=== PATIENT | female | born 1960 | race Caucasian/White ===

== ENCOUNTER 2016-09-29 09:33 | Outpatient (RCR) | payer OTHER, MEDICAID | END 2016-09-30 | LOC: M PT 09:33 | PROVIDERS: ATTEND Family Medicine | DX: Z51.89 Encounter for other specified aftercare (principal) ==

== ENCOUNTER → 2016-10-06 | Outpatient (CLI) | payer OTHER, MEDICAID ==
--- NOTE | 2016-10-07 03:07 | REP ---
Clinical: Psoriasis/stelara drug monitoring . Comparison: 12/08/2014 . Technique: PA and lateral. Findings: The mediastinum and cardiac silhouette are normal. The lung rios are clear and without acute consolidation, effusion, or pneumothorax. The skeletal structures are intact and normal. Impression: 1. No acute cardiopulmonary process. Signed by Jeffrey Burgess MD 10/07/2016 02:58 A
[2016-10-07 11:29] LABS: ALBUMIN 4.2 GM/DL (3.2-5.2); ALBUMIN/GLOBULIN RATIO 1.35 (1.00-1.93); ALKALINE PHOSPHATASE 99 U/L (45-117); ALT/SGPT 29 U/L (12-78); ANION GAP 8 MEQ/L (8-16); AST/SGOT 16 U/L (15-37); BILIRUBIN,DIRECT 0.1 MG/DL (0.0-0.2); BILIRUBIN,TOTAL 0.4 MG/DL (0.2-1.0); BLOOD UREA NITROGEN 11 MG/DL (7-18); CALCIUM LEVEL 9.1 MG/DL (8.5-10.1); CARBON DIOXIDE LEVEL 33 MEQ/L (21-32); CHLORIDE LEVEL 103 MEQ/L (98-107); CREATININE FOR GFR 0.76 MG/DL (0.55-1.02); GLOMERULAR FILTRATION RATE > 60.0 (>51); GLUCOSE, FASTING 131 MG/DL (70-105); PHOSPHORUS LEVEL 3.6 MG/DL (2.5-4.9); POTASSIUM SERUM 3.6 MEQ/L (3.5-5.1); SODIUM LEVEL 144 MEQ/L (136-145); TOTAL PROTEIN 7.3 GM/DL (6.4-8.2)
[2016-10-07 11:34] LABS: BASO % 0.6 % (0.0-1.0); EOS # 0.1 K/mm3 (0.0-0.50); EOS % 2.5 % (0.0-3.0); LARGE UNSTAINED CELL # 0.1 K/mm3 (0.0-0.4); LARGE UNSTAINED CELL % 1.7 % (0.0-4.0); LYMPH # 1.2 K/mm3 (1.5-4.5); LYMPH % 27.3 % (24.0-44.0); MEAN CORPUSCULAR HEMOGLOBIN 28.5 pg (27.0-33.0); MEAN CORPUSCULAR HGB CONC 33.8 g/dl (32.0-36.5); MEAN CORPUSCULAR VOLUME 84.3 fl (80.0-96.0); MONO # 0.3 K/mm3 (0.0-0.8); MONO % 7.2 % (0.0-5.0); NEUTROPHILS # 2.6 K/mm3 (1.8-7.7); NEUTROPHILS % 60.8 % (36.0-66.0); PLATELET COUNT, AUTOMATED 250 k/mm3 (150-450); RED CELL DISTRIBUTION WIDTH 12.5 % (11.5-14.5); WHITE BLOOD COUNT 4.3 K/mm3 (4.0-10.0)
== END ==
LOC: M LRY 16:43
PROVIDERS: ATTEND Nurse Practitioner Family
DX: L40.9 Psoriasis, unspecified (principal)

== ENCOUNTER 2016-10-22 15:03 | Outpatient (RCR) | payer OTHER, MEDICAID | END 2016-10-28 | LOC: M PT 15:03 | PROVIDERS: ATTEND Family Medicine | DX: Z51.89 Encounter for other specified aftercare (principal) ==

== ENCOUNTER 2016-11-25 08:59 | Outpatient (RCR) | payer OTHER, MEDICAID | END 2016-11-28 | LOC: M PT 08:59 | PROVIDERS: ATTEND Orthopaedic Surgery | DX: Z51.89 Encounter for other specified aftercare (principal); M54.2 Cervicalgia; M75.02 Adhesive capsulitis of left shoulder ==

== ENCOUNTER → 2016-12-03 | Outpatient (REF) | payer OTHER, MEDICAID ==
[2016-12-04 11:46] LABS: MEAN CORPUSCULAR HEMOGLOBIN 28.3 pg (27.0-33.0); MEAN CORPUSCULAR HGB CONC 33.5 g/dl (32.0-36.5); MEAN CORPUSCULAR VOLUME 84.5 fl (80.0-96.0); RED CELL DISTRIBUTION WIDTH 12.6 % (11.5-14.5); WHITE BLOOD COUNT 4.6 K/mm3 (4.0-10.0)
[2016-12-04 12:21] LABS: ALBUMIN/GLOBULIN RATIO 1.21 (1.00-1.93); ALKALINE PHOSPHATASE 95 U/L (45-117); ALT/SGPT 23 U/L (12-78); ANION GAP 8 MEQ/L (8-16); AST/SGOT 12 U/L (15-37); BILIRUBIN,TOTAL 0.5 MG/DL (0.2-1.0); BLOOD UREA NITROGEN 19 MG/DL (7-18); CALCIUM LEVEL 9.2 MG/DL (8.5-10.1); CARBON DIOXIDE LEVEL 31 MEQ/L (21-32); CHLORIDE LEVEL 102 MEQ/L (98-107); CREATININE FOR GFR 0.74 MG/DL (0.55-1.02); GLOMERULAR FILTRATION RATE > 60.0 (>51); GLUCOSE, FASTING 129 MG/DL (70-105); POTASSIUM SERUM 4.1 MEQ/L (3.5-5.1); SODIUM LEVEL 141 MEQ/L (136-145); TOTAL PROTEIN 7.3 GM/DL (6.4-8.2)
== END ==
LOC: M SFHCLERA 16:19
PROVIDERS: ATTEND Family Medicine
DX: E13.9 Other specified diabetes mellitus without complications (principal)

== ENCOUNTER → 2017-01-13 | Outpatient (CLI) | payer OTHER, MEDICAID ==
--- NOTE | 2017-01-28 00:40 | ECWPNPC ---
PATIENT NAME: BROOKS GUPTA : 1960 GENDER: FEMALE VISIT DATE: 01/13/2017 DISCHARGE DATE: 01/13/17 1515 VISIT LOCKED DATE TIME: PHYSICIAN: ANA JUNG RESOURCE: ANA JUNG REASON FOR APPOINTMENT 1. NECK AND LEFT SHOULDER HISTORY OF PRESENT ILLNESS NEW PATIENT CONSULT: WHEN DID YOUR PAIN FIRST START? . BRIEFLY DESCRIBE HOW YOUR PAIN STARTED? . HOW DOES YOUR PAIN CHANGE WITH TIME? . DOES YOUR PAIN AWAKEN YOU FROM SLEEP? . HOW MANY HOURS OF SLEEP DO YOU NORMALLY GET? . ANY DIAGNOSTIC TESTING? . FACILITY WHERE TESTS WERE DONE? ____. PAIN TREATMENT TREATMENT YES CANCER HAVE YOU EVER HAD ANY TYPE OF CANCER?NO NO. PAIN SCREENING: PATIENT HAS A COMPLAINT OF ACUTE OR CHRONIC PAIN :YES FALL RISK SCREENING: SCREENING :NO FALLS IN THE PAST YEAR LINDSEY INVENTORY: QUESTIONNAIRE ASSESSEDYES SCORE VALUE CALCULATED YES SCORE: DENIES SUICIDAL OR HOMICIDAL IDEATION TODAY'S VISIT: NOTES: PT REFERRED BY DR CANDIDA HSU AT [facility] FOR NECK, LEFT SHOULDER AND ARM PAIN. INJURY OCCURRED WITH AN INJERY TO LEFT ROTATOR CUFF AND MUSCLE PULL FROM HER DOG. INJURY OCCURED 06/15. WAS IN PT UNTIL RAN OUT OF VISITS AND IS NOT ABLE TO DO ALL EXERCISES AND SHOULDER IS NOW FROZEN. IS HAVING SPASMS IN LEFT ARM, AND IS HAVING CIRCULATION PROBLEMS IN LEFT HAND X [address] HSU DID 2 INJECTIONS TO L SHOULDER IN LAST 2 MONTHS. CAN NOT SLEEP ON LEFT SHOULDER DUE TO PAIN. SLEEP IS DISRUPTED. BOTH ARMS AREWEAK L>R. STATES EMG SHOWED CARPAL TUNNEL. . CURRENT MEDICATIONS TAKING PATADAY 0.2 % SOLUTION 1 DROP INTO AFFECTED EYE OPHTHALMIC ONCE A DAY NEEDED TAKING RESTASIS 0.05 % EMULSION 1 INTO AFFECTED EYE OPHTHALMIC DAILY NEEDED TAKING STELARA 45 MG/0.5ML SOLUTION DIRECTED SUBCUTANEOUS EVERY THREE MONTHS, NOTES: RHEUMATOLOGY TAKING CLONAZEPAM 0.5 MG TABLET 1 TABLET ORALLY DAILY TAKING Table8 KIT GLUCOMETER METER 1 METER DIRECTED TO CHECK BLOOD SUGAR (ICD9 250.00) TAKING MAY USE FETZIMA ER 80 MG CAPSULE 1 CAPSULE ORALLY ONCE DAILY (PSYCH), NOTES: PSYCHIATRY TAKING AMBIEN 10 MG TABLET 1 TABLET AT BEDTIME NEEDED ORALLY ONCE A DAY, NOTES: PSYCHIATRY TAKING EPIPEN 0.3 MG/0.3ML DEVICE INJECT INTRAMUSCULARLY IF HAVING ANAPHYLATIC SYMPTOMS AND GO TO ED. TAKING ONE TOUCH ULTRA TEST STRIPS TEST STRIP STRIPS 1 STRIP TO USE W/ GLUCOMETER TO CHECK SUGAR ONCE DAILY (ICD9 250.00) TAKING PREMARIN 0.625 MG TABLET 1 TAB ORALLY DAILY TAKING VITAMIN D 2000 UNIT TABLET 1 CAPSULE ORALLY ONCE A DAY TAKING SPIRIVA HANDIHALER 18 MCG CAPSULE 1 CAPSULE INHALATION ONCE A DAY TAKING ONE TOUCH DELICA 33 GAUGE LANCETS 1 LANCET SUBCUTANEOUSLY TO CHECK SUGAR ONCE DAILY (ICD9 250.00) TAKING VENTOLIN HFA 108 (90 BASE) MCG/ACT AEROSOL SOLUTION 2 PUFFS INHALATION EVERY 4-6 HOURS PRN WHEEZING/COUGH TAKING ADVAIR DISKUS 250-50 MCG/DOSE MISCELLANEOUS 1 PUFF INHALATION EVERY 12 HRS TAKING LYRICA 100 MG CAPSULE 1 TAB ORALLY THREE DAILY, NOTES: RHEUMATOLOGY TAKING METFORMIN HCL 500 MG TABLET 2 TABLETS IN THE AM ORALLY AND 2 TABS IN THE EVENING WITH MEALS TAKING ATORVASTATIN CALCIUM 80 MG TABLET 1 TABLET ORALLY ONCE A DAY FOR HIGH CHOLESTEROL TAKING METFORMIN HCL 1000 MG TABLET 1 TABLET WITH MEALS ORALLY TWICE A DAY TAKING NAPROXEN 500 MG TABLET 1 TABLET NEEDED ORALLY EVERY 12 HRS TAKING LEVOTHYROXINE SODIUM 88 MCG TABLET 1 TABLET EVERY MORNING ON AN EMPTY STOMACH ORALLY ONCE A DAY FOR LOW THYROID TAKING FLONASE 50 MCG/DOSE INHALER 1 SPRAY IN EACH NOSTRIL NASALLY BID TAKING PANTOPRAZOLE SODIUM 40 MG TABLET DELAYED RELEASE 1 TAB ORALLY DAILY TAKING PROPRANOLOL HCL 120 MG CAPSULE EXTENDED RELEASE 24 HOUR 1 CAPSULE ORALLY ONCE A DAY FOR BLOOD PRESSURE TAKING JANUVIA 100 MG TABLET 1 TABLET ORALLY ONCE A DAY TAKING GABAPENTIN 300 MG CAPSULE 1 CAPSULE ORALLY TWICE A DAY NOT-TAKING GLUCOPHAGE 1000 MG TABLET 1 TABLET WITH MEALS ORALLY TWICE A DAY WITH FOOD NOT-TAKING NAPROXEN 500 MG TABLET 1 TABLET NEEDED ORALLY EVERY 12 HRS NOT-TAKING CYCLOBENZAPRINE HCL 5 MG TABLET 1 TABLET ORALLY QHS NOT-TAKING FARXIGA 5 MG TABLET 1 TABLET ORALLY ONCE A DAY NOT-TAKING VITAMIN D 2000U 2000U TAKE ONE TABLET BY MOUTH EVERY DAY NOT-TAKING NAPROXEN 500 MG TABLET 1 TABLET NEEDED ORALLY EVERY 12 HRS NOT-TAKING CYCLOBENZAPRINE HCL 5 MG TABLET 1 TABLET ORALLY QHS PRN NOT-TAKING CARPAL TUNNEL WRIST STABILIZER BRACE MISCELLANEOUS 1 BRACE ON EACH WRIST TOPICALLY DAILY PRN WRIST PAIN (ICD9 354.0) MEDICATION LIST REVIEWED AND RECONCILED WITH THE PATIENT PAST MEDICAL HISTORY FIBROMYALGIA RHEUMATOID ARTHRITIS ASTHMA DIVERTICULOSIS CARPAL TUNNEL PANIC ATTACKS/ANXIETY/DEPRESSION HYPERTENSION COPD NIDDM PSORIASIS HIGH CHOLESTEROL HYPOTHYROIDISM GERD H/O RAPID, IRREGULAR HEARTBEAT (ANXIETY) BURSITIS LEFT HIP RHEUMATIC FEVER A CHILD TENDONITIS LEFT SHOULDER IBS DIVERTICULOSIS CONCUSSION AGE 6 OR 7 ENDOMETRIOSIS ADD ALLERGIES LATEX (FOR ALLERGY USE ONLY): HIVES: ALLERGY BANANA CONCENTRATE: HIVES: ALLERGY ORANGE CONCENTRATE: HIVES: ALLERGY MOLD: HIVES: ALLERGY DUST: DYSPNEA: ALLERGY BEE POLLEN: ANAPHYLAXIS: ALLERGY SPIDERS: EDEMA, HIVES, ANAPHYLAXIS: ALLERGY FRAGRANCES: SOB, RASH: ALLERGY SURGICAL HISTORY MULTIPLE PATIENT CARE ASSISTANT SURGERIES ([facility], AMBULATORY) HYSTERECTOMY AND BILATERAL SALPINGO-OOPHORECTOMY 2002 COLONOSCOPY 07/14/2012 FAMILY HISTORY FATHER: 34 YRS, [place] MOTHER: ALIVE 82 YRS, HEART DISEASE, [place], HTN, DM, HYPOTHRYOIDISM SIBLINGS: ALIVE, BROTHERS ([place], DM, KIDNEY DISEASE, HEMOPHILIA; COLO-RECTAL CANCER, BI-POLAR); SISTER (EMPHYSEMA) MATERNAL GRAND MOTHER: STOMACH CANCER; HTN; DM PATERNAL UNCLE: STROKE PATERNAL AUNT: STROKE 4 BROTHER(S) , 1 SISTER(S) . 1 SON(S) . SON: HTN; HIRSHPRUNG'S DISEASE. SOCIAL HISTORY GENERAL: TOBACCO USE ARE YOU A:NONSMOKER ALCOHOL SCREENING POINTS0 INTERPRETATIONNEGATIVE RECREATIONAL DRUG USE DRUG USE?NO CAFFEINE CAFFEINE USE?YES HOW OFTEN AND HOW MUCH? 2 LITER DIET PEPSI PER DAY BUDDHISM [id number] BAHAI LEARNING BARRIERS / SPECIAL NEEDS CHANGE FROM LAST VISIT?NO BARRIERS TO LEARNING?YES STATES HAS ADD HEARING IMPAIRED?NO VISION IMPAIRED?YES :CORRECTIVE LENSES COGNITIVELY IMPAIRED?NO READINESS TO LEARN?NO LEARNING PREFERENCES?NO LEARNING CAPABILITIES PRESENT?YES EMOTIONAL BARRIERS?NO SPECIAL DEVICES?NO FINISH ROLLS OPERATOR NEEDED?NO PAIN CLINIC PFS, CLERGY, PUBLIC HEALTH REFERRALS CLERGY REFERRAL NEEDED?NO WAS THE PROVIDER NOTIFIED OF ANY PERTINENT INFO?NO PFS REFERRAL NEEDED?NO PUBLIC HEALTH REFERRAL NEEDED?NO PATIENT: ____. ADVANCED DIRECTIVES HEALTH CARE PROXY?NO WOULD YOU LIKE MORE INFORMATION?YES INFORMATION GIVEN 01/13/17 DO YOU HAVE A DNR?NO WOULD YOU LIKE MORE INFORMATION?NO LIVING WILL?NO WOULD YOU LIKE MORE INFORMATION?NO POWER OF COURT REPORTER?NO WOULD YOU LIKE MORE INFORMATION?NO HOSPITALIZATION/MAJOR DIAGNOSTIC PROCEDURE CHILDBIRTH (HAD BLOOD TRASFUSION) 1982 HYSTERECTOMY AND BILATERAL SALPINGO-OOPHORECTOMY 2002 REVIEW OF SYSTEMS CONSTITUTIONAL: ANY CHANGE IN YOUR MEDICAL CONDITION? NO . CHILLS NO . FEVER NO . INFECTION: DO YOU HAVE NEW INFECTIONS? NO . DO YOU HAVE HISTORY OF MRSA? NO . MUSCULOSKELETAL: ANY NEW PATTERNS OF PAIN OR NUMBNESS? NO . SYTEMIC LUPUS NO . GASTROENTEROLOGY: ANY NEW CHANGE IN BOWEL CONTROL? NO . BARRETTS ESOPHAGUS NO . CIRRHOSIS NO . HEPATITIS NO . LIVER FAILURE NO . ACID REFLUX YES . UNEXPLAINED WEIGHT LOSS NO . GENITOURINARY: ANY NEW CHANGE IN BLADDER CONTROL? NO . IS THERE A CHANCE YOU COULD BE ? NO . HEMATOLOGY/LYMPH: DO YOU TAKE ANY BLOOD THINNERS? (FOR EXAMPLE- COUMADIN, PLAVIX, AGGRENOX, PLATEL, PRADAXA, OR XARELTO) NO . WHEN WAS YOUR LAST DOSE? DATE: TIME: . LOW PLATELET COUNT NO . SICKLE CELL DISEASE NO . VON WILLIEBRANDS NO . FACTOR V LEIDEN NO . THALLASEMIA NO . ANEMIA YES, IN PAST BUT NOT NOW . EASY BRUISING NEW ONSET, STARTED ABOUT 1 MONTH AGO, ARMS AND LEGS, BACK, NOT ON ANTICOAGULANTS, SPONTANEOUS, YES . NEUROLOGY: HAVE YOU FALLEN IN THE PAST 6 MONTHS? YES . ANY NEW EXTREMITY NUMBNESS OR WEAKNESS? NO . HEAD INJURY NO . DEMENTIA NO . CEREBRAL PALSY NO . MULTIPLE SCLEROSIS NO . DIZZINESS INTERMITTENT, LASTING FEW SECONDS, LIGHTHEADED SENSATION, WITH MOVEMENT OF HEAD, WHILE GETTING UP FROM SITTING POSITION, SENSATION OF IMBALANCE . HEADACHE ASSOCIATED WITH NAUSEA, ASSOCIATED WITH PHOTOPHOBIA, BILATERAL, BITEMPORAL , FRONTAL, INTERMITTENT, MILD, OCCIPITAL, TEMPORAL, THROBBING, ADMITS . STROKES NO . VERTIGO YES. A LONG TIME AGO, SENSATION OF IMBALANCE, WHILE GETTING UP FROM A SITTING POSITION . CARDIOLOGY: DO YOU HAVE A PACEMAKER OR DEFIBRILLATOR? NO . ANGINA NO . HEART ATTACK NO . HEART SURGERY NO . CONGESTIVE HEART FAILURE/FLUID OVERLOAD NO . CHEST PAIN NO . HIGH BLOOD PRESSURE ON MEDICATION(S) . IRREGULAR HEART BEAT AT REST, FEELS HEART RACING, OCCASIONALLY, POUNDING IN CHEST, SKIPPED HEART BEAT, WITH EXERTION . RESPIRATORY: HAVE YOU BEEN SICK IN THE PAST WEEK? NO . FEVER NO . FLU LIKE SYMPTOMS? NO . CPAP NO . BYPAP NO . ASTHMA YES . EMPHYSEMA YES . CHRONIC LUNG DISEASES YES . SHORTNESS OF BREATH ON EXERTION YES . DO YOU USE ANY TYPE OF TOBACCO (SMOKE, SMOKELESS, CHEW)? NO . COUGH NO . SNORING NO . INTEGUMENTARY: DO YOU HAVE ANY RASHES OR OPEN SORES? YES, PSORIASIS . ALLERGIC/IMMUNO: ARE YOU ALLERGIC TO SHELLFISH OR IV DYE? NO . ANY NEW ALLERGIES? NO . PSYCHIATRIC: DO YOU HAVE THOUGHTS OF HURTING YOURSELF OR SOMEONE ELSE? NO . ARE YOU ABUSED, NEGLECTED, OR IN AN UNSAFE ENVIRONMENT? NO . ENDOCRINOLOGY: ARE YOU DIABETIC? YES . THYROID DISORDER HYPOTHYROID ON REPLACEMENT . OTHER: DO YOU NEED ANY PRESCRIPTIONS? NO . IF YES, PLEASE LIST: ____ . ANY NEW PROBLEMS WITH YOUR MEDICATIONS? NO . WHEN DID YOU LAST EAT? ____ . WHEN DID YOU LAST DRINK? ____ . WHAT DID YOU LAST DRINK? ____ . NAME OF PERSON DRIVING YOU HOME? ____ . DO YOU HAVE ANY OTHER QUESTIONS OR CONCERNS NO . PSYCHOLOGY: ARE YOU RECEIVING COUNSELING? COMMUNITY CLINIC - TREATED FOR PANIC ATTACK AND ANXIETY AND DEPRESION . REVIEWED BY: PROVIDER: ANA AMAYA . VITAL SIGNS WT 169.6 LBS, HT 66 IN, BMI 27.37 INDEX, BP 120/83 MM HG, HR 91 /MIN, RR 16 /MIN, TEMP 96.0 F, OXYGEN SAT % 100%, NA INITIALS SC 13:26, REVIEWED BY: MARIO. EXAMINATION GENERAL EXAMINATION: PSYCHALERT , ORIENTED X 3 , APPROPRIATE MOOD AND AFFECT . HEENT:NORMOCEPHALIC, NO LYMPHADENOPATHY, NO THYROMEGLY. LUNGS:CLEAR TO AUSCULTATION BILATERALLY, NO WHEEZES, RALES OR RHONCHI. HEART:NORMAL S1S2, NO MURMURS, CLICK OR RUBS, HEART RATE REGULAR. MUSCULOSKELETAL:MUSCLE STRENGTH TESTING 5/5 BILATERAL UPPER EXTREMITES. INCREASED MUSCLE TONE IN UPPER AND LOWER EXTREMITIES. . GOOD SHOULDER SHRUG. POINT TENDERNESS OVER CERVICAL SPINOUS PROCESSES. TRIGGER POINTS AND TIGHT FIBROUS BANDS IDENTIFIED OVER LEFT SCAPULA AND SUPRASPINATUS MUSCLE. NEUROLOGIC EXAM:CN'S II-XII GROSSLY INTACT. DTR'S 2+LUE, 1+ RUE. DECREASED SENSATION DISTALLY AND PROXIMALLY OVER LEFT UPPER EXTREMITY. . DIAGNOSTIC TESTS REVIEWEDMRI CERVICAL SPINE DATED 10/21/16 REVIEWED. MOTION ARTIFACT. NO DEFINITE DISC BULGE OR HERNIATION. ASSESSMENTS OTHER CERVICAL DISC DISPLACEMENT AT C6-C7 LEVEL - M50.223 (PRIMARY) CERVICAL RADICULOPATHY - M54.12 MYALGIA - M79.1 TREATMENT OTHER CERVICAL DISC DISPLACEMENT AT C6-C7 LEVEL CERVICAL EPIDURAL RIGHT NOTES: HOLD DIABETES MEDS AM OF INJECTION. IS ON STELERA FOR RA/PSORIASIS. PER DR MCKEON'S RECOMMENDATIO WILL GET OK FROM PT'S CEMENT MIXER - Kendra AHN/Maykel HERNANDEZ ANIMAL SURGEON-C TO PUT DOSE ON HOLD FOR 2 WEEKS AND THEN RESTART AFTER INJECTION COMPLETED. CERVICAL EPIDURAL INJECTION: YOUR EXPERIENCE MATERIAL WAS PRINTED,CERVICAL EPIDURAL INJECTION MATERIAL WAS PRINTED. PROCEDURE CODES FA211 ESTABILISHED PATIENT [facility] CHARGE DISPOSITION & COMMUNICATION FOLLOW UP AFTER INJECTION (REASON: CHECK AUTH FOR CESB) ELECTRONICALLY SIGNED BY XIANG DUMONT ON 01/27/2017 AT 07:37 PM EDT DISCLAIMER : THIS IS A VISIT SUMMARY EXTRACTED FROM THE [employer] CHART. IT IS NOT A COPY OF THE [employer] PROGRESS NOTE. MIMI
== END ==
LOC: M PAIN 13:20
PROVIDERS: ATTEND Nurse Practitioner Family
DX: G89.29 Other chronic pain (principal); M50.223 Other cervical disc displacement at C6-C7 level; M54.12 Radiculopathy, cervical region; M79.1 Myalgia; E11.9 Type 2 diabetes mellitus without complications; G47.00 Insomnia, unspecified; M06.9 Rheumatoid arthritis, unspecified; J44.9 Chronic obstructive pulmonary disease, unspecified; F41.0 Panic disorder [episodic paroxysmal anxiety]; I10 Essential (primary) hypertension; L40.9 Psoriasis, unspecified; E78.00 Pure hypercholesterolemia, unspecified; E03.9 Hypothyroidism, unspecified; K21.9 Gastro-esophageal reflux disease without esophagitis; F90.9 Attention-deficit hyperactivity disorder, unspecified type; Z91.040 Latex allergy status; Z91.018 Allergy to other foods; J30.89 Other allergic rhinitis; R00.9 Unspecified abnormalities of heart beat; Z91.030 Bee allergy status; Z91.038 Other insect allergy status; Z79.84 Long term (current) use of oral hypoglycemic drugs; Z79.899 Other long term (current) drug therapy

== ENCOUNTER → 2017-03-11 | Outpatient (CLI) | payer OTHER, MEDICAID ==
[~2017-03-11] VITALS: Ht 170.2 cm; Wt 78.5 kg
[~2017-03-11] MED LIST: ADV500INH INH; ALBU17IN INH; ATOR80TA59 PO; CLON0.5T PO; EPIP0.3I2 IJ; ESTR625TA PO; FETZ1CAP2 PO; LEVO88TA3 PO; LIDOCAINE 2% INJ 100 MG/5 ML SDV (FOR ANES.) As Ordered ONE; METF10004 PO; NS 1,000 ML IV ONE; PANT40TA2 PO; PATA0.2S OP; PROP120C PO; PROPOFOL 200 MG/20 ML VIAL As Ordered ONE; REST0.05 OP; SPIR1CAP INH; STEL45IN2 SC; ZOLP5TAB PO; steroid cream TOP
--- NOTE | 2017-03-11 10:40 | ROOR ---
Patient Name: Selena Hills Procedure Date: 03/11/2017 10:20 AM Date of : 1960 Age: 56 [facility] Gender: Female Note Status: Finalized Procedure: Total Colonoscopy to Cecum Indications: Screening in patient at increased risk: Colorectal cancer in brother before age 60, Last colonoscopy: 2011, Incidental - Change in bowel habits Providers: Bigg Richard MD Referring MD: You Mcbride MD Requesting Provider: Medicines: Monitored Anesthesia Care Complications: No immediate complications. Procedure: Pre-Anesthesia Assessment: - The heart rate, respiratory rate, oxygen saturations, blood pressure, adequacy of pulmonary ventilation, and response to care were monitored throughout the procedure. The Colonoscope was introduced through the anus and advanced to the cecum, identified by appendiceal orifice and ileocecal valve. The colonoscopy was performed without difficulty. The patient tolerated the procedure well. The quality of the bowel preparation was good. Findings: The perianal and digital rectal examinations were normal. Non-bleeding internal hemorrhoids were found during retroflexion. The hemorrhoids were small and Grade I (internal hemorrhoids that do not prolapse). Scattered small-mouthed diverticula were found in the recto-sigmoid colon, sigmoid colon and descending colon. The exam was otherwise without abnormality on direct and retroflexion views. Impression: - Non-bleeding internal hemorrhoids. - Diverticulosis in the recto-sigmoid colon, in the sigmoid colon and in the descending colon. - The examination was otherwise normal on direct and retroflexion views. - No specimens collected. - The exam was otherwise normal to the cecum. Recommendation: - Patient has a contact number available for emergencies. The signs and symptoms of potential delayed complications were discussed with the patient. Return to normal activities tomorrow. Written discharge instructions were provided to the patient. - High fiber diet. - Discharge patient to home. - Continue present medications. - Repeat colonoscopy in 5 years for screening purposes. - Return to referring physician. - The findings and recommendations were discussed with the patient's family. Bigg Richard MD Bigg Richard MD 03/11/2017 10:40:08 AM This report has been signed electronically. Number of Addenda: 0 Note Initiated On: 03/11/2017 10:20 AM Estimated Blood Loss: Estimated blood loss: none.
[2017-03-11 11:09] VITALS: BP 110/75
== END | disposition home or self-care (01) ==
LOC: M OPP 09:20
PROVIDERS: ATTEND Internal Medicine Gastroenterology
DX: Z12.11 Encounter for screening for malignant neoplasm of colon (principal); K64.0 First degree hemorrhoids; K57.30 Diverticulosis of large intestine without perforation or abscess without bleeding; Z80.0 Family history of malignant neoplasm of digestive organs; R00.8 Other abnormalities of heart beat; R07.89 Other chest pain; I10 Essential (primary) hypertension; E78.5 Hyperlipidemia, unspecified; R10.9 Unspecified abdominal pain; E11.9 Type 2 diabetes mellitus without complications; E03.9 Hypothyroidism, unspecified; K57.92 Diverticulitis of intestine, part unspecified, without perforation or abscess without bleeding; K44.9 Diaphragmatic hernia without obstruction or gangrene; K58.9 Irritable bowel syndrome, unspecified; R12 Heartburn; K21.9 Gastro-esophageal reflux disease without esophagitis; M19.90 Unspecified osteoarthritis, unspecified site; M54.9 Dorsalgia, unspecified; M79.7 Fibromyalgia; F41.9 Anxiety disorder, unspecified; F32.9 Major depressive disorder, single episode, unspecified; G43.909 Migraine, unspecified, not intractable, without status migrainosus; M32.9 Systemic lupus erythematosus, unspecified; Z78.0 Asymptomatic menopausal state; J45.909 Unspecified asthma, uncomplicated; J44.9 Chronic obstructive pulmonary disease, unspecified; G47.8 Other sleep disorders; M65.812 Other synovitis and tenosynovitis, left shoulder; Z86.79 Personal history of other diseases of the circulatory system; Z88.8 Allergy status to other drugs, medicaments and biological substances; Z88.5 Allergy status to narcotic agent; Z88.2 Allergy status to sulfonamides; Z91.048 Other nonmedicinal substance allergy status; Z91.040 Latex allergy status; Z91.011 Allergy to milk products; Z91.018 Allergy to other foods; Z79.84 Long term (current) use of oral hypoglycemic drugs; Z79.899 Other long term (current) drug therapy

== ENCOUNTER → 2017-06-15 | Outpatient (REF) | payer OTHER, MEDICAID ==
[~2017-06-15] MED LIST changes: -LIDOCAINE 2% INJ 100 MG/5 ML SDV (FOR ANES.) As Ordered ONE; -NS 1,000 ML IV ONE; -PROPOFOL 200 MG/20 ML VIAL As Ordered ONE
[2017-06-15 21:33] LABS: FREE T4 0.96 NG/DL (0.76-1.46)
== END ==
LOC: M SFHCLERA 16:12
PROVIDERS: ATTEND Family Medicine
DX: E11.9 Type 2 diabetes mellitus without complications (principal)

== ENCOUNTER → 2017-08-12 | Outpatient (CLI) | payer OTHER, MEDICAID ==
--- NOTE | 2017-08-12 15:52 | REPMRS ---
Patient History The patient states she had a clinical breast exam in 2016. Family history of colorectal cancer in brother at age 50 or over. Digital Mammo Screening Bilat: August 12, 2017 - Exam #: [id number] Bilateral CC and MLO view(s) were taken. Technologist: Liz James, Technologist Prior study comparison: May 28, 2016, bilateral digital mammo screening bilat performed at [facility]. April 04, 2015, bilateral digital mammo screening bilat performed at [facility]. FINDINGS: The breast tissue is heterogeneously dense. This may lower the sensitivity of mammography. There has been no change in the appearance of the mammogram from the prior studies. There is a moderate amount of residual fibroglandular tissue which is fairly symmetric. There is no interval development of dominant mass, areas of architectural distortion, or clustered microcalcification typical of malignancy. ASSESSMENT: BI-RADS/ACR category 1 mammogram. Negative. Recommendation Routine screening mammogram in 1 year (for women over age 40). This mammogram was interpreted with the aid of an FDA-approved computer-aided dectection system. Electronically Signed By: Zacarias Trujillo MD 08/12/17 [id number]
== END ==
LOC: M RAD 14:59
PROVIDERS: ATTEND Family Medicine
DX: Z12.31 Encounter for screening mammogram for malignant neoplasm of breast (principal)

== ENCOUNTER → 2017-09-03 | Outpatient (REF) | payer OTHER, MEDICAID ==
[2017-09-03 13:49] LABS: ALBUMIN 4.6 GM/DL (3.2-5.2); ALBUMIN/GLOBULIN RATIO 1.31 (1.00-1.93); ALKALINE PHOSPHATASE 110 U/L (45-117); ALT/SGPT 28 U/L (12-78); ANION GAP 8 MEQ/L (8-16); AST/SGOT 18 U/L (7-37); BILIRUBIN,TOTAL 0.6 MG/DL (0.2-1.0); BLOOD UREA NITROGEN 16 MG/DL (7-18); CALCIUM LEVEL 9.3 MG/DL (8.5-10.1); CARBON DIOXIDE LEVEL 29 MEQ/L (21-32); CHLORIDE LEVEL 101 MEQ/L (98-107); CREATININE FOR GFR 0.87 MG/DL (0.55-1.02); FREE T4 1.08 NG/DL (0.76-1.46); GLOMERULAR FILTRATION RATE > 60.0 (>51); GLUCOSE, FASTING 157 MG/DL (70-105); POTASSIUM SERUM 4.4 MEQ/L (3.5-5.1); SODIUM LEVEL 138 MEQ/L (136-145); TOTAL PROTEIN 8.1 GM/DL (6.4-8.2)
[2017-09-03 14:05] LABS: ESTIMATED AVERAGE GLUCOSE 183 MG/DL (60-110)
== END ==
LOC: M SFHCPLAZ 11:14
DX: J45.909 Unspecified asthma, uncomplicated (principal); E03.9 Hypothyroidism, unspecified; E11.9 Type 2 diabetes mellitus without complications

== ENCOUNTER → 2017-09-11 | Outpatient (REF) | payer OTHER, MEDICAID | LOC: M SFHCPLAZ 17:15 | DX: J02.9 Acute pharyngitis, unspecified (principal) ==

== ENCOUNTER → 2017-10-23 | Outpatient (CLI) | payer OTHER, MEDICAID ==
[2017-10-23 11:05] LABS: EOS # 0.1 10^3/uL (0.0-0.50); EOS % 2.8 % (0.0-3.0); HEMATOCRIT 38.7 % (36.0-47.0); HEMOGLOBIN 13.1 g/dl (12.0-16.0); IMMATURE GRANULOCYTE % 0.8 % (0-3.0); LYMPH # 1.3 10^3/uL (1.5-4.5); LYMPH % 32.7 % (24.0-44.0); MEAN CORPUSCULAR HEMOGLOBIN 27.6 pg (27.0-33.0); MEAN CORPUSCULAR HGB CONC 33.9 g/dl (32.0-36.5); MEAN CORPUSCULAR VOLUME 81.5 fl (80.0-96.0); MONO # 0.6 10^3/uL (0.0-0.8); MONO % 16.1 % (0.0-5.0); NEUTROPHILS # 1.9 10^3/uL (1.8-7.7); NEUTROPHILS % 46.6 % (36.0-66.0); PLATELET COUNT, AUTOMATED 318 10^3/uL (150-450); RED BLOOD COUNT 4.75 10^6/uL (4.00-5.40); RED CELL DISTRIBUTION WIDTH 12.9 % (11.5-14.5)
[2017-10-23 11:40] LABS: ALBUMIN/GLOBULIN RATIO 1.11 (1.00-1.93); ALKALINE PHOSPHATASE 115 U/L (45-117); ALT/SGPT 35 U/L (12-78); ANION GAP 7 MEQ/L (8-16); AST/SGOT 18 U/L (7-37); BILIRUBIN,DIRECT 0.1 MG/DL (0.0-0.2); BILIRUBIN,TOTAL 0.5 MG/DL (0.2-1.0); BLOOD UREA NITROGEN 11 MG/DL (7-18); CALCIUM LEVEL 9.2 MG/DL (8.5-10.1); CARBON DIOXIDE LEVEL 30 MEQ/L (21-32); CHLORIDE LEVEL 102 MEQ/L (98-107); GLOMERULAR FILTRATION RATE > 60.0 (>51); GLUCOSE, FASTING 215 MG/DL (70-100); PHOSPHORUS LEVEL 3.2 MG/DL (2.5-4.9); POTASSIUM SERUM 4.4 MEQ/L (3.5-5.1); SODIUM LEVEL 139 MEQ/L (136-145); TOTAL PROTEIN 7.6 GM/DL (6.4-8.2)
[2017-10-25 14:18] LABS: QUANTIFERON GOLD TB Negative (Negative); TB Test (QFT) Antigen 0.09 IU/mL (.); TB Test (QFT) Antigen Minus Ni <0.01 IU/mL (.); TB Test (QFT) Mitogen 6.33 IU/mL (.)
== END ==
LOC: M LAB 10:29
DX: Z51.81 Encounter for therapeutic drug level monitoring (principal); Z79.899 Other long term (current) drug therapy; L40.0 Psoriasis vulgaris
CPT/HCPCS: 71046

== ENCOUNTER → 2017-11-27 | Outpatient (REF) | payer OTHER, MEDICAID ==
[2017-11-27 13:47] LABS: ESTIMATED AVERAGE GLUCOSE 192 MG/DL (60-110); HEMOGLOBIN A1c 8.3 %
[2017-11-27 13:52] LABS: TOTAL 25(OH) VITAMIN D 28.8 NG/ML (30.0-100.0)
[2017-11-27 13:57] LABS: CHOLESTEROL LEVEL 190 MG/DL (<200); HDL CHOLESTEROL 46 MG/DL (>40); LDL CHOLESTEROL 126.6 MG/DL (<100); NON-HDL-C 144 MG/DL; TRIGLYCERIDES LEVEL 87 MG/DL (<150)
[2017-11-27 15:10] LABS: MALB URINE SIEMENS 9.4 MG/L; MAU/CREAT RATIO 8.9 MCG/MG (0.0-30.0)
== END ==
LOC: M SFHCPLAZ 11:47
DX: E55.9 Vitamin D deficiency, unspecified (principal); E11.9 Type 2 diabetes mellitus without complications; E78.5 Hyperlipidemia, unspecified

== ENCOUNTER 2018-03-10 17:12 | Emergency (ER) | payer OTHER, MEDICAID, SELFPAY | END 2018-03-10 19:45 | disposition home or self-care (01) | LOC: M ED 17:12 | DX: M54.9 Dorsalgia, unspecified (principal); W19.XXXA Unspecified fall, initial encounter; Y92.410 Unspecified street and highway as the place of occurrence of the external cause; Y93.9 Activity, unspecified; Y99.9 Unspecified external cause status; I10 Essential (primary) hypertension; M19.90 Unspecified osteoarthritis, unspecified site; K58.9 Irritable bowel syndrome, unspecified; K57.92 Diverticulitis of intestine, part unspecified, without perforation or abscess without bleeding; M79.7 Fibromyalgia; F41.9 Anxiety disorder, unspecified; F32.9 Major depressive disorder, single episode, unspecified; Z79.899 Other long term (current) drug therapy; Z88.6 Allergy status to analgesic agent; Z88.5 Allergy status to narcotic agent; Z88.2 Allergy status to sulfonamides; Z91.89 Other specified personal risk factors, not elsewhere classified; Z91.040 Latex allergy status; Z91.012 Allergy to eggs | CPT/HCPCS: 72040 ==

== ENCOUNTER → 2018-03-23 | Outpatient (CLI) | payer OTHER, MEDICAID ==
[2018-03-23 10:56] LABS: ESTIMATED AVERAGE GLUCOSE 177 MG/DL (60-110); HEMOGLOBIN A1c 7.8 %
[2018-03-23 10:58] LABS: ALBUMIN 3.9 GM/DL (3.2-5.2); ALBUMIN/GLOBULIN RATIO 1.18 (1.00-1.93); ALKALINE PHOSPHATASE 95 U/L (45-117); ALT/SGPT 19 U/L (12-78); ANION GAP 8 MEQ/L (8-16); AST/SGOT 12 U/L (7-37); BILIRUBIN,TOTAL 0.7 MG/DL (0.2-1.0); BLOOD UREA NITROGEN 12 MG/DL (7-18); CARBON DIOXIDE LEVEL 28 MEQ/L (21-32); CHLORIDE LEVEL 104 MEQ/L (98-107); CHOLESTEROL LEVEL 172 MG/DL (<200); CREATININE FOR GFR 0.82 MG/DL (0.55-1.30); GLOMERULAR FILTRATION RATE > 60.0 (>51); GLUCOSE, FASTING 147 MG/DL (70-100); HDL CHOLESTEROL 49 MG/DL (>40); LDL CHOLESTEROL 97.2 MG/DL (<100); NON-HDL-C 123 MG/DL; POTASSIUM SERUM 4.2 MEQ/L (3.5-5.1); SODIUM LEVEL 140 MEQ/L (136-145); TOTAL PROTEIN 7.2 GM/DL (6.4-8.2); TRIGLYCERIDES LEVEL 129 MG/DL (<150)
[2018-03-23 11:05] LABS: TOTAL 25(OH) VITAMIN D 43.7 NG/ML (30.0-100.0)
[2018-03-23 11:08] LABS: CREATININE, URINE 78.7 MG/DL; MALB URINE SIEMENS < 5.0 MG/L; MAU/CREAT RATIO 6.3 MCG/MG (0.0-30.0)
== END ==
LOC: M LAB 10:00
DX: E11.9 Type 2 diabetes mellitus without complications (principal); E78.5 Hyperlipidemia, unspecified
CPT/HCPCS: 80053

== ENCOUNTER → 2018-03-26 | Outpatient (REF) | payer OTHER, MEDICAID ==
[2018-03-26 16:10] LABS: FREE T4 1.24 NG/DL (0.76-1.46)
== END ==
LOC: M SFHCPLAZ 14:03
DX: E03.9 Hypothyroidism, unspecified (principal)

== ENCOUNTER → 2018-05-12 | Outpatient (CLI) | payer OTHER, MEDICAID | LOC: M CARPUL 08:47 | DX: J45.909 Unspecified asthma, uncomplicated (principal) | CPT/HCPCS: 94060 ==

== ENCOUNTER → 2018-06-24 | Outpatient (REF) | payer OTHER, MEDICAID ==
[2018-06-24 18:03] LABS: ESTIMATED AVERAGE GLUCOSE 160 MG/DL (60-110); HEMOGLOBIN A1c 7.2 %
[2018-06-24 18:04] LABS: ANION GAP 8 MEQ/L (8-16); AST/SGOT 14 U/L (7-37); BLOOD UREA NITROGEN 16 MG/DL (7-18); CALCIUM LEVEL 9.2 MG/DL (8.5-10.1); CARBON DIOXIDE LEVEL 28 MEQ/L (21-32); CHLORIDE LEVEL 105 MEQ/L (98-107); CREATININE FOR GFR 0.82 MG/DL (0.55-1.30); GLOMERULAR FILTRATION RATE > 60.0 (>51); GLUCOSE, FASTING 104 MG/DL (70-100); POTASSIUM SERUM 4.2 MEQ/L (3.5-5.1); SODIUM LEVEL 141 MEQ/L (136-145)
[2018-06-24 18:05] LABS: ALBUMIN 3.8 GM/DL (3.2-5.2); ALBUMIN/GLOBULIN RATIO 1.12 (1.00-1.93); ALKALINE PHOSPHATASE 92 U/L (45-117); ALT/SGPT 17 U/L (12-78); BILIRUBIN,TOTAL 0.4 MG/DL (0.2-1.0); FREE T4 0.84 NG/DL (0.76-1.46); TOTAL PROTEIN 7.2 GM/DL (6.4-8.2)
== END ==
LOC: M SFHCPLAZ 14:49
DX: E11.9 Type 2 diabetes mellitus without complications (principal); E03.9 Hypothyroidism, unspecified

== ENCOUNTER 2018-08-11 09:39 | Emergency (ER) | payer MEDICAID, OTHER ==
[2018-08-11 10:46] LABS: BASO # 0.1 10^3/uL (0.0-0.2); EOS # 0.1 10^3/uL (0.0-0.50); EOS % 2.5 % (0.0-3.0); HEMATOCRIT 40.9 % (36.0-47.0); HEMOGLOBIN 13.5 g/dl (12.0-15.5); IMMATURE GRANULOCYTE % 0.2 % (0-3.0); LYMPH # 1.7 10^3/uL (1.5-4.5); LYMPH % 32.9 % (24.0-44.0); MEAN CORPUSCULAR HEMOGLOBIN 27.5 pg (27.0-33.0); MEAN CORPUSCULAR VOLUME 83.3 fl (80.0-96.0); MONO # 0.5 10^3/uL (0.0-0.8); MONO % 8.9 % (0.0-5.0); NEUTROPHILS # 2.8 10^3/uL (1.8-7.7); NEUTROPHILS % 54.5 % (36.0-66.0); PLATELET COUNT, AUTOMATED 309 10^3/uL (150-450); RED BLOOD COUNT 4.91 10^6/uL (4.00-5.40); WHITE BLOOD COUNT 5.2 10^3/uL (4.0-10.0)
[2018-08-11 10:48] LABS: APPEARANCE, URINE MANUAL CLEAR (CLEAR); BILIRUBIN, URINE MANUAL NEGATIVE (NEGATIVE); COLOR, URINE MANUAL YELLOW (YELLOW); GLUCOSE, URINE (UA) MANUAL NEGATIVE (NEGATIVE); KETONE, URINE MANUAL NEGATIVE (NEGATIVE); NITRITE, URINE MANUAL NEGATIVE (NEGATIVE); PROTEIN, URINE MANUAL TRACE mg/dL (NEGATIVE); SPECIFIC GRAVITY,URINE MANUAL 1.025 (1.002-1.035); UROBILINOGEN, URINE MANUAL NORMAL (NORMAL)
[2018-08-11 10:49] LABS: BLOOD URINE MANUAL NEGATIVE (NEGATIVE); LEUKOCYTE ESTERASE, URINE MAN TRACE (NEGATIVE); MICROSCOPIC INDICATED? MAN YES (NO)
[2018-08-11 10:54] LABS: BEDSIDE GLUCOSE 171 MG/DL (70-105)
[2018-08-11 10:54] LABS: BACTERIA, URINE SMALL AMOUNT; HYALINE CAST, URINE NONE SEEN /lpf (0-1); MICROSCOPIC EXAM UNSPUN; MUCUS, URINE SMALL AMOUNT (NEGATIVE); RBC, URINE NONE SEEN /hpf (0-3); SQUAMOUS EPITHELIAL CELL URINE SMALL AMOUNT /hpf (SMALL AMT)
[2018-08-11 11:16] LABS: ALBUMIN 3.7 GM/DL (3.2-5.2); ALBUMIN/GLOBULIN RATIO 1.12 (1.00-1.93); ALKALINE PHOSPHATASE 99 U/L (45-117); ALT/SGPT 22 U/L (12-78); ANION GAP 7 MEQ/L (8-16); AST/SGOT 11 U/L (7-37); BILIRUBIN,DIRECT < 0.1 MG/DL (0.0-0.2); BILIRUBIN,TOTAL 0.5 MG/DL (0.2-1.0); BLOOD UREA NITROGEN 12 MG/DL (7-18); CALCIUM LEVEL 8.6 MG/DL (8.5-10.1); CARBON DIOXIDE LEVEL 27 MEQ/L (21-32); CHLORIDE LEVEL 106 MEQ/L (98-107); CREATININE FOR GFR 0.85 MG/DL (0.55-1.30); GLOMERULAR FILTRATION RATE > 60.0 (>51); GLUCOSE, FASTING 176 MG/DL (70-100); LIPASE 264 U/L (73-393); POTASSIUM SERUM 4.4 MEQ/L (3.5-5.1); SODIUM LEVEL 140 MEQ/L (136-145)
[2018-08-11] MEDS: ONDANSETRON 4 MG ORAL DISINTEGRATING TAB (Q0162 PER 1MG) PO (11:35)
== END 2018-08-11 12:14 | disposition home or self-care (01) ==
LOC: M ED 09:39
DX: R11.0 Nausea (principal); R19.7 Diarrhea, unspecified; I10 Essential (primary) hypertension; E11.9 Type 2 diabetes mellitus without complications; J45.909 Unspecified asthma, uncomplicated; E03.9 Hypothyroidism, unspecified; G43.909 Migraine, unspecified, not intractable, without status migrainosus; F33.9 Major depressive disorder, recurrent, unspecified; F41.9 Anxiety disorder, unspecified; E78.00 Pure hypercholesterolemia, unspecified; Z87.19 Personal history of other diseases of the digestive system; Z79.899 Other long term (current) drug therapy; Z79.890 Hormone replacement therapy; Z79.84 Long term (current) use of oral hypoglycemic drugs; Z88.2 Allergy status to sulfonamides; Z88.5 Allergy status to narcotic agent; Z88.8 Allergy status to other drugs, medicaments and biological substances; Z91.012 Allergy to eggs; Z91.018 Allergy to other foods; Z91.040 Latex allergy status; Z91.048 Other nonmedicinal substance allergy status
CPT/HCPCS: Q0162

== ENCOUNTER 2018-09-21 09:53 | Emergency (ER) | payer MEDICAID ==
[~2018-09-21] VITALS: Ht 170.2 cm; Wt 77.3 kg
[~2018-09-21 09:53] MED LIST changes: -CLON0.5T PO; +CLON0.5T8 PO; +DULO1CAP3; -PANT40TA2 PO; +PANT40TA3 PO; +PREG100CA PO; +ZOFR4TAB14 PO
[2018-09-21 10:57] LABS: BASO % 0.7 % (0.0-1.0); EOS # 0.2 10^3/uL (0.0-0.50); EOS % 3.6 % (0.0-3.0); LYMPH # 1.3 10^3/uL (1.5-4.5); LYMPH % 30.2 % (24.0-44.0); MEAN CORPUSCULAR HEMOGLOBIN 27.5 pg (27.0-33.0); MEAN CORPUSCULAR HGB CONC 33.3 g/dl (32.0-36.5); MEAN CORPUSCULAR VOLUME 82.4 fl (80.0-96.0); MONO # 0.6 10^3/uL (0.0-0.8); MONO % 12.4 % (0.0-5.0); NEUTROPHILS # 2.4 10^3/uL (1.8-7.7); NEUTROPHILS % 52.9 % (36.0-66.0); PLATELET COUNT, AUTOMATED 329 10^3/uL (150-450); WHITE BLOOD COUNT 4.4 10^3/uL (4.0-10.0)
[2018-09-21 11:05] LABS: BLOOD UREA NITROGEN 13 MG/DL (7-18); CALCIUM LEVEL 9.1 MG/DL (8.5-10.1); CARBON DIOXIDE LEVEL 26 MEQ/L (21-32); CHLORIDE LEVEL 103 MEQ/L (98-107); CPK CREATINE PHOSPHOKINASE 79 U/L (26-192); CREATININE FOR GFR 0.96 MG/DL (0.55-1.30); GLOMERULAR FILTRATION RATE > 60.0 (>51); GLUCOSE, FASTING 266 MG/DL (70-100); MB/CK RELATIVE INDEX 1.52 (< OR =4); POTASSIUM SERUM 4.1 MEQ/L (3.5-5.1); SODIUM LEVEL 138 MEQ/L (136-145); TROPONIN I < 0.02 NG/ML (< 0.10)
--- NOTE | 2018-09-21 11:10 | REP ---
Portable chest x-ray: Single view. History: Chest pain. Comparison study: October 23, 2017. Findings: EKG monitoring electrodes overlie the chest. Lungs well inflated and clear. The pleural angles are sharp. Cardiomediastinal silhouette and bony thorax are unremarkable. Pulmonary vasculature is not increased. Impression: No active disease. Electronically Signed by Adrien Cortes MD 09/21/2018 11:02 A
[2018-09-21 12:50] LABS: CK-MB VALUE MASS < 1.0 NG/ML (<3.6); CPK CREATINE PHOSPHOKINASE 96 U/L (26-192); MB/CK RELATIVE INDEX 1.04 (< OR =4); TROPONIN I < 0.02 NG/ML (< 0.10)
[2018-09-21] MEDS ORDERED: TESS100C PO (13:11)
[2018-09-21 13:15] VITALS: BP 105/62
--- NOTE | 2018-09-22 17:31 | ECGEPIP ---
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
--- NOTE | 2018-09-22 17:33 | ECGEPIP ---
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
== END 2018-09-21 13:15 | disposition home or self-care (01) ==
LOC: M ED 09:53
DX: J20.8 Acute bronchitis due to other specified organisms (principal); I10 Essential (primary) hypertension; E11.9 Type 2 diabetes mellitus without complications; J45.909 Unspecified asthma, uncomplicated; J44.9 Chronic obstructive pulmonary disease, unspecified; M06.9 Rheumatoid arthritis, unspecified; M79.7 Fibromyalgia; M19.90 Unspecified osteoarthritis, unspecified site; E07.9 Disorder of thyroid, unspecified; F32.9 Major depressive disorder, single episode, unspecified; Z88.8 Allergy status to other drugs, medicaments and biological substances; Z88.5 Allergy status to narcotic agent; Z91.040 Latex allergy status; Z88.2 Allergy status to sulfonamides; Z91.048 Other nonmedicinal substance allergy status; Z91.012 Allergy to eggs; Z91.018 Allergy to other foods; Z79.899 Other long term (current) drug therapy; Z79.51 Long term (current) use of inhaled steroids; Z79.84 Long term (current) use of oral hypoglycemic drugs; Z79.890 Hormone replacement therapy

== ENCOUNTER → 2018-10-04 | Outpatient (REF) | payer MEDICAID ==
[~2018-10-04] MED LIST changes: +TESS100C PO
[2018-10-04 14:04] LABS: ALBUMIN 4.1 GM/DL (3.2-5.2); ALT/SGPT 18 U/L (12-78); BILIRUBIN,TOTAL 0.5 MG/DL (0.2-1.0); BLOOD UREA NITROGEN 11 MG/DL (7-18); CALCIUM LEVEL 9.2 MG/DL (8.5-10.1); CARBON DIOXIDE LEVEL 29 MEQ/L (21-32); CHLORIDE LEVEL 102 MEQ/L (98-107); CREATININE FOR GFR 0.81 MG/DL (0.55-1.30); GLOMERULAR FILTRATION RATE > 60.0 (>51); GLUCOSE, FASTING 174 MG/DL (70-100); POTASSIUM SERUM 4.6 MEQ/L (3.5-5.1); SODIUM LEVEL 137 MEQ/L (136-145); TOTAL PROTEIN 7.3 GM/DL (6.4-8.2)
[2018-10-04 14:10] LABS: TOTAL 25(OH) VITAMIN D 22.1 NG/ML (30.0-100.0)
[2018-10-04 14:20] LABS: HEMOGLOBIN A1c 8.5 %
== END ==
LOC: M SFHCPLAZ 11:41
PROVIDERS: ATTEND Nurse Practitioner Family
DX: R30.0 Dysuria (principal); E11.9 Type 2 diabetes mellitus without complications; E03.9 Hypothyroidism, unspecified; E55.9 Vitamin D deficiency, unspecified

== ENCOUNTER → 2018-12-09 | Outpatient (REF) | payer MEDICAID | LOC: M SFHCPLAZ 15:47 | PROVIDERS: ATTEND Nurse Practitioner Family | DX: E55.9 Vitamin D deficiency, unspecified (principal); E03.9 Hypothyroidism, unspecified; E11.9 Type 2 diabetes mellitus without complications; I10 Essential (primary) hypertension ==

== ENCOUNTER 2018-12-25 10:55 | Emergency (ER) | payer MEDICAID, SELFPAY ==
[~2018-12-25] VITALS: Ht 170.2 cm; Wt 83.2 kg
[~2018-12-25 10:55] MED LIST changes: -DULO1CAP3; +DULO1CAP3 PO; -EPIP0.3I2 IJ; +EPIP0.3I2 IM; -REST0.05 OP; +REST0.05 OU
[2018-12-25] MEDS ORDERED: NS 1,000 ML IV ONE (11:15)
--- NOTE | 2018-12-25 11:50 | REP ---
Chest one-view HISTORY: Chest pain Comparison: 09/21/2018 The lungs are clear. The heart is normal in size. The pulmonary vasculature is normal in appearance. Impression: No acute disease. Electronically Signed by Mook Caraballo MD 12/25/2018 11:40 A
[2018-12-25 11:53] LABS: BASO % 0.5 % (0.0-1.0); EOS % 0.2 % (0.0-3.0); HEMATOCRIT 40.2 % (36.0-47.0); HEMOGLOBIN 13.8 g/dl (12.0-15.5); LYMPH # 0.6 10^3/uL (1.5-4.5); LYMPH % 11.6 % (24.0-44.0); MEAN CORPUSCULAR HGB CONC 34.3 g/dl (32.0-36.5); MEAN CORPUSCULAR VOLUME 78.7 fl (80.0-96.0); MONO % 17.5 % (0.0-5.0); NEUTROPHILS # 3.8 10^3/uL (1.8-7.7); NEUTROPHILS % 69.7 % (36.0-66.0); PLATELET COUNT, AUTOMATED 236 10^3/uL (150-450); RED BLOOD COUNT 5.11 10^6/uL (4.00-5.40); WHITE BLOOD COUNT 5.5 10^3/uL (4.0-10.0)
[2018-12-25] MEDS ORDERED: ADV250INH INH (11:58)
[2018-12-25] MEDS ORDERED: PREM.6256 PO (11:58)
[2018-12-25] MEDS ORDERED: CLOB0.0548 TOP (11:58)
[2018-12-25] MEDS ORDERED: PROAAER10 INH (11:58)
[2018-12-25] MEDS ORDERED: GLIP5TAB8 PO (11:58)
[2018-12-25] MEDS ORDERED: MONT10TA2 PO (11:58)
[2018-12-25] MEDS ORDERED: SYNT112T2 PO (11:58)
[2018-12-25] MEDS ORDERED: CLON0.5T8 PO (11:58)
[2018-12-25] MEDS ORDERED: ATOR1TAB21 PO (11:58)
[2018-12-25 12:30] LABS: ALBUMIN 3.4 GM/DL (3.2-5.2); ALT/SGPT 17 U/L (12-78); AMYLASE 24 U/L (25-115); BILIRUBIN,DIRECT 0.2 MG/DL (0.0-0.2); BILIRUBIN,TOTAL 0.9 MG/DL (0.2-1.0); BLOOD UREA NITROGEN 13 MG/DL (7-18); CALCIUM LEVEL 8.9 MG/DL (8.5-10.1); CARBON DIOXIDE LEVEL 25 MEQ/L (21-32); CHLORIDE LEVEL 95 MEQ/L (98-107); CK-MB VALUE MASS < 1.0 NG/ML (<3.6); CPK CREATINE PHOSPHOKINASE 46 U/L (26-192); CREATININE FOR GFR 0.94 MG/DL (0.55-1.30); FREE T4 1.72 NG/DL (0.76-1.46); GLOMERULAR FILTRATION RATE > 60.0 (>51); GLUCOSE, FASTING 322 MG/DL (70-100); LIPASE 138 U/L (73-393); MB/CK RELATIVE INDEX 2.17 (< OR =4); POTASSIUM SERUM 3.5 MEQ/L (3.5-5.1); SODIUM LEVEL 131 MEQ/L (136-145); TOTAL PROTEIN 7.8 GM/DL (6.4-8.2); TROPONIN I < 0.02 NG/ML (< 0.10)
[2018-12-25] MEDS ORDERED: NITROFURANTOIN (MACROBID) 100 MG CAP PO ONE (12:45)
[2018-12-25 13:36] VITALS: BP 138/65
[2018-12-25] MEDS ORDERED: NITR-67 PO (13:40)
--- NOTE | 2018-12-25 17:42 | ECGEPIP ---
Stationary ECG Study [facility] - ED Test Date: 2018-12-25 Pat Name: BROOKS GUPTA Department: Room: - Gender: F Core Winder: jenny : 1960 Requested By: Will Howard Order Number: [id number] Reading MD: Will Howard Measurements Intervals [place] Rate: 107 P: -1 AR: 128 QRS: 7 QRSD: 77 T: 1 QT: 332 QTc: 444 Interpretive Statements SINUS TACHYCARDIA MODERATE VOLTAGE CRITERIA FOR LVH, CONSIDER NORMAL VARIANT NONSPECIFIC ST & T-WAVE ABNORMALITY ABNORMAL RHYTHM ECG cw 09/21/[address] t wave changes Electronically Signed On 12-25-2018 17:41:57 EDT by Will Howard
== END 2018-12-25 14:10 | disposition home or self-care (01) ==
LOC: M ED 10:55
DX: N39.0 Urinary tract infection, site not specified (principal); R42 Dizziness and giddiness; E11.9 Type 2 diabetes mellitus without complications; I10 Essential (primary) hypertension; J44.9 Chronic obstructive pulmonary disease, unspecified; E07.9 Disorder of thyroid, unspecified; F33.9 Major depressive disorder, recurrent, unspecified; M19.90 Unspecified osteoarthritis, unspecified site; M79.7 Fibromyalgia; E78.9 Disorder of lipoprotein metabolism, unspecified; Z79.899 Other long term (current) drug therapy; Z79.890 Hormone replacement therapy; Z88.2 Allergy status to sulfonamides; Z88.5 Allergy status to narcotic agent; Z88.8 Allergy status to other drugs, medicaments and biological substances; Z91.012 Allergy to eggs; Z91.018 Allergy to other foods; Z91.040 Latex allergy status; Z91.048 Other nonmedicinal substance allergy status

== ENCOUNTER → 2019-01-19 | Outpatient (REF) | payer MEDICAID ==
[~2019-01-19] MED LIST changes: +ADV250INH INH; +ATOR1TAB21 PO; +CLOB0.0548 TOP; +GLIP5TAB8 PO; +MONT10TA2 PO; +NITR-67 PO; +PREM.6256 PO; +PROAAER10 INH; +SYNT112T2 PO
== END ==
LOC: M SFHCPLAZ 12:09
PROVIDERS: ATTEND Nurse Practitioner Family
DX: Z53.9 Procedure and treatment not carried out, unspecified reason (principal); E11.9 Type 2 diabetes mellitus without complications; E03.9 Hypothyroidism, unspecified; I10 Essential (primary) hypertension; E78.5 Hyperlipidemia, unspecified

== ENCOUNTER → 2019-03-11 | Outpatient (REF) | payer OTHER ==
[~2019-03-11] MED LIST changes: -DULO1CAP3 PO; +DULO1CAP6 PO
[2019-03-14 11:43] LABS: HEPATITIS B SURFACE ANTIBODY NEGATIVE (POSITIVE); HEPATITIS B SURFACE ANTIGEN NEGATIVE (NEGATIVE); HIV 1&2 SCREEN CENTAUR NEGATIVE (NEGATIVE)
[2019-03-16 08:06] LABS: HEPATITIS B CORE ANTIBODY IGG Negative (Negative)
== END ==
LOC: M SFHCPLAZ 11:28
PROVIDERS: ATTEND Dermatology
DX: Z51.81 Encounter for therapeutic drug level monitoring (principal); Z79.899 Other long term (current) drug therapy

== ENCOUNTER 2019-04-02 08:26 | Emergency (ER) | payer OTHER ==
[~2019-04-02] VITALS: Ht 167.6 cm; Wt 83.9 kg
[~2019-04-02 08:26] MED LIST changes: +CLON0.5T2 PO; -CLON0.5T8 PO
[2019-04-02 09:46] LABS: BASO % 0.9 % (0.0-1.0); EOS # 0.1 10^3/uL (0.0-0.50); EOS % 2.6 % (0.0-3.0); HEMATOCRIT 41.7 % (36.0-47.0); HEMOGLOBIN 13.8 g/dl (12.0-15.5); LYMPH # 1.3 10^3/uL (1.5-4.5); LYMPH % 27.7 % (24.0-44.0); MEAN CORPUSCULAR HEMOGLOBIN 26.7 pg (27.0-33.0); MEAN CORPUSCULAR HGB CONC 33.1 g/dl (32.0-36.5); MEAN CORPUSCULAR VOLUME 80.7 fl (80.0-96.0); MONO # 0.5 10^3/uL (0.0-0.8); MONO % 10.2 % (0.0-5.0); NEUTROPHILS # 2.7 10^3/uL (1.8-7.7); NEUTROPHILS % 58.4 % (36.0-66.0); PLATELET COUNT, AUTOMATED 308 10^3/uL (150-450); RED BLOOD COUNT 5.17 10^6/uL (4.00-5.40); WHITE BLOOD COUNT 4.7 10^3/uL (4.0-10.0)
--- NOTE | 2019-04-02 09:52 | REP ---
Clinical: Fever and chest pain . Comparison: 12/25/2018 . Technique: PA and lateral. Findings: The mediastinum and cardiac silhouette are normal. The lung rios are clear and without acute consolidation, effusion, or pneumothorax. The skeletal structures are intact and normal. Impression: 1. No acute cardiopulmonary process. Electronically Signed by Jeffrey Burgess MD 04/02/2019 09:43 A
[2019-04-02 10:10] LABS: BLOOD UREA NITROGEN 9 MG/DL (7-18); CALCIUM LEVEL 9.3 MG/DL (8.5-10.1); CARBON DIOXIDE LEVEL 29 MEQ/L (21-32); CHLORIDE LEVEL 104 MEQ/L (98-107); CREATININE FOR GFR 0.93 MG/DL (0.55-1.30); GLOMERULAR FILTRATION RATE > 60.0 (>51); GLUCOSE, FASTING 234 MG/DL (70-100); SODIUM LEVEL 140 MEQ/L (136-145)
[2019-04-02 10:53] LABS: AMORPHOUS SEDIMENT SMALL (NEGATIVE); APPEARANCE, URINE CLOUDY (CLEAR); BACTERIA, URINE AUTO 1+ (NEGATIVE); BILIRUBIN, URINE AUTO NEGATIVE (NEGATIVE); BLOOD, URINE BLOOD NEGATIVE (NEGATIVE); COLOR, URINE YELLOW (YELLOW); GLUCOSE, URINE (UA) AUTO 1+ mg/dL (NEGATIVE); KETONE, URINE AUTO NEGATIVE (NEGATIVE); LEUKOCYTE ESTERASE, URINE AUTO NEGATIVE (NEGATIVE); MUCUS, URINE SMALL (NEGATIVE); NITRITE, URINE AUTO NEGATIVE (NEGATIVE); PROTEIN, URINE AUTO NEGATIVE (NEGATIVE); RBC, URINE AUTO 5 /HPF (0-3); SPECIFIC GRAVITY URINE AUTO 1.018 (1.002-1.035); SQUAMOUS EPITHELIAL CELL UR AU 9 /HPF (0-6); UROBILINOGEN, URINE AUTO 0.2 mg/dL (0.0-2.0); WBC, URINE AUTO 15 /HPF (0-3)
[2019-04-02] MEDS ORDERED: AUGM500T34 PO (11:33)
[2019-04-02 11:40] VITALS: BP 124/71
[2019-05-19] MEDS ORDERED: TRAZ-257 (10:16)
== END 2019-04-02 11:41 | disposition home or self-care (01) ==
LOC: M ED 08:26
DX: H66.93 Otitis media, unspecified, bilateral (principal); N39.0 Urinary tract infection, site not specified; I10 Essential (primary) hypertension; Z79.51 Long term (current) use of inhaled steroids; Z79.84 Long term (current) use of oral hypoglycemic drugs; Z79.899 Other long term (current) drug therapy; Z88.2 Allergy status to sulfonamides; Z88.8 Allergy status to other drugs, medicaments and biological substances; Z91.012 Allergy to eggs; Z91.040 Latex allergy status; Z91.048 Other nonmedicinal substance allergy status

== ENCOUNTER 2019-04-05 15:23 | Emergency (ER) | payer OTHER ==
[~2019-04-05] VITALS: Ht 167.6 cm; Wt 84.1 kg
[~2019-04-05 15:23] MED LIST changes: +AUGM500T34 PO; -CLON0.5T2 PO; +CLON0.5T8 PO
[2019-04-05 16:51] LABS: HEMATOCRIT 43.8 % (36.0-47.0); HEMOGLOBIN 14.6 g/dl (12.0-15.5); MEAN CORPUSCULAR HEMOGLOBIN 27.9 pg (27.0-33.0); MEAN CORPUSCULAR HGB CONC 33.3 g/dl (32.0-36.5); MEAN CORPUSCULAR VOLUME 83.7 fl (80.0-96.0); PLATELET COUNT, AUTOMATED 320 10^3/uL (150-450); RED BLOOD COUNT 5.23 10^6/uL (4.00-5.40); WHITE BLOOD COUNT 8.8 10^3/uL (4.0-10.0)
[2019-04-05 17:12] LABS: ALBUMIN 4.1 GM/DL (3.2-5.2); BILIRUBIN,DIRECT 0.1 MG/DL (0.0-0.2); BILIRUBIN,TOTAL 0.5 MG/DL (0.2-1.0); CALCIUM LEVEL 9.9 MG/DL (8.5-10.1); CREATININE FOR GFR 1.48 MG/DL (0.55-1.30); GLOMERULAR FILTRATION RATE 38.6 (>51); POTASSIUM SERUM 3.9 MEQ/L (3.5-5.1); TOTAL PROTEIN 7.9 GM/DL (6.4-8.2)
[2019-04-05] MEDS ORDERED: CYMB60CA3 PO (17:41)
[2019-04-05 18:02] VITALS: BP 110/71
== END 2019-04-05 18:04 | disposition home or self-care (01) ==
LOC: M ED 15:23
DX: R10.84 Generalized abdominal pain (principal); R11.2 Nausea with vomiting, unspecified; E11.9 Type 2 diabetes mellitus without complications; I10 Essential (primary) hypertension; J44.9 Chronic obstructive pulmonary disease, unspecified; E03.9 Hypothyroidism, unspecified; K27.9 Peptic ulcer, site unspecified, unspecified as acute or chronic, without hemorrhage or perforation; F41.9 Anxiety disorder, unspecified; E78.5 Hyperlipidemia, unspecified; N80.9 Endometriosis, unspecified; K21.9 Gastro-esophageal reflux disease without esophagitis; Z88.1 Allergy status to other antibiotic agents; Z88.2 Allergy status to sulfonamides; Z88.5 Allergy status to narcotic agent; Z88.8 Allergy status to other drugs, medicaments and biological substances; Z91.012 Allergy to eggs; Z91.018 Allergy to other foods; Z91.040 Latex allergy status; Z91.048 Other nonmedicinal substance allergy status; Z79.899 Other long term (current) drug therapy; Z79.890 Hormone replacement therapy; Z79.84 Long term (current) use of oral hypoglycemic drugs

== ENCOUNTER 2019-05-19 10:07 | Emergency (ER) | payer OTHER ==
[~2019-05-19] VITALS: Ht 170.2 cm; Wt 81.8 kg
[2019-05-19 10:07] VITALS: BP 158/95
[~2019-05-19 10:07] MED LIST changes: +CYMB60CA3 PO
[2019-05-19] MEDS ORDERED: CIMZ200K (10:16)
[2019-05-19] MEDS ORDERED: TRAZ-163 (10:16)
[2019-05-19] MEDS ORDERED: AMOX500C PO (10:42)
[2019-05-19 11:08] LABS: INFLUENZA A AMPLIFICATION NEGATIVE (NEGATIVE); INFLUENZA B AMPLIFICATION NEGATIVE (NEGATIVE)
== END 2019-05-19 10:50 | disposition home or self-care (01) ==
LOC: M ED 10:07
DX: J02.0 Streptococcal pharyngitis (principal); J44.9 Chronic obstructive pulmonary disease, unspecified; E11.9 Type 2 diabetes mellitus without complications; E78.5 Hyperlipidemia, unspecified; E03.9 Hypothyroidism, unspecified; G43.009 Migraine without aura, not intractable, without status migrainosus; K58.9 Irritable bowel syndrome, unspecified; Z90.710 Acquired absence of both cervix and uterus; Z88.2 Allergy status to sulfonamides; Z91.048 Other nonmedicinal substance allergy status; Z88.6 Allergy status to analgesic agent; Z91.012 Allergy to eggs; Z91.040 Latex allergy status; Z91.018 Allergy to other foods; Z79.899 Other long term (current) drug therapy

== ENCOUNTER → 2019-06-27 | Outpatient (REF) | payer OTHER ==
[~2019-06-27] MED LIST changes: +AMOX500C PO; +CIMZ200K; +TRAZ-163
[2019-06-27 20:22] LABS: BASO # 0.1 10^3/uL (0.0-0.2); BASO % 0.9 % (0.0-1.0); EOS # 0.1 10^3/uL (0.0-0.5); EOS % 1.6 % (0.0-3.0); HEMATOCRIT 42.3 % (36.0-47.0); HEMOGLOBIN 13.7 g/dl (12.0-15.5); LYMPH # 1.8 10^3/uL (1.5-5.0); LYMPH % 31.9 % (24.0-44.0); MEAN CORPUSCULAR HEMOGLOBIN 27.5 pg (27.0-33.0); MEAN CORPUSCULAR HGB CONC 32.4 g/dl (32.0-36.5); MEAN CORPUSCULAR VOLUME 84.9 fl (80.0-96.0); MONO # 0.5 10^3/uL (0.0-0.8); MONO % 8.9 % (0.0-5.0); NEUTROPHILS # 3.2 10^3/uL (1.5-8.5); NEUTROPHILS % 56.4 % (36.0-66.0); PLATELET COUNT, AUTOMATED 378 10^3/uL (150-450); RED BLOOD COUNT 4.98 10^6/uL (4.00-5.40); WHITE BLOOD COUNT 5.7 10^3/uL (4.0-10.0)
[2019-06-27 20:37] LABS: ALBUMIN 4.1 GM/DL (3.2-5.2); ALT/SGPT 22 U/L (12-78); BILIRUBIN,TOTAL 0.6 MG/DL (0.2-1.0); BLOOD UREA NITROGEN 10 MG/DL (7-18); CALCIUM LEVEL 9.3 MG/DL (8.5-10.1); CARBON DIOXIDE LEVEL 29 MEQ/L (21-32); CHLORIDE LEVEL 102 MEQ/L (98-107); CHOLESTEROL LEVEL 169 MG/DL (<200); CREATININE FOR GFR 0.85 MG/DL (0.55-1.30); GLOMERULAR FILTRATION RATE > 60.0 (>51); GLUCOSE, FASTING 156 MG/DL (70-100); HDL CHOLESTEROL 48 MG/DL (>40); LDL CHOLESTEROL 94 MG/DL (<100); NON-HDL-C 121 MG/DL; SODIUM LEVEL 138 MEQ/L (136-145); TOTAL PROTEIN 7.8 GM/DL (6.4-8.2); TRIGLYCERIDES LEVEL 135 MG/DL (<150)
[2019-06-27 20:38] LABS: HEMOGLOBIN A1c 9.2 %
[2019-06-27 20:39] LABS: TOTAL 25(OH) VITAMIN D 27.5 NG/ML (30.0-100.0)
[2019-06-27 20:57] LABS: MALB URINE SIEMENS 13.4 MG/L; MAU/CREAT RATIO 13.2 MCG/MG (0.0-30.0)
== END ==
LOC: M LAB REF 18:54
PROVIDERS: ATTEND Family Medicine
DX: Z13.228 Encounter for screening for other metabolic disorders (principal); E11.9 Type 2 diabetes mellitus without complications

== ENCOUNTER 2019-09-09 11:30 | Emergency (ER) | payer OTHER ==
[~2019-09-09] VITALS: Ht 170.2 cm; Wt 78.2 kg
[~2019-09-09 11:30] MED LIST changes: +CLON0.5T2 PO; -CLON0.5T8 PO; -TRAZ-163; +TRAZ-257
[2019-09-09] MEDS ORDERED: TRUL10IN SQ (12:01)
[2019-09-09] MEDS ORDERED: TESS100C PO (12:01)
--- NOTE | 2019-09-09 12:32 | REP ---
Chest x-ray: Two views. History: Chronic cough. Comparison chest x-ray: April 02, 2019. Findings: The lungs are symmetrically aerated and clear. The pleural angles are sharp. Heart size is normal. Pulmonary vasculature is not increased. No bony abnormality is seen. Impression: No active disease. Electronically Signed by Adrien Cortes MD 09/09/2019 12:24 P
[2019-09-09 13:06] VITALS: BP 105/65
== END 2019-09-09 13:07 | disposition home or self-care (01) ==
LOC: M ED 11:30
DX: J42 Unspecified chronic bronchitis (principal); E11.9 Type 2 diabetes mellitus without complications; K58.9 Irritable bowel syndrome, unspecified; Z88.2 Allergy status to sulfonamides; Z91.048 Other nonmedicinal substance allergy status; Z91.012 Allergy to eggs; Z91.018 Allergy to other foods; Z91.040 Latex allergy status; Z88.5 Allergy status to narcotic agent; Z79.51 Long term (current) use of inhaled steroids; Z79.84 Long term (current) use of oral hypoglycemic drugs; Z79.891 Long term (current) use of opiate analgesic; Z79.899 Other long term (current) drug therapy

== ENCOUNTER → 2019-10-06 | Outpatient (REF) | payer OTHER, MEDICAID ==
[~2019-10-06] MED LIST changes: +TRUL10IN SQ
[2019-10-06 20:25] LABS: FREE T4 1.15 NG/DL (0.76-1.46); THYROID STIMULATING HORMONE 2.13 uIU/ML (0.358-3.740)
[2019-10-06 20:29] LABS: HEMOGLOBIN A1c 6.8 %
== END ==
LOC: M LAB REF 19:23
PROVIDERS: ATTEND Physician Assistant
DX: E03.8 Other specified hypothyroidism (principal); E11.9 Type 2 diabetes mellitus without complications

== ENCOUNTER → 2019-12-22 | Outpatient (REF) | payer OTHER, MEDICAID ==
[~2019-12-22] MED LIST changes: -MONT10TA2 PO; +MONT10TA4 PO; +OLOP2.5D3 OP; -PATA0.2S OP
[2019-12-22 16:19] LABS: APPEARANCE, URINE TURBID (CLEAR); BACTERIA, URINE AUTO NEGATIVE (NEGATIVE); BILIRUBIN, URINE AUTO NEGATIVE (NEGATIVE); BLOOD, URINE BLOOD NEGATIVE (NEGATIVE); CALCIUM OXALATE CRYSTALS SMALL; COLOR, URINE AMBER (YELLOW); GLUCOSE, URINE (UA) AUTO NEGATIVE (NEGATIVE); KETONE, URINE AUTO NEGATIVE (NEGATIVE); LEUKOCYTE ESTERASE, URINE AUTO NEGATIVE (NEGATIVE); MUCUS, URINE SMALL (NEGATIVE); NITRITE, URINE AUTO NEGATIVE (NEGATIVE); PROTEIN, URINE AUTO NEGATIVE (NEGATIVE); RBC, URINE AUTO 1 /HPF (0-3); SPECIFIC GRAVITY URINE AUTO 1.023 (1.002-1.035); SQUAMOUS EPITHELIAL CELL UR AU 21 /HPF (0-6); UROBILINOGEN, URINE AUTO 0.2 mg/dL (0.0-2.0); WBC, URINE AUTO 1 /HPF (0-3)
== END ==
LOC: M LAB REF 14:48
PROVIDERS: ATTEND Physician Assistant
DX: R30.0 Dysuria (principal)

== ENCOUNTER → 2020-03-12 | Outpatient (CLI) | payer OTHER ==
[~2020-03-12] MED LIST changes: +PANT40TA29 PO; -PANT40TA3 PO
[2020-03-12 12:57] LABS: BLOOD UREA NITROGEN 10 MG/DL (7-18); CREATININE FOR GFR 0.86 MG/DL (0.55-1.30); GLOMERULAR FILTRATION RATE > 60.0 (>51)
== END ==
LOC: M LAB 11:14
PROVIDERS: ATTEND Physician Assistant
DX: R19.7 Diarrhea, unspecified (principal); R10.32 Left lower quadrant pain

== ENCOUNTER → 2020-04-16 | Outpatient (REF) | payer OTHER, MEDICAID ==
[2020-06-02 23:07] LABS: BASO # 0.1 10^3/uL (0.0-0.2); BASO % 0.9 % (0.0-1.0); EOS # 0.1 10^3/uL (0.0-0.5); EOS % 2.4 % (0.0-3.0); HEMATOCRIT 40.5 % (36.0-47.0); HEMOGLOBIN 13.2 g/dl (12.0-15.5); LYMPH # 1.5 10^3/uL (1.5-5.0); LYMPH % 27.2 % (24.0-44.0); MEAN CORPUSCULAR HEMOGLOBIN 27.3 pg (27.0-33.0); MEAN CORPUSCULAR HGB CONC 32.6 g/dl (32.0-36.5); MEAN CORPUSCULAR VOLUME 83.7 fl (80.0-96.0); MONO # 0.4 10^3/uL (0.0-0.8); NEUTROPHILS # 3.3 10^3/uL (1.5-8.5); NEUTROPHILS % 61.1 % (36.0-66.0); PLATELET COUNT, AUTOMATED 286 10^3/uL (150-450); RED BLOOD COUNT 4.84 10^6/uL (4.00-5.40); WHITE BLOOD COUNT 5.4 10^3/uL (4.0-10.0)
[2020-06-11 12:35] LABS: BLOOD UREA NITROGEN 11 MG/DL (7-18); CARBON DIOXIDE LEVEL 29 MEQ/L (21-32); CHLORIDE LEVEL 108 MEQ/L (98-107); CREATININE FOR GFR 0.84 MG/DL (0.55-1.30); GLOMERULAR FILTRATION RATE > 60.0 (>51); GLUCOSE, FASTING 130 MG/DL (70-100); SODIUM LEVEL 141 MEQ/L (136-145)
[2020-06-11 12:36] LABS: ALBUMIN 3.8 GM/DL (3.2-5.2); ALT/SGPT 20 U/L (12-78); BILIRUBIN,TOTAL 0.4 MG/DL (0.2-1.0); CALCIUM LEVEL 9.1 MG/DL (8.5-10.1); CHOLESTEROL LEVEL 189 MG/DL (<200); CHOLESTEROL RISK RATIO 4.295 (<5); FREE T4 0.87 NG/DL (0.76-1.46); HDL CHOLESTEROL 44 MG/DL (>40); HEMOGLOBIN A1c 7.2 %; LDL CHOLESTEROL 113 MG/DL (<100); NON-HDL-C 145 MG/DL; TOTAL PROTEIN 6.9 GM/DL (6.4-8.2); TRIGLYCERIDES LEVEL 162 MG/DL (<150)
== END ==
LOC: M LAB REF 10:50
PROVIDERS: ATTEND Physician Assistant
DX: J44.9 Chronic obstructive pulmonary disease, unspecified (principal); E11.9 Type 2 diabetes mellitus without complications; E03.8 Other specified hypothyroidism

== ENCOUNTER → 2020-09-26 | Outpatient (REF) | payer OTHER, MEDICAID ==
[~2020-09-26] MED LIST changes: +ARIP1TAB4 PO; +CETI-24 PO; +DICL1GEL3 TOP; +FLON1SPR; +INCR1INH INH; +MONT10TA10 PO; -MONT10TA4 PO; +PREG50CA PO; +PROP40TA62 PO; +TRAZ150T90 PO; +TRUL10IN SC; +VENTAER INH
[2020-09-26 17:13] LABS: HEMOGLOBIN 13.6 g/dl (12.0-15.5); MEAN CORPUSCULAR HEMOGLOBIN 27.5 pg (27.0-33.0); MEAN CORPUSCULAR HGB CONC 32.4 g/dl (32.0-36.5); MEAN CORPUSCULAR VOLUME 84.8 fl (80.0-96.0); PLATELET COUNT, AUTOMATED 305 10^3/uL (150-450); RED BLOOD COUNT 4.95 10^6/uL (4.00-5.40); WHITE BLOOD COUNT 5.5 10^3/uL (4.0-10.0)
[2020-09-26 17:31] LABS: HEMOGLOBIN A1c 6.9 %
[2020-09-26 17:41] LABS: ALT/SGPT 23 U/L (12-78); BILIRUBIN,TOTAL 0.4 MG/DL (0.2-1.0); BLOOD UREA NITROGEN 9 MG/DL (7-18); CALCIUM LEVEL 9.4 MG/DL (8.8-10.2); CARBON DIOXIDE LEVEL 28 MEQ/L (21-32); CHLORIDE LEVEL 106 MEQ/L (98-107); CHOLESTEROL LEVEL 150 MG/DL (<200); CREATININE FOR GFR 0.88 MG/DL (0.55-1.30); GLOMERULAR FILTRATION RATE > 60.0 (>45); GLUCOSE, FASTING 119 MG/DL (70-100); POTASSIUM SERUM 4.1 MEQ/L (3.5-5.1); SODIUM LEVEL 141 MEQ/L (136-145); TRIGLYCERIDES LEVEL 94 MG/DL (<150)
[2020-09-26 17:42] LABS: CHOLESTEROL RISK RATIO 2.941 (<5); HDL CHOLESTEROL 51 MG/DL (>40); LDL CHOLESTEROL 80 MG/DL (<100); NON-HDL-C 99 MG/DL
== END ==
LOC: M LAB REF 16:14
PROVIDERS: ATTEND Physician Assistant
DX: E11.9 Type 2 diabetes mellitus without complications (principal)

== ENCOUNTER → 2020-09-27 | Outpatient (CLI) | payer OTHER, MEDICAID ==
[~2020-09-27] MED LIST changes: -MONT10TA10 PO; +MONT5TAB2 PO
[2020-09-27 15:51] LABS: ALT/SGPT 23 U/L (12-78); BILIRUBIN,TOTAL 0.5 MG/DL (0.2-1.0); BLOOD UREA NITROGEN 7 MG/DL (7-18); CALCIUM LEVEL 9.5 MG/DL (8.8-10.2); CARBON DIOXIDE LEVEL 32 MEQ/L (21-32); CHLORIDE LEVEL 104 MEQ/L (98-107); CREATININE FOR GFR 0.89 MG/DL (0.55-1.30); FERRITIN 30 NG/ML (8-252); GLOMERULAR FILTRATION RATE > 60.0 (>45); GLUCOSE, FASTING 94 MG/DL (70-100); IRON (FE) 66 UG/DL (50-170); PERCENT SATURATION 21.8 % (13.2-45.0); SODIUM LEVEL 140 MEQ/L (136-145); TOTAL IRON BINDING CAPACITY 303 UG/DL (250-450)
== END ==
LOC: M PLALAB 13:13
PROVIDERS: ATTEND Internal Medicine Gastroenterology
DX: E83.119 Hemochromatosis, unspecified (principal)

== ENCOUNTER → 2020-09-30 | Outpatient (CLI) | payer OTHER, MEDICAID | LOC: M LABSMTC 11:01 | PROVIDERS: ATTEND Anesthesiology | DX: Z01.812 Encounter for preprocedural laboratory examination (principal); Z20.822 Contact with and (suspected) exposure to COVID-19 ==

== ENCOUNTER 2020-10-05 07:14 | Day surgery (SDC) | payer MEDICARE, OTHER ==
[~2020-10-05] VITALS: Ht 167.6 cm; Wt 78.8 kg
[~2020-10-05 07:14] MED LIST changes: +LIDOCAINE 2% 100MG/5ML SDV (FOR ANES.) As Ordered ONE; +MONT10TA10 PO; -MONT5TAB2 PO; +NS 1,000 ML IV ONE; +propofoL 500 MG/50 ML VIAL As Ordered ONE
--- OUTSIDE RECORDS SUMMARY | 2020-10-05 07:21 | CCD ---
Author Organization Unknown Address [address] [place] [address] Phone [phone] Care Team Providers Care Statement Clerks Supervisor Name Role Phone ANDREE BUNN 2 [phone] [facility] 2 [phone] GINA SOTELO MD 2 [phone] LAURA LOPEZ 2 [phone] Allergies Code Code System Name Reaction Severity Status Onset 848778 RxNorm Bee Pollen Active 07/15/2018 2670 RxNorm Codeine Active 07/15/2018 5639721 RxNorm Latex Active 07/15/2018 025708 RxNorm Banana Active Talpa Active Notes: MIOLD | ORANGES | DUST | BANANAS | FRAGRANCES | SPIDERS Medications Name Status Start Date Stop Date aripiprazole 2 mg tablet Active Not keke ilable aspirin 81 mg tablet,delayed release Active Not available atorvastatin 10 mg tablet Completed 2019 atorvastatin 20 mg tablet Active Not av ailable benzonatate 100 mg capsule Completed 07/17 cefuroxime axetil 500 mg tablet Completed 07/17/2020 cetirizine 10 mg tablet Take 1 tablet every day by oral route. Active Not available clonazepam 0.5 mg tablet Active Not keke ilable diazepam 5 mg tablet Active Not availab le diclofenac 1 % topical gel Active Not a vailable duloxetine 60 mg capsule,delayed release Active Not available epinephrine 0.3 mg/0.3 mL injection, auto-injector Active Not available fluocinolone 0.01 % topical cream Active Not available fluticasone 232 mcg-salmeterol 14 mcg/actuation breath activated powdr Completed 08/13/2020 fluticasone propionate 50 mcg/actuation nasal spray,suspension A ctive Not available Fluzone Quad (PF) 60 mcg (15 mcg x 4)/0.5 mL IM syring e Completed 07/17/2020 Incruse Ellipta 62.5 mcg/actuation powder for inhalation Active Not available levothyroxine 112 mcg tablet Active Not available metformin 1,000 mg tablet Active Not av ailable montelukast 10 mg tablet Active Not keke ilable nystatin 100,000 unit/gram topical powder Active Not available OneTouch Delica Plus Lancet 30 gauge Active Not available OneTouch Delica Plus Lancet 33 gauge Active Not available OneTouch Ultra2 Meter Active Not availa ble OneTouch Verio test strips Active Not a vailable pantoprazole 40 mg tablet,delayed release Active Not available pregabalin 100 mg capsule Completed 2019 pregabalin 50 mg capsule Active Not keke ilable Prempro 0.625 mg-2.5 mg tablet Active N ot available propranolol ER 120 mg capsule,24 hr,extended release Active Not available sertraline 25 mg tablet Completed 08/13/20 20 sertraline 50 mg tablet Active Not avai lable Sutab 1.479 gram-0.188 gram tablet Active Not available Systane (propylene glycol) 0.4 %-0.3 % eye drops Active Not available tizanidine 4 mg tablet Active Not avail able trazodone 100 mg tablet Completed 07/17/20 20 trazodone 150 mg tablet Active Not avai lable triamcinolone acetonide 0.1 % topical cream Active Not available triamcinolone acetonide 0.1 % topical ointment Completed 10/01/2020 Trulicity 0.75 mg/0.5 mL subcutaneous pen injector Active Not available Ventolin HFA 90 mcg/actuation aerosol inhaler Active Not available Problems Name Status Onset Date Source Complete Edentulism Due to Caries Unknown 07/15/2018 History Hypothyroidism Active 06/27/2019 History Type 2 Diabetes Mellitus without Complication Active History Flexural Psoriasis Active 06/27/2019 History Allergy to Bee Venom Active 09/02/2019 History Mild Persistent Asthma Active 10/31/2019 History Neck Pain Active 10/31/2019 History Pain in Thoracic Spine Active 10/31/2019 History Low Back Pain Active 10/31/2019 History Palpitations Active 10/31/2019 History Chronic Obstructive Lung Disease Active 01/26/2020 History Diarrhea Unknown 02/17/2020 History Left Lower Quadrant Pain Unknown 02/17/2020 History Candidiasis Unknown 02/17/2020 History Screening Mammography Unknown 04/11/2020 History Fibromyalgia Active 08/13/2020 Procedures Date Name Performed by Hysterectomy Information not avai lable 04/20/2020 Mammogram, Screening Information not keke ilable Notes: hysterectomy, laporoscopy Results Lab Results Date Name Specimen Result Interpretation Description Value Range Status Address 08/28/2020 COVID-19 RNA (SARS-CoV-2), QL, pet caregiver-PCR, Respiratory Specimen Nasopharyngeal Sars Cov 2 RNA not detected not detected Fi nal [facility] ([employer] [facility]): [address] 06/11/2020 HbA1C (Hemoglobin a1C), Blood A1C 7.2 06/11/2020 LDL, Serum Ldl 113 Past Encounters 10/01/2020 Diabetes Mellitus; Fibromyalgia; Psoriasis; Wheezing; Hypothyroidism; Vitamin D Deficiency Nicolle Danielle PA-C: [address] [place] [address], Ph. 09/26/2020 Type 2 Diabetes Mellitus without Complication; Allergic Rhinitis Nicolle Danielle PA-C: [address] [place] [address], Ph. 08/28/2020 Exposure to SARS-CoV-2 Giuliano Dalton MD: [address] [place] [address], Ph. 08/13/2020 Allergic Rhinitis; Type 2 Diabetes Mellitus without Complication; Flexural Psoriasis; Fibromyalgia; Left Lower Quadrant Pain Henri Mcdonald, [facility]: [address] [facility] [address], Ph. Social History Tobacco Smoking Status Never Smoker Vaccine List Vaccine Type influenza, injectable, quadrivalent 05/25/2020 Plan of Care Reminders Provider Appointments None recorded. Lab None recorded. Referral None recorded. Procedures None recorded. Surgeries None recorded. Imaging None recorded. Vitals 10/01/2020 10:20AM TELEHEALTH 20 Height 66 in 08/13/2020 02:50PM TELEHEALTH 20 Height 66 in 04/11/2020 Height Weight Blood Pressure 66 in 178 lbs 4 oz 116/76 mm[Hg] 02/17/2020 Height Weight Blood Pressure 66 in 176 lbs 8 oz 115/70 mm[Hg] 12/21/2019 Height Weight Blood Pressure 66 in 174 lbs 6.4 oz 117/72 mm[Hg] 10/31/2019 Height Weight Blood Pressure 66 in 178 lbs 115/78 mm[Hg] 10/06/2019 Height Weight Blood Pressure 66 in 172 lbs 106/74 mm[Hg] 09/02/2019 Height Weight Blood Pressure 66 in 170 lbs 9.6 oz 113/80 mm[Hg] 07/08/2019 Height Weight Blood Pressure 66 in 178 lbs 110/64 mm[Hg] 06/27/2019 Height Weight Blood Pressure 66 in 176 lbs 6.4 oz 95/67 mm[Hg]"
--- OUTSIDE RECORDS SUMMARY | 2020-10-05 07:21 | CCD ---
Author Author Selena Elder Organization Unknown Address [address] [address] Phone Care Team Providers Care Roller Printing Supervisor Name Role Phone Frieda Elder PCP Allergies, Adverse Reactions, Alerts No Data in Section Problem List Concept Problem Description Status Start Date Created Date Resolv ed Date Snomed Code F41.0 Panic Disorder Active 08/15/2015 08/15/2015 F33.1 Major Depressive Disorder, Recurrent episode, Moderate Active 09/24/2020 F41.1 Generalized Anxiety Disorder Active 09/24/2020 Medications Rx Norm Medication Route Route Concept Start Date Stop Date Dosage Stevenson quency Duration Formula Strength Dosage Form Dosage Form Code Dosage Description Medication Id Account Npid Author First Name Author Last Name Taxonomy Code Taxonomy Desc Phone Number [phone] clonazepam by mouth [id number] 03/30/2020 twice a day 0.5 mg t ablet 00084 [id number] [id number] Rupal Colvin [id number] Nurse Practitioner [phone] [id number] trazodone 12/06/2019 10/20/2020 30 150 mg tablet 15829 [id number] Frieda Elder [id number] Nurse Practitioner [phone] [id number] duloxetine by mouth [id number] 08/15/2020 11/19/2020 once a day 30 60 mg capsule,delayed release(DR/EC) 45288 [id number] Mendel Elder [id number] Nurse Practitioner [phone] [id number] sertraline by mouth [id number] 08/21/2020 11/19/2020 once a day 30 50 mg tablet 56776 [id number] Frieda Elder [id number] Nurse Yasmin gonsalves [id number] Social History Social History Element Description Concept Effective Date Smoking Status Unknown if ever smoked [id number] Immunizations No Data in Section Vital Signs No Data in Section Procedures Date Concept Id Description Targeted Site Concept Targeted Site Concept Type 09/24/2020 36842 E/M Level 3 - Established Patient CPT Patient has no history of implantable de vices Encounters Encounter Start Date End Date Encounter Type Description Diagnosis Di agnosis Desc Location Author First Name Author Last Name Npid Taxonomy Cod e Taxonomy Desc Phone Number Location Addr1 Location Addr2 Location [facility] Location Sta te Location Zip [id number] 09/24/2020 09/24/2020 35425 E/M Level 3 - Established Pa tient F41.0 Panic Disorder [Episodic Paroxysmal Anxiety] without Agoraphobia [facility] Frieda [id number] Nurse Practitioner [phone] [address] [phone] Plan of Treatment No Data in Section Lab Results No Data in Section Instructions No Data in Section Insurance Providers Insurance Id Policy Effective Date Policy Thru Date Company N lakia [id number] 2020 MEDICARE [id number] 2019 [employer] [place] th[place]
--- OUTSIDE RECORDS SUMMARY | 2020-10-05 07:21 | CCD | Continuity of Care Document ---
Author Author Selena DWYER PA-C Organization Unknown Address [address] [place] [address] Phone [phone] Care Team Providers Care Store Associate Name Role Phone Peter Deidre PADILLAP AUTM [phone] Henri Mcdonald RPA-C AUTM Problems Active Problems Provider Date Sprain of foot Onset: 06/21/1999 Essential hypertension Onset: 09/24/2016 Pure hypercholesterolemia Onset: 017 Social History Type Date Description Comments Sex Unknown ETOH Use Denies alcohol use Tobacco Use Start: Unknown Denies Smoking Allergies, Adverse Reactions, Alerts Active Allergies Reaction Severity Comments Date Aspirin 09/17/2016 Latex 09/17/2016 Codeine 09/17/2016 Meloxicam 09/17/2016 Bananas 12/18/2016 Oranges 12/18/2016 Mold 12/18/2016 Dust 12/18/2016 Bee Pollen 12/18/2016 Spider Bites 12/18/2016 Tape 04/12/2020 Medications Active Medications SIG Qnty Indications Ordering Provide r Date Valium 5mg Tablets take one half hour prior to mri..may repeat in 30 minutes if no effect..do not drive to or from mri 2tabs M54.2 Fabio Navarrete MD 09/11/2020 Tizanidine HCL 4mg Capsules 1 by mouth three times a day 90caps M54.2 Fabio Navarrete MD 08/09/2020 Melatonin 5mg Capsules 1 tab nightly Unknown Lyrica 25mg Capsules 25 mg twice a day for a week then three times a day Unknown Propranolol HCL ER 120mg Caps ER 24HR Unknown Protonix 20mg Tablets DR 1 by mouth every day Unknown Flonase Allergy Relief 50mcg/Act Suspension 1 puff every day Unknown Atorvastatin Calcium 80mg Tablets 1 by mouth every day Unknown Vitamin D 2000Unit Tablets 1 by mouth every day Unknown Glucophage 1000mg Tablets take one tablet by mouth twice a day (maximum daily dose =2) Unk nown Restasis 0.05% Emulsion drop twice a day in ea eye Unknown Metformin HCL ER (Mod) 500mg Tablets ER 24HR take 4 tablets by mouth daily as directed Unknown Ambien 10mg Tablets by mouth on night of sleep study. may repeat once if needed. Unknown Restasis Multidose 0.05% Emulsion Unknown Pataday 0.2% Solution 1 drop in each eye once daily Unknown Ventolin HFA 108(90Base) mcg/Act A erosol 2 puffs four times a day as needed Unknown Spiriva Handihaler 18mcg Capsules 1 inhalation daily Unknown Fetzima 40mg Caps ER 24HR Unknown Klonopin 0.5mg Tablets 1-3 by mouth every day as needed Unknown Stelara 45mg/0.5ML Soln Prefill Syringe Unknown Epipen 2-Fredy 0.3mg/0 .3ML Solution Auto-Inject as directed for bee sting Unknown Eq Allergy Relief 50mcg/Act Suspension Unknown Synthroid 88mcg Tablets 1 by mouth every day Unknown Prilosec 40mg Capsules DR 1 by mouth twice a day Unknown Premarin 0.625mg Tablets Unknown Advair Diskus 250-50mcg/Dose Aeros ol 2 puffs every day Unknown Immunizations CPT Code Status Date Vaccine Lot # [id number] Given 05/02/2016 Influenza Virus Split 3 Yrs And Above Dosage 32073 Given 07/05/2015 Influenza Virus Split 3 Yrs And Above Dosage 95007 Given 07/20/2014 Influenza Virus Vaccine Intr anasal 10361 Given 07/07/2013 Poliovirus Vaccine Oral Vital Signs Date Vital Result Comment 09/11/2020 11:21am Body Temperature 96.3 F 08/09/2020 9:56am Body Temperature 96.0 F Results Description No Information Available Procedures Date Code Description Status 08/09/2020 28759 X-Ray Shoulder Complete Complete d 07/20/2020 95298 X-Ray Wrist Complete Completed 07/20/202042466 Inject/Drain Joint/Bursa Major C ompleted 05/18/202024354 Inject/Drain Joint/Bursa Major C ompleted 04/20/2020 09516 X-Ray Elbow Ap & Lateral 2 Views Completed 04/20/202058150 Inject Tendon Sheath, Ligament C ompleted 04/12/2020 42779 Nerve Conduction 13+ Studies Com pleted 04/12/2020 02128 Needle Electromyography,Complete Five Or More Muscles Studied Completed Medical Devices Description No Information Available Encounters Type Date Location Provider Dx Diagnosis Office Visit 05/18/2020 8:45a [facility] Lluvia Dwyer PA-C M6 5.812 Other synovitis and tenosynovitis, left shoulder M54.12 Radiculopathy, cervical silvano on Assessments Date Code Description Provider 09/11/2020 M54.2 Cervicalgia Lluvia jordan PA-C 09/11/2020 M25.512 Pain in left shoulder Lluvia Dwyer PA-C 09/11/2020 M25.511 Pain in right shoulder Lluvia Dwyer PA-C 08/09/2020 M54.2 Cervicalgia Lluvia jordan PA-C 08/09/2020 M25.512 Pain in left shoulder Lluvia Dwyer PA-C 08/09/2020 M25.511 Pain in right shoulder Lluvia Dwyer PA-C 07/20/2020 M75.42 Impingement syndrome of left altagracia ulder Lluvia Dwyer PA-C 07/20/2020 M75.22 Bicipital tendinitis, left shoul johan Lluvia Dwyer PA-C 07/20/2020 M25.532 Pain in left wrist Lluvia salomon PA-C 05/18/2020 M65.812 Other synovitis and tenosynoviti s, left shoulder Lluvia Dwyer PA-C 05/18/2020 M54.12 Radiculopathy, cervical region B garrett Dwyer PA-C 04/20/2020 G56.03 Carpal tunnel syndrome, bilatera l upper limbs Kendra Sharon Kate, KIM 04/20/2020 M77.12 Lateral epicondylitis, left elbo w Kendra Kate, KIM 04/20/2020 G56.03 Carpal tunnel syndrome, bilatera l upper limbs Kendra Sharon Kate, KIM 04/12/2020 M47.892 Other spondylosis, cervical silvano on Amarjit Wood MD 04/12/2020 M50.323 Other cervical disc degeneration at C6-C7 level Amarjit Wood MD 04/12/2020 G56.01 Carpal tunnel syndrome, right up per limb Amarjit Wood MD 04/12/2020 M54.12 Radiculopathy, cervical region H adelfo Wood MD 04/12/2020 R20.2 Paresthesia of skin Amarjit brady MD 04/12/2020 E11.9 Type 2 diabetes mellitus without complications Amarjit Wood MD Plan of Treatment Future Appointment(s):* 09/20/2020 8:30 am - Lluvia Dwyer PA-C at [facility] 09/11/2020 - Lluvia Dwyer PA-C* M54.2 Cervicalgia* New Medication:* Valium 5 mg - take one half hour prior to mri..may repeat in 30 minutes if no effect..do not drive to or from mri * New Xrays:* MRI Cervical Spine, Ordered: 09/11/20 * Follow up:* with [facility] for cervical mri results * M25.512 Pain in left shoulder * M25.511 Pain in right shoulder Functional Status Description No Information Available Mental Status Description No Information Available Referrals Refer to Reason for Referral Status Appt Date Lluvia Dwyer PA-C REF NO AUTH REQUIRED FOR REF TO DR BUNN TO TRANS NT Created [address] [facility] [id number] [place] [phone] Benja Boothe MD AUTHORIZATION FOR RE EVAL 97 164. PATIENT GOING TO [facility] AUDIO. PASSED TO CHART.HW Created [address] [facility], [address] [place] [address] [phone] Lluvia Dwyer PA-C REF NO AUTH REQUIRED FOR REF TO DR BUNN TO TRANS NT Created [facility] [facility] [place] [address] [phone] Lluvia Dwyer PA-C REF NO AUTH REQUIRED FRO REF TO [facility] TO TRANS NT Created [address] [place] [address] [phone]
--- OUTSIDE RECORDS SUMMARY | 2020-10-05 07:21 | CCD | Continuity of Care Document ---
Author Author Selena RICHARD M.D. Organization Unknown Address [address] [place] [address] Phone [phone] Care Team Providers Care Summons Server Name Role Phone Henri Mcdonald AUTM [phone] Problems Active Problems Provider Date Radiology result abnormal Bigg Richard M.D. Onset: Screening for malignant neoplasm of colon Bigg thompson M.D. Onset: 02/17/2017 Gastroesophageal reflux disease Bigg Richard M.D. Ons et: 05/25/2012 Screening for malignant neoplasm of colon Bigg thompson M.D. Onset: 05/09/2016 Irritable bowel syndrome Bigg Richard M.D. Onset: Abdominal pain Bigg Richard M.D. Onset: 05/25/20 12 Essential hypertension Bigg Richard M.D. Onset: 05/25 Social History Type Date Description Comments Sex Unknown ETOH Use Never used alcohol Tobacco Use Start: Unknown Patient has never smoked Smoking Status Reviewed: 09/25/20 Patient has never smoked Allergies, Adverse Reactions, Alerts Active Allergies Reaction Severity Comments Date Sulfa Antibiotics 05/17/2012 Codeine 05/17/2012 Latex 05/17/2012 Bandaids 05/03/2015 Medications Active Medications SIG Qnty Indications Ordering Provide r Date Sutab [id number] Tablets as directed 1box Bigg Richard M.D. 09/25/2020 Clonazepam 0.5mg Tablets ever y day Unknown Metformin HCL 1000mg Tablets bid every day Unknown Pataday 0.2% Solution as need ed Unknown Propranolol HCL ER 120mg Caps ER 2 4HR every day Marina NguyenJOSSELYN Levothyroxine Sodium 88mcg Tablets every day Marina NguyenJOSSELYN Pantoprazole Sodium 40mg Tablets D R twice a day Marina NguyenJOSSELYN Epipen 2-Fredy 0.3mg/0.3ML Device Marina NguyenJOSSELYN Ventolin HFA 108(90Base) mcg/ac Ae rosol every 6 hours as needed Marina NguyenSTEFANIE Restasis 0.05% Emulsion Unknown Atorvastatin Calcium 80mg Tablets Jose Guadalupe Camejo MD Premarin 0.625mg Tablets Jose Guadalupe Camejo MD Onetouch Ultra Blue Strips Jose Guadalupe Camejo MD [employer]et[employer] Delica Lancets Extra Fine 33G Misc Jose Guadalupe Camejo MD Immunizations Description No Information Available Vital Signs Date Vital Result Comment 09/25/2020 12:32pm Height 67 inches 5'7" Weight 173.00 lb BP Systolic 133 mmHg BP Diastolic 74 mmHg Heart Rate 87 /min BMI (Body Mass Index) 27.1 kg/m2 Weight 78.473 kg Body Temperature 97.2 F 02/17/2017 1:06pm Height 67 inches 5'7" Weight 171.00 lb BP Systolic 130 mmHg BP Diastolic 90 mmHg Heart Rate 79 /min BMI (Body Mass Index) 26.8 kg/m2 Weight 77.566 kg Results Description No Information Available Procedures Description No Information Available Medical Devices Description No Information Available Encounters Description No Information Available Assessments Date Code Description Provider 09/25/2020 Z80.0 Family history of malignant neop lasm of digestive organs Bigg Richard M.D. 09/25/2020 E83.119 Hemochromatosis, unspecified Ernesto Richard M.D. 09/25/2020 K58.0 Irritable bowel syndrome with di arrhea Bigg Richard M.D. Plan of Treatment Future Appointment(s):* 09/28/2020 6:45 am - [facility] at Main Office * 10/05/2020 12:15 pm - Bigg Richard M.D. at Main Office 09/25/2020 - Bigg Richard M.D.* Z80.0 Family history of malignant neoplasm of digestive organs* Comments:* 60 yo wf who presents for irregular bowel habits, abdominal cramps, bloating, and irregular bowel habits. No rectal bleeding. No weight loss. She has occasional heartburn. Brother had colon cancer- at age 56. Last colonoscopy was in 2017 . She has chronic IBS for years. Experiencing no pain. Colorectal screen due to family history and patient being at least the age fifty or greater. She also c/o epigastric pain. Abdominal ct suggests colonic narrowing.She also says one of her brothers has Hemochromatosis.Plan:1. Colonoscopy + egd.2. Hemochromatosis testing. * E83.119 Hemochromatosis, unspecified* New Labs:* Comprehensive Metabolic Profil, Ordered: 09/25/20 * Total Iron Binding Capacit, Ordered: 09/25/20 * Ferritin, Ordered: 09/25/20 * Hereditary Hemochromatosis, Ordered: 09/25/20 * Comments:* Labs * K58.0 Irritable bowel syndrome with diarrhea* Comments:* As above. Functional Status Description No Information Available Mental Status Description No Information Available Referrals Description No Information Available
--- OUTSIDE RECORDS SUMMARY | 2020-10-05 07:21 | CCD | Continuity of Care Document ---
Author Author Selena DWYER PA-C Organization Unknown Address [address] [place] [address] Phone [phone] Care Team Providers Care Rubber And Plastics Worker Name Role Phone Peter Deidre [place] FIRE TECHNICIAN AUTM [phone] Henri Mcdonald RPA-C AUTM Problems Active Problems [...] not drive to or from mri 2tabs M50.30 Fabio Navarrete MD 09/11/2020 Tizanidine HCL 4mg Capsules 1 by mouth three times a day 90caps M50.30 Fabio Navarrete MD 08/09/2020 Melatonin 5mg Capsules [...] CPT Code Status Date Vaccine Lot # [id number] Given 05/02/2016 Influenza Virus Split 3 Yrs And Above Dosage 57391 Given 07/05/2015 Influenza Virus Split 3 Yrs And Above Dosage 75238 Given 07/20/2014 Influenza Virus Vaccine Intr anasal 79824 Given 07/07/2013 Poliovirus Vaccine Oral Vital Signs Date Vital Result Comment 09/11/2020 11:21am Body Temperature 96.3 F 08/09/2020 9:56am Body Temperature 96.0 F Results Description No Information Available Procedures Date Code Description Status 08/09/2020 63968 X-Ray Shoulder Complete Complete d 07/20/2020 54091 X-Ray Wrist Complete Completed 07/20/202076474 Inject/Drain Joint/Bursa Major C ompleted 05/18/202089491 Inject/Drain Joint/Bursa Major C ompleted 04/20/2020 76786 X-Ray Elbow Ap & Lateral 2 Views Completed 04/20/202005687 Inject Tendon Sheath, Ligament C ompleted 04/12/2020 25602 Nerve Conduction 13+ Studies Com pleted 04/12/2020 80535 Needle Electromyography,Complete Five Or More Muscles Studied Completed Medical Devices Description No Information Available Encounters Type Date Location Provider Dx Diagnosis Office Visit 09/11/2020 11:15a Deltonadonna Dwyer PA-C M5 0.30 Other cervical disc degeneration, unsp cervical region M75.42 Impingement syndrome of left shoulder M75.41 Impingement syndrome of righ t shoulder Office Visit 05/18/2020 8:45a Deltonajory Dwyer PA-C M6 5.812 Other synovitis and tenosynovitis, left shoulder M54.12 Radiculopathy, cervical silvano on Assessments Date Code Description Provider 09/11/2020 M50.30 Other cervical disc degeneration , unspecified cervical region Lluvia Dwyer PA-C 09/11/2020 M75.42 Impingement syndrome of left altagracia danyell Lluvia Dwyer PA-C 09/11/2020 M75.41 Impingement syndrome of right oulder Lluvia Dwyer PA-C 08/09/2020 M54.2 Cervicalgia Lluvia jordan PA-C 08/09/2020 M25.512 Pain in left shoulder Lluvia Dwyer PA-C 08/09/2020 M25.511 Pain in right shoulder Lluvia Dwyer PA-C 07/20/2020 M75.42 Impingement syndrome of left altagracia danyell Lluvia Dwyer PA-C 07/20/2020 M75.22 Bicipital tendinitis, left shoul johan Lluvia Dwyer PA-C 07/20/2020 M25.532 Pain in left wrist Lluvia salomon PA-C 05/18/2020 M65.812 Other synovitis and tenosynoviti s, left shoulder Lluvia Dwyer PA-C 05/18/2020 M54.12 Radiculopathy, cervical region B garrett Dwyer PA-C 04/20/2020 G56.03 Carpal tunnel syndrome, bilatera l upper limbs Kendra Kate, KIM 04/20/2020 M77.12 Lateral epicondylitis, left elbo w Kendra Kate, KIM 04/20/2020 G56.03 Carpal tunnel syndrome, bilatera l upper limbs Kendra Kate, VALERIEC 04/12/2020 M47.892 Other spondylosis, cervical silvano on [...] Wood MD Plan of Treatment Future Appointment(s):* 10/03/2020 2:30 pm - Lluvia Dwyer PA-C at [place] 09/11/2020 - Lluvia Dwyer PA-C* M50.30 Other cervical disc degeneration, unspecified cervical region* New Medication:* Valium 5 mg - take one half hour prior to mri..may repeat in 30 minutes if no effect..do not drive to or from mri * Follow up:* with [facility] for cervical mri results * M75.42 Impingement syndrome of left shoulder * M75.41 Impingement syndrome of right shoulder Functional Status Description No Information Available Mental Status Description No Information Available Referrals Refer to Reason for Referral Status Appt Date Lluvia Dwyer PA-C MRI NO AUTH REQUIRED FOR MRI OF CERVICAL SPINE (30390) TO LUIS Burden AGATA Created [address] [place] [address] [phone] Lluvia Dwyer PA-C MRI NO AUTH REQUIRED FOR MRI OF CERVICAL SPINE (06313) TO LUIS Burden [facility]ATA CASE #: [id number]. Created [address] [place] [address] [phone] Lluvia Dwyer PA-C REF NO AUTH REQUIRED FOR REF TO DR BUNN TO TRANS NT Created [address] [place] [address] [phone] Benja Boothe MD AUTHORIZATION FOR RE EVAL 97 164. PATIENT GOING TO [facility] AUDIO. PASSED TO CHART.HW Created [address] [facility], [address] [place], [place] [address] [phone] Lluvia Dwyer PA-C REF NO AUTH REQUIRED FOR REF TO DR BUNN TO TRANS NT Created [facility] [place] [address] [phone] Lluvia Dwyer PA-C REF NO AUTH REQUIRED FRO REF TO [facility] TO TRANS NT Created [facility] [place] [address] [phone]
--- OUTSIDE RECORDS SUMMARY | 2020-10-05 07:21 | CCD ---
Author Author Selena Elder Organization Unknown Address [address] [address] Phone Care Team Providers Care Rib Bender Name Role Phone Frieda Elder PCP Allergies, Adverse Reactions, Alerts No Data in Section Problem List Concept Problem Description Status Start Date Created Date Resolv ed Date Snomed Code F41.0 Panic Disorder Active 08/15/2015 08/15/2015 F33.1 Major Depressive Disorder, Recurrent episode, Moderate Active 09/25/2020 F41.1 Generalized Anxiety Disorder Active 09/25/2020 Medications Rx Norm Medication Route Route Concept Start Date Stop Date Dosage Stevenson quency Duration Formula Strength Dosage Form Dosage Form Code Dosage Description Medication Id Account Npid Author First Name Author Last Name Taxonomy Code Taxonomy Desc Phone Number [phone] clonazepam by mouth Q51253 03/30/2020 twice a day 0.5 mg t ablet 96631 [phone] Rupal Colvin [id number] Nurse Practitioner [phone] 576016 trazodone 12/06/2019 10/20/2020 30 150 mg tablet 03967 [phone] Frieda Elder [id number] Nurse Practitioner [phone] 634546 duloxetine by mouth [id number] 08/15/2020 11/19/2020 once a day 30 60 mg capsule,delayed release(DR/EC) 48764 093608 [phone] Mendel Elder [id number] Nurse Practitioner [phone] 700876 sertraline by mouth [id number] 08/21/2020 11/19/2020 once a day 30 50 mg tablet 81143 [id number] [phone] Frieda Elder [id number] Nurse Yasmin gonsalves [phone] Social History Social History Element Description Concept Effective Date Smoking Status Unknown if ever smoked [id number] Immunizations No Data in Section Vital Signs Encounter Date Height Ins Weight Lbs Bmi Bp Systolic Bp Diastoli c Oxygen Saturation Respiration Rate Pulse Rate Body Temp Head Circumference Heigh t Lying 09/25/2020 0.00 0.00 0.00 0 0 0.00 0 0 0.00 0.0 0.0 0 Procedures Date Concept Id Description Targeted Site Concept Targeted Site Concept Type 09/25/2020 34274-06 [facility] Telemed E/M Lvl 3--Est pt CPT Patient has no history of implantable de vices Encounters Encounter Start Date End Date Encounter Type Description Diagnosis Di agnosis Desc Location Author First Name Author Last Name Npid Taxonomy Cod e Taxonomy Desc Phone Number Location Addr1 Location Addr2 Location City Location Sta te Location Zip [id number] 09/25/2020 09/25/2020 52014-90 [facility] Telemed E/M Lvl 3--Est p t F41.0 Panic Disorder [Episodic Paroxysmal Anxiety] without Agoraphobia [facility] Frieda [phone] [id number] Nurse Practitioner [phone] [address] [phone] Plan of Treatment No Data in Section Lab Results No Data in Section Instructions No Data in Section Functional Cognitive Status No Data in Section Insurance Providers Insurance Id Policy Effective Date Policy Thru Date Company Ed dorman [id number] 2020 MEDICARE [id number] 2019 [employer] [place] thao
--- OUTSIDE RECORDS SUMMARY | 2020-10-05 07:21 | CCD ---
Author Author ShamaSelenaksmilo Organization Unknown Address [address] [place] [address] Phone Care Team Providers Care Front Office Java Developer Name Role Phone Amadou Sesay PCP Allergies, Adverse Reactions, Alerts No Data in Section Problem List Concept Problem Description Status Start Date Created Date Resolv ed Date Snomed Code F41.0 Panic Disorder Active 08/15/2015 08/15/2015 F33.1 Major Depressive Disorder, Recurrent episode, Moderate Active 09/20/2020 F41.1 Generalized Anxiety Disorder Active 09/20/2020 Medications Rx Norm Medication Route Route Concept Start Date Stop Date Dosage Stevenson quency Duration Formula Strength Dosage Form Dosage Form Code Dosage Description Medication Id Account Npid Author First Name Author Last Name Taxonomy Code Taxonomy Desc Phone Number [phone] clonazepam by mouth I54333 03/30/2020 twice a day 0.5 mg t ablet 78147 [phone] Rupal Colvin [id number] Nurse Practitioner [phone] 208079 trazodone 12/06/2019 10/20/2020 30 150 mg tablet 48811 [id number] [phone] Frieda Elder [id number] Nurse Practitioner [phone] 502505 duloxetine by mouth [id number] 08/15/2020 11/19/2020 once a day 30 60 mg capsule,delayed release(DR/EC) 13837 964813 [phone] Mendel Elder [id number] Nurse Practitioner [phone] 683670 sertraline by mouth [id number] 08/21/2020 11/19/2020 once a day 30 50 mg tablet 33089 207594 [phone] Frieda Elder [id number] Nurse Yasmin gonsalves [phone] Social History Social History Element Description Concept Effective Date Smoking Status Unknown if ever smoked [id number] Immunizations No Data in Section Vital Signs No Data in Section Procedures Date Concept Id Description Targeted Site Concept Targeted Site Concept Type 09/20/2020 06564 Extended Individual Psychotherapy - 45 min CPT Patient has no history of implantable de vices Encounters Encounter Start Date End Date Encounter Type Description Diagnosis Di agnosis Desc Location Author First Name Author Last Name Npid Taxonomy Cod e Taxonomy Desc Phone Number Location Addr1 Location Addr2 Location [facility] Location Sta te Location Zip [id number] 09/20/2020 09/20/2020 52600 Extended Individual Psych otherapy - 45 min F41.0 Panic Disorder [Episodic Paroxysmal Anxiety] without Agoraphobia [facility] [id number] Art Therapist [phone] [address] [phone] Plan of Treatment No Data in Section Lab Results No Data in Section Instructions No Data in Section Insurance Providers Insurance Id Policy Effective Date Policy Thru Date Company N lakia [id number] 2020 MEDICARE [id number] 2019 [employer] [place] thao
--- OUTSIDE RECORDS SUMMARY | 2020-10-05 07:21 | CCD | Continuity of Care Document ---
Author Author Selena RICHARD M.D. Organization Unknown Address [address] [place] [address] Phone [phone] Care Team Providers Care Probate Judge Name Role Phone Henri Mcdonald AUTM [phone] Problems Active Problems Provider Date Radiology result [...] Qnty Indications Ordering Provide r Date Sutab [id number] Tablets as directed 1box Bigg Richard M.D. [...] Date Location Provider Dx Diagnosis Office Visit 09/25/2020 11:45a Main Office Bigg Richard M.D. Z 80.0 Family history of malignant neoplasm of digestive organs E83.119 Hemochromatosis, unspecified K58.0 Irritable bowel syndrome wit h diarrhea Assessments Date Code Description Provider 09/25/2020 Z80.0 Family history of malignant neop lasm of digestive organs Bigg Richard M.D. 09/25/2020 E83.119 Hemochromatosis, unspecified Ernesto Richard M.D. 09/25/2020 K58.0 Irritable bowel syndrome with di arrhea Bigg Richard M.D. Plan of Treatment Future Appointment(s):* 09/28/2020 6:45 am - Rhonda at Main Office * 10/05/2020 12:15 pm [...]
--- OUTSIDE RECORDS SUMMARY | 2020-10-05 07:21 | CCD ---
Author Organization Unknown Address [address] [place] [address] Phone [phone] Care Team Providers Care Waste Baler Name Role Phone [facility] 4 [phone] [facility] [phone] Allergies Code Code System Name Reaction Severity Status Onset 1191 RxNorm Aspirin Abdominal Pain Mild to Moderate Active 223006 RxNorm Banana Hives Mild to Moderate Active Bee Venom Protein (Honey Bee) Anaphylaxis Severe Active 2670 RxNorm Codeine Other Mild to Moderate Active Latex, Natural Rubber Rash Mild Active 28483 RxNorm Meloxicam Nausea Mild to Moderate Active Medications Name Status Start Date Stop Date albuterol sulfate HFA 90 mcg/actuation a erosol inhaler INHALE TWO PUFFS BY MOUTH EVERY 4 TO 6 HOURS Active Not available aripiprazole 2 mg tablet Active Not keke ilable aspirin 81 mg tablet,delayed release TAKE ONE TABLET BY MOUTH EVERY DAY Completed 07/31 atorvastatin 10 mg tablet TAKE ONE TABLET BY MOUTH AT BEDTIME Completed atorvastatin 20 mg tablet TAKE ONE TABLET BY MOUTH EVERY DAY Active Not available benzonatate 100 mg capsule TAKE ONE CAPSULE BY MOUTH THREE TIMES A DAY NEEDED FOR COUGH Active Not available cetirizine 10 mg tablet TAKE ONE TABLET BY MOUTH EVERY DAY Active Not available clonazepam 0.5 mg tablet Active Not keke ilable diazepam 5 mg tablet Active Not availab le diclofenac 1 % topical gel Active Not a vailable duloxetine 60 mg capsule,delayed release Active Not available epinephrine 0.3 mg/0.3 mL injection, aut o-injector DIRECTED Completed 08/14/2020 fluocinolone 0.01 % topical cream APPLY TO AFFECTED AREA S OF EARS EXTERNALLY TWO TIMES A DAY FOR 30 DAYS Active Not available fluticasone 232 mcg-salmeterol 14 mcg/ac tuation breath activated powdr INHALE ONE PUFF BY MOUTH TWICE A DAY Active No t available fluticasone propionate 50 mcg/actuation nasal spray,suspension SPRAY ONE SPRAY IN EACH NOSTRIL EVERY DAY Active Not available Fluzone Quad (PF) 60 mcg (15 m cg x 4)/0.5 mL IM syringe USE DIRECTED Active Not available Incruse Ellipta 62.5 mcg/actuation powder for inhalation Active Not available levothyroxine 112 mcg tablet Active Not available metformin 1,000 mg tablet TAKE ONE TABLET BY MOUTH EVERY 12 HOURS Active Not available montelukast 10 mg tablet Active Not keke ilable nystatin 100,000 unit/gram topical powde r APPLY UNDER BOTH BREASTS TWO TIMES A DAY Active Not available OneTouch Delica Plus Lancet 30 gauge TEST BLOOD SUGARS FOUR TIMES A DAY Completed 07/31 OneTouch Delica Plus Lancet 33 gauge TEST FOUR TIMES A DAY Completed 08/14/2020 OneTouch Ultra2 Meter DIRECTED Completed 08/14/2020 pantoprazole 40 mg tablet,delayed releas e TAKE ONE TABLET BY MOUTH AT BEDTIME Active Not available pregabalin 100 mg capsule TAKE ONE CAPSULE BY MOUTH EVERY DAY MAXIMUM DAILY DOSE 1 Active Not available pregabalin 50 mg capsule Active Not keke ilable Prempro 0.625 mg-2.5 mg tablet TAKE ONE TABLET BY MOUTH EVERY DAY Active Not available propranolol ER 120 mg capsule,24 hr,exte nded release TAKE ONE CAPSULE BY MOUTH EVERY EVENING Active Not available sertraline 25 mg tablet Completed 08/14/20 20 sertraline 50 mg tablet TAKE ONE TABLET BY MOUTH EVERY DAY Completed 07/31 Systane (propylene glycol) 0.4 %-0.3 % e ye drops INSTILL 1 DROP IN EACH EYE EVERY 12 HOURS NEEDED Active Not available tizanidine 4 mg tablet TAKE ONE TABLET BY MOUTH THREE TIMES A DAY Active Not available trazodone 100 mg tablet TAKE ONE TABLET BY MOUTH EVERY EVENING Completed 08/14/2020 trazodone 150 mg tablet TAKE ONE TABLET BY MOUTH AT BEDTIME Active Not available triamcinolone acetonide 0.1 % topical cr eam APPLY A THIN LAYER TO AFFECTED AREA TWO TIMES A DAY FOR PSORIASIS FOR A MAXIMUM OF 14 DAYS Completed 08/14/2020 triamcinolone acetonide 0.1 % topical oi ntment APPLY THIN LAYER TO APPLY TO AFFECTED AREA S ONCE DAILY FOR 14 DAYS Active Not available Trulicity 0.75 mg/0.5 mL subcutaneous pen injector Active Not available Problems None recorded. Procedures Date Name Performed by 08/31/2016 Colonoscopy Information not avai lable 12/16/2001 Hysterectomy/revise Vagina Information n ot available 08/31/2001 Laparoscopy Information not avai lable 01/08/1983 Delivery Information not avai lable 08/14/2020 MRI, Cervical Spine, W/o Contrast [facility] [address] [address] (Work [address]) 09/06/2020 MRI, Cervical Spine, W/o Contrast [facility] [address] [address] (Work Place) Results Lab Results Date Name Specimen Result Interpretation Description Value Range Status Address 09/03/2020 [facility] Pdf Report NOS No observation recorded. [facility]: [address] [facility] 09/03/2020 COVID-19 RNA (SARS-CoV-2), QL, county agent-PCR, Respirat ory Specimen NOS Normal Sars-cov-2 negative negative Final [facility]: [address] [facility], [place] Past Encounters 09/20/2020 Cervical Radiculopathy; Cervical Spondylosis without Myelopathy Ann-Marie Blanc, FISH LIVER SORTER: [address] [address], [place] [address], Ph. 09/06/2020 Cervical Spondylosis without Myelopathy; Cervical Radiculopathy Fransisco Pederson MD: [address] [address], [place] [address], Ph. 09/03/2020 Pre-surgery Testing; Viral Screening Fransisco Pederson MD: [address] [facility], [place] [address], Ph. [phone] 08/14/2020 Cervical Radiculopathy; Cervical Spondylosis without Myelopathy Fransisco Pederson MD: [address] [address], [place] [address], Ph. Social History Tobacco Smoking Status Never Smoker Vaccine List None recorded. Plan of Care Reminders Provider Appointments None recorded. Lab None recorded. Referral None recorded. Procedures None recorded. Surgeries None recorded. Imaging None recorded. Vitals Height Weight BMI Blood Pressure 5 ft 6 in 179.4 lbs 29 kg/m2 128/75 mm[Hg]
--- OUTSIDE RECORDS SUMMARY | 2020-10-05 07:22 | CCD ---
Author Author Selena Sesay [facility] Organization Unknown Address [address] [address] Phone Care Team Providers Care Feed Mixer Helper Name Role Phone Amadou Sesay PCP Allergies, Adverse Reactions, Alerts No Data in Section Problem List Concept Problem Description Status Start Date Created Date Resolv ed Date Snomed Code F41.0 Panic Disorder Active 08/15/2015 08/15/2015 F33.1 Major Depressive Disorder, Recurrent episode, Moderate Active 08/13/2020 F41.1 Generalized Anxiety Disorder Active 08/13/2020 Medications Rx Norm Medication Route Route Concept Start Date Stop Date Dosage Stevenson quency Duration Formula Strength Dosage Form Dosage Form Code Dosage Description Medication Id Account Npid Author First Name Author Last Name Taxonomy Code Taxonomy Desc Phone Number [phone] clonazepam by mouth J36569 03/30/2020 twice a day 0.5 mg t ablet 03803 [id number] [phone] Frieda Elder [id number] Nurse Practitioner [phone] Social History Social History Element Description Concept Effective Date Smoking Status Unknown if ever smoked [id number] Immunizations No Data in Section Vital Signs No Data in Section Procedures Date Concept Id Description Targeted Site Concept Targeted Site Concept Type 08/13/2020 93127-75 [id number]"Psychotherapy CPT Patient has no history of implantable de vices Encounters Encounter Start Date End Date Encounter Type Description Diagnosis Di agnosis Desc Location Author First Name Author Last Name Npid Taxonomy Cod e Taxonomy Desc Phone Number Location Addr1 Location Addr2 Location City Location Sta te Location Zip [id number] 08/13/2020 08/13/2020 [address]-58 [id number]"Psychothera py F41.0 Panic Disorder [Episodic Paroxysmal Anxiety] without Agoraphobia [facility] [id number] Art Therapist [id number] [address] Plan of Treatment No Data in Section Lab Results No Data in Section Instructions No Data in Section Insurance Providers Insurance Id Policy Effective Date Policy Thru Date Company N lakia [id number] 2020 MEDICARE [id number] 2019 [employer] Y[place] thao
--- OUTSIDE RECORDS SUMMARY | 2020-10-05 07:22 | CCD ---
Author Organization Unknown Address [address] [place] [address] Phone [phone] Care Team Providers Care Data Deliverables Manager Name Role Phone Henri Mcdonald Unavailable Unavailable Allergies Code Code System Name Reaction Severity Status Onset 936766 RxNorm Bee Pollen Active 07/15/2018 2670 RxNorm Codeine Active 07/15/2018 3589421 RxNorm Latex Active 07/15/2018 Notes: MIOLD | ORANGES | DUST | BANANAS | FRAGRANCES | SPIDERS Medications Name Status Start Date Stop Date albuterol sulfate HFA 90 mcg/actuation a erosol inhaler Inhale 2 puffs every 4-6 hours by inhalation route. Active Not available aspirin 81 mg tablet,delayed release Active Not available atorvastatin 10 mg tablet Completed 2019 atorvastatin 20 mg tablet TAKE ONE TABLET BY MOUTH EVERY DAY Active Not available benzonatate 100 mg capsule Completed 07/17 cefuroxime axetil 500 mg tablet Completed 07/17/2020 cetirizine 10 mg tablet Active Not avai lable clonazepam 0.5 mg tablet Active Not keke ilable duloxetine 60 mg capsule,delayed release TAKE ONE CAPSULE BY MOUTH EVERY EVENING Active Not available epinephrine 0.3 mg/0.3 mL injection, auto-injector Active Not available fluocinolone 0.01 % topical cream Active Not available fluticasone 232 mcg-salmeterol 14 mcg/actuation breath activated powdr Completed 08/13/2020 fluticasone propionate 50 mcg/actuation nasal spray,suspension [place] 1 spray every day by intranasal route. Active Not available Fluzone Quad (PF) 60 mcg (15 mcg x 4)/0.5 mL IM syring e Completed 07/17/2020 Incruse Ellipta 62.5 mcg/actuation powder for inhalation Active Not available levothyroxine 112 mcg tablet Active Not available metformin 1,000 mg tablet Take 1 tablet twice a day by oral route. Active Not available montelukast 10 mg tablet take 1 tablet po QD Active Not available nystatin 100,000 unit/gram topical powder Active Not available OneTouch Delica Plus Lancet 30 gauge Active Not available OneTouch Delica Plus Lancet 33 gauge Active Not available OneTouch Ultra2 Meter Active Not availa ble OneTouch Verio test strips Active Not a vailable pantoprazole 40 mg tablet,delayed releas e TAKE ONE TABLET BY MOUTH AT BEDTIME Active Not available pregabalin 100 mg capsule Completed 2019 pregabalin 50 mg capsule TAKE ONE CAPSULE BY MOUTH THREE TIMES A DAY MAXIMUM DAILY DOSE 3 CAPSULES Active Not available Prempro 0.625 mg-2.5 mg tablet Active N ot available propranolol ER 120 mg capsule,24 hr,extended release Active Not available sertraline 25 mg tablet Completed 08/13/20 sertraline 50 mg tablet Completed 08/13/20 Systane (propylene glycol) 0.4 %-0.3 % eye drops Active Not available tizanidine 4 mg tablet TAKE ONE TABLET BY MOUTH THREE TIMES A DAY Active Not available trazodone 100 mg tablet Completed 07/17/20 trazodone 150 mg tablet Active Not avai lable triamcinolone acetonide 0.1 % topical cream Active Not available triamcinolone acetonide 0.1 % topical ointment Active Not available Trulicity 0.75 mg/0.5 mL subcutaneous pen injector Active Not available Problems Name Status Onset Date Source Complete Edentulism Due to Caries Active 07/15/2018 History Hypothyroidism Active 06/27/2019 History Type [...] Unknown 02/17/2020 History Left Lower Quadrant Pain Active 02/17/2020 History Candidiasis Unknown 02/17/2020 History Screening Mammography Unknown 04/11/2020 History Fibromyalgia Active 08/13/2020 Procedures Date Name Performed by Hysterectomy Information not avai lable 04/20/2020 Mammogram, Screening Information not keke ilable Notes: hysterectomy, laporoscopy Results Lab Results Date Name Specimen Result Interpretation Description Value Range Status Address 06/11/2020 HbA1C (Hemoglobin a1C), Blood A1C 7.2 06/11/2020 LDL, Serum Ldl 113 Past Encounters 08/13/2020 Allergic Rhinitis; Type 2 Diabetes Mellitus without Complication; Flexural Psoriasis; Fibromyalgia; Left Lower Quadrant Pain Henri Mcdonald, RPA-C: [address] [facility], [facility] [address], [place] [address], Ph. Social History Tobacco Smoking Status Never Smoker Vaccine List Vaccine Type influenza, injectable, quadrivalent 05/25/2020 Plan of Care Reminders Provider Appointments None recorded. Lab None recorded. Referral None recorded. Procedures None recorded. Surgeries None recorded. Imaging None recorded. Vitals 08/13/2020 02:50PM TELEHEALTH 20 Height 66 in [...]
--- OUTSIDE RECORDS SUMMARY | 2020-10-05 07:22 | CCD | Continuity of Care Document ---
Author Selena Royal PA-C Organization Unknown Address [address] [place] [address] Phone [phone] Care Team Providers Care Ad Taker Name Role Phone Peter Deidre [place]o ORTHOPTIST AUTM [phone] Henri Mcdonald RPA-C AUTM [phone] Problems Active Problems Provider Date Sprain of [...] SIG Qnty Indications Ordering Provide r Date Tizanidine HCL 4mg Capsules 1 by mouth [...] CPT Code Status Date Vaccine Lot # [id number] Given 05/02/2016 Influenza Virus Split 3 Yrs And Above Dosage 81443 Given 07/05/2015 Influenza Virus Split 3 Yrs And Above Dosage 57951 Given 07/20/2014 Influenza Virus Vaccine Intr anasal 09021 Given 07/07/2013 Poliovirus Vaccine Oral Vital Signs Date Vital Result Comment 08/09/2020 9:56am Body Temperature 96.0 F 05/06/2019 9:56am Body Temperature 96.9 F Height 67 inches 5'7" Weight 180.00 lb BMI (Body Mass Index) 28.2 kg/m2 Results Description No Information Available Procedures Date Code Description Status 08/09/2020 05883 X-Ray Shoulder Complete Complete d 07/20/2020 48151 X-Ray Wrist Complete Completed 07/20/202000978 Inject/Drain Joint/Bursa Major C ompleted 05/18/202006521 Inject/Drain Joint/Bursa Major C ompleted 04/20/2020 22637 X-Ray Elbow Ap & Lateral 2 Views Completed 04/20/202018597 Inject Tendon Sheath, Ligament C ompleted 04/12/2020 91266 Nerve Conduction 13+ Studies Com pleted 04/12/2020 66513 Needle Electromyography,Complete Five Or More Muscles Studied Completed Medical Devices Description No Information Available Encounters Type Date Location Provider Dx Diagnosis Office Visit 05/18/2020 8:45a [place] Lluvia Dwyer PA-C M6 5.812 Other synovitis and tenosynovitis, left shoulder M54.12 Radiculopathy, cervical silvano on Assessments Date Code Description Provider 08/09/2020 M54.2 Cervicalgia Lluvia jordan PA-C 08/09/2020 [...] tunnel syndrome, bilatera l upper limbs Kendra Kate PA-C 04/20/2020 M77.12 Lateral epicondylitis, left elbo w Kendra Kate PA-C 04/20/2020 G56.03 Carpal tunnel syndrome, bilatera l upper limbs Kendra Kate PA-C 04/12/2020 M47.892 Other spondylosis, cervical silvano on [...] Wood MD Plan of Treatment Future Appointment(s):* 09/11/2020 11:15 am - Lluvia Dwyer PA-C at [place] * 09/20/2020 8:30 am - Lluvia Dwyer PA-C at [place] 08/09/2020 - Lluvia Dwyer PA-C* M54.2 Cervicalgia* New Medication:* Tizanidine HCL 4 mg - 1 by mouth three times a day * Follow up:* 4-6 weeks with BMS for shoulder recheck * M25.512 Pain in left shoulder * M25.511 Pain in right shoulder Functional Status Description No Information Available Mental Status Description No Information Available Referrals Refer to Dr Reason for Referral Status Appt Date Lluvia Dwyer PA-C REF NO AUTH REQUIRED FOR REF TO DR BUNN TO TRANS NT Created [address] [place] [address] [phone] Benja Boothe MD AUTHORIZATION FOR RE EVAL 97 164. PATIENT GOING TO [facility] AUDIO. PASSED TO CHART.HW Created [address] [place] [address], [address] [place] [address] [phone] Lluvia Dwyer PA-C REF NO AUTH REQUIRED FOR REF TO DR BUNN TO TRANS NT Created [address] [place] [address] [phone] Lluvia Dwyer PA-C REF NO AUTH REQUIRED FRO REF TO [facility] PAIN [facility]EMENT TO TRANS NT Created [address] [facility] [address] [place] [address] [phone]
--- OUTSIDE RECORDS SUMMARY | 2020-10-05 07:22 | CCD ---
Author Author Selena Elder Organization Unknown Address [address] [address] Phone Care Team Providers Care Agriculture Mechanic Name Role Phone Frieda Elder PCP Allergies, Adverse Reactions, Alerts No Data in Section Problem List Concept Problem Description Status Start Date Created Date Resolv ed Date Snomed Code F41.0 Panic Disorder Active 08/15/2015 08/15/2015 F33.1 Major Depressive Disorder, Recurrent episode, Moderate Active 09/11/2020 F41.1 Generalized Anxiety Disorder Active 09/11/2020 Medications Rx Norm Medication Route Route Concept Start Date Stop Date Dosage Stevenson quency Duration Formula Strength Dosage Form Dosage Form Code Dosage Description Medication Id Account Npid Author First Name Author Last Name Taxonomy Code Taxonomy Desc Phone Number [id number] clonazepam by mouth [id number] 03/30/2020 twice a day 0.5 mg t ablet 85137 [id number] [phone] Rupal Colvin [id number] Nurse Practitioner [phone] 158594 trazodone 12/06/2019 10/20/2020 30 150 mg tablet 74910 144207 [id number] Frieda Elder [id number] Nurse Practitioner [phone] 990777 duloxetine by mouth [id number] 08/15/2020 11/19/2020 once a day 30 60 mg capsule,delayed release(DR/EC) 87553 [id number] [id number] Mendle Elder [id number] Nurse Practitioner [phone] 457770 sertraline by mouth [id number] 08/21/2020 11/19/2020 once a day 30 50 mg tablet 38778 367120 [id number] Frieda Elder [id number] Nurse Yasmin gonsalves [phone] Social History Social History Element Description Concept Effective Date Smoking Status Unknown if ever smoked [id number] Immunizations No Data in Section Vital Signs Encounter Date Height Ins Weight Lbs Bmi Bp Systolic Bp Diastoli c Oxygen Saturation Respiration Rate Pulse Rate Body Temp Head Circumference Heigh t Lying 09/11/2020 0.00 0.00 0.00 0 0 0.00 0 0 0.00 0.0 0.0 0 Procedures Date Concept Id Description Targeted Site Concept Targeted Site Concept Type 09/11/2020 89255-37 [facility] Telemed E/M Lvl 3--Est pt CPT Patient has no history of implantable de vices Encounters Encounter Start Date End Date Encounter Type Description Diagnosis Di agnosis Desc Location Author First Name Author Last Name Npid Taxonomy Cod e Taxonomy Desc Phone Number Location Addr1 Location Addr2 Location [facility] Location Sta te Location Zip [id number] 09/11/2020 09/11/2020 60083-95 [facility] Telemed E/M Lvl 3--Est p t F41.0 Panic Disorder [Episodic Paroxysmal Anxiety] without Agoraphobia [facility] Frieda [id number] Nurse Practitioner [phone] [address] [phone] Plan of Treatment No Data in Section Lab Results No Data in Section Instructions No Data in Section Functional Cognitive Status No Data in Section Insurance Providers Insurance Id Policy Effective Date Policy Thru Date Company Ed [employer] [id number] 2020 MEDICARE [id number] 2019 [employer] [place] thao
--- OUTSIDE RECORDS SUMMARY | 2020-10-05 07:22 | CCD ---
Author Organization Unknown Address [address] [place] [address] Phone [phone] Care Team Providers Care Software Licensing Analyst Name Role Phone [facility] 4 [phone] [facility] [phone] Allergies Code Code System Name Reaction Severity Status Onset 1191 RxNorm Aspirin Abdominal Pain Mild to Moderate Active 632253 RxNorm Banana Hives Mild to Moderate Active Bee Venom Protein (Honey Bee) Anaphylaxis Severe Active 2670 RxNorm Codeine Other Mild to Moderate Active Latex, Natural Rubber Rash Mild Active 03052 RxNorm Meloxicam Nausea Mild to Moderate Active Medications Name Status Start Date Stop Date albuterol sulfate HFA 90 mcg/actuation a erosol inhaler INHALE TWO PUFFS BY MOUTH EVERY 4 TO 6 HOURS Active Not available aspirin 81 mg tablet,delayed release TAKE ONE [...] Active Not available clonazepam 0.5 mg tablet TAKE ONE TABLET BY MOUTH TWICE A DAY MAXIMUM DAILY DOSE 2 Active Not available diclofenac 1 % topical gel Active Not [...] Active Not available Incruse Ellipta 62.5 mcg/actuation powde r for inhalation INHALE ONE PUFF BY MOUTH EVERY DAY Completed 07/31 levothyroxine 112 mcg tablet Active Not available metformin 1,000 mg tablet TAKE ONE TABLET BY MOUTH EVERY 12 HOURS Active Not available montelukast 10 mg tablet TAKE ONE TABLET BY MOUTH EVERY DAY Completed 07/31 nystatin 100,000 unit/gram topical powde r APPLY [...] Not available Trulicity 0.75 mg/0.5 mL subcutaneous pe n injector INJECT 1 SUBCUTANEOUSLY WEEKLY Active Not avai lable Problems None recorded. Procedures Date Name Performed by 08/31/2016 Colonoscopy Information not avai lable 12/16/2001 Hysterectomy/revise Vagina Information n ot available 08/31/2001 Laparoscopy Information not avai lable 01/08/1983 Delivery Information not avai lable 08/14/2020 MRI, Cervical Spine, W/o Contrast [facility] [address] [place] [address] (Work Place) 09/06/2020 MRI, Cervical Spine, W/o Contrast [facility] [address] [address] (Work Place) Results Lab Results Date Name Specimen Result Interpretation Description Value Range Status Address 09/03/2020 [facility] Pdf Report NOS No observation recorded. [facility]: [address] [facility] [place] 09/03/2020 COVID-19 RNA (SARS-CoV-2), QL, terminal gauger-PCR, Respirat ory Specimen NOS Normal Sars-cov-2 negative negative Final [facility]: [address] [facility] [place] Past Encounters 09/06/2020 Cervical Spondylosis without Myelopathy; Cervical Radiculopathy Fransisco Pederson MD: [address] [address], Ph. 09/03/2020 Pre-surgery Testing; Viral Screening Fransisco Pederson MD: [address] [address], Ph. [phone] 08/14/2020 Cervical Radiculopathy; Cervical Spondylosis without Myelopathy Fransisco Pederson MD: [address] [address], [facility] [place] [address], Ph. Social History Tobacco Smoking Status Never Smoker Vaccine List None recorded. Plan of Care Reminders Provider Appointments None recorded. Lab None recorded. Referral None recorded. Procedures None recorded. Surgeries None recorded. Imaging None recorded. Vitals Height Weight BMI Blood Pressure 5 ft 6 in 179.4 lbs 29 kg/m2 128/75 mm[Hg]
--- OUTSIDE RECORDS SUMMARY | 2020-10-05 07:22 | CCD ---
Author Author ShamaSelenasdmilo Organization Unknown Address [address] [place] [place] [address] Phone Care Team Providers Care Engine Manager Name Role Phone Amadou Sesay PCP Allergies, Adverse Reactions, Alerts No Data in Section Problem List Concept Problem Description Status Start Date Created Date Resolv ed Date Snomed Code F41.0 Panic Disorder Active 08/15/2015 08/15/2015 F33.1 Major Depressive Disorder, Recurrent episode, Moderate Active 09/03/2020 F41.1 Generalized Anxiety Disorder Active 09/03/2020 Medications Rx Norm Medication Route Route Concept Start Date Stop Date Dosage Stevenson quency Duration Formula Strength Dosage Form Dosage Form Code Dosage Description Medication Id Account Npid Author First Name Author Last Name Taxonomy Code Taxonomy Desc Phone Number [phone] clonazepam by mouth B82312 03/30/2020 twice a day 0.5 mg t ablet 18837 [phone] Rupal Colvin [id number] Nurse Practitioner [phone] 274103 trazodone 12/06/2019 10/20/2020 30 150 mg tablet 26361 609136 [id number] Frieda Elder [id number] Nurse Practitioner [phone] 432512 duloxetine by mouth [id number] 08/15/2020 11/19/2020 once a day 30 60 mg capsule,delayed release(DR/EC) 89649 613132 [id number] Mendel Elder [id number] Nurse Practitioner [phone] 559833 sertraline by mouth [id number] 08/21/2020 11/19/2020 once a day 30 50 mg tablet 16072 725708 [id number] Frieda Elder [id number] Nurse Yasmin gonsalves [phone] Social History Social History Element Description Concept Effective Date Smoking Status Unknown if ever smoked [id number] Immunizations No Data in Section Vital Signs No Data in Section Procedures Date Concept Id Description Targeted Site Concept Targeted Site Concept Type 09/03/2020 09141-65 [id number]"Psychotherapy CPT Patient has no history of implantable de vices Encounters Encounter Start Date End Date Encounter Type Description Diagnosis Di agnosis Desc Location Author First Name Author Last Name Npid Taxonomy Cod e Taxonomy Desc Phone Number Location Addr1 Location Addr2 Location [facility] Location Sta te Location Zip [id number] 09/03/2020 09/03/2020 [address]-27 [id number]"Psychothera py F41.0 Panic Disorder [Episodic Paroxysmal Anxiety] without Agoraphobia [facility] [id number] Art Therapist [phone] [address] Plan of Treatment No Data in Section Lab Results No Data in Section Instructions No Data in Section Insurance Providers Insurance Id Policy Effective Date Policy Thru Date Company N lakia [id number] 2020 MEDICARE [id number] 2019 [employer] [place] thao
--- OUTSIDE RECORDS SUMMARY | 2020-10-05 07:22 | CCD ---
Author Organization Unknown Address [address] [place] [address] Phone [phone] Care Team Providers Care Infection Control Preventionist Name Role Phone Henri Mcdonald Unavailable Unavailable Allergies Code Code System Name Reaction Severity Status Onset 230839 RxNorm Bee Pollen Active 07/15/2018 2670 RxNorm Codeine Active 07/15/2018 1997913 RxNorm Latex Active 07/15/2018 Notes: MIOLD | ORANGES | DUST | BANANAS | FRAGRANCES | SPIDERS Medications Name Status Start Date Stop Date aspirin 81 mg tablet,delayed release Active Not [...] MAXIMUM DAILY DOSE 2 Active Not available duloxetine 60 mg capsule,delayed release Active Not [...] 50 mg tablet Active Not avai lable Systane (propylene glycol) 0.4 %-0.3 % eye [...] Status Address 08/28/2020 COVID-19 RNA (SARS-CoV-2), QL, residential case manager-PCR, Respiratory Specimen Nasopharyngeal Sars Cov 2 RNA not detected not detected Fi n[facility] ([facility]): [address] [place] 06/11/2020 HbA1C (Hemoglobin a1C), Blood A1C 7.2 06/11/2020 LDL, Serum Ldl 113 Past Encounters 08/28/2020 Exposure to SARS-CoV-2 Giuliano Dalton MD: [address] [place] [address], Ph. 08/13/2020 Allergic Rhinitis; Type 2 Diabetes Mellitus without Complication; Flexural Psoriasis; Fibromyalgia; Left Lower Quadrant Pain Henri Mcdonald, [facility]: [address] [facility], [place] [address], Ph. Social History Tobacco Smoking Status Never [...]
--- OUTSIDE RECORDS SUMMARY | 2020-10-05 07:22 | CCD ---
Author Organization Unknown Address [address] [place] [address] Phone [phone] Care Team Providers Care Rough Carpenter Name Role Phone [facility] 4 [phone] [facility] [phone] Allergies Code Code System Name Reaction Severity Status Onset 1191 RxNorm Aspirin Abdominal Pain Mild to Moderate Active 036382 RxNorm Banana Hives Mild to Moderate Active Bee Venom Protein (Honey Bee) Anaphylaxis Severe Active 2670 RxNorm Codeine Other Mild to Moderate Active Latex, Natural Rubber Rash Mild Active 33268 RxNorm Meloxicam Nausea Mild to Moderate Active [...] AT BEDTIME Completed atorvastatin 20 mg tablet Active Not av ailable benzonatate 100 mg capsule TAKE ONE CAPSULE [...] DIRECTED Completed 08/14/2020 pantoprazole 40 mg tablet,delayed release Active Not available pregabalin 100 mg capsule TAKE ONE CAPSULE BY MOUTH EVERY DAY MAXIMUM DAILY DOSE 1 Active Not available pregabalin 50 mg capsule TAKE ONE CAPSULE BY MOUTH THREE TIMES A DAY MAXIMUM DAILY DOSE 3 CAPSULES Completed 08/14/2020 Prempro 0.625 mg-2.5 mg tablet TAKE ONE [...] 08/14/2020 MRI, Cervical Spine, W/o Contrast [facility] [address] [phone] (Work Place) Results Lab Results None recorded. Past Encounters 09/03/2020 Pre-surgery Testing; Viral Screening Fransisco Pederson MD: [address], [place] [address], Ph. [phone] 08/14/2020 Cervical Radiculopathy; Cervical Spondylosis without Myelopathy Fransisco Pederson MD: [address], [place] [address], Ph. Social History Tobacco Smoking Status Never Smoker Vaccine List None recorded. Plan of Care Reminders Provider Appointments None recorded. Lab None recorded. Referral None recorded. Procedures None recorded. Surgeries None recorded. Imaging None recorded. Vitals Height Weight BMI Blood Pressure 5 ft 6 in 179.4 lbs 29 kg/m2 128/75 mm[Hg]
--- OUTSIDE RECORDS SUMMARY | 2020-10-05 07:22 | CCD ---
Author Organization Unknown Address [address] [place] [address] Phone [phone] Care Team Providers Care Provider Contracting Consultant Name Role Phone [facility] 4 [phone] [facility] [phone] Allergies Code Code System Name Reaction Severity Status Onset 1191 RxNorm Aspirin Abdominal Pain Mild to Moderate Active 001284 RxNorm Banana Hives Mild to Moderate Active Bee Venom Protein (Honey Bee) Anaphylaxis Severe Active 2670 RxNorm Codeine Other Mild to Moderate Active Latex, Natural Rubber Rash Mild Active 22047 RxNorm Meloxicam Nausea Mild to Moderate Active Medications Name Status Start Date Stop Date albuterol sulfate HFA 90 mcg/actuation aerosol inhaler Active Not available aspirin 81 mg tablet,delayed [...] Not available duloxetine 60 mg capsule,delayed release TAKE ONE [...] available fluticasone propionate 50 mcg/actuation nasal spray,suspension A [...] lable 08/14/2020 MRI, Cervical Spine, W/o Contrast Inform ation not available Results Lab Results None recorded. Past Encounters 08/14/2020 Cervical Radiculopathy; Cervical Spondylosis without Myelopathy Fransisco Pederson MD: [address] [facility] [address], [address], [place] [address], Ph. Social History Tobacco Smoking Status Never Smoker Vaccine List None recorded. Plan of Care Reminders Provider Appointments None recorded. Lab None recorded. Referral None recorded. Procedures None recorded. Surgeries None recorded. Imaging None recorded. Vitals Height Weight BMI Blood Pressure 5 ft 6 in 179.4 lbs 29 kg/m2 128/75 mm[Hg]
--- OUTSIDE RECORDS SUMMARY | 2020-10-05 07:22 | CCD ---
Author Author Selena Elder Organization Unknown Address [address] [place] [place] [address] Phone Care Team Providers Care Tassel Making Machine Operator Name Role Phone Frieda Elder PCP Allergies, Adverse Reactions, Alerts No Data in Section Problem List Concept Problem Description Status Start Date Created Date Resolv ed Date Snomed Code F41.0 Panic Disorder Active 08/15/2015 08/15/2015 F33.1 Major Depressive Disorder, Recurrent episode, Moderate Active 08/22/2020 F41.1 Generalized Anxiety Disorder Active 08/22/2020 Medications Rx Norm Medication Route Route Concept Start Date Stop Date Dosage Stevenson quency Duration Formula Strength Dosage Form Dosage Form Code Dosage Description Medication Id Account Npid Author First Name Author Last Name Taxonomy Code Taxonomy Desc Phone Number [id number] clonazepam by mouth I40848 03/30/2020 twice a day 0.5 mg t ablet 48790 239570 [phone] Rupal Colvin [id number] Nurse Practitioner [phone] 029683 trazodone 12/06/2019 10/20/2020 30 150 mg tablet 55388 580614 [id number] Frieda Elder [id number] Nurse Practitioner [phone] 504246 duloxetine by mouth W48643 08/15/2020 11/19/2020 once a day 30 60 mg capsule,delayed release(DR/EC) 18324 365796 [id number] Mendel Elder [id number] Nurse Practitioner [id number] 538316 sertraline by mouth M15490 08/21/2020 11/19/2020 once a day 30 50 mg tablet 52940 984728 [id number] Frieda Elder [id number] Nurse Yasmin gonsalves [phone] Social History Social History Element Description Concept Effective Date Smoking Status Unknown if ever smoked [id number] Immunizations No Data in Section Vital Signs Encounter Date Height Ins Weight Lbs Bmi Bp Systolic Bp Diastoli c Oxygen Saturation Respiration Rate Pulse Rate Body Temp Head Circumference Heigh t Lying 08/21/2020 0.00 0.00 0.00 0 0 0.00 0 0 0.00 0.0 0.0 0 Procedures Date Concept Id Description Targeted Site Concept Targeted Site Concept Type 08/21/2020 10596-55 MHC Telemed E/M Lvl 3--Est pt CPT Patient has no history of implantable de vices Encounters Encounter Start Date End Date Encounter Type Description Diagnosis Di agnosis Desc Location Author First Name Author Last Name Npid Taxonomy Cod e Taxonomy Desc Phone Number Location Addr1 Location Addr2 Location [facility] Location Sta te Location Zip [id number] 08/21/2020 08/21/2020 [address]841-25 [facility] Telemed E/M Lvl 3--Est p t F41.0 Panic Disorder [Episodic Paroxysmal Anxiety] without Agoraphobia [facility] Frieda [id number] Nurse Practitioner [phone] [address] [phone] Plan of Treatment No Data in Section Lab Results No Data in Section Instructions No Data in Section Functional Cognitive Status No Data in Section Insurance Providers Insurance Id Policy Effective Date Policy Thru Date Company [employer] [id number] 2020 MEDICARE [id number] 2019 [employer] [place] [place] thao
--- OUTSIDE RECORDS SUMMARY | 2020-10-05 07:22 | CCD | Continuity of Care Document ---
Author Selena Royal PA-C Organization Unknown Address [address] [place] [address] Phone [phone] Care Team Providers Care Shell Freezing Machine Operator Name Role Phone Peter Deidre Ov[place]o ASSISTANT PLANT CONTROL OPERATOR AUTM [phone] Henri Mcdonald RPA-C AUTM [phone] Problems Active Problems Provider Date Sprain [...] CPT Code Status Date Vaccine Lot # [id number] Given 05/02/2016 Influenza Virus Split 3 Yrs And Above Dosage 38707 Given 07/05/2015 Influenza Virus Split 3 Yrs And Above Dosage 14856 Given 07/20/2014 Influenza Virus Vaccine Intr anasal 26962 Given 07/07/2013 Poliovirus Vaccine Oral Vital Signs Date Vital Result Comment 08/09/2020 9:56am Body Temperature 96.0 F 05/06/2019 9:56am Body Temperature 96.9 F Height 67 inches 5'7" Weight 180.00 lb BMI (Body Mass Index) 28.2 kg/m2 Results Description No Information Available Procedures Date Code Description Status 08/09/2020 11168 X-Ray Shoulder Complete Complete d 07/20/2020 81618 X-Ray Wrist Complete Completed 07/20/202023196 Inject/Drain Joint/Bursa Major C ompleted 05/18/202039591 Inject/Drain Joint/Bursa Major C ompleted 04/20/2020 10521 X-Ray Elbow Ap & Lateral 2 Views Completed 04/20/202016148 Inject Tendon Sheath, Ligament C ompleted 04/12/2020 69936 Nerve Conduction 13+ Studies Com pleted 04/12/2020 21635 Needle Electromyography,Complete Five Or More Muscles Studied Completed Medical Devices Description No Information Available Encounters Type Date Location Provider Dx Diagnosis Office Visit 05/18/2020 8:45a [place] Lluvia Dwyer PA-C M6 5.812 Other synovitis and tenosynovitis, left shoulder M54.12 Radiculopathy, cervical silvano on Assessments Date Code Description Provider 08/09/2020 M54.2 Cervicalgia Lluvia jordan PA-C 07/20/2020 M75.42 Impingement syndrome of left [...] Wood MD 04/12/2020 R20.2 Paresthesia of skin mAarjit brady MD 04/12/2020 E11.9 Type 2 diabetes mellitus without complications Amarjit Wood MD Plan of Treatment Future Appointment(s):* 08/17/2020 11:00 am - Lluvia Dwyer PA-C at [place] 08/09/2020 - Lluvia Dwyer PA-C* M54.2 Cervicalgia* New Medication:* Tizanidine HCL 4 mg - 1 by mouth three times a day * New Orders:* Referral, Ordered: 08/09/20 * Follow up:* 4-6 weeks with BMS for shoulder recheck Functional Status Description No Information Available Mental Status Description No Information Available Referrals Refer to Reason for Referral Status Appt Date Benja Boothe MD AUTHORIZATION FOR RE EVAL 97 164. PATIENT GOING TO [facility] AUDIO. PASSED TO CHART.HW Created [address] [place] [address], [place] [phone] Lluvia Dwyer PA-C REF NO AUTH REQUIRED FOR REF TO DR BUNN TO TRANS NT Created [address] [place], [place] [phone] [place] [address] [phone] Lluvia Dwyer PA-C REF NO AUTH REQUIRED FRO REF TO [facility] PAIN [facility]NA[facility]EMENT TO TRANS NT Created [address] [place] [address] [phone]
--- OUTSIDE RECORDS SUMMARY | 2020-10-05 07:23 | CCD | Continuity of Care Document ---
Author Selena Royal PA-C Organization Unknown Address [address] [place] [id number] Phone [phone] Care Team Providers Care Yard Spotter Name Role Phone YannickhanDeidre APPLICATION DEFENSE MANAGER AUTM [phone] Henri Mcdonald RPA-C AUTM [phone] Problems Active Problems Provider Date Sprain [...] SIG Qnty Indications Ordering Provide r Date Melatonin 5mg Capsules 1 tab nightly Unknown [...] CPT Code Status Date Vaccine Lot # [id number] Given 05/02/2016 Influenza Virus Split 3 Yrs And Above Dosage 03170 Given 07/05/2015 Influenza Virus Split 3 Yrs And Above Dosage [id number] Given 07/20/2014 Influenza Virus Vaccine Intr anasal 77875 Given 07/07/2013 Poliovirus Vaccine Oral Vital Signs Date Vital Result Comment 05/06/2019 9:56am Body Temperature 96.9 F Height 67 inches 5'7" Weight 180.00 lb BMI (Body Mass Index) 28.2 kg/m2 12/18/2016 9:22am Body Temperature 96.2 F Height 67 inches 5'7" Weight 172.25 lb BMI (Body Mass Index) 27.0 kg/m2 Results Description No Information Available Procedures Date Code Description Status 07/20/2020 56066 X-Ray Wrist Complete Completed 07/20/202050361 Inject/Drain Joint/Bursa Major C ompleted 05/18/202064176 Inject/Drain Joint/Bursa Major C ompleted 04/20/2020 59677 X-Ray Elbow Ap & Lateral 2 Views Completed 04/20/2020 06855 Inject Tendon Sheath, Ligament C ompleted 04/12/2020 13969 Nerve Conduction 13+ Studies Com pleted 04/12/2020 24235 Needle Electromyography,Complete Five Or More Muscles Studied Completed Medical Devices Description No Information Available Encounters Type Date Location Provider Dx Diagnosis Office Visit 05/18/2020 8:45a [place] Lluvia Dwyer PA-C M6 5.812 Other synovitis and tenosynovitis, left shoulder M54.12 Radiculopathy, cervical silvano on Assessments Date Code Description Provider 07/20/2020 M75.42 Impingement syndrome of left altagracia [...] tunnel syndrome, right up per limb Amarjit oWod MD 04/12/2020 M54.12 Radiculopathy, cervical region H adelfo Wood MD 04/12/2020 R20.2 Paresthesia of skin Amarjit brady MD 04/12/2020 E11.9 Type 2 diabetes mellitus without complications Amarjit Wood MD Plan of Treatment Future Appointment(s):* 08/17/2020 11:00 am - Lluvia Dwyer PA-C at [place] * 08/09/2020 9:15 am - Lluvia Dwyer PA-C at [place] 07/20/2020 - Lluvia Dwyer PA-C* M75.42 Impingement syndrome of left shoulder * M75.22 Bicipital tendinitis, left shoulder* Follow up:* 4 weeks with [facility] for left arm recheck * M25.532 Pain in left wrist Functional Status Description No Information Available Mental Status Description No Information Available Referrals Refer to Dr Reason for Referral Status Appt Date Lluvia Dwyer PA-C REF NO AUTH REQUIRED FOR REF TO DR BUNN TO TRANS NT Created [address] [place] [address] [phone] Lluvia Dwyer PA-C REF NO AUTH REQUIRED FRO REF TO [facility] TO TRANS NT Created [address] [place] [address] [phone]
--- OUTSIDE RECORDS SUMMARY | 2020-10-05 07:24 | CCD ---
Author Author [facility] Address Unknown Phone Unavailable Care Team Providers Care Optical Technician Name Role Phone Jemal Richard MD Unavailable Unavailable Jemal Richard MD Unavailable Unavailable Jemal Richard MD Unavailable Unavailable Jemal Richard MD Unavailable Unavailable Jemal Richard MD Unavailable Unavailable Jemal Richard MD Unavailable Unavailable Jemal Richard MD Unavailable Unavailable Jemal Richard MD Unavailable Unavailable Jemal Richard MD Unavailable Unavailable Jemal Richard MD Unavailable Unavailable Jemal Richard MD Unavailable Unavailable Jemal Richard MD Unavailable Unavailable Jemal Richard MD Unavailable Unavailable Jemal Richard MD Unavailable Unavailable Jemal Richard MD Unavailable Unavailable Jemal Richard MD Unavailable Unavailable Jemal Richard MD Unavailable Unavailable Jemal Richard MD Unavailable Unavailable Jose ManuelJemal watson MD Unavailable Unavailable Jose ManuelJemal watson MD Unavailable Unavailable Jose ManuelJemal MD Unavailable Unavailable Jose ManuelJemal watson MD Unavailable Unavailable Jose ManuelJemal watson MD Unavailable Unavailable Jose ManuelJemal watson MD Unavailable Unavailable Jose ManuelJemal MD Unavailable Unavailable Jose ManuelJemal MD Unavailable Unavailable Jose ManuelJemal MD Unavailable Unavailable Jose ManuelJemal MD Unavailable Unavailable Jose ManuelJemal MD Unavailable Unavailable Jose ManuelJemal MD Unavailable Unavailable Jose ManuelJemal MD Unavailable Unavailable Jose ManuelJemal MD Unavailable Unavailable Jose Manuel S Bigg CALLAHAN Unavailable Unavailable Jose ManuelJemal MD Unavailable Unavailable Jose ManuelJemal MD Unavailable Unavailable Jemal Richard MD Unavailable Unavailable Jemal Richard MD Unavailable Unavailable Jemal Richard MD Unavailable Unavailable Jemal Richard MD Unavailable Unavailable Jemal Richard MD Unavailable Unavailable Jemal Richard MD Unavailable Unavailable Jemal Richard MD Unavailable Unavailable Jemal Richard MD Unavailable Unavailable Jemal Richard MD Unavailable Unavailable Jemal Richard MD Unavailable Unavailable Jemal Richard MD Unavailable Unavailable Jemal Richard MD Unavailable Unavailable Jemal Richard MD Unavailable Unavailable Jemal Richard MD Unavailable Unavailable Dulce Maria Dalton MD Unavailable Unavailable Dulce Maria Dalton MD Unavailable Unavailable Dulce Maria Dalton MD Unavailable Unavailable Dulce Maria Dlaton MD Unavailable Unavailable Dulce Maria Dalton MD Unavailable Unavailable Dulce aMria Dalton MD Unavailable Unavailable Dulce Maria Dalton MD Unavailable Unavailable Dulce Maria Dalton MD Unavailable Unavailable Dulce Maria Dalton MD Unavailable Unavailable Dulce Maria Dalton MD Unavailable Unavailable Dulce Maria Dalton MD Unavailable Unavailable Dulce Maria Dalton MD Unavailable Unavailable Dulce Maria Dalton MD Unavailable Unavailable Dulce Maria Dalton MD Unavailable Unavailable Dulce Maria Dalton MD Unavailable Unavailable Dulce Maria Dalton MD Unavailable Unavailable Dulce Maria Dalton MD Unavailable Unavailable Dulce Maria Dalton MD Unavailable Unavailable Dulce Maria Dalton MD Unavailable Unavailable Dulce Maria Dalton MD Unavailable Unavailable Dulce Maria Dalton MD Unavailable Unavailable Dulce Maria Dalton MD Unavailable Unavailable Dulce Maria Dalton MD Unavailable Unavailable Dulce Maria Dalton MD Unavailable Unavailable Dulce Maria Dalton MD Unavailable Unavailable Dulce Maria Dalton MD Unavailable Unavailable Dulce Maria Dalton MD Unavailable Unavailable Dulce Maria Dalton MD Unavailable Unavailable Dulce Maria Dalton MD Unavailable Unavailable Dulce Maria Dalton MD Unavailable Unavailable Dulce Maria Dalton MD Unavailable Unavailable Dulce Maria Dalton MD Unavailable Unavailable Dulce Maria Dalton MD Unavailable Unavailable Dulce Maria Dalton MD Unavailable Unavailable Dulce Maria Dalton MD Unavailable Unavailable Dulce Maria Dalton MD Unavailable Unavailable Dulce Maria Dalton MD Unavailable Unavailable Dulce Maria Dalton MD Unavailable Unavailable Dulce Maria Dalton MD Unavailable Unavailable Dulce Maria Dalton MD Unavailable Unavailable Dulce Maria Dalton MD Unavailable Unavailable Dulce Maria Dalton MD Unavailable Unavailable Dulce Maria Dalton MD Unavailable Unavailable Dulce Maria Dalton MD Unavailable Unavailable Dulce Maria Dalton MD Unavailable Unavailable Dulce Maria Dalton MD Unavailable Unavailable Dulce Maria Dalton MD Unavailable Unavailable Dulce Maria Dalton MD Unavailable Unavailable Dulce Maria Dalton MD Unavailable Unavailable Dulce Maria Dalton MD Unavailable Unavailable Dulce Maria Dalton MD Unavailable Unavailable Dulce Maria Dalton MD Unavailable Unavailable Dulce Maria Dalton MD Unavailable Unavailable Dulce Maria Dalton MD Unavailable Unavailable Dulce Maria Dalton MD Unavailable Unavailable Dulce Maria Dalton MD Unavailable Unavailable Dulce Maria Dalton MD Unavailable Unavailable Dulce Maria Dalton MD Unavailable Unavailable Dulce Maria Dalton MD Unavailable Unavailable Dulce Maria Dalton MD Unavailable Unavailable Dulce Maria Dalton MD Unavailable Unavailable Dulce Maria Dalton MD Unavailable Unavailable Dulce Maria Dalton MD Unavailable Unavailable Dulce Maria Dalton MD Unavailable Unavailable Dulce Maria Dalton MD Unavailable Unavailable Dulce Maria Dalton MD Unavailable Unavailable Dulce Maria Dalton MD Unavailable Unavailable Dulce Maria Dalton MD Unavailable Unavailable Dulce Maria Dalton MD Unavailable Unavailable Dulce Maria Dalton MD Unavailable Unavailable Dulce Maria Dalton MD Unavailable Unavailable Dulce Maria Dalton MD Unavailable Unavailable Dulce Maria Dalton MD Unavailable Unavailable Dulce Maria Dalton MD Unavailable Unavailable Dulce Maria Dalton MD Unavailable Unavailable Dulce Maria Dalton MD Unavailable Unavailable Dulce Maria Dalton MD Unavailable Unavailable Dulce Maria Dalton MD Unavailable Unavailable Dulce Maria Dalton MD Unavailable Unavailable Dulce Maria Dalton MD Unavailable Unavailable Dulce Maria Dalton MD Unavailable Unavailable Dulce Maria Dalton MD Unavailable Unavailable Dulce Maria Dalton MD Unavailable Unavailable Dulce Maria Dalton MD Unavailable Unavailable Dulce Maria Dalton MD Unavailable Unavailable Dulce Maria Dalton MD Unavailable Unavailable Dulce Maria Dalton MD Unavailable Unavailable Dulce Maria Dalton MD Unavailable Unavailable Dulce Maria Dalton MD Unavailable Unavailable Scordo, M Nicolle PA Unavailable Unavailable Scordo, M Nicolle PA Unavailable Unavailable Scordo, M Nicolle PA Unavailable Unavailable Scordo, M Nicolle PA Unavailable Unavailable Scordo, M Nicolle PA Unavailable Unavailable Scordo, M Nicolle PA Unavailable Unavailable Scordo, M Nicolle PA Unavailable Unavailable Scordo, M Nicolle PA Unavailable Unavailable Scordo, M Nicolle PA Unavailable Unavailable Scordo, M Nicolle PA Unavailable Unavailable Scordo, M Nicolle PA Unavailable Unavailable Scordo, M Nicolle PA Unavailable Unavailable Scordo, M Nicolle PA Unavailable Unavailable Scordo, M Nicolle PA Unavailable Unavailable Scordo, M Nicolle PA Unavailable Unavailable Scordo, M Nicolle PA Unavailable Unavailable Scordo, M Nicolle PA Unavailable Unavailable Scordo, M Nicolle PA Unavailable Unavailable Scordo, M Nicolle PA Unavailable Unavailable Scordo, M Nicolle PA Unavailable Unavailable Scordo, M Nicolle PA Unavailable Unavailable Scordo, M Nicolle PA Unavailable Unavailable Scordo, M Nicolle PA Unavailable Unavailable Scordo, M Nicolle PA Unavailable Unavailable Scordo, M Nicolle PA Unavailable Unavailable Scordo, M Nicolle PA Unavailable Unavailable Scordo, M Nicolle PA Unavailable Unavailable Scordo, M Nicolle PA Unavailable Unavailable Scordo, M Nicolle PA Unavailable Unavailable Scordo, M Nicolle PA Unavailable Unavailable Scordo, M Nicolle PA Unavailable Unavailable Scordo, M Nicolle PA Unavailable Unavailable Scordo, M Nicolle PA Unavailable Unavailable Scordo, M Nicolle PA Unavailable Unavailable Scordo, M Nicolle PA Unavailable Unavailable Scordo, M Nicolle PA Unavailable Unavailable Scordo, M Nicolle PA Unavailable Unavailable Scordo, M Nicolle PA Unavailable Unavailable Scordo, M Nicolle PA Unavailable Unavailable Scordo, M Nicolle PA Unavailable Unavailable Scordo, M Nicolle PA Unavailable Unavailable Scordo, M Nicolle PA Unavailable Unavailable [facility] Unavailable Laura Boothe MD Unavailable Unavailable Laura Boothe MD Unavailable Unavailable Laura Boothe MD Unavailable Unavailable Laura Boothe MD Unavailable Unavailable Laura Boothe MD Unavailable Unavailable Laura Boothe MD Unavailable Unavailable Laura Boothe MD Unavailable Unavailable Laura Boothe MD Unavailable Unavailable Laura Boothe MD Unavailable Unavailable Laura Boothe MD Unavailable Unavailable Laura Boothe MD Unavailable Unavailable Laura Boothe MD Unavailable Unavailable Laura Boothe MD Unavailable Unavailable Laura Boothe MD Unavailable Unavailable Laura Boothe MD Unavailable Unavailable Laura Boothe MD Unavailable Unavailable Heitbere, Laura Yousif MD Unavailable Unavailable Heitner, Laura Yousif MD Unavailable Unavailable Heitner, Laura Yousif MD Unavailable Unavailable Heitner, Laura Yousif MD Unavailable Unavailable Heitner, Laura Yousif MD Unavailable Unavailable Heitner, Laura Yousif MD Unavailable Unavailable Heitbere, Laura Yousif MD Unavailable Unavailable Hene, Laura Yousif MD Unavailable Unavailable Heitner, Laura Yousif MD Unavailable Unavailable Dwyer, M Barratt PA Unavailable Unavailable Dwyer, M Barratt PA Unavailable Unavailable Dwyer, M Barratt PA Unavailable Unavailable Dwyer, M Barratt PA Unavailable Unavailable Dwyer, M Barratt PA Unavailable Unavailable Dwyer, M Barratt PA Unavailable Unavailable Dwyer, M Barratt PA Unavailable Unavailable Dwyer, M Barratt PA Unavailable Unavailable Dwyer, M Barratt PA Unavailable Unavailable Dwyer, M Barratt PA Unavailable Unavailable Dwyer, M Barratt PA Unavailable Unavailable Dwyer, M Barratt PA Unavailable Unavailable Dwyer, M Barratt PA Unavailable Unavailable Dwyer, M Barratt PA Unavailable Unavailable Dwyer, M Barratt PA Unavailable Unavailable Dwyer, M Barratt PA Unavailable Unavailable Dwyer, M Barratt PA Unavailable Unavailable Dwyer, M Barratt PA Unavailable Unavailable Dwyer, M Barratt PA Unavailable Unavailable Dwyer, M Barratt PA Unavailable Unavailable Dwyer, M Barratt PA Unavailable Unavailable Dwyer, M Barratt PA Unavailable Unavailable Dwyer, M Barratt PA Unavailable Unavailable Dwyer, M Barratt PA Unavailable Unavailable Dwyer, M Barratt PA Unavailable Unavailable Dwyer, M Barratt PA Unavailable Unavailable Dwyer, M Barratt PA Unavailable Unavailable Fish, Evaristo Mccarthy MD Unavailable Unavailable Fish, Evaristo Mccarthy MD Unavailable Unavailable Fish, Evaristo Mccarthy MD Unavailable Unavailable Fish, Evaristo Mccarthy MD Unavailable Unavailable Fish, Evaristo Mccarthy MD Unavailable Unavailable Fish, Evaristo Mccarthy MD Unavailable Unavailable Fish, Evaristo Mccarthy MD Unavailable Unavailable Fish, Evaristo Mccarthy MD Unavailable Unavailable Fish, Evaristo Mccarthy MD Unavailable Unavailable Fish, Evaristo Mccarthy MD Unavailable Unavailable Fish, Evaristo Mccarthy MD Unavailable Unavailable Fish, Evaristo Mccarthy MD Unavailable Unavailable Fish, Evaristo Mccarthy MD Unavailable Unavailable Fish, Evaristo Mccarthy MD Unavailable Unavailable Fish, Evaristo Mccarthy MD Unavailable Unavailable Landon, Evaristo Mccarthy MD Unavailable Unavailable Fish, Evaristo Mccarthy MD Unavailable Unavailable Fish, Evaristo Mccarthy MD Unavailable Unavailable Fish, Evaristo Mccarthy MD Unavailable Unavailable Fish, Evaristo Mccarthy MD Unavailable Unavailable Fish, Evaristo Mccarthy MD Unavailable Unavailable Fish, B Flora CALLAHAN Unavailable Unavailable Fish, B Flora CALLAHAN Unavailable Unavailable Fish, B Flora CALLAHAN Unavailable Unavailable Fish, B Flora CALLAHAN Unavailable Unavailable Fish, B Flora CALLAHAN Unavailable Unavailable Fish, B Flora CALLAHAN Unavailable Unavailable Fish, B Flora CALLAHAN Unavailable Unavailable Fish, B Flora CALLAHAN Unavailable Unavailable Fish, B Flora CALLAHAN Unavailable Unavailable Fish, B Flora CALLAHAN Unavailable Unavailable Fish, B Flora CALLAHAN Unavailable Unavailable Fish, B Flora CALLAHAN Unavailable Unavailable Fish, B Flora CALLAHAN Unavailable Unavailable Fish, B Flora CALLAHAN Unavailable Unavailable Fish, B Flora CALLAHAN Unavailable Unavailable Fish, B Flora CALLAHAN Unavailable Unavailable Fish, B Flora CALLAHAN Unavailable Unavailable Fish, B Flora CALLAHAN Unavailable Unavailable Fish, B Flora CALLAHAN Unavailable Unavailable Fish, B Flora CALLAHAN Unavailable Unavailable Fish, B Flora CALLAHAN Unavailable Unavailable Fish, B Flora CALLAHAN Unavailable Unavailable Fish, B Flora CALLAHAN Unavailable Unavailable Fish, B Flora CALLAHAN Unavailable Unavailable Fish, B Flora CALLAHAN Unavailable Unavailable Fish, B Flora CALLAHAN Unavailable Unavailable Fish, B Flora CALLAHAN Unavailable Unavailable Fish, B Flora CALLAHAN Unavailable Unavailable Fish, B Flora CALLAHAN Unavailable Unavailable Fish, B Flora CALLAHAN Unavailable Unavailable Fish, B Flora CALLAHAN Unavailable Unavailable Fish, B Flora CALLAHAN Unavailable Unavailable MCDONALD, MADDIE ALDO RPA-C Unavailable Unavailable MCDONALD, MADDIE ALDO RPA-C Unavailable Unavailable MCDONALD, MADDIE ALDO RPA-C Unavailable Unavailable MCDONALD, MADDIE ALDO RPA-C Unavailable Unavailable MCDONALD, MADDIE ALDO RPA-C Unavailable Unavailable MCDONALD, MADDIE ALDO RPA-C Unavailable Unavailable MCDONALD, MADDIE ALDO RPA-C Unavailable Unavailable MCDONALD, MADDIE ALDO RPA-C Unavailable Unavailable MCDONALD, MADDIE ALDO RPA-C Unavailable Unavailable MCDONALD, MADDIE ALDO RPA-C Unavailable Unavailable MCDONALD, MADDIE ALDO RPA-C Unavailable Unavailable MCDONALD, MADDIE ALDO RPA-C Unavailable Unavailable MCDONALD, MADDIE ALDO RPA-C Unavailable Unavailable MCDONALD, MADDIE ALDO RPA-C Unavailable Unavailable MCDONALD, MADDIE ALDO RPA-C Unavailable Unavailable MCDONALD, MADDIE ALDO RPA-C Unavailable Unavailable MCDONALD, MADDIE ALDO RPA-C Unavailable Unavailable MCDONALD, MADDIE ALDO RPA-C Unavailable Unavailable MCDONALD, MADDIE ALDO RPA-C Unavailable Unavailable MCDONALD, MADDIE ALDO RPA-C Unavailable Unavailable MCDONALD, MADDIE ALDO RPA-C Unavailable Unavailable MCDONALD, MADDIE ALDO RPA-C Unavailable Unavailable MCDONALD, MADDIE ALDO RPA-C Unavailable Unavailable MCDONALD, MADDIE ALDO RPA-C Unavailable Unavailable MCDONALD, MADDIE ALDO RPA-C Unavailable Unavailable MCDONALD, MADDIE ALDO RPA-C Unavailable Unavailable MCDONALD, MADDIE ALDO RPA-C Unavailable Unavailable MCDONALD, MADDIE ALDO RPA-C Unavailable Unavailable MCDONALD, MADDIE ALDO RPA-C Unavailable Unavailable MCDONALD, MADDIE ALDO RPA-C Unavailable Unavailable MCDONALD, MADDIE ALDO RPA-C Unavailable Unavailable MCDONALD, MADDIE ALDO RPA-C Unavailable Unavailable MCDONALD, MADDIE ALDO RPA-C Unavailable Unavailable MCDONALD, MADDIE ALDO RPA-C Unavailable Unavailable MCDONALD, MADDIE ALDO RPA-C Unavailable Unavailable MCDONALD, MADDIE ALDO RPA-C Unavailable Unavailable MCDONALD, MADDIE ALDO RPA-C Unavailable Unavailable MCDONALD, MADDIE ALDO RPA-C Unavailable Unavailable MCDONALD, MADDIE ALDO RPA-C Unavailable Unavailable MCDONALD, MADDIE ALDO RPA-C Unavailable Unavailable MCDONALD, MADDIE ALDO RPA-C Unavailable Unavailable MCDONALD, MADDIE ALDO RPA-C Unavailable Unavailable MCDONALD, MADDIE ALDO RPA-C Unavailable Unavailable MCDONALD, MADDIE ALDO RPA-C Unavailable Unavailable MCDONALD, MADDIE ALDO RPA-C Unavailable Unavailable MCDONALD, MADDIE ALDO RPA-C Unavailable Unavailable MCDONALD, MADDIE ALDO RPA-C Unavailable Unavailable MCDONALD, MADDIE ALDO RPA-C Unavailable Unavailable MCDONALD, MADDIE ALDO RPA-C Unavailable Unavailable MCDONALD, MADDIE ALDO RPA-C Unavailable Unavailable MCDONALD, MADDIE ALDO RPA-C Unavailable Unavailable MCDONALD, MADDIE ALDO RPA-C Unavailable Unavailable MCDONALD, MADDIE ALDO RPA-C Unavailable Unavailable MCDONALD, MADDIE ALDO RPA-C Unavailable Unavailable MCDONALD, MADDIE ALDO RPA-C Unavailable Unavailable MCDONALD, MADDIE ALDO RPA-C Unavailable Unavailable MCDONALD, MADDIE ALDO RPA-C Unavailable Unavailable MCDONALD, MADDIE ALDO RPA-C Unavailable Unavailable MCDONALD, MADDIE ALDO RPA-C Unavailable Unavailable MCDONALD, MADDIE ALDO RPA-C Unavailable Unavailable MCDONALD, MADDIE ALDO RPA-C Unavailable Unavailable MCDONALD, MADDIE ALDO RPA-C Unavailable Unavailable MCDONALD, MADDIE ALDO RPA-C Unavailable Unavailable MCDONALD, MADDIE ALDO RPA-C Unavailable Unavailable MCDONALD, MADDIE ALDO RPA-C Unavailable Unavailable MCDONALD, MADDIE ALDO RPA-C Unavailable Unavailable MCDONALD, MADDIE ALDO RPA-C Unavailable Unavailable MCDONALD, MADDIE ALDO RPA-C Unavailable Unavailable MCDONALD, MADDIE ALDO RPA-C Unavailable Unavailable MCDONALD, MADDIE ALDO RPA-C Unavailable Unavailable MCDONALD, MADDIE ALDO RPA-C Unavailable Unavailable MCDONALD, MADDIE ALDO RPA-C Unavailable Unavailable MCDONALD, MADDIE ALDO RPA-C Unavailable Unavailable MCDONALD, MADDIE ALDO RPA-C Unavailable Unavailable MCDONALD, MADDIE ALDO RPA-C Unavailable Unavailable MCDONALD, MADDIE ALDO RPA-C Unavailable Unavailable MCDONALD, MADDIE ALDO RPA-C Unavailable Unavailable MCDONALD, MADDIE ALDO RPA-C Unavailable Unavailable ANTECOL, Sandra SANCHEZ MD Unavailable Unavailable ANTECOL, Sandra SANCHEZ MD Unavailable Unavailable ANTECOL, Sandra SANCHEZ MD Unavailable Unavailable ANTECOL, Sandra SANCHEZ MD Unavailable Unavailable ANTECOL, Sandra SANCHEZ MD Unavailable Unavailable ANTECOL, Sandra SANCHEZ MD Unavailable Unavailable ANTECOL, Sandra SANCHEZ MD Unavailable Unavailable ANTECOL, Sandra SANCHEZ MD Unavailable Unavailable ANTECOL, Sandra SANCHEZ MD Unavailable Unavailable ANTECOL, Sandra SANCHEZ MD Unavailable Unavailable ANTECOL, Sandra SANCHEZ MD Unavailable Unavailable ANTECOL, Sandra SANCHEZ MD Unavailable Unavailable ANTECOL, Sandra SANCHEZ MD Unavailable Unavailable ANTECOL, Sandra SANCHEZ MD Unavailable Unavailable ANTECOL, Sandra SANCHEZ MD Unavailable Unavailable ANTECOL, Sandra SANCHEZ MD Unavailable Unavailable ANTECOL, Sandra SANCHEZ MD Unavailable Unavailable ANTECOL, Sandra SANCHEZ MD Unavailable Unavailable ANTECOL, Sandra SANCHEZ MD Unavailable Unavailable ANTECOL, Sandra SANCHEZ MD Unavailable Unavailable ANTECOL, Sandra SANCHEZ MD Unavailable Unavailable ANTECOL, Sandra SANCHEZ MD Unavailable Unavailable ANTECOL, Sandra SANCHEZ MD Unavailable Unavailable ANTECOL, Sandra SANCHEZ MD Unavailable Unavailable ANTECOL, Sandra SANCHEZ MD Unavailable Unavailable ANTECOL, Sandra SANCHEZ MD Unavailable Unavailable ANTECOL, Sandra SANCHEZ MD Unavailable Unavailable ANTECOL, Sandra SANCHEZ MD Unavailable Unavailable ANTECOL, Sandra SANCHEZ MD Unavailable Unavailable ANTECOL, Sandra SANCHEZ MD Unavailable Unavailable ANTECOL, Sandra SANCHEZ MD Unavailable Unavailable ANTECOL, Sandra SANCHEZ MD Unavailable Unavailable ANTECOL, Sandra SANCHEZ MD Unavailable Unavailable ANTECOL, Sandra SANCHEZ MD Unavailable Unavailable ANTECOL, Sandra SANCHEZ MD Unavailable Unavailable ANTECOL, Sandra SANCHEZ MD Unavailable Unavailable ANTECOL, Sandra SANCHEZ MD Unavailable Unavailable ANTECOL, Sandra SANCHEZ MD Unavailable Unavailable ANTECOL, Sandra SANCHEZ MD Unavailable Unavailable ANTECOL, Sandra SANCHEZ MD Unavailable Unavailable ANTECOL, Sandra SANCHEZ MD Unavailable Unavailable ANTECOL, Sandra SANCHEZ MD Unavailable Unavailable ANTECOL, Sandra SANCHEZ MD Unavailable Unavailable ANTECOL, Sandra SANCHEZ MD Unavailable Unavailable ANTECOL, Sandra SANCHEZ MD Unavailable Unavailable ANTECOL, Sandra SANCHEZ MD Unavailable Unavailable ANTECOL, Sandra SANCHEZ MD Unavailable Unavailable ANTECOL, Sandra SANCHEZ MD Unavailable Unavailable ANTECOL, Sandra SANCHEZ MD Unavailable Unavailable ANTECOL, Sandra SANCHEZ MD Unavailable Unavailable ANTECOL, Sandra SANCHEZ MD Unavailable Unavailable ANTECOL, Sandra SANCHEZ MD Unavailable Unavailable ANTECOL, Sandra SANCHEZ MD Unavailable Unavailable ANTECOL, Sandra SANCHEZ MD Unavailable Unavailable ANTECOL, Sandra SANCHEZ MD Unavailable Unavailable Jumalon, M Ann-Marie BROKE BEATER OPERATOR Unavailable Unavailable Jumalon, M Ann-Marie BROKE BEATER OPERATOR Unavailable Unavailable Jumalon, M Ann-Marie BROKE BEATER OPERATOR Unavailable Unavailable Jumalon, M Ann-Marie BROKE BEATER OPERATOR Unavailable Unavailable Jumalon, M Ann-Marie BROKE BEATER OPERATOR Unavailable Unavailable Jumalon, M Ann-Marie BROKE BEATER OPERATOR Unavailable Unavailable Jumalon, M Ann-Marie BROKE BEATER OPERATOR Unavailable Unavailable Jumalon, M Ann-Marie BROKE BEATER OPERATOR Unavailable Unavailable Jumalon, M Ann-Marie BROKE BEATER OPERATOR Unavailable Unavailable Jumalon, M Ann-Marie BROKE BEATER OPERATOR Unavailable Unavailable Jumalon, M Ann-Marie BROKE BEATER OPERATOR Unavailable Unavailable Jumalon, M Ann-Marie BROKE BEATER OPERATOR Unavailable Unavailable Jumalon, M Ann-Marie BROKE BEATER OPERATOR Unavailable Unavailable Jumalon, M Ann-Marie BROKE BEATER OPERATOR Unavailable Unavailable Jumalon, M Ann-Marie BROKE BEATER OPERATOR Unavailable Unavailable Jumalon, M Ann-Marie BROKE BEATER OPERATOR Unavailable Unavailable Jumalon, M Ann-Marie BROKE BEATER OPERATOR Unavailable Unavailable Jumalon, M Ann-Marie BROKE BEATER OPERATOR Unavailable Unavailable Jumalon, M Ann-Marie BROKE BEATER OPERATOR Unavailable Unavailable Jumalon, M Ann-Marie BROKE BEATER OPERATOR Unavailable Unavailable Jumalon, M Ann-Marie BROKE BEATER OPERATOR Unavailable Unavailable Jumalon, M Ann-Marie BROKE BEATER OPERATOR Unavailable Unavailable Jumalon, M Ann-Marie BROKE BEATER OPERATOR Unavailable Unavailable Jumalon, M Ann-Marie BROKE BEATER OPERATOR Unavailable Unavailable Jumalon, M Ann-Marie BROKE BEATER OPERATOR Unavailable Unavailable Jumalon, M Ann-Marie BROKE BEATER OPERATOR Unavailable Unavailable Jumalon, M Ann-Marie BROKE BEATER OPERATOR Unavailable Unavailable Jumalon, M Ann-Marie BROKE BEATER OPERATOR Unavailable Unavailable JC TEJEDA Unavailable Unavailable JC TEJEDA Unavailable Unavailable RYBINSKI, JC PA Unavailable Unavailable RYBINSKI, JC PA Unavailable Unavailable RYBINSKI, JC PA Unavailable Unavailable RYBINSKI, JC PA Unavailable Unavailable RYBINSKI, JC PA Unavailable Unavailable RYBINSKI, JC PA Unavailable Unavailable RYBINSKI, JC PA Unavailable Unavailable RYBINSKI, JC PA Unavailable Unavailable RYBINSKI, JC PA Unavailable Unavailable RYBINSKI, JC PA Unavailable Unavailable RYBINSKI, JC PA Unavailable Unavailable RYBINSKI, JC PA Unavailable Unavailable RYBINSKI, JC PA Unavailable Unavailable RYBINSKI, JC PA Unavailable Unavailable RYBINSKI, JC PA Unavailable Unavailable RYBINSKI, JC PA Unavailable Unavailable RYBINSKI, JC PA Unavailable Unavailable RYBINSKI, JC PA Unavailable Unavailable RYBINSKI, JC PA Unavailable Unavailable RYBINSKI, JC PA Unavailable Unavailable RYBINSKI, JC PA Unavailable Unavailable RYBINSKI, JC PA Unavailable Unavailable RYBINSKI, JC PA Unavailable Unavailable RYBINSKI, JC PA Unavailable Unavailable RYBINSKI, JC PA Unavailable Unavailable RYBINSKI, JC PA Unavailable Unavailable RYBINSKI, JC PA Unavailable Unavailable RYBINSKI, JC PA Unavailable Unavailable RYBINSKI, JC PA Unavailable Unavailable RYBINSKI, JC PA Unavailable Unavailable RYBINSKI, JC PA Unavailable Unavailable RYBINSKI, JC PA Unavailable Unavailable RYBINSKI, JC PA Unavailable Unavailable RYBINSKI, JC PA Unavailable Unavailable RYBINSKI, JC PA Unavailable Unavailable RYBINSKI, JC PA Unavailable Unavailable RYBINSKI, JC PA Unavailable Unavailable RYBINSKI, JC PA Unavailable Unavailable RYBINSKI, JC PA Unavailable Unavailable RYBINSKI, JC PA Unavailable Unavailable RYBINSKI, JC PA Unavailable Unavailable RYBINSKI, JC PA Unavailable Unavailable RYBINSKI, JC PA Unavailable Unavailable RYBINSKI, JC PA Unavailable Unavailable RYBINSKI, JC PA Unavailable Unavailable RYBINSKI, JC PA Unavailable Unavailable RYBINSKI, JC PA Unavailable Unavailable RYBINSKI, JC PA Unavailable Unavailable RYBINSKI, JC PA Unavailable Unavailable RYBINSKI, JC PA Unavailable Unavailable RYBINSKI, JC PA Unavailable Unavailable RYBINSKI, JC PA Unavailable Unavailable MCDONALD, MADDIE ALDO RPA-C Unavailable Unavailable MCDONALD, MADDIE ALDO RPA-C Unavailable Unavailable MCDONALD, MADDIE ALDO RPA-C Unavailable Unavailable MCDONALD, MADDIE ALDO RPA-C Unavailable Unavailable MCDONALD, MADDIE ALDO RPA-C Unavailable Unavailable MCDONALD, MADDIE ALDO RPA-C Unavailable Unavailable MCDONALD, MADDIE ALDO RPA-C Unavailable Unavailable MCDONALD, MADDIE ALDO RPA-C Unavailable Unavailable MCDONALD, MADDIE ALDO RPA-C Unavailable Unavailable MCDONALD, MADDIE ALDO RPA-C Unavailable Unavailable MCDONALD, MADDIE ALDO RPA-C Unavailable Unavailable MCDONALD, MADDIE ALDO RPA-C Unavailable Unavailable MCDONALD, MADDIE ALDO RPA-C Unavailable Unavailable MCDONALD, MADDIE ALDO RPA-C Unavailable Unavailable MCDONALD, MADDIE ALDO RPA-C Unavailable Unavailable MCDONALD, MADDIE ALDO RPA-C Unavailable Unavailable MCDONALD, MADDIE ALDO RPA-C Unavailable Unavailable MCDONALD, MADDIE ALDO RPA-C Unavailable Unavailable MCDONALD, MADDIE ALDO RPA-C Unavailable Unavailable MCDONALD, MADDIE ALDO RPA-C Unavailable Unavailable MCDONALD, MADDIE ALDO RPA-C Unavailable Unavailable MCDONALD, MADDIE ALDO RPA-C Unavailable Unavailable MCDONALD, MADDIE ALDO RPA-C Unavailable Unavailable MCDONALD, MADDIE ALDO RPA-C Unavailable Unavailable MCDONALD, MADDIE ALDO RPA-C Unavailable Unavailable MCDONALD, MADDIE ALDO RPA-C Unavailable Unavailable MCDONALD, MADDIE ALDO RPA-C Unavailable Unavailable MCDONALD, MADDIE ALDO RPA-C Unavailable Unavailable MCDONALD, MADDIE ALDO RPA-C Unavailable Unavailable MCDONALD, MADDIE ALDO RPA-C Unavailable Unavailable MCDONALD, MADDIE ALDO RPA-C Unavailable Unavailable MCDONALD, MADDIE ALDO RPA-C Unavailable Unavailable MCDONALD, MADDIE ALDO RPA-C Unavailable Unavailable MCDONALD, MADDIE ALDO RPA-C Unavailable Unavailable MCDONALD, MADDIE ALDO RPA-C Unavailable Unavailable MCDONALD, MADDIE ALDO RPA-C Unavailable Unavailable MCDONALD, MADDIE ALDO RPA-C Unavailable Unavailable MCDONALD, MADDIE ALDO RPA-C Unavailable Unavailable MCDONALD, MADDIE ALDO RPA-C Unavailable Unavailable Paulo VELASQUEZ MD Unavailable Unavailable Paulo VELASQUEZ MD Unavailable Unavailable Paulo VELASQUEZ MD Unavailable Unavailable HAZEL, T LAURA MD Unavailable Unavailable Paulo VELASQUEZ MD Unavailable Unavailable Paulo VELASQUEZ MD Unavailable Unavailable Paulo VELASQUEZ MD Unavailable Unavailable Paulo VELASQUEZ MD Unavailable Unavailable Paulo VELASQUEZ MD Unavailable Unavailable Paulo VELASQUEZ MD Unavailable Unavailable Paulo VELASQUEZ MD Unavailable Unavailable Paulo VELASQUEZ MD Unavailable Unavailable Paulo VELASQUEZ MD Unavailable Unavailable Paulo VELASQUEZ MD Unavailable Unavailable Paulo VELASQUEZ MD Unavailable Unavailable Paulo VELASQUEZ MD Unavailable Unavailable Paulo VELASQUEZ MD Unavailable Unavailable Paulo VELASQUEZ MD Unavailable Unavailable Paulo VELASQUEZ MD Unavailable Unavailable Paulo VELASQUEZ MD Unavailable Unavailable Paulo VELASQUEZ MD Unavailable Unavailable Paulo VELASQUEZ MD Unavailable Unavailable Paulo VELASQUEZ MD Unavailable Unavailable Paulo VELASQUEZ MD Unavailable Unavailable Paulo VELASQUEZ MD Unavailable Unavailable Paulo VELASQUEZ MD Unavailable Unavailable Pualo VELASQUEZ MD Unavailable Unavailable Paulo VELASQUEZ MD Unavailable Unavailable Paulo VELASQUEZ MD Unavailable Unavailable Paulo VELASQUEZ MD Unavailable Unavailable Paulo VELASQUEZ MD Unavailable Unavailable Paulo VELASQUEZ MD Unavailable Unavailable Paulo VELASQUEZ MD Unavailable Unavailable Paulo VELASQUEZ MD Unavailable Unavailable Paulo VELASQUEZ MD Unavailable Unavailable Paulo VELASQUEZ MD Unavailable Unavailable Paulo VELASQUEZ MD Unavailable Unavailable Paulo VELASQUEZ MD Unavailable Unavailable Paulo VELASQUEZ MD Unavailable Unavailable Paulo VELASQUEZ MD Unavailable Unavailable Paulo VELASQUEZ MD Unavailable Unavailable Paulo VELASQUEZ MD Unavailable Unavailable Paulo VELASQUEZ MD Unavailable Unavailable Paulo VELASQUEZ MD Unavailable Unavailable Paulo VELASQUEZ MD Unavailable Unavailable Paulo VELASQUEZ MD Unavailable Unavailable Paulo VELASQUEZ MD Unavailable Unavailable Paulo VELASQUEZ MD Unavailable Unavailable Paulo VELASQUEZ MD Unavailable Unavailable Paulo VELASQUEZ MD Unavailable Unavailable Paulo VELASQUEZ MD Unavailable Unavailable Paulo VELASQUEZ MD Unavailable Unavailable Paulo VELASQUEZ MD Unavailable Unavailable Paulo VELASQUEZ MD Unavailable Unavailable Paulo VELASQUEZ MD Unavailable Unavailable Paulo VELASQUEZ MD Unavailable Unavailable Paulo VELASQUEZ MD Unavailable Unavailable Paulo VELASQUEZ MD Unavailable Unavailable Paulo VELASQUEZ MD Unavailable Unavailable Paulo VELASQUEZ MD Unavailable Unavailable Paulo VELASQUEZ MD Unavailable Unavailable Paulo VELASQUEZ MD Unavailable Unavailable Paulo VELASQUEZ MD Unavailable Unavailable Paulo VELASQUEZ MD Unavailable Unavailable Paulo VELASQUEZ MD Unavailable Unavailable Paulo VELASQUEZ MD Unavailable Unavailable Paulo VELASQUEZ MD Unavailable Unavailable Paulo VELASQUEZ MD Unavailable Unavailable Paulo VELASQUEZ MD Unavailable Unavailable Paulo VELASQUEZ MD Unavailable Unavailable Paulo VELASQUEZ MD Unavailable Unavailable Paulo VELASQUEZ MD Unavailable Unavailable Paulo VELASQUEZ MD Unavailable Unavailable Paulo VELASQUEZ MD Unavailable Unavailable Paulo VELASQUEZ MD Unavailable Unavailable Paulo VELASQUEZ MD Unavailable Unavailable Paulo VELASQUEZ MD Unavailable Unavailable Paulo VELASQUEZ MD Unavailable Unavailable Paulo VELASQUEZ MD Unavailable Unavailable Paulo VELASQUEZ MD Unavailable Unavailable Paulo VELASQUEZ MD Unavailable Unavailable Paulo VELASQUEZ MD Unavailable Unavailable Paulo VELASQUEZ MD Unavailable Unavailable MARIE, H RICHAR TICKET TAKER FERRYBOAT Unavailable Unavailable MARIE, H RICHAR TICKET TAKER FERRYBOAT Unavailable Unavailable MARIE, H RICHAR TICKET TAKER FERRYBOAT Unavailable Unavailable MARIE, H RICHAR TICKET TAKER FERRYBOAT Unavailable Unavailable MARIE, H RICHAR TICKET TAKER FERRYBOAT Unavailable Unavailable MARIE, H RICHAR TICKET TAKER FERRYBOAT Unavailable Unavailable MARIE, H RICHAR TICKET TAKER FERRYBOAT Unavailable Unavailable Jemal Pederson MD Unavailable Unavailable Jemal Pederson MD Unavailable Unavailable Jemal Pederson MD Unavailable Unavailable Jemal Pederson MD Unavailable Unavailable Jemal Pederson MD Unavailable Unavailable Jemal Pederson MD Unavailable Unavailable Jemal Pederson MD Unavailable Unavailable Jemal Pederson MD Unavailable Unavailable Jemal Pederson MD Unavailable Unavailable Jemal Pederson MD Unavailable Unavailable Jemal Pederson MD Unavailable Unavailable Jemal Pederson MD Unavailable Unavailable Jemal Pederson MD Unavailable Unavailable Jemal Pederson MD Unavailable Unavailable Jemal Pederson MD Unavailable Unavailable Jemal Pederson MD Unavailable Unavailable Jemal Pederson MD Unavailable Unavailable Jemal Pederson MD Unavailable Unavailable Jemal Pederson MD Unavailable Unavailable Jemal Pederson MD Unavailable Unavailable Bolla, S Fransisco MD Unavailable Unavailable Bolla, S Fransisco MD Unavailable Unavailable Bolla, S Fransisco MD Unavailable Unavailable Bolla, S Fransisco MD Unavailable Unavailable Bolla, S Fransisco MD Unavailable Unavailable Bolla, S Fransisco MD Unavailable Unavailable Bolla, S Fransisco MD Unavailable Unavailable Bolla, S Fransisco MD Unavailable Unavailable Bolla, S Fransisco MD Unavailable Unavailable Bolla, S Fransisco MD Unavailable Unavailable Bolla, S Fransisco MD Unavailable Unavailable Bolla, S Fransisco MD Unavailable Unavailable Bolla, S Fransisco MD Unavailable Unavailable Bolla, S Fransisco MD Unavailable Unavailable Bolla, S Fransisco MD Unavailable Unavailable Bolla, S Fransisco MD Unavailable Unavailable Bolla, S Fransisco MD Unavailable Unavailable Bolla, S Fransisco MD Unavailable Unavailable Bolla, S Fransisco MD Unavailable Unavailable Bolla, S Fransisco MD Unavailable Unavailable Bolla, S Fransisco MD Unavailable Unavailable Bolla, S Fransisco MD Unavailable Unavailable Bolla, S Fransisco MD Unavailable Unavailable Bolla, S Fransisco MD Unavailable Unavailable Bolla, S Fransisco MD Unavailable Unavailable Bolla, S Fransisco MD Unavailable Unavailable Bolla, S Fransisco MD Unavailable Unavailable Bolla, S Fransisco MD Unavailable Unavailable [facility], RFROST MCDONALD MARGO CARLSON Unavailable Unavailable Re-disclosure Warning The records that you are about to access may contain information from federally-assisted alcohol or drug abuse programs. If such information is present, then the following federally mandated warning applies: This information has been disclosed to you from records protected by federal confidentiality rules (42 CFR part 2). The federal rules prohibit you from making any further disclosure of this information unless further disclosure is expressly permitted by the written consent of the person to whom it pertains or as otherwise permitted by 42 CFR part 2. A general authorization for the release of medical or other information is NOT sufficient for this purpose. The Federal rules restrict any use of the information to criminally investigate or prosecute any alcohol or drug abuse patient.The records that you are about to access may contain highly sensitive health information, the redisclosure of which is protected by Article 27-F of the [facility] Public Health law. If you continue you may have access to information: Regarding HIV / AIDS; Provided by facilities licensed or operated by the [facility] Office of Mental Health; or Provided by the [facility] Office for People With Developmental Disabilities. If such information is present, then the following [facility] mandated warning applies: This information has been disclosed to you from confidential records which are protected by state law. State law prohibits you from making any further disclosure of this information without the specific written consent of the person to whom it pertains, or as otherwise permitted by law. Any unauthorized further disclosure in violation of state law may result in a fine or usp sentence or both. A general authorization for the release of medical or other information is NOT sufficient authorization for further disc losure. Family History Family Member Name Family Member Gender Family Member Status Date o f Status Description Data Source(s) Unknown Male Problem (finding) 10/28/2011 12:00:00 AM EST [facility] ([facility]) Encounters Encounter Providers Location Date Indications Data Source(s ) Nicolle Danielle PA-C: [address] [place] [address], Ph. Attender: Nicolle ARAGON [facility] Medical 10/01/2020 12:00:00 AM EST SONIA ([facility]) Nicolle Danielle PA-C: [address] [place] [address], Ph. Attender: Nicolle ARAGON [facility] Medical 09/26/2020 12:00:00 AM EST SONIA ([facility]) Outpatient Attender: Bigg Richard MD Main Office 09/25/2020 10:45:00 AM EST [facility] ([facility]) Outpatient Attender: RICHAR ELDER NP [facility] Juvenal khalil 09/25/2020 09:00:00 AM EST - 09/25/2020 09:00:00 AM EST [facility] ([facility]) Attender: RICHAR ELDER NP 09/25/2020 12:00:00 AM EST [facility] ([facility] Outpatient Attender: RICHAR ELDER NP [facility] Juvenal l 09/24/2020 10:30:00 AM EST - 09/24/2020 10:30:00 AM EST [facility] ([facility]) Attender: RICHAR ELDER NP 09/24/2020 12:00:00 AM EST [facility] ([facility]) Extended Individual Psychotherapy - 45 min Attender: Amadou Sesay [facility] 09/20/2020 04:00:00 AM EST - 09/20/2020 04:00:00 AM EST [facility] ([facility]) Ann-Marie Blanc, TICKET TAKER FERRYBOAT: [address], [place] [address], Ph. Attender: Ann-Marie AMAYA [place] - [facility] 09/20/2020 12:00:00 AM EST ATHE NA ([facility]) Attender: Amadou Sesay 09/20/2020 12:00:00 AM EST [facility] ([facility]) Outpatient Attender: RICHAR ELDER NP [facility] 09/11/2020 12:30:00 PM EST - 09/11/2020 12:30:00 PM EST [facility] ([facility]) Outpatient Attender: Lluvia ARAGON Physical Therapy 10:15:00 AM EST MEDENT ([facility]) Attender: RICHAR ELDER NP 09/11/2020 12:00:00 AM EST [facility] ([facility]) Fransisco Pederson MD: [address], [place] [address], Ph. Attender: Fransisco JOY - [facility] 09/06/2020 12:00:00 AM EST SONIA ([facility]) Fransisco Pederson MD: [address], [place] [address], Ph. Attender: Fransisco JOY - [facility] Office 09/06/2020 12:00:00 AM EST SONIA ([facility]) [id number]"Psychotherapy Attender: Amadou Fontanez 09/03/2020 10:00:00 AM EST - 09/03/2020 10:00:00 AM EST [facility] ([facility]) Fransisco Pederson MD: [address], [place] [address], Ph. [phone] Attender: Fransisco Pederson MD [place] - [facility] 09/03/2020 12:00:00 AM EST SONIA ([facility]) Fransisco Pederson MD: [address], [place] [address], Ph. [phone] Attender: Fransisco Pederson MD [facility] 09/03/2020 12:00:00 AM EST SONIA ([facility]) Fransisco Pederson MD: [address], [address], [place], [place] [address], Ph. [phone] Attender: Fransisco Pederson MD [facility] 09/03/2020 12:00:00 AM EST SONIA ([facility]) Attender: Amadou Sesay 09/03/2020 12:00:00 AM EST [facility] ([facility] Giuliano Dalton MD: [address] [place] [address], Ph. Attender: Giuliano Dalton MD [facility] Medical 08/28/2020 12:00:00 AM EST SONIA ([facility]) Giuliano Dalton MD: [address] [place] [address], Ph. Attender: Giuliano Dalton MD [facility] Medical 08/28/2020 12:00:00 AM EST SONIA ([facility]) Outpatient Attender: RICHAR ELDER NP [facility] Juvenal simran 08/21/2020 02:30:00 AM EST - 08/21/2020 02:30:00 AM EST [facility] ([facility]) Attender: RICHAR ELDER NP 08/21/2020 12:00:00 AM EST [facility] ([facility]) Fransisco Pederson MD: [address], [address] [place], [place] [phone], Ph. Attender: Fransisco Pederson MD [place] - [facility] 08/14/2020 12:00:00 AM EST SONIA ([facility]) Fransisco Pederson MD: [address], [address] [place], [place] [address], Ph. Attender: Fransisco JOY - [facility] 08/14/2020 12:00:00 AM EST SONIA ([facility]) Fransisco Pederson MD: [address], [address] [place], [place] [address], Ph. Attender: Fransisco JOY - [facility] 08/14/2020 12:00:00 AM EST SONIA ([facility]) Fransisco Pederson MD: [address], [address] [place], [place] [address], Ph. Attender: Fransisco Pederson MD [place] - [facility] 08/14/2020 12:00:00 AM EST SONIA ([facility]) [id number]"Psychotherapy Attender: Amadou Sesay [facility] anna Fontanez 08/13/2020 11:00:00 AM EST - 08/13/2020 11:00:00 AM EST [facility] ([facility]) Attender: Amadou Sesay 08/13/2020 12:00:00 AM EST [facility] ([facility]) Aldo Mcdonald RPA-C: [address], [place] [address], Ph. Attender: ALDO ARCOS [facility] Medical 08/13/2020 12:00:00 AM EST SONIA ([facility]) Aldo Mcdonald RPA-C: [address], [address], [place] [address], Ph. Attender: ALDO ARCOS [facility] Medical 08/13/2020 12:00:00 AM EST SONIA ([facility]) Aldo Mcdonald RPA-C: [address], [place] [address], Ph. Attender: ALDO ARCOS [facility] Medical 08/13/2020 12:00:00 AM EST SONIA ([facility]) Extended Individual Psychotherapy - 45 min [facility] 08/01/2020 09:00:00 AM EST - 08/01/2020 09:00:00 AM EST [facility] ([facility]) Attender: Amadou Sesay 08/01/2020 12:00:00 AM EST [facility] ([facility]) Outpatient Attender: RICHAR ELDER NP [facility] Juvenal khalil 07/10/2020 01:30:00 AM EST - 07/10/2020 01:30:00 AM EST [facility] ([facility]) Attender: RICHAR ELDER NP 07/10/2020 12:00:00 AM EST [facility] ([facility] Extended Individual Psychotherapy - 45 min Attender: [facility] 07/09/2020 10:00:00 AM EST - 07/09/2020 10:00:00 AM EST [facility] ([facility]) Attender: Amadou Sesay 07/09/2020 12:00:00 AM EST [facility] ([facility]) Outpatient Attender: ALDO ARCOS [facility] 06/13/2020 09:02:03 AM EDT [facility] Outpatient Attender: CODY CARLSON [facility] 05/31 09:02:03 AM EDT [facility] Outpatient Attender: IRCHAR ELDER NP [facility] Juvenal khalil 06/12/2020 01:30:00 AM EDT - 06/12/2020 01:30:00 AM EDT [facility] ([facility]) Attender: RICHAR ELDER NP 06/12/2020 12:00:00 AM EDT [facility] ([facility] Outpatient Attender: CODY CARLSON [facility] 03/2020 03:51:01 PM EDT [facility] Outpatient Attender: CODY CARLSON [facility] 01/2020 04:51:02 PM EDT [facility] Outpatient Attender: ALDO ARCOS [facility] 06/05/2020 04:51:01 PM EDT [facility] Extended Individual Psychotherapy - 45 min Attender: Christianantolin Shama [facility] 06/05/2020 11:00:00 AM EDT - 06/05/2020 11:00:00 AM EDT [facility] ([facility]) Attender: Amadou Sesay 06/05/2020 12:00:00 AM EDT [facility] ([facility] Outpatient Attender: Lluvia ARAGON Physical Therapy 08:45:00 AM EDT MEDENT ([facility]) Outpatient Attender: RICHAR ELDER NP [facility] Juvenal simran 05/15/2020 01:30:00 AM EDT - 05/15/2020 01:30:00 AM EDT [facility] ([facility]) Attender: RICHAR ELDER NP 05/15/2020 12:00:00 AM EDT [facility] ([facility] Outpatient Attender: CODY CARLSON [facility] 04/01 09:06:04 AM EDT [facility] Attender: JC [facility]AGON [facility] 04/23/2020 09:08:00 AM EDT - 04/23/2020 09:08:00 AM EDT [facility] ( [facility]) Attender: JC ARAGON [facility] 04/16/2020 04:10:00 PM EDT - 04/16/2020 04:10:00 PM EDT [facility] ( [facility]) Outpatient Attender: CODY CARLSON [facility] 03/31 02:59:01 PM EDT [facility] Outpatient Attender: CODY CARLSON [facility] 03/31 11:55:01 AM EDT [facility] Outpatient Attender: ALDO CMDONALD RPA-C [facility] 04/11/2020 04:42:05 PM EDT [facility] Outpatient Attender: CODY CARLSON [facility] 03/01 03:08:02 PM EDT [facility] Outpatient Attender: CODY CARLSON [facility] 02/28 04:23:00 PM EDT [facility] Outpatient Attender: CODY CARLSON [facility] 08/2019 04:01:01 PM EDT [facility] [id number]"Psychotherapy Attender: Amadou Fontanez 02/29/2020 10:15:00 AM EDT - 02/29/2020 10:15:00 AM EDT [facility] ([facility]) Attender: Amadou Sesay 02/29/2020 12:00:00 AM EDT [facility] ([facility]) Outpatient Attender: CODY CARLSON [facility] 01/31 09:16:02 AM EDT [facility] Outpatient Attender: ALDO MCDONALD RPA-C [facility] 02/28/2020 09:16:02 AM EDT [facility] Outpatient Attender: ALDO MCDONALD RPA-C [facility] 02/17/2020 09:50:01 AM EDT [facility] Outpatient Attender: ALDO ARCOS [facility] 02/17/2020 09:34:00 AM EDT [facility] [id number]" Psychotherapy [facility] 02/15/2020 09:45:00 AM EDT - 02/15/2020 09:45:00 AM EDT [facility] ([facility] 02/15/2020 12:00:00 AM EDT [facility] ([facility] Outpatient Attender: RICHAR ELDER NP [facility] simran 02/14/2020 05:30:00 AM EDT - 02/14/2020 05:30:00 AM EDT [facility] ([facility]) Attender: RICHAR ELDER NP 02/14/2020 12:00:00 AM EDT [facility] ([facility] Outpatient Attender: CODY CARLSON [facility] 01/29 05:12:01 PM EDT [facility] TEMPMHCTelemed [id number]" Psychotherapy [facility]: [facility] 01/31/2020 01:15:00 AM EDT - 01/31/2020 01:15:00 AM EDT [facility] ([facility]) [facility] 01/31/2020 12:00:00 AM EDT [facility] ([facility] Outpatient Attender: CODY CARLSON [facility] 12/30 08:17:00 AM EDT [facility] Outpatient Attender: ALDO ARCOS [facility] 01/26/2020 04:44:02 PM EDT [facility] Outpatient Attender: CODY CARLSON [facility] 12/30 09:02:00 AM EDT [facility] 12/30 08:05:01 AM EDT [facility] [id number]"Psychotherapy Attender: [facility] anna Fontanez 01/18/2020 10:30:00 AM EDT - 01/18/2020 10:30:00 AM EDT [facility] ([facility]) Attender: Amadou Sesay 01/18/2020 12:00:00 AM EDT [facility] ([facility] Outpatient Attender: RICHAR ELDER NP [facility] 01/17/2020 08:00:00 AM EDT - 01/17/2020 08:00:00 AM EDT [facility] ([facility]) Attender: RICHAR ELDER NP 01/17/2020 12:00:00 AM EDT [facility] ([facility] [facility]) Attender: JC ARAGON [facility] 01/13/2020 09:28:00 AM EDT - 01/13/2020 09:28:00 AM EDT [facility] ( [facility]) [facility]: [facility] 01/12/2020 03:43:00 PM EDT - 01/12/2020 03:43:00 PM EDT [facility] ( [facility]) Outpatient Attender: CODY CARLSON [facility] 12/29 10:05:00 AM EDT [facility] [id number]"Psychotherapy Attender: Amadou [facility] 01/04/2020 02:00:00 AM EDT - 01/04/2020 02:00:00 AM EDT [facility] ([facility] Attender: Amadou Sesay 01/04/2020 12:00:00 AM EDT [facility] ([facility] Outpatient Attender: LAURA LOPEZ MD Main Office 01/03/2020 01:30:00 PM EDT [facility] ([facility]) Outpatient Attender: CODY CARLSON [facility] 11/30 08:18:01 AM EDT [facility] Outpatient Attender: CODY CARLSON [facility] 11/30 05:37:59 PM EDT [facility] Outpatient Attender: ALDO ARCOS [facility] 12/23/2019 11:40:01 AM EDT [facility] Outpatient Attender: CODY KIRILL VILLA [facility] 11/30 11:40:00 AM EDT [facility] Outpatient Attender: CODY MCDONALD MARGO VILLA [facility] 11/30 07:39:01 AM EDT [facility] Outpatient Attender: ALDO ARCOS [facility] 12/23/2019 07:39:00 AM EDT [facility] Outpatient Attender: CODY MCDONALD MARGO VILLA [facility] 11/30 11:26:00 AM EDT [facility] Outpatient Attender: ALDO ARCOS 12/21/2019 05:10:[address] [facility]2019 03:39:02 PM EDT [facility] Outpatient Attender: ALDO ARCOS 12/19/2019 09:01:06 PM EDT [facility] Outpatient Attender: ALDO ARCOS 12/19/2019 01:53:[address] [facility] Outpatient Attender: LAURA VELASQUEZ MD 12/19/2019 08:57:00 A M EDT [facility] Outpatient Attender: LAURA VELASQUEZ MD 12/15/2019 09:01:05 P M EDT [facility] Outpatient Attender: LAURA VELASQUEZ MD 12/15/2019 08:34:02 A M EDT [facility] Outpatient Attender: LAURA VELASQUEZ MD 12/15/2019 08:32:00 A M EDT [facility] Outpatient Attender: LAURA VELASQUEZ MD 12/15/2019 08:27:[address] [facility] Outpatient Attender: LAURA VELASQUEZ MD 12/12/2019 01:54:[address] [facility] Outpatient Attender: LAURA VELASQUEZ MD 12/12/2019 08:25:00 A M EDT [facility] Outpatient Attender: RICHAR ELDER NP [place] [facility] simran 11/22/2019 04:00:00 AM EDT - 11/22/2019 04:00:00 AM EDT [facility] ([facility]) Attender: RICHAR ELDER NP 11/22/2019 12:00:00 AM EDT [facility] ([facility]) Outpatient Attender: LAURA GEE 11/16/2019 09:33:00 A M EDT [facility] Outpatient Attender: LAURA VELASQUEZ MD 11/07/2019 03:50:04 P M EDT [facility] Outpatient Referrer: ALDO PEÑAC 11/04/2019 08:15:00 AM EST [facility] Outpatient Referrer: ALDO PEÑAC 11/04/2019 08:09:00 AM EST [facility] Outpatient Referrer: ALDO PEÑAC 11/04/2019 08:08:00 AM EST [facility] Attender: Amadou Sesay 11/04/2019 12:00:00 AM EST [facility] ([facility]) Brief Individual Psychotherapy - 30 min Attender: [facility] 11/03/2019 04:00:00 AM EST - 11/03/2019 04:00:00 AM EST [facility] ([facility]) Outpatient Attender: LAURA VELASQUEZ MD 11/01/2019 09:01:08 P [facility] Outpatient Attender: LAURA VELASQUEZ MD 11/01/2019 11:43:01 A [facility] Outpatient Attender: LAURA VELASQUEZ MD 11/01/2019 11:00:02 A [facility] Outpatient Attender: LAURA VELASQUEZ MD 10/31/2019 09:01:08 P [facility] Outpatient Attender: LAURA VELASQUEZ MD 10/31/2019 02:43:02 P [facility] Outpatient Attender: LAURA VELASQUEZ MD 10/31/2019 02:38:04 P [facility] Outpatient Attender: LAURA GEE 10/31/2019 02:32:01 P [facility] Outpatient Attender: LAURA VELASQUEZ MD 10/31/2019 01:49:01 P [facility] Outpatient Attender: LAURA VELASQUEZ MD 10/31/2019 01:48:01 P [facility] Extended Individual Psychotherapy - 45 min Attender: Christianinmilo Sesay [facility] Inter[facility] 10/27/2019 03:45:00 AM EST - 10/27/2019 03:45:00 AM EST [facility] ([facility]) Attender: Christianinmilo Shama 10/27/2019 12:00:00 AM EST [facility] ([facility] Attender: JC ARAGON [facility] 10/21/2019 10:43:00 AM EST - 10/21/2019 10:43:00 AM EST [facility] ( [facility]) Outpatient Attender: LAURA VELASQUEZ MD 10/21/2019 10:09:00 A [facility] Outpatient Attender: LAURA VELASQUEZ MD 10/20/2019 10:53:00 A [facility] Extended Individual Psychotherapy - 45 min [facility] 10/19/2019 09:45:00 AM EST - 10/19/2019 09:45:00 AM EST [facility] ([facility] Attender: Christianinmilo Shama 10/19/2019 12:00:00 AM EST [facility] Outpatient Attender: LAURA VELASQUEZ MD 10/18/2019 12:37:01 P [facility] Outpatient Attender: LAURA VELASQUEZ MD 10/11/2019 08:23:03 A [facility] Outpatient Attender: LAURA VELASQEUZ MD 10/11/2019 08:23:01 A [facility] Outpatient Attender: RICHAR ELDER NP [facility] simran 10/10/2019 08:30:00 AM EST - 10/10/2019 08:30:00 AM EST [facility] ([facility]) Attender: RICHAR ELDER NP 10/10/2019 12:00:00 AM EST [facility] ([facility] Outpatient Attender: LAURA GEE 10/06/2019 04:21:01 P [facility] Outpatient Attender: LAURA VELASQUEZ MD 10/06/2019 02:01:00 P [facility] Outpatient Attender: LAURA VELASQUEZ MD 10/06/2019 01:58:00 P [facility] Outpatient Attender: Benja Boothe MD Physical Therapy 12/2019 10:30:00 AM EST [facility] ([facility]) Outpatient Attender: LAURA VELASQUEZ MD 09/30/2019 02:55:00 P [facility] Outpatient Attender: LAURA VELASQUEZ MD 09/29/2019 02:18:01 P [facility] OutpatientOFFICE/OUTPATIENT VISIT, EST Attender: JC ARAGON [facility] 09/28/2019 01:40:00 PM [facility] - 09/28/2019 01:40:00 PM ES T FibromyalgiaPsoriasis [facility] ([facility]) Fibromyalgia Psoriasis Outpatient Referrer: Flora Navarrete MD 09/25/2019 07:51:00 PM [facility] Radiology Imaging Outpatient Attender: LAURA VELASQUEZ MD 09/23/2019 09:29:18 A [facility] Outpatient Attender: LAURA VELASQUEZ MD 09/20/2019 01:40:02 P [facility] Outpatient Attender: RICHAR ELDER NP [facility] 09/20/2019 10:30:00 AM [facility] - 09/20/2019 10:30:00 AM EST [facility] ([facility]) Attender: RICHAR ELDER NP 09/20/2019 12:00:00 AM EST [facility] ([facility] Outpatient Attender: LAURA VELASQUEZ MD 09/05/2019 08:27:00 A [facility] Outpatient Attender: LAURA VELASQUEZ MD 09/02/2019 10:02:00 A [facility] Outpatient Attender: LAURA VELASQUEZ MD 09/02/2019 10:01:00 A [facility] Outpatient Attender: LAURA VELASQUEZ MD 09/02/2019 10:00:02 A [facility] Outpatient Attender: LAURA VELASQUEZ MD 09/02/2019 09:50:02 A [facility] Outpatient Attender: LAURA VELASQUEZ MD 09/02/2019 09:50:02 A [facility] Outpatient Attender: LAURA VELASQUEZ MD FP 09/02/2019 09:05:01 A [facility] Outpatient Attender: RICHAR ELDER NP [facility] 09/01/2019 11:00:00 AM EST - 09/01/2019 11:00:00 AM EST [facility] ([facility]) Attender: RICHAR ELDER NP 09/01/2019 12:00:00 AM EST [facility] ([facility]) Outpatient Attender: LAURA VELASQUEZ MD 08/08/2019 09:16:02 A [facility] Functional Status Immunizations Vaccine Date Status Description Data Source(s) New in 2012. IIV4 05/25/2020 12:00:00 AM EDT completed 05/25/20 [facility]) New in 2012. IIV4 05/25/2020 12:00:00 AM EDT completed 05/25/20 [facility]) New in 2012. IIV4 05/25/2020 12:00:00 AM EDT completed 05/25/20 [facility]) Medications Medication Brand Name Start Date Product Form Dose Route Admi nistrative Instructions Pharmacy Instructions Status Indications Reaction Description Data Source(s) Sutab Sutab 09/25/2020 12:00:00 AM EST active [facility] ([facility]) Diazepam 5 MG Oral Tablet [Valium] Valium 09/11/2020 12:00:00 AM EST active [facility] ([facility] 150 mg 09/10/2020 12:00:00 AM EST tablet 30 TAKE ONE TABLET BY MOUTH AT BEDTIME TAKE ONE TABLET BY MOUTH AT BEDTIME SOLD: 09/10/2020 [facility] 60 mg 08/30/2020 12:00:00 AM EST capsule,delayed release (DR/EC) 90 TAKE ONE CAPSULE BY MOUTH EVERY EVENING TAKE ONE CAPSULE BY MOUTH EVERY EVENING SOLD: 09/10/2020 [facility] 60 mg 08/25/2020 12:00:00 AM EST capsule,delayed release (DR/EC) 90 TAKE ONE CAPSULE BY MOUTH EVERY EVENING TAKE ONE CAPSULE BY MOUTH EVERY EVENING SOLD: 08/26/2020 [facility] Sertraline 50 MG Oral Tablet sertraline 08/21/2020 12:00:00 AM EST 50 mg by mouth completed [id number] sertraline by mouth [id number] 201911/19/2020 once a day 30 50 mg tablet [id number] Richar Elder [id number] Nurse Practitioner [facility] ([facility]) 60 mg 08/18/2020 12:00:00 AM EST capsule,delayed release (DR/EC) 8 TAKE ONE CAPSULE BY MOUTH EVERY MORNING TAKE ONE CAPSULE BY MOUTH EVERY MORNING SOLD: 08/19/2020 [facility] duloxetine 60 MG Delayed Release Oral Capsule duloxetine 08/15/2020 12:00:00 AM EST 60 mg by mouth completed [id number] duloxetine by mout h [id number] 08/15/2020 11/19/2020 once a day 30 60 mg capsule,delayed release(DR/EC) [id number] Richar Elder [id number] Nurse Practitioner [facility] ([facility]) 90 mcg/actuation 08/14/2020 12:00:00 AM EST HFA aerosol inha ler 8 INHALE TWO PUFFS BY MOUTH EVERY 4 TO 6 HOURS INHALE TWO PUFFS BY MOUTH EVERY 4 TO 6 HOURS SOLD: 09/10/2020 [facility] 50 mcg/actuation 08/14/2020 12:00:00 AM EST spray,suspension 16 SPRAY ONE SPRAY IN EACH NOSTRIL EVERY DAY SPRAY ONE SPRAY IN EACH NOSTRIL EVERY DAY SOLD: 08/14/2020 [facility] 50 mcg/actuation 08/14/2020 12:00:00 AM EST spray,suspension 16 SPRAY ONE SPRAY IN EACH NOSTRIL EVERY DAY SPRAY ONE SPRAY IN EACH NOSTRIL EVERY DAY SOLD: 09/10/2020 [facility] 90 mcg/actuation 08/14/2020 12:00:00 AM EST HFA aerosol inha ler 8 INHALE TWO PUFFS BY MOUTH EVERY 4 TO 6 HOURS INHALE TWO PUFFS BY MOUTH EVERY 4 TO 6 HOURS SOLD: 08/14/2020 [facility] 150 mg 08/11/2020 12:00:00 AM EST tablet 30 TAKE ONE TABLET BY MOUTH AT BEDTIME TAKE ONE TABLET BY MOUTH AT BEDTIME SOLD: 08/12/2020 [facility] 0.5 mg 08/11/2020 12:00:00 AM EST tablet 60 TAKE ONE TABLET BY MOUTH TWICE A DAY * MAXIMUM DAILY DOSE = 2 TAKE ONE TABLET BY MOUTH TWICE A DAY * M LEEANN DAILY DOSE = 2 SOLD: 08/12/2020 [facility] tizanidine 4 MG Oral Tablet TIZANIDINE HCL 08/09/2020 12:00:00 AM EST tablet 90 TAKE ONE TABLET BY MOUTH THREE TIMES A DAY TAKE ONE TA BLET BY MOUTH THREE TIMES A DAY SOLD: 09/10/2020 [facility] tizanidine 4 MG Oral Capsule Tizanidine HCL 08/09/2020 12:00:00 AM EST ORAL active [facility] ([facility] ) tizanidine 4 MG Oral Tablet TIZANIDINE HCL 08/09/2020 12:00:00 AM EST tablet 90 TAKE ONE TABLET BY MOUTH THREE TIMES A DAY TAKE ONE TA BLET BY MOUTH THREE TIMES A DAY SOLD: 08/09/2020 [facility] 50 mg 07/18/2020 12:00:00 AM EST capsule 90 TAKE ONE CAPSULE BY MOUTH THREE TIMES A DAY MAXIMUM DAILY DOSE = 3 CAPSULES TAKE ONE CAPSULE BY MOUTH THREE TIMES A DAY MAXIMUM DAILY DOSE = 3 CAPSULES SOLD: 07/18/2020 [facility] 0.5 mg 07/11/2020 12:00:00 AM EST tablet 60 TAKE ONE TABLET BY MOUTH TWICE A DAY MAXIMUM DAILY DOSE = 2 TABLETS TAKE ONE TABLET BY MOUTH TWICE A DAY MAX IMUM DAILY DOSE = 2 TABLETS SOLD: 07/11/2020 [facility] pantoprazole 40 MG Delayed Release Oral Tablet PANTOPRAZOLE SODIUM 07/06/2020 12:00:00 AM EST tablet,delayed release (DR/EC) 30 T HOLLY ONE TABLET BY MOUTH AT BEDTIME TAKE ONE TABLET BY MOUTH AT BEDTIME SOLD: 08/01/2020 [facility] atorvastatin 20 MG Oral Tablet ATORVASTATIN CALCIUM 07/06/2020 1 2:00:00 AM EST tablet 30 TAKE ONE TABLET BY MOUTH EVERY D AY TAKE ONE TABLET BY MOUTH EVERY DAY SOLD: 07/06/2020 [facility] atorvastatin 20 MG Oral Tablet ATORVASTATIN CALCIUM 07/06/2020 1 2:00:00 AM EST tablet 30 TAKE ONE TABLET BY MOUTH EVERY D AY TAKE ONE TABLET BY MOUTH EVERY DAY SOLD: 09/10/2020 [facility] atorvastatin 20 MG Oral Tablet ATORVASTATIN CALCIUM 07/06/2020 1 2:00:00 AM EST tablet 30 TAKE ONE TABLET BY MOUTH EVERY D AY TAKE ONE TABLET BY MOUTH EVERY DAY SOLD: 08/01/2020 [facility] pantoprazole 40 MG Delayed Release Oral Tablet PANTOPRAZOLE SODIUM 07/06/2020 12:00:00 AM EST tablet,delayed release (DR/EC) 30 T HOLLY ONE TABLET BY MOUTH AT BEDTIME TAKE ONE TABLET BY MOUTH AT BEDTIME SOLD: 07/06/2020 [facility] pantoprazole 40 MG Delayed Release Oral Tablet PANTOPRAZOLE SODIUM 07/06/2020 12:00:00 AM EST tablet,delayed release (DR/EC) 30 T HOLLY ONE TABLET BY MOUTH AT BEDTIME TAKE ONE TABLET BY MOUTH AT BEDTIME SOLD: 09/10/2020 [facility] montelukast 10 MG Oral Tablet MONTELUKAST SODIUM 07/05/2020 12:0 0:00 AM EST tablet 30 TAKE ONE TABLET BY MOUTH EVERY D AY TAKE ONE TABLET BY MOUTH EVERY DAY SOLD: 09/20/2020 [facility] 150 mg 06/13/2020 12:00:00 AM EDT tablet 30 TAKE ONE TABLET BY MOUTH AT BEDTIME TAKE ONE TABLET BY MOUTH AT BEDTIME SOLD: 06/13/2020 [facility] 120 mg 06/12/2020 12:00:00 AM EDT capsule,extended releas e 24 hr 30 TAKE ONE CAPSULE BY MOUTH EVERY EVENING TAKE ONE CAPSULE BY MOUTH EVERY EVENING SOLD: 06/12/2020 [facility] Metformin hydrochloride 1000 MG Oral Tablet 1,000 mg METFORM IN HCL 06/12/2020 12:00:00 AM EDT tablet 60 TAKE ONE TABLET BY MOUTH EVERY 12 HOURS TAKE ONE TABLET BY MOUTH EVERY 12 HOURS SOLD: 06/12/2020 [facility] 50 mg 06/08/2020 12:00:00 AM EDT capsule 90 TAKE ONE CAPSULE BY MOUTH EVERY MORNING AND 2 AT BEDTIME MAXIMUM DAILY DOSE = 3 CAPSULE TAKE ONE CAPSULE BY MOUTH EVERY MORNING AND 2 AT BEDTIME MAXIMUM DAILY DOSE = 3 CAPSULE SOLD: 06/08/2020 [facility] 0.5 mg 06/07/2020 12:00:00 AM EDT tablet 60 TAKE ONE TABLET BY MOUTH TWICE A DAY MAXIMUM DAILY DOSE = 2 TAKE ONE TABLET BY MOUTH TWICE A DAY MAX IMUM DAILY DOSE = 2 SOLD: 06/08/2020 [facility] 60 mg 06/01/2020 12:00:00 AM EDT capsule,delayed release (DR/EC) 30 TAKE ONE CAPSULE BY MOUTH EVERY MORNING TAKE ONE CAPSULE BY MOUTH EVERY MORNING SOLD: 06/01/2020 [facility] 60 mg 06/01/2020 12:00:00 AM EDT capsule,delayed release (DR/EC) 30 TAKE ONE CAPSULE BY MOUTH EVERY MORNING TAKE ONE CAPSULE BY MOUTH EVERY MORNING SOLD: 06/28/2020 [facility] 150 mg 05/16/2020 12:00:00 AM EDT tablet 30 TAKE ONE TABLET BY MOUTH AT BEDTIME TAKE ONE TABLET BY MOUTH AT BEDTIME SOLD: 07/11/2020 [facility] 25 mg 05/16/2020 12:00:00 AM EDT tablet 7 TAKE ONE TABLET BY MOUTH EVERY DAY TAKE ONE TABLET BY MOUTH EVERY DAY SOLD: 05/16/2020 [facility] 150 mg 05/16/2020 12:00:00 AM EDT tablet 30 TAKE ONE TABLET BY MOUTH AT BEDTIME TAKE ONE TABLET BY MOUTH AT BEDTIME SOLD: 05/16/2020 [facility] Sertraline 25 MG Oral Tablet sertraline 05/15/2020 12:00:00 AM EDT 25 mg by mouth completed [id number] sertraline by mouth [id number] 201906/12/2020 once a day 25 mg tablet [id number] Richar Elder [id number] Nurse Practitioner [facility] ([facility]) 50 mg 05/04/2020 12:00:00 AM EDT tablet 30 TAKE ONE TABLET BY MOUTH EVERY DAY TAKE ONE TABLET BY MOUTH EVERY DAY SOLD: 05/04/2020 [facility] 0.5 mg 05/04/2020 12:00:00 AM EDT tablet 60 TAKE ONE TABLET BY MOUTH TWICE A DAY MAXIMUM DAILY DOSE = 2 TAKE ONE TABLET BY MOUTH TWICE A DAY MAX IMUM DAILY DOSE = 2 SOLD: 05/04/2020 [facility] Sertraline 50 MG Oral Tablet sertraline 05/03/2020 12:00:00 AM EDT 50 mg by mouth completed [id number] sertraline by mouth [id number] 201905/15/2020 once a day 50 mg tablet 32706 [id number] Richar Elder [id number] Nurse Practitioner [facility] ([facility] 50 mg 04/24/2020 12:00:00 AM EDT capsule 90 TAKE 1 CAPSULE BY MOUTH EVERY MORNING AND 2 AT BEDTIME MAXIMUM DAILY DOSE = 3 CAPSULE TAKE 1 CAPSULE BY MOUTH EVERY MORNING AND 2 AT BEDTIME MAXIMUM DAILY DOSE = 3 CAPSULE SOLD: 04/24/2020 [facility] pregabalin 50 MG Oral Capsule [Lyrica] Lyrica 50 mg ca psule Lyrica 50 mg capsule 04/23/2020 12:00:00 AM EDT active pregabalin 50 MG Oral Capsule [Lyrica] [facility] ([facility]) OK to fill now. MDD = 1. pregabalin 50 MG Oral Capsule [Lyrica] Lyrica 50 mg ca psule Lyrica 50 mg capsule 04/23/2020 12:00:00 AM EDT completed pregabalin 50 MG Oral Capsule [Lyrica] [facility] ([facility]) OK to fill now. MDD = 1. 150 mg 04/07/2020 12:00:00 AM EDT tablet 30 TAKE ONE TABLET BY MOUTH AT BEDTIME TAKE ONE TABLET BY MOUTH AT BEDTIME SOLD: 04/08/2020 [facility] 60 mg 04/06/2020 12:00:00 AM EDT capsule,delayed release (DR/EC) 30 TAKE ONE CAPSULE BY MOUTH EVERY MORNING TAKE ONE CAPSULE BY MOUTH EVERY MORNING SOLD: 04/06/2020 [facility] 60 mg 04/06/2020 12:00:00 AM EDT capsule,delayed release (DR/EC) 30 TAKE ONE CAPSULE BY MOUTH EVERY MORNING TAKE ONE CAPSULE BY MOUTH EVERY MORNING SOLD: 05/07/2020 [facility] Clonazepam 0.5 MG Oral Tablet clonazepam 03/30/2020 12:00:00 AM EDT 0.5 mg by mouth completed [id number] clonazepam by mouth [id number] 2019 twice a day 0.5 mg tablet 47615 [id number] Rupal Colvin [id number] Nurse Practitioner [facility] ([facility]) 0.5 mg 03/30/2020 12:00:00 AM EDT tablet 60 TAKE ONE TABLET BY MOUTH TWICE A DAY MAXIMUM DAILY DOSE = 2 TABLETS TAKE ONE TABLET BY MOUTH TWICE A DAY MAX IMUM DAILY DOSE = 2 TABLETS SOLD: 03/30/2020 [facility] 50 mg 03/20/2020 12:00:00 AM EDT tablet 30 TAKE ONE TABLET BY MOUTH EVERY DAY TAKE ONE TABLET BY MOUTH EVERY DAY SOLD: 03/23/2020 [facility] 30 gauge 02/29/2020 12:00:00 AM EDT misc 200 TEST BLOOD SUGARS FOUR TIMES A DAY TEST BLOOD SUGARS FOUR TIMES A DAY SOLD: 02/29/2020 [facility] 0.75 mg/0.5 mL 02/18/2020 12:00:00 AM EDT pen injector 2 INJECT 1 SUBCUTANEOUSLY WEEKLY INJECT 1 SUBCUTANEOUSLY WEEKLY SOLD: 02/19/2020 [facility] 0.75 mg/0.5 mL 02/18/2020 12:00:00 AM EDT pen injector 2 INJECT 1 SUBCUTANEOUSLY WEEKLY INJECT 1 SUBCUTANEOUSLY WEEKLY SOLD: 06/07/2020 [facility] 0.75 mg/0.5 mL 02/18/2020 12:00:00 AM EDT pen injector 2 INJECT 1 SUBCUTANEOUSLY WEEKLY INJECT 1 SUBCUTANEOUSLY WEEKLY SOLD: 03/15/2020 [facility] 0.1 % 02/17/2020 12:00:00 AM EDT cream 15 APPLY A THIN LAYER TO AFFECTED AREA TWO TIMES A DAY FOR PSORIASIS FOR A MAXIMUM OF 14 DAYS APPLY A THIN LAYER TO AFFECTED AREA TWO TIMES A DAY FOR PSORIASIS FOR A MAXIMUM OF 14 DAYS SOLD: 02/29/2020 [facility] 0.1 % 02/17/2020 12:00:00 AM EDT cream 15 APPLY A THIN LAYER TO AFFECTED AREA TWO TIMES A DAY FOR PSORIASIS FOR A MAXIMUM OF 14 DAYS APPLY A THIN LAYER TO AFFECTED AREA TWO TIMES A DAY FOR PSORIASIS FOR A MAXIMUM OF 14 DAYS SOLD: 03/12/2020 [facility] 0.1 % 02/17/2020 12:00:00 AM EDT cream 15 APPLY A THIN LAYER TO AFFECTED AREA TWO TIMES A DAY FOR PSORIASIS FOR A MAXIMUM OF 14 DAYS APPLY A THIN LAYER TO AFFECTED AREA TWO TIMES A DAY FOR PSORIASIS FOR A MAXIMUM OF 14 DAYS SOLD: 02/17/2020 [facility] Nystatin 100 UNT/MG Topical Powder 100,000 unit/gram NYSTATI N 02/17/2020 12:00:00 AM EDT powder 15 APPLY UNDER BOTH BREASTS TWO TIMES A DAY APPLY UNDER BOTH BREASTS TWO TIMES A DAY SOLD: 03/15/2020 [facility] Nystatin 100 UNT/MG Topical Powder 100,000 unit/gram NYSTATI N 02/17/2020 12:00:00 AM EDT powder 15 APPLY UNDER BOTH BREASTS TWO TIMES A DAY APPLY UNDER BOTH BREASTS TWO TIMES A DAY SOLD: 02/17/2020 [facility] 60 mg 02/15/2020 12:00:00 AM EDT capsule,delayed release (DR/EC) 30 TAKE ONE CAPSULE BY MOUTH EVERY MORNING TAKE ONE CAPSULE BY MOUTH EVERY MORNING SOLD: 03/12/2020 [facility] 0.5 mg 02/15/2020 12:00:00 AM EDT tablet 60 TAKE ONE TABLET BY MOUTH TWICE A DAY MAXIMUM DAILY DOSE = 2 TAKE ONE TABLET BY MOUTH TWICE A DAY MAX IMUM DAILY DOSE = 2 SOLD: 02/15/2020 [facility] 150 mg 02/15/2020 12:00:00 AM EDT tablet 30 TAKE ONE TABLET BY MOUTH AT BEDTIME TAKE ONE TABLET BY MOUTH AT BEDTIME SOLD: 02/15/2020 [facility] 60 mg 02/15/2020 12:00:00 AM EDT capsule,delayed release (DR/EC) 30 TAKE ONE CAPSULE BY MOUTH EVERY MORNING TAKE ONE CAPSULE BY MOUTH EVERY MORNING SOLD: 02/15/2020 [facility] 150 mg 02/15/2020 12:00:00 AM EDT tablet 30 TAKE ONE TABLET BY MOUTH AT BEDTIME TAKE ONE TABLET BY MOUTH AT BEDTIME SOLD: 03/14/2020 [facility] 50 mcg/actuation 02/08/2020 12:00:00 AM EDT spray,suspension 16 SPRAY ONE TO TWO SPRAYS IN EACH NOSTRIL TWICE A DAY NEEDED FOR CONGESTION SPRAY ONE TO TWO SPRAYS IN EACH NOSTRIL TWICE A DAY NEEDED FOR CONGESTION SOLD: 03/09/2020 [facility] 50 mcg/actuation 02/08/2020 12:00:00 AM EDT spray,suspension 16 SPRAY ONE TO TWO SPRAYS IN EACH NOSTRIL TWICE A DAY NEEDED FOR CONGESTION SPRAY ONE TO TWO SPRAYS IN EACH NOSTRIL TWICE A DAY NEEDED FOR CONGESTION SOLD: 02/09/2020 [facility] 1,000 mg 01/26/2020 12:00:00 AM EDT tablet 60 TAKE ONE TABLET BY MOUTH EVERY 12 HOURS MORNING AND AT BEDTIME TAKE ONE TABLET BY MOUTH EVERY 12 HOURS MORNING AND AT BEDTIME SOLD: 01/26/2020 [facility] 112 mcg 01/26/2020 12:00:00 AM EDT tablet 30 TAKE ONE TABLET BY MOUTH EVERY MORNING TAKE ONE TABLET BY MOUTH EVERY MORNING SOLD: 02/22/2020 [facility] Metformin hydrochloride 1000 MG Oral Tablet 1,000 mg METFORM IN HCL 01/26/2020 12:00:00 AM EDT tablet 60 TAKE ONE TABLET BY MOUTH EVERY 12 HOURS MORNING AND AT BEDTIME TAKE ONE TABLET BY MOUTH EVERY 12 HOURS MORNING AND AT BEDTIME SOLD: 05/03/2020 [facility] 1,000 mg 01/26/2020 12:00:00 AM EDT tablet 60 TAKE ONE TABLET BY MOUTH EVERY 12 HOURS MORNING AND AT BEDTIME TAKE ONE TABLET BY MOUTH EVERY 12 HOURS MORNING AND AT BEDTIME SOLD: 02/22/2020 [facility] 112 mcg 01/26/2020 12:00:00 AM EDT tablet 30 TAKE ONE TABLET BY MOUTH EVERY MORNING TAKE ONE TABLET BY MOUTH EVERY MORNING SOLD: 01/26/2020 [facility] montelukast 10 MG Oral Tablet MONTELUKAST SODIUM 01/19/2020 12:0 0:00 AM EDT tablet 30 TAKE ONE TABLET BY MOUTH AT BEDT NINA TAKE ONE TABLET BY MOUTH AT BEDTIME SOLD: 05/07/2020 [facility] montelukast 10 MG Oral Tablet MONTELUKAST SODIUM 01/19/2020 12:0 0:00 AM EDT tablet 30 TAKE ONE TABLET BY MOUTH AT BEDT NINA TAKE ONE TABLET BY MOUTH AT BEDTIME SOLD: 02/15/2020 [facility] montelukast 10 MG Oral Tablet MONTELUKAST SODIUM 01/19/2020 12:0 0:00 AM EDT tablet 30 TAKE ONE TABLET BY MOUTH AT BEDT NINA TAKE ONE TABLET BY MOUTH AT BEDTIME SOLD: 01/19/2020 [facility] montelukast 10 MG Oral Tablet MONTELUKAST SODIUM 01/19/2020 12:0 0:00 AM EDT tablet 30 TAKE ONE TABLET BY MOUTH AT BEDT NINA TAKE ONE TABLET BY MOUTH AT BEDTIME SOLD: 04/06/2020 [facility] montelukast 10 MG Oral Tablet MONTELUKAST SODIUM 01/19/2020 12:0 0:00 AM EDT tablet 30 TAKE ONE TABLET BY MOUTH AT BEDT NINA TAKE ONE TABLET BY MOUTH AT BEDTIME SOLD: 03/12/2020 [facility] [facility] montelukast 10 MG Oral Tablet MONTELUKAST SODIUM 01/19/2020 12:0 0:00 AM EDT tablet 30 TAKE ONE TABLET BY MOUTH AT BEDT NINA TAKE ONE TABLET BY MOUTH AT BEDTIME SOLD: 06/03/2020 [facility] Clonazepam 0.5 MG Oral Tablet clonazepam 01/17/2020 12:00:00 AM EDT 0.5 mg completed [id number] clonazepam 01/17/2020 03/15/2020 twice a day 30 0.5 mg tablet [id number] Richar Elder [id number] Nurse Practitioner [facility] ([facility]) 150 mg 01/17/2020 12:00:00 AM EDT tablet 30 TAKE ONE TABLET BY MOUTH AT BEDTIME TAKE ONE TABLET BY MOUTH AT BEDTIME SOLD: 02/13/2020 [facility] 25 mg 01/17/2020 12:00:00 AM EDT tablet 30 TAKE ONE TABLET BY MOUTH EVERY MORNING TAKE ONE TABLET BY MOUTH EVERY MORNING SOLD: 02/13/2020 [facility] 0.5 mg 01/17/2020 12:00:00 AM EDT tablet 60 TAKE ONE TABLET BY MOUTH TWICE A DAY MAXIMUM DAILY DOSE = 2 TABLETS TAKE ONE TABLET BY MOUTH TWICE A DAY MAX IMUM DAILY DOSE = 2 TABLETS SOLD: 01/18/2020 [facility] Clonazepam 0.5 MG Oral Tablet clonazepam 01/17/2020 12:00:00 AM EDT 0.5 mg completed [id number] clonazepam 01/17/2020 03/15/2020 twice a day 30 0.5 mg tablet [id number] Richar Elder [id number] Nurse Practitioner [facility] ([facility]) 60 mg 01/17/2020 12:00:00 AM EDT capsule,delayed release (DR/EC) 30 TAKE ONE CAPSULE BY MOUTH EVERY MORNING TAKE ONE CAPSULE BY MOUTH EVERY MORNING SOLD: 02/13/2020 [facility] 150 mg 01/17/2020 12:00:00 AM EDT tablet 30 TAKE ONE TABLET BY MOUTH AT BEDTIME TAKE ONE TABLET BY MOUTH AT BEDTIME SOLD: 01/18/2020 [facility] 25 mg 01/17/2020 12:00:00 AM EDT tablet 30 TAKE ONE TABLET BY MOUTH EVERY MORNING TAKE ONE TABLET BY MOUTH EVERY MORNING SOLD: 01/18/2020 [facility] 60 mg 01/17/2020 12:00:00 AM EDT capsule,delayed release (DR/EC) 30 TAKE ONE CAPSULE BY MOUTH EVERY MORNING TAKE ONE CAPSULE BY MOUTH EVERY MORNING SOLD: 01/18/2020 [facility] 50 mg 01/13/2020 12:00:00 AM EDT capsule 90 TAKE ONE CAPSULE BY MOUTH EVERY MORNING AND 2 AT BEDTIME MAXIMUM DAILY DOSE = 3 CAPSULES TAKE ONE CAPSULE BY MOUTH EVERY MORNING AND 2 AT BEDTIME MAXIMUM DAILY DOSE = 3 CAPSULES SOLD: 03/05/2020 [facility] pregabalin 50 MG Oral Capsule [Lyrica] Lyrica 50 mg ca psule Lyrica 50 mg capsule 01/13/2020 12:00:00 AM EDT completed pregabalin 50 MG Oral Capsule [Lyrica] [facility] ([facility]) OK to fill now. MDD = 1. [facility] ref#[id number] 50 mg 01/13/2020 12:00:00 AM EDT capsule 90 TAKE ONE CAPSULE BY MOUTH EVERY MORNING AND 2 AT BEDTIME MAXIMUM DAILY DOSE = 3 CAPSULES TAKE ONE CAPSULE BY MOUTH EVERY MORNING AND 2 AT BEDTIME MAXIMUM DAILY DOSE = 3 CAPSULES SOLD: 01/16/2020 [facility] 90 mcg/actuation 01/11/2020 12:00:00 AM EDT HFA aerosol inha ler 18 INHALE ONE TO TWO PUFFS BY MOUTH EVERY 4 TO 6 HOURS NEEDED FOR WHEEZING INHALE ONE TO TWO PUFFS BY MOUTH EVERY 4 TO 6 HOURS NEEDED FOR WHEEZING SOLD: 02/01/2020 [facility] 90 mcg/actuation 01/11/2020 12:00:00 AM EDT HFA aerosol inha ler 18 INHALE ONE TO TWO PUFFS BY MOUTH EVERY 4 TO 6 HOURS NEEDED FOR WHEEZING INHALE ONE TO TWO PUFFS BY MOUTH EVERY 4 TO 6 HOURS NEEDED FOR WHEEZING SOLD: 02/22/2020 [facility] 90 mcg/actuation 01/11/2020 12:00:00 AM EDT HFA aerosol inha ler 18 INHALE ONE TO TWO PUFFS BY MOUTH EVERY 4 TO 6 HOURS NEEDED FOR WHEEZING INHALE ONE TO TWO PUFFS BY MOUTH EVERY 4 TO 6 HOURS NEEDED FOR WHEEZING SOLD: 03/15/2020 [facility] 90 mcg/actuation 01/11/2020 12:00:00 AM EDT HFA aerosol inha ler 18 INHALE ONE TO TWO PUFFS BY MOUTH EVERY 4 TO 6 HOURS NEEDED FOR WHEEZING INHALE ONE TO TWO PUFFS BY MOUTH EVERY 4 TO 6 HOURS NEEDED FOR WHEEZING SOLD: 01/11/2020 [facility] 0.625-2.5 mg 01/10/2020 12:00:00 AM EDT tablet 28 TAKE ONE TABLET BY MOUTH EVERY DAY TAKE ONE TABLET BY MOUTH EVERY DAY SOLD: 01/10/2020 [facility] 0.625-2.5 mg 01/10/2020 12:00:00 AM EDT tablet 28 TAKE ONE TABLET BY MOUTH EVERY DAY TAKE ONE TABLET BY MOUTH EVERY DAY SOLD: 02/29/2020 [facility] 0.625-2.5 mg 01/10/2020 12:00:00 AM EDT tablet 28 TAKE ONE TABLET BY MOUTH EVERY DAY TAKE ONE TABLET BY MOUTH EVERY DAY SOLD: 02/03/2020 [facility] duloxetine 60 MG Delayed Release Oral Capsule Duloxetine HCL 01/02/2020 12:00:00 AM EDT ORAL active [facility] ([facility] 7 ACTUAT umeclidinium 0.0625 MG/ACTUAT Dry Powder Inha ler [Incruse] Incruse Ellipta 01/02/2020 12:00:00 AM EDT RESPIRATORY active [facility] ([facility]) Polyethylene Glycol 400 4 MG/ML / Propyl sakina glycol 3 MG/ML Ophthalmic Solution [Systane] Systane 01/02/2020 12:00:00 AM EDT activ e [facility] ([facility]) Levothyroxine Sodium 0.112 MG Oral Tablet Levothyroxine Sodi um 01/02/2020 12:00:00 AM EDT ORAL active M [facility] ([facility]) Airduo Respiclick 232/14 Airduo Respiclick 232/14 01/02/2020 12:00: 00 AM EDT RESPIRATORY active [facility] ([facility]) 0.3 ML Epinephrine 1 MG/ML Auto-Injector [Epipen] Epipen 2-P ak 01/02/2020 12:00:00 AM EDT active [facility] ([facility]) Sertraline 25 MG Oral Tablet Sertraline HCL 01/02/2020 12:00:00 AM EDT ORAL active [facility] ([facility]) pantoprazole 40 MG Delayed Release Oral Tablet [Protonix] Pr otonix 01/02/2020 12:00:00 AM EDT ORAL active [facility] ([facility]) 0.5 ML dulaglutide 3 MG/ML Auto-Injector [Trulicity] Trulici ty 01/02/2020 12:00:00 AM EDT active [facility] ([facility]) Metformin hydrochloride 1000 MG Oral Tablet Metformin HCL 01/02/2020 12:00:00 AM EDT ORAL active [facility] ([facility]) Levothyroxine Sodium 0.088 MG Oral Tablet Levothyroxine Sodi um 01/02/2020 12:00:00 AM EDT ORAL completed [facility] ([facility]) atorvastatin 10 MG Oral Tablet Atorvastatin Calcium 01/02/2020 1 2:00:00 AM EDT ORAL completed [facility] ([facility]) Hydrocortisone 10 MG/ML Topical Cream Hydrocortisone 01/02/2020 12:00:00 AM EDT active [facility] ( [facility]) pregabalin 100 MG Oral Capsule [Lyrica] Lyrica 01/02/2020 12:00:0 0 AM EDT ORAL active [facility] ([facility]) Estrogens, Conjugated ([facility]) 0.45 MG Oral Tablet [Premarin] P remarin 01/02/2020 12:00:00 AM EDT ORAL active [facility] ([facility]) 60 ACTUAT Fluticasone propionate 0.25 MG /ACTUAT / salmeterol 0.05 MG/ACTUAT Dry Powder Inhaler [Advair] Advair Diskus 01/02/2020 12:00:00 AM EDT RESPIRATORY completed [facility] ([facility]) 200 ACTUAT Albuterol 0.09 MG/ACTUAT Metered Dose Inhal er [Ventolin] Ventolin HFA 01/02/2020 12:00:00 AM EDT RESPIRATORY active [facility] ([facility]) atorvastatin 20 MG Oral Tablet Atorvastatin Calcium 01/02/2020 1 2:00:00 AM EDT ORAL active [facility] ( [facility]) Flonase Allergy Relief Flonase Allergy Relief 01/02/2020 12:00:00 AM E DT active [facility] ([facility]) Clonazepam 0.5 MG Oral Tablet Clonazepam 01/02/2020 12:00:00 AM EDT ORAL active [facility] ([facility]) pregabalin 50 MG Oral Capsule [Lyrica] Lyrica 01/02/2020 12:00:00 AM EDT ORAL active [facility] ([facility]) Propranolol Hydrochloride 60 MG Oral Tablet Propranolol HCL 01/02/2020 12:00:00 AM EDT ORAL active [facility] ([facility]) Trazodone Hydrochloride 150 MG Oral Tablet Trazodone HCL 01/02/2020 12:00:00 AM EDT ORAL active [facility] ([facility]) 120 mg 12/28/2019 12:00:00 AM EDT capsule,extended releas e 24 hr 30 TAKE ONE CAPSULE BY MOUTH AT NIGHT TAKE ONE CAPSULE BY MOUTH AT NIGHT SOLD: 12/29/2019 [facility] 120 mg 12/28/2019 12:00:00 AM EDT capsule,extended releas e 24 hr 20 TAKE ONE CAPSULE BY MOUTH AT NIGHT TAKE ONE CAPSULE BY MOUTH AT NIGHT SOLD: 04/23/2020 [facility] 120 mg 12/28/2019 12:00:00 AM EDT capsule,extended releas e 24 hr 20 TAKE ONE CAPSULE BY MOUTH AT NIGHT TAKE ONE CAPSULE BY MOUTH AT NIGHT SOLD: 03/23/2020 [facility] 120 mg 12/28/2019 12:00:00 AM EDT capsule,extended releas e 24 hr 22 TAKE ONE CAPSULE BY MOUTH AT NIGHT TAKE ONE CAPSULE BY MOUTH AT NIGHT SOLD: 05/16/2020 [facility] 120 mg 12/28/2019 12:00:00 AM EDT capsule,extended releas e 24 hr 30 TAKE ONE CAPSULE BY MOUTH AT NIGHT TAKE ONE CAPSULE BY MOUTH AT NIGHT SOLD: 02/21/2020 [facility] 120 mg 12/28/2019 12:00:00 AM EDT capsule,extended releas e 24 hr 30 TAKE ONE CAPSULE BY MOUTH AT NIGHT TAKE ONE CAPSULE BY MOUTH AT NIGHT SOLD: 01/25/2020 [facility] 10 mg 12/22/2019 12:00:00 AM EDT tablet 30 TAKE ONE TABLET BY MOUTH EVERY DAY TAKE ONE TABLET BY MOUTH EVERY DAY SOLD: 12/23/2019 [facility] 10 mg 12/22/2019 12:00:00 AM EDT tablet 30 TAKE ONE TABLET BY MOUTH EVERY DAY TAKE ONE TABLET BY MOUTH EVERY DAY SOLD: 03/14/2020 [facility] 10 mg 12/22/2019 12:00:00 AM EDT tablet 30 TAKE ONE TABLET BY MOUTH EVERY DAY TAKE ONE TABLET BY MOUTH EVERY DAY SOLD: 01/19/2020 [facility] 10 mg 12/22/2019 12:00:00 AM EDT tablet 30 TAKE ONE TABLET BY MOUTH EVERY DAY TAKE ONE TABLET BY MOUTH EVERY DAY SOLD: 02/15/2020 [facility] atorvastatin 20 MG Oral Tablet ATORVASTATIN CALCIUM 12/20/2019 1 2:00:00 AM EDT tablet 15 TAKE ONE TABLET BY MOUTH EVERY D AY TAKE ONE TABLET BY MOUTH EVERY DAY SOLD: 04/06/2020 [facility] atorvastatin 20 MG Oral Tablet ATORVASTATIN CALCIUM 12/20/2019 1 2:00:00 AM EDT tablet 30 TAKE ONE TABLET BY MOUTH EVERY D AY TAKE ONE TABLET BY MOUTH EVERY DAY SOLD: 12/23/2019 [facility] 0.75 mg/0.5 mL 12/20/2019 12:00:00 AM EDT pen injector 2 INJECT 1 SUBCUTANEOUSLY WEEKLY INJECT 1 SUBCUTANEOUSLY WEEKLY SOLD: 12/23/2019 [facility] atorvastatin 20 MG Oral Tablet ATORVASTATIN CALCIUM 12/20/2019 1 2:00:00 AM EDT tablet 30 TAKE ONE TABLET BY MOUTH EVERY D AY TAKE ONE TABLET BY MOUTH EVERY DAY SOLD: 02/26/2020 [facility] atorvastatin 20 MG Oral Tablet ATORVASTATIN CALCIUM 12/20/2019 1 2:00:00 AM EDT tablet 30 TAKE ONE TABLET BY MOUTH EVERY D AY TAKE ONE TABLET BY MOUTH EVERY DAY SOLD: 01/19/2020 [facility] atorvastatin 20 MG Oral Tablet ATORVASTATIN CALCIUM 12/20/2019 1 2:00:00 AM EDT tablet 30 TAKE ONE TABLET BY MOUTH EVERY D AY TAKE ONE TABLET BY MOUTH EVERY DAY SOLD: 06/03/2020 [facility] atorvastatin 20 MG Oral Tablet ATORVASTATIN CALCIUM 12/20/2019 1 2:00:00 AM EDT tablet 30 TAKE ONE TABLET BY MOUTH EVERY D AY TAKE ONE TABLET BY MOUTH EVERY DAY SOLD: 05/07/2020 [facility] atorvastatin 20 MG Oral Tablet ATORVASTATIN CALCIUM 12/20/2019 1 2:00:00 AM EDT tablet 15 TAKE ONE TABLET BY MOUTH EVERY D AY TAKE ONE TABLET BY MOUTH EVERY DAY SOLD: 03/23/2020 [facility] 25 mg 12/19/2019 12:00:00 AM EDT tablet 30 TAKE ONE TABLET BY MOUTH EVERY MORNING TAKE ONE TABLET BY MOUTH EVERY MORNING SOLD: 01/16/2020 [facility] 25 mg 12/19/2019 12:00:00 AM EDT tablet 30 TAKE ONE TABLET BY MOUTH EVERY MORNING TAKE ONE TABLET BY MOUTH EVERY MORNING SOLD: 12/20/2019 [facility] 150 mg 12/07/2019 12:00:00 AM EDT tablet 30 TAKE ONE TABLET BY MOUTH AT BEDTIME TAKE ONE TABLET BY MOUTH AT BEDTIME SOLD: 12/08/2019 [facility] 150 mg 12/07/2019 12:00:00 AM EDT tablet 30 TAKE ONE TABLET BY MOUTH AT BEDTIME TAKE ONE TABLET BY MOUTH AT BEDTIME SOLD: 01/05/2020 [facility] Trazodone Hydrochloride 150 MG Oral Tablet trazodone 12/05 12:00:00 AM EDT 150 mg completed [id number] trazodone 12/06/2019 30 150 mg tablet 40793 [id number] Richar Elder [id number] Nurse Practitioner [facility] ([facility]) Trazodone Hydrochloride 150 MG Oral Tablet trazodone 12/05 12:00:00 AM EDT 150 mg completed [id number] trazodone 12/06/2019 30 150 mg tablet 98173 [id number] Richar Elder [id number] Nurse Practitioner [facility] ([facility]) Sertraline 25 MG Oral Tablet sertraline 12/06/2019 12:00:00 AM EDT 25 mg completed [id number] sertraline 12/06/2019 04/14/2020 30 25 mg tablet 18891 [id number] Richar Elder [id number] Nurse Practitione r [facility] ([facility]) Trazodone Hydrochloride 150 MG Oral Tablet trazodone 12/05 12:00:00 AM EDT 150 mg completed [id number] trazodone 12/06/2019 30 150 mg tablet 21888 [id number] Richar Elder [id number] Nurse Practitioner [facility] ([facility]) Sertraline 25 MG Oral Tablet sertraline 12/06/2019 12:00:00 AM EDT 25 mg completed [id number] sertraline 12/06/2019 30 25 mg tab let 08734 [id number] Richar Elder [id number] Nurse Practitioner [facility] ([facility]) Trazodone Hydrochloride 150 MG Oral Tablet trazodone 12/05 12:00:00 AM EDT 150 mg completed [id number] trazodone 12/06/201907/2020 30 150 mg tablet 69514 [id number] Richar Elder [id number] Nurse Practitioner [facility] ([facility]) Sertraline 25 MG Oral Tablet sertraline 12/06/2019 12:00:00 AM EDT 25 mg completed [id number] sertraline 12/06/2019 04/14/2020 30 25 mg tablet 38250 [id number] Richar Elder [id number] Nurse Lenin ruano [facility] ([facility]) 0.5 mg 11/23/2019 12:00:00 AM EDT tablet 60 TAKE ONE TABLET BY MOUTH TWICE A DAY MAXIMUM DAILY DOSE = TWO TABLETS TAKE ONE TABLET BY MOUTH TWICE A DAY MAXIMUM DAILY DOSE = TWO TABLETS SOLD: 11/24/2019 [facility] 25 mg 11/23/2019 12:00:00 AM EDT tablet 30 TAKE ONE TABLET BY MOUTH EVERY MORNING TAKE ONE TABLET BY MOUTH EVERY MORNING SOLD: 01/16/2020 [facility] 25 mg 11/23/2019 12:00:00 AM EDT tablet 30 TAKE ONE TABLET BY MOUTH EVERY MORNING TAKE ONE TABLET BY MOUTH EVERY MORNING SOLD: 11/24/2019 [facility] 60 mg 11/23/2019 12:00:00 AM EDT capsule,delayed release (DR/EC) 30 TAKE ONE CAPSULE BY MOUTH EVERY MORNING TAKE ONE CAPSULE BY MOUTH EVERY MORNING SOLD: 12/23/2019 [facility] 60 mg 11/23/2019 12:00:00 AM EDT capsule,delayed release (DR/EC) 30 TAKE ONE CAPSULE BY MOUTH EVERY MORNING TAKE ONE CAPSULE BY MOUTH EVERY MORNING SOLD: 11/24/2019 [facility] 150 mg 11/23/2019 12:00:00 AM EDT tablet 30 TAKE ONE TABLET BY MOUTH AT BEDTIME TAKE ONE TABLET BY MOUTH AT BEDTIME SOLD: 11/24/2019 [facility] 150 mg 11/23/2019 12:00:00 AM EDT tablet 30 TAKE ONE TABLET BY MOUTH AT BEDTIME TAKE ONE TABLET BY MOUTH AT BEDTIME SOLD: 12/23/2019 [facility] 40 mg 11/16/2019 12:00:00 AM EDT tablet,delayed release (DR/EC) 29 ONE TABLET BY MOUTH AT NIGHT ONE TABLET BY MOUTH AT NIGHT SOLD: 04/08/2020 [facility] 40 mg 11/16/2019 12:00:00 AM EDT tablet,delayed release (DR/EC) 2 ONE TABLET BY MOUTH AT NIGHT ONE TABLET BY MOUTH AT NIGHT SOLD: 03/09/2020 [facility] 40 mg 11/16/2019 12:00:00 AM EDT tablet,delayed release (DR/EC) 30 ONE TABLET BY MOUTH AT NIGHT ONE TABLET BY MOUTH AT NIGHT SOLD: 12/23/2019 [facility] 40 mg 11/16/2019 12:00:00 AM EDT tablet,delayed release (DR/EC) 30 ONE TABLET BY MOUTH AT NIGHT ONE TABLET BY MOUTH AT NIGHT SOLD: 02/13/2020 [facility] 40 mg 11/16/2019 12:00:00 AM EDT tablet,delayed release (DR/EC) 30 ONE TABLET BY MOUTH AT NIGHT ONE TABLET BY MOUTH AT NIGHT SOLD: 11/17/2019 [facility] pantoprazole 40 MG Delayed Release Oral Tablet PANTOPRAZOLE SODIUM 11/16/2019 12:00:00 AM EDT tablet,delayed release (DR/EC) 29 O NE TABLET BY MOUTH AT NIGHT ONE TABLET BY MOUTH AT NIGHT SOLD: 03/14/2020 [facility] 40 mg 11/16/2019 12:00:00 AM EDT tablet,delayed release (DR/EC) 30 ONE TABLET BY MOUTH AT NIGHT ONE TABLET BY MOUTH AT NIGHT SOLD: 01/18/2020 [facility] 50 mcg/actuation 10/20/2019 12:00:00 AM EST spray,suspension 16 USE 1-2 SPRAYS IN EACH NOSTRIL TWO TIMES A DAY NEEDED FOR CONGESTION USE 1-2 SPRAYS IN EACH NOSTRIL TWO TIMES A DAY NEEDED FOR CONGESTION SOLD: 10/21/2019 [facility] 50 mcg/actuation 10/20/2019 12:00:00 AM EST spray,suspension 16 USE 1-2 SPRAYS IN EACH NOSTRIL TWO TIMES A DAY NEEDED FOR CONGESTION USE 1-2 SPRAYS IN EACH NOSTRIL TWO TIMES A DAY NEEDED FOR CONGESTION SOLD: 11/18/2019 [facility] 50 mcg/actuation 10/20/2019 12:00:00 AM EST spray,suspension 16 USE 1-2 SPRAYS IN EACH NOSTRIL TWO TIMES A DAY NEEDED FOR CONGESTION USE 1-2 SPRAYS IN EACH NOSTRIL TWO TIMES A DAY NEEDED FOR CONGESTION SOLD: 01/11/2020 [facility] 50 mcg/actuation 10/20/2019 12:00:00 AM EST spray,suspension 16 USE 1-2 SPRAYS IN EACH NOSTRIL TWO TIMES A DAY NEEDED FOR CONGESTION USE 1-2 SPRAYS IN EACH NOSTRIL TWO TIMES A DAY NEEDED FOR CONGESTION SOLD: 12/16/2019 [facility] 150 mg 10/10/2019 12:00:00 AM EST tablet 30 TAKE ONE TABLET BY MOUTH AT BEDTIME TAKE ONE TABLET BY MOUTH AT BEDTIME SOLD: 11/08/2019 [facility] Trazodone Hydrochloride 150 MG Oral Tablet trazodone 10/10 12:00:00 AM EST 150 mg by mouth completed [id number] trazodone by mout h [id number] 10/10/2019 at bedtime 150 mg tablet [id number] Mendel Elder [id number] Nurse Practitioner [facility] ([facility]) 25 mg 10/10/2019 12:00:00 AM EST tablet 30 TAKE ONE TABLET BY MOUTH EVERY MORNING TAKE ONE TABLET BY MOUTH EVERY MORNING SOLD: 10/11/2019 [facility] duloxetine 60 MG Delayed Release Oral Capsule [Cymbalta] Cym nichelle 10/10/2019 12:00:00 AM EST 60 mg by mouth completed [id number] Cy mbalta by mouth [id number] 10/10/2019 08/11/2020 every morning 30 60 mg capsule,del ayed release(DR/EC) 28687 [id number] Richar Elder [id number] Nurse Practitioner [facility] ([facility]) 0.5 mg 10/10/2019 12:00:00 AM EST tablet 60 TAKE ONE TABLET BY MOUTH TWICE A DAY MAXIMUM DAILY DOSE = 2 TABLETS TAKE ONE TABLET BY MOUTH TWICE A DAY MAX IMUM DAILY DOSE = 2 TABLETS SOLD: 10/11/2019 [facility] 25 mg 10/10/2019 12:00:00 AM EST tablet 30 TAKE ONE TABLET BY MOUTH EVERY MORNING TAKE ONE TABLET BY MOUTH EVERY MORNING SOLD: 11/10/2019 [facility] duloxetine 60 MG Delayed Release Oral Capsule [Cymbalta] Cym nichelle 10/10/2019 12:00:00 AM EST 60 mg by mouth completed [id number] Cy mbalta by mouth [id number] 10/10/2019 08/11/2020 every morning 30 60 mg capsule,del ayed release(DR/EC) 52804 [id number] Richar Elder [id number] Nurse Practitioner [facility] ([facility]) Trazodone Hydrochloride 150 MG Oral Tablet trazodone 10/10 12:00:00 AM EST 150 mg by mouth completed [id number] trazodone by mout h [id number] 10/10/2019 at bedtime 150 mg tablet 11972 [id number] Mendel Elder [id number] Nurse Practitioner [facility] ([facility]) 150 mg 10/10/2019 12:00:00 AM EST tablet 30 TAKE ONE TABLET BY MOUTH AT BEDTIME TAKE ONE TABLET BY MOUTH AT BEDTIME SOLD: 10/11/2019 [facility] Sertraline 25 MG Oral Tablet sertraline 10/10/2019 12:00:00 AM EST 25 mg by mouth completed [id number] sertraline by mouth [id number] 201901/21/2020 every morning 30 25 mg tablet 83996 [id number] Yasmany Elder [id number] Nurse Practitioner [facility] ([facility]) duloxetine 60 MG Delayed Release Oral Capsule [Cymbalta] Cym nichelle 10/10/2019 12:00:00 AM EST 60 mg by mouth completed [id number] Cy mbalta by mouth [id number] 10/10/2019 07/14/2020 every morning 30 60 mg capsule,del ayed release(DR/EC) 08494 [id number] Richar Elder [id number] Nurse Practitioner [facility] ([facility]) duloxetine 60 MG Delayed Release Oral Capsule [Cymbalta] Cym nichelle 10/10/2019 12:00:00 AM EST 60 mg by mouth completed [id number] Cy mbalta by mouth [id number] 10/10/2019 04/14/2020 every morning 30 60 mg capsule,del ayed release(DR/EC) 69028 [id number] Richar Elder [id number] Nurse Practitioner [facility] ([facility]) 0.1 % 10/07/2019 12:00:00 AM EST ointment 15 APPLY THIN LAYER TO APPLY TO AFFECTED AREA(S) ONCE DAILY FOR 14 DAYS APPLY THIN LAYER TO APPLY TO AFFECTED AREA(S) ONCE DAILY FOR 14 DAYS SOLD: 10/08/2019 [facility] 232-14 mcg/actuation 10/04/2019 12:00:00 AM EST aerosol powdr breath activated 1 INHALE ONE PUFF BY MOUTH TWICE A DAY INHA LE ONE PUFF BY MOUTH TWICE A DAY SOLD: 11/01/2019 [facility] 232-14 mcg/actuation 10/04/2019 12:00:00 AM EST aerosol powdr breath activated 1 INHALE ONE PUFF BY MOUTH TWICE A DAY INHA LE ONE PUFF BY MOUTH TWICE A DAY SOLD: 10/05/2019 [facility] 232-14 mcg/actuation 10/04/2019 12:00:00 AM EST aerosol powdr breath activated 1 INHALE ONE PUFF BY MOUTH TWICE A DAY INHA LE ONE PUFF BY MOUTH TWICE A DAY SOLD: 11/29/2019 [facility] 62.5 mcg/actuation 10/03/2019 12:00:00 AM EST blister with d evice 30 INHALE ONE PUFF BY MOUTH EVERY DAY INHALE ONE PUFF BY MOUTH EVERY DAY SOLD: 10/11/2019 [facility] 0.4-0.3 % 10/03/2019 12:00:00 AM EST drops 15 INSTILL 1 DROP IN EACH EYE EVERY 12 HOURS NEEDED INSTILL 1 DROP IN EACH EYE EVERY 12 HOURS NEEDED SOLD: 11/08/2019 [facility] 0.4-0.3 % 10/03/2019 12:00:00 AM EST drops 15 INSTILL 1 DROP IN EACH EYE EVERY 12 HOURS NEEDED INSTILL 1 DROP IN EACH EYE EVERY 12 HOURS NEEDED SOLD: 10/11/2019 [facility] 62.5 mcg/actuation 10/03/2019 12:00:00 AM EST blister with d evice 30 INHALE ONE PUFF BY MOUTH EVERY DAY INHALE ONE PUFF BY MOUTH EVERY DAY SOLD: 11/08/2019 [facility] 50 mg 09/29/2019 12:00:00 AM EST capsule 42 TAKE ONE CAPSULE BY MOUTH EVERY MORNING AND TAKE TWO CAPSULES BY MOUTH AT BEDTIME TAKE ONE CAPSULE BY MOUTH EVERY MORNING AND TAKE TWO CAPSULES BY MOUTH AT BEDTIME SOLD: 11/22/2019 [facility] 50 mg 09/29/2019 12:00:00 AM EST capsule 90 TAKE ONE CAPSULE BY MOUTH EVERY MORNING AND TAKE TWO CAPSULES BY MOUTH AT BEDTIME TAKE ONE CAPSULE BY MOUTH EVERY MORNING AND TAKE TWO CAPSULES BY MOUTH AT BEDTIME SOLD: 09/30/2019 [facility] pregabalin 50 MG Oral Capsule [Lyrica] Lyrica 50 mg ca psule Lyrica 50 mg capsule 09/28/2019 12:00:00 AM EST completed pregabalin 50 MG Oral Capsule [Lyrica] [facility] ([facility]) OK to fill now. MDD = 1. [employer] ref#[id number] 0.5 mg 09/13/2019 12:00:00 AM EST tablet 60 TAKE ONE TABLET BY MOUTH TWICE A DAY MAXIMUM DAILY DOSE = 2 TABLETS TAKE ONE TABLET BY MOUTH TWICE A DAY MAX IMUM DAILY DOSE = 2 TABLETS SOLD: 09/16/2019 [facility] 0.3 mg/0.3 mL 09/05/2019 12:00:00 AM EST auto-injector 2 DIRECTED DIRECTED SOLD: 09/06/2019 [facility] benzonatate 100 MG Oral Capsule BENZONATATE 09/02/2019 12:00:00 AM EST capsule 30 TAKE ONE CAPSULE BY MOUTH THREE TIMES A DAY NEEDED FOR COUGH TAKE ONE CAPSULE BY MOUTH THREE TIMES A DAY NEEDED FOR COUGH SOLD: 09/06/2019 [facility] BLOOD-GLUCOSE METER 08/12/2019 12:00:00 AM EST misc 1 DIRECTED DIRECTED SOLD: 09/06/2019 [facility] 120 mg 08/09/2019 12:00:00 AM EST capsule,extended releas e 24 hr 30 TAKE ONE CAPSULE BY MOUTH EVERY EVENING TAKE ONE CAPSULE BY MOUTH EVERY EVENING SOLD: 10/30/2019 [facility] 120 mg 08/09/2019 12:00:00 AM EST capsule,extended releas e 24 hr 30 TAKE ONE CAPSULE BY MOUTH EVERY EVENING TAKE ONE CAPSULE BY MOUTH EVERY EVENING SOLD: 09/05/2019 [facility] 120 mg 08/09/2019 12:00:00 AM EST capsule,extended releas e 24 hr 30 TAKE ONE CAPSULE BY MOUTH EVERY EVENING TAKE ONE CAPSULE BY MOUTH EVERY EVENING SOLD: 11/25/2019 [facility] 120 mg 08/09/2019 12:00:00 AM EST capsule,extended releas e 24 hr 30 TAKE ONE CAPSULE BY MOUTH EVERY EVENING TAKE ONE CAPSULE BY MOUTH EVERY EVENING SOLD: 10/03/2019 [facility] 120 mg 08/09/2019 12:00:00 AM EST capsule,extended releas e 24 hr 30 TAKE ONE CAPSULE BY MOUTH EVERY EVENING TAKE ONE CAPSULE BY MOUTH EVERY EVENING SOLD: 08/09/2019 [facility] 120 mg 08/09/2019 12:00:00 AM EST capsule,extended releas e 24 hr 30 TAKE ONE CAPSULE BY MOUTH EVERY EVENING TAKE ONE CAPSULE BY MOUTH EVERY EVENING SOLD: 12/23/2019 [facility] 90 mcg/actuation 08/08/2019 12:00:00 AM EST HFA aerosol inha ler 18 INHALE ONE TO TWO PUFFS BY MOUTH EVERY 4 TO 6 HOURS NEEDED FOR WHEEZING INHALE ONE TO TWO PUFFS BY MOUTH EVERY 4 TO 6 HOURS NEEDED FOR WHEEZING SOLD: 11/15/2019 [facility] 40 mg 08/08/2019 12:00:00 AM EST tablet,delayed release (DR/EC) 30 TAKE ONE TABLET BY MOUTH EVERY EVENING TAKE ONE TABLET BY MOUTH EVERY EVENING SOLD: 12/23/2019 [facility] montelukast 10 MG Oral Tablet MONTELUKAST SODIUM 08/08/2019 12:0 0:00 AM EST tablet 30 TAKE ONE TABLET BY MOUTH AT BEDT NINA TAKE ONE TABLET BY MOUTH AT BEDTIME SOLD: 10/03/2019 [facility] 112 mcg 08/08/2019 12:00:00 AM EST tablet 30 TAKE ONE TABLET BY MOUTH EVERY MORNING TAKE ONE TABLET BY MOUTH EVERY MORNING SOLD: 10/04/2019 [facility] 90 mcg/actuation 08/08/2019 12:00:00 AM EST HFA aerosol inha ler 18 INHALE ONE TO TWO PUFFS BY MOUTH EVERY 4 TO 6 HOURS NEEDED FOR WHEEZING INHALE ONE TO TWO PUFFS BY MOUTH EVERY 4 TO 6 HOURS NEEDED FOR WHEEZING SOLD: 09/02/2019 [facility] 90 mcg/actuation 08/08/2019 12:00:00 AM EST HFA aerosol inha ler 18 INHALE ONE TO TWO PUFFS BY MOUTH EVERY 4 TO 6 HOURS NEEDED FOR WHEEZING INHALE ONE TO TWO PUFFS BY MOUTH EVERY 4 TO 6 HOURS NEEDED FOR WHEEZING SOLD: 10/24/2019 [facility] 0.625-2.5 mg 08/08/2019 12:00:00 AM EST tablet 28 TAKE ONE TABLET BY MOUTH EVERY DAY TAKE ONE TABLET BY MOUTH EVERY DAY SOLD: 10/01/2019 [facility] 40 mg 08/08/2019 12:00:00 AM EST tablet,delayed release (DR/EC) 30 TAKE ONE TABLET BY MOUTH EVERY EVENING TAKE ONE TABLET BY MOUTH EVERY EVENING SOLD: 09/05/2019 [facility] 100 mg 08/08/2019 12:00:00 AM EST tablet 30 TAKE ONE TABLET BY MOUTH EVERY EVENING TAKE ONE TABLET BY MOUTH EVERY EVENING SOLD: 08/09/2019 [facility] 60 mg 08/08/2019 12:00:00 AM EST capsule,delayed release (DR/EC) 30 TAKE ONE CAPSULE BY MOUTH EVERY EVENING TAKE ONE CAPSULE BY MOUTH EVERY EVENING SOLD: 10/30/2019 [facility] 1,000 mg 08/08/2019 12:00:00 AM EST tablet 60 TAKE ONE TABLET BY MOUTH EVERY MORNING AND 1 EVERY EVENING TAKE ONE TABLET BY MOUTH EVERY MORNING A ND 1 EVERY EVENING SOLD: 11/29/2019 [facility] atorvastatin 20 MG Oral Tablet ATORVASTATIN CALCIUM 08/08/2019 1 2:00:00 AM EST tablet 30 TAKE ONE TABLET BY MOUTH EVERY D AY TAKE ONE TABLET BY MOUTH EVERY DAY SOLD: 08/09/2019 [facility] 100 mg 08/08/2019 12:00:00 AM EST capsule 30 TAKE ONE CAPSULE BY MOUTH EVERY EVENING MAXIMUM DAILY DOSE = 1 CAPSULE TAKE ONE CAPSULE BY MOUTH EVERY EVENING MAXIMUM DAILY DOSE = 1 CAPSULE SOLD: 08/09/2019 [facility] 90 mcg/actuation 08/08/2019 12:00:00 AM EST HFA aerosol inha ler 18 INHALE ONE TO TWO PUFFS BY MOUTH EVERY 4 TO 6 HOURS NEEDED FOR WHEEZING INHALE ONE TO TWO PUFFS BY MOUTH EVERY 4 TO 6 HOURS NEEDED FOR WHEEZING SOLD: 08/09/2019 [facility] montelukast 10 MG Oral Tablet MONTELUKAST SODIUM 08/08/2019 12:0 0:00 AM EST tablet 30 TAKE ONE TABLET BY MOUTH AT BEDT NINA TAKE ONE TABLET BY MOUTH AT BEDTIME SOLD: 09/05/2019 [facility] 90 mcg/actuation 08/08/2019 12:00:00 AM EST HFA aerosol inha ler 18 INHALE ONE TO TWO PUFFS BY MOUTH EVERY 4 TO 6 HOURS NEEDED FOR WHEEZING INHALE ONE TO TWO PUFFS BY MOUTH EVERY 4 TO 6 HOURS NEEDED FOR WHEEZING SOLD: 12/16/2019 [facility] 60 mg 08/08/2019 12:00:00 AM EST capsule,delayed release (DR/EC) 30 TAKE ONE CAPSULE BY MOUTH EVERY EVENING TAKE ONE CAPSULE BY MOUTH EVERY EVENING SOLD: 07/23/2020 [facility] 40 mg 08/08/2019 12:00:00 AM EST tablet,delayed release (DR/EC) 30 TAKE ONE TABLET BY MOUTH EVERY EVENING TAKE ONE TABLET BY MOUTH EVERY EVENING SOLD: 11/26/2019 [facility] 40 mg 08/08/2019 12:00:00 AM EST tablet,delayed release (DR/EC) 30 TAKE ONE TABLET BY MOUTH EVERY EVENING TAKE ONE TABLET BY MOUTH EVERY EVENING SOLD: 10/30/2019 [facility] 40 mg 08/08/2019 12:00:00 AM EST tablet,delayed release (DR/EC) 30 TAKE ONE TABLET BY MOUTH EVERY EVENING TAKE ONE TABLET BY MOUTH EVERY EVENING SOLD: 10/03/2019 [facility] 1,000 mg 08/08/2019 12:00:00 AM EST tablet 60 TAKE ONE TABLET BY MOUTH EVERY MORNING AND 1 EVERY EVENING TAKE ONE TABLET BY MOUTH EVERY MORNING A ND 1 EVERY EVENING SOLD: 09/06/2019 [facility] Trazodone Hydrochloride 100 MG Oral Tablet TRAZODONE HCL 08/08/2019 12:00:00 AM EST tablet 30 TAKE ONE TABLET BY MOUTH CUAUHTEMOC RY EVENING TAKE ONE TABLET BY MOUTH EVERY EVENING SOLD: 10/04/2019 [facility] 1,000 mg 08/08/2019 12:00:00 AM EST tablet 60 TAKE ONE TABLET BY MOUTH EVERY MORNING AND 1 EVERY EVENING TAKE ONE TABLET BY MOUTH EVERY MORNING A ND 1 EVERY EVENING SOLD: 10/04/2019 [facility] 1,000 mg 08/08/2019 12:00:00 AM EST tablet 60 TAKE ONE TABLET BY MOUTH EVERY MORNING AND 1 EVERY EVENING TAKE ONE TABLET BY MOUTH EVERY MORNING A ND 1 EVERY EVENING SOLD: 11/01/2019 [facility] 60 mg 08/08/2019 12:00:00 AM EST capsule,delayed release (DR/EC) 30 TAKE ONE CAPSULE BY MOUTH EVERY EVENING TAKE ONE CAPSULE BY MOUTH EVERY EVENING SOLD: 08/09/2019 [facility] Trazodone Hydrochloride 100 MG Oral Tablet TRAZODONE HCL 08/08/2019 12:00:00 AM EST tablet 30 TAKE ONE TABLET BY MOUTH CUAUHTEMOC RY EVENING TAKE ONE TABLET BY MOUTH EVERY EVENING SOLD: 09/06/2019 [facility] 40 mg 08/08/2019 12:00:00 AM EST tablet,delayed release (DR/EC) 30 TAKE ONE TABLET BY MOUTH EVERY EVENING TAKE ONE TABLET BY MOUTH EVERY EVENING SOLD: 08/09/2019 [facility] montelukast 10 MG Oral Tablet MONTELUKAST SODIUM 08/08/2019 12:0 0:00 AM EST tablet 30 TAKE ONE TABLET BY MOUTH AT BEDT NINA TAKE ONE TABLET BY MOUTH AT BEDTIME SOLD: 11/24/2019 [facility] atorvastatin 20 MG Oral Tablet ATORVASTATIN CALCIUM 08/08/2019 1 2:00:00 AM EST tablet 30 TAKE ONE TABLET BY MOUTH EVERY D AY TAKE ONE TABLET BY MOUTH EVERY DAY SOLD: 02/01/2020 [facility] 0.625-2.5 mg 08/08/2019 12:00:00 AM EST tablet 28 TAKE ONE TABLET BY MOUTH EVERY DAY TAKE ONE TABLET BY MOUTH EVERY DAY SOLD: 08/09/2019 [facility] Trazodone Hydrochloride 100 MG Oral Tablet TRAZODONE HCL 08/08/2019 12:00:00 AM EST tablet 30 TAKE ONE TABLET BY MOUTH CUAUHTEMOC RY EVENING TAKE ONE TABLET BY MOUTH EVERY EVENING SOLD: 11/29/2019 [facility] 112 mcg 08/08/2019 12:00:00 AM EST tablet 30 TAKE ONE TABLET BY MOUTH EVERY MORNING TAKE ONE TABLET BY MOUTH EVERY MORNING SOLD: 08/09/2019 [facility] montelukast 10 MG Oral Tablet MONTELUKAST SODIUM 08/08/2019 12:0 0:00 AM EST tablet 30 TAKE ONE TABLET BY MOUTH AT BEDT NINA TAKE ONE TABLET BY MOUTH AT BEDTIME SOLD: 08/09/2019 [facility] atorvastatin 20 MG Oral Tablet ATORVASTATIN CALCIUM 08/08/2019 1 2:00:00 AM EST tablet 30 TAKE ONE TABLET BY MOUTH EVERY D AY TAKE ONE TABLET BY MOUTH EVERY DAY SOLD: 09/12/2019 [facility] 1,000 mg 08/08/2019 12:00:00 AM EST tablet 60 TAKE ONE TABLET BY MOUTH EVERY MORNING AND 1 EVERY EVENING TAKE ONE TABLET BY MOUTH EVERY MORNING A ND 1 EVERY EVENING SOLD: 12/27/2019 [facility] 60 mg 08/08/2019 12:00:00 AM EST capsule,delayed release (DR/EC) 30 TAKE ONE CAPSULE BY MOUTH EVERY EVENING TAKE ONE CAPSULE BY MOUTH EVERY EVENING SOLD: 10/03/2019 [facility] atorvastatin 20 MG Oral Tablet ATORVASTATIN CALCIUM 08/08/2019 1 2:00:00 AM EST tablet 30 TAKE ONE TABLET BY MOUTH EVERY D AY TAKE ONE TABLET BY MOUTH EVERY DAY SOLD: 01/05/2020 [facility] 0.625-2.5 mg 08/08/2019 12:00:00 AM EST tablet 28 TAKE ONE TABLET BY MOUTH EVERY DAY TAKE ONE TABLET BY MOUTH EVERY DAY SOLD: 12/16/2019 [facility] montelukast 10 MG Oral Tablet MONTELUKAST SODIUM 08/08/2019 12:0 0:00 AM EST tablet 30 TAKE ONE TABLET BY MOUTH AT BEDT NINA TAKE ONE TABLET BY MOUTH AT BEDTIME SOLD: 10/30/2019 [facility] montelukast 10 MG Oral Tablet MONTELUKAST SODIUM 08/08/2019 12:0 0:00 AM EST tablet 30 TAKE ONE TABLET BY MOUTH AT BEDT NINA TAKE ONE TABLET BY MOUTH AT BEDTIME SOLD: 01/10/2020 [facility] 112 mcg 08/08/2019 12:00:00 AM EST tablet 30 TAKE ONE TABLET BY MOUTH EVERY MORNING TAKE ONE TABLET BY MOUTH EVERY MORNING SOLD: 11/01/2019 [facility] atorvastatin 20 MG Oral Tablet ATORVASTATIN CALCIUM 08/08/2019 1 2:00:00 AM EST tablet 30 TAKE ONE TABLET BY MOUTH EVERY D AY TAKE ONE TABLET BY MOUTH EVERY DAY SOLD: 12/01/2019 [facility] 0.625-2.5 mg 08/08/2019 12:00:00 AM EST tablet 28 TAKE ONE TABLET BY MOUTH EVERY DAY TAKE ONE TABLET BY MOUTH EVERY DAY SOLD: 11/21/2019 [facility] Trazodone Hydrochloride 100 MG Oral Tablet TRAZODONE HCL 08/08/2019 12:00:00 AM EST tablet 30 TAKE ONE TABLET BY MOUTH CUAUHTEMOC RY EVENING TAKE ONE TABLET BY MOUTH EVERY EVENING SOLD: 12/27/2019 [facility] 112 mcg 08/08/2019 12:00:00 AM EST tablet 30 TAKE ONE TABLET BY MOUTH EVERY MORNING TAKE ONE TABLET BY MOUTH EVERY MORNING SOLD: 09/06/2019 [facility] 1,000 mg 08/08/2019 12:00:00 AM EST tablet 60 TAKE ONE TABLET BY MOUTH EVERY MORNING AND 1 EVERY EVENING TAKE ONE TABLET BY MOUTH EVERY MORNING A ND 1 EVERY EVENING SOLD: 08/09/2019 [facility] 0.625-2.5 mg 08/08/2019 12:00:00 AM EST tablet 28 TAKE ONE TABLET BY MOUTH EVERY DAY TAKE ONE TABLET BY MOUTH EVERY DAY SOLD: 10/26/2019 [facility] 90 mcg/actuation 08/08/2019 12:00:00 AM EST HFA aerosol inha ler 18 INHALE ONE TO TWO PUFFS BY MOUTH EVERY 4 TO 6 HOURS NEEDED FOR WHEEZING INHALE ONE TO TWO PUFFS BY MOUTH EVERY 4 TO 6 HOURS NEEDED FOR WHEEZING SOLD: 10/01/2019 [facility] 112 mcg 08/08/2019 12:00:00 AM EST tablet 30 TAKE ONE TABLET BY MOUTH EVERY MORNING TAKE ONE TABLET BY MOUTH EVERY MORNING SOLD: 11/29/2019 [facility] 112 mcg 08/08/2019 12:00:00 AM EST tablet 30 TAKE ONE TABLET BY MOUTH EVERY MORNING TAKE ONE TABLET BY MOUTH EVERY MORNING SOLD: 12/27/2019 [facility] 60 mg 08/08/2019 12:00:00 AM EST capsule,delayed release (DR/EC) 30 TAKE ONE CAPSULE BY MOUTH EVERY EVENING TAKE ONE CAPSULE BY MOUTH EVERY EVENING SOLD: 09/05/2019 [facility] Trazodone Hydrochloride 100 MG Oral Tablet TRAZODONE HCL 08/08/2019 12:00:00 AM EST tablet 30 TAKE ONE TABLET BY MOUTH CUAUHTEMOC RY EVENING TAKE ONE TABLET BY MOUTH EVERY EVENING SOLD: 11/01/2019 [facility] 0.625-2.5 mg 08/08/2019 12:00:00 AM EST tablet 28 TAKE ONE TABLET BY MOUTH EVERY DAY TAKE ONE TABLET BY MOUTH EVERY DAY SOLD: 09/05/2019 [facility] atorvastatin 20 MG Oral Tablet ATORVASTATIN CALCIUM 08/08/2019 1 2:00:00 AM EST tablet 30 TAKE ONE TABLET BY MOUTH EVERY D AY TAKE ONE TABLET BY MOUTH EVERY DAY SOLD: 11/05/2019 [facility] 33 gauge 07/30/2019 12:00:00 AM EST misc 100 TEST FOUR TIMES A DAY TEST FOUR TIMES A DAY SOLD: 02/06/2020 [facility] 33 gauge 07/30/2019 12:00:00 AM EST misc 100 TEST FOUR TIMES A DAY TEST FOUR TIMES A DAY SOLD: 11/22/2019 [facility] 33 gauge 07/30/2019 12:00:00 AM EST misc 100 TEST FOUR TIMES A DAY TEST FOUR TIMES A DAY SOLD: 08/23/2019 [facility] 33 gauge 07/30/2019 12:00:00 AM EST misc 100 TEST FOUR TIMES A DAY TEST FOUR TIMES A DAY SOLD: 10/08/2019 [facility] 33 gauge 07/30/2019 12:00:00 AM EST misc 100 TEST FOUR TIMES A DAY TEST FOUR TIMES A DAY SOLD: 12/23/2019 [facility] 33 gauge 07/30/2019 12:00:00 AM EST misc 100 TEST FOUR TIMES A DAY TEST FOUR TIMES A DAY SOLD: 09/16/2019 [facility] 33 gauge 07/30/2019 12:00:00 AM EST misc 100 TEST FOUR TIMES A DAY TEST FOUR TIMES A DAY SOLD: 01/16/2020 [facility] 33 gauge 07/30/2019 12:00:00 AM EST misc 100 TEST FOUR TIMES A DAY TEST FOUR TIMES A DAY SOLD: 10/31/2019 [facility] 0.75 mg/0.5 mL 07/09/2019 12:00:00 AM EST pen injector 2 INJECT 1 SUBCUTANEOUSLY WEEKLY DIRECTED IF TOLERATED CALL MD FOR INCREASE TO 1.5MG INJECT 1 SUBCUTANEOUSLY WEEKLY DIRECTED IF TOLERATED CALL MD FOR INCREASE TO 1.5MG SOLD: 09/02/2019 [facility] 0.75 mg/0.5 mL 07/09/2019 12:00:00 AM EST pen injector 2 INJECT 1 SUBCUTANEOUSLY WEEKLY DIRECTED IF TOLERATED CALL MD FOR INCREASE TO 1.5MG INJECT 1 SUBCUTANEOUSLY WEEKLY DIRECTED IF TOLERATED CALL MD FOR INCREASE TO 1.5MG SOLD: 09/27/2019 [facility] 0.75 mg/0.5 mL 07/09/2019 12:00:00 AM EST pen injector 2 INJECT 1 SUBCUTANEOUSLY WEEKLY DIRECTED IF TOLERATED CALL MD FOR INCREASE TO 1.5MG INJECT 1 SUBCUTANEOUSLY WEEKLY DIRECTED IF TOLERATED CALL MD FOR INCREASE TO 1.5MG SOLD: 10/22/2019 [facility] 0.75 mg/0.5 mL 07/09/2019 12:00:00 AM EST pen injector 2 INJECT 1 SUBCUTANEOUSLY WEEKLY DIRECTED IF TOLERATED CALL MD FOR INCREASE TO 1.5MG INJECT 1 SUBCUTANEOUSLY WEEKLY DIRECTED IF TOLERATED CALL MD FOR INCREASE TO 1.5MG SOLD: 11/17/2019 [facility] 0.75 mg/0.5 mL 07/09/2019 12:00:00 AM EST pen injector 2 INJECT 1 SUBCUTANEOUSLY WEEKLY DIRECTED IF TOLERATED CALL MD FOR INCREASE TO 1.5MG INJECT 1 SUBCUTANEOUSLY WEEKLY DIRECTED IF TOLERATED CALL MD FOR INCREASE TO 1.5MG SOLD: 08/09/2019 [facility] 10 mg 06/28/2019 12:00:00 AM EDT tablet 30 TAKE ONE TABLET BY MOUTH AT BEDTIME TAKE ONE TABLET BY MOUTH AT BEDTIME SOLD: 08/23/2019 [facility] 81 mg 06/28/2019 12:00:00 AM EDT tablet,delayed release (DR/EC) 30 TAKE ONE TABLET BY MOUTH EVERY DAY TAKE ONE TABLET BY MOUTH EVERY DAY SOLD: 08/23/2019 [facility] 81 mg 06/28/2019 12:00:00 AM EDT tablet,delayed release (DR/EC) 30 TAKE ONE TABLET BY MOUTH EVERY DAY TAKE ONE TABLET BY MOUTH EVERY DAY SOLD: 10/18/2019 [facility] 50 mcg/actuation 06/28/2019 12:00:00 AM EDT spray,suspension 16 TAKE 1-2 SPRAYS IN EACH NOSTRIL TWO TIMES A DAY NEEDED FOR CONGESTION TAKE 1-2 SPRAYS IN EACH NOSTRIL TWO TIMES A DAY NEEDED FOR CONGESTION SOLD: 08/23/2019 [facility] 10 mg 06/28/2019 12:00:00 AM EDT tablet 30 TAKE ONE TABLET BY MOUTH AT BEDTIME TAKE ONE TABLET BY MOUTH AT BEDTIME SOLD: 09/20/2019 [facility] 10 mg 06/28/2019 12:00:00 AM EDT tablet 30 TAKE ONE TABLET BY MOUTH AT BEDTIME TAKE ONE TABLET BY MOUTH AT BEDTIME SOLD: 10/18/2019 [facility] 10 mg 06/28/2019 12:00:00 AM EDT tablet 30 TAKE ONE TABLET BY MOUTH AT BEDTIME TAKE ONE TABLET BY MOUTH AT BEDTIME SOLD: 11/15/2019 [facility] 50 mcg/actuation 06/28/2019 12:00:00 AM EDT spray,suspension 16 TAKE 1-2 SPRAYS IN EACH NOSTRIL TWO TIMES A DAY NEEDED FOR CONGESTION TAKE 1-2 SPRAYS IN EACH NOSTRIL TWO TIMES A DAY NEEDED FOR CONGESTION SOLD: 09/20/2019 [facility] 81 mg 06/28/2019 12:00:00 AM EDT tablet,delayed release (DR/EC) 30 TAKE ONE TABLET BY MOUTH EVERY DAY TAKE ONE TABLET BY MOUTH EVERY DAY SOLD: 09/20/2019 [facility] 100 mg 06/03/2019 12:00:00 AM EDT capsule 30 TAKE ONE CAPSULE BY MOUTH EVERY DAY MAXIMUM DAILY DOSE = 1 TAKE ONE CAPSULE BY MOUTH EVERY DAY MAXI MUM DAILY DOSE = 1 SOLD: 11/22/2019 [facility] 100 mg 06/03/2019 12:00:00 AM EDT capsule 30 TAKE ONE CAPSULE BY MOUTH EVERY DAY MAXIMUM DAILY DOSE = 1 TAKE ONE CAPSULE BY MOUTH EVERY DAY MAXI MUM DAILY DOSE = 1 SOLD: 09/07/2019 [facility] pregabalin 100 MG Oral Capsule [Lyrica] Lyrica 100 mg capsule Lyrica 100 mg capsule 06/01/2019 12:00:00 AM EDT 1 {capsule} ORAL compl eted pregabalin 100 MG Oral Capsule [Lyrica] [facility] ([facility]) OK to fill now MDD = 1. [facility] ref#[id number] Trazodone Hydrochloride 100 MG Oral Tablet trazodone 05/05 12:00:00 AM EDT 100 mg by mouth completed [id number] trazodone by mout sandra [id number] 05/05/2019 11/22/2019 every night 100 mg tablet [id number] Flora Jackman [id number] Psychiatry [facility]) 0.01 % 03/21/2019 12:00:00 AM EDT cream 15 APPLY TO AFFECTED AREA(S) OF EARS EXTERNALLY TWO TIMES A DAY FOR 30 DAYS APPLY TO AFFECTED AREA(S) OF EARS EXTERNALLY TWO TIMES A DAY FOR 30 DAYS SOLD: 10/26/2019 [facility] 0.01 % 03/21/2019 12:00:00 AM EDT cream 15 APPLY TO AFFECTED AREA(S) OF EARS EXTERNALLY TWO TIMES A DAY FOR 30 DAYS APPLY TO AFFECTED AREA(S) OF EARS EXTERNALLY TWO TIMES A DAY FOR 30 DAYS SOLD: 10/13/2019 [facility] 0.01 % 03/21/2019 12:00:00 AM EDT cream 15 APPLY TO AFFECTED AREA(S) OF EARS EXTERNALLY TWO TIMES A DAY FOR 30 DAYS APPLY TO AFFECTED AREA(S) OF EARS EXTERNALLY TWO TIMES A DAY FOR 30 DAYS SOLD: 08/09/2019 [facility] 0.01 % 03/21/2019 12:00:00 AM EDT cream 15 APPLY TO AFFECTED AREA(S) OF EARS EXTERNALLY TWO TIMES A DAY FOR 30 DAYS APPLY TO AFFECTED AREA(S) OF EARS EXTERNALLY TWO TIMES A DAY FOR 30 DAYS SOLD: 09/17/2019 [facility] 0.01 % 03/21/2019 12:00:00 AM EDT cream 15 APPLY TO AFFECTED AREA(S) OF EARS EXTERNALLY TWO TIMES A DAY FOR 30 DAYS APPLY TO AFFECTED AREA(S) OF EARS EXTERNALLY TWO TIMES A DAY FOR 30 DAYS SOLD: 09/05/2019 [facility] 0.01 % 03/21/2019 12:00:00 AM EDT cream 15 APPLY TO AFFECTED AREA(S) OF EARS EXTERNALLY TWO TIMES A DAY FOR 30 DAYS APPLY TO AFFECTED AREA(S) OF EARS EXTERNALLY TWO TIMES A DAY FOR 30 DAYS SOLD: 11/08/2019 [facility] 0.01 % 03/21/2019 12:00:00 AM EDT cream 15 APPLY TO AFFECTED AREA(S) OF EARS EXTERNALLY TWO TIMES A DAY FOR 30 DAYS APPLY TO AFFECTED AREA(S) OF EARS EXTERNALLY TWO TIMES A DAY FOR 30 DAYS SOLD: 09/30/2019 [facility] 0.01 % 03/21/2019 12:00:00 AM EDT cream 15 APPLY TO AFFECTED AREA(S) OF EARS EXTERNALLY TWO TIMES A DAY FOR 30 DAYS APPLY TO AFFECTED AREA(S) OF EARS EXTERNALLY TWO TIMES A DAY FOR 30 DAYS SOLD: 08/23/2019 [facility] Clonazepam 0.5 MG Oral Tablet clonazepam 03/20/2017 12:00:00 AM EDT 0.5 mg completed [id number] clonazepam 03/20/2017 12/22/2019 twice a day 30 0.5 mg tablet [id number] Richar Elder [id number] Nurse Practitioner [facility] ([facility]) Fluzone Quad (PF) 60 mcg (15 mcg x 4)/0.5 mL IM syringe [id number] completed 0.5 ML influen za A virus A/[facility]/[id number] (H1N1) antigen 0.03 MG/ML / influenza A virus A/[facility] (H3N2) antigen 0.03 MG/ML / influenza B virus B/[facility] antigen 0.03 MG/ML / influenza B virus B/ antigen 0.03 MG/ML Prefilled Syringe [Fluzone Quadrivalent ] [facility] ([facility]) Sertraline 50 MG Oral Tablet sertraline 50 mg tablet TAKE ONE TABLET BY MOUTH EVERY DAY sertraline 50 mg tablet TAKE ONE TABLET BY MOUTH EVERY DAY completed sertraline 50 MG Oral Tablet [facility] ([facility]) Aspirin 81 MG Delayed Release Oral Table t aspirin 81 mg tablet,delayed release TAKE ONE TABLET BY MOUTH EVERY DAY aspirin 81 mg tablet,delayed release ILYA E ONE TABLET BY MOUTH EVERY DAY completed aspirin 81 MG Delayed Release Oral Tablet [facility] ([facility]) pregabalin 100 MG Oral Capsule pregabalin 100 mg capsu le pregabalin 100 mg capsule completed pregabalin 100 MG Oral Capsule [facility]) benzonatate 100 MG Oral Capsule benzonatate 100 mg cap annabel benzonatate 100 mg capsule completed benzonatate 10 0 MG Oral Capsule [place] ([facility]) Triamcinolone Acetonide 1 MG/ML Topical Cream triamcinolone acetonide 0.1 % topical cream APPLY A THIN LAYER TO AFFECTED AREA TWO TIMES A DAY FOR PSORIASIS FOR A MAXIMUM OF 14 DAYS triamcinolone acetonide 0.1 % topical cr eam APPLY A THIN LAYER TO AFFECTED AREA TWO TIMES A DAY FOR PSORIASIS FOR A MAXIMUM OF 14 DAYS completed triamcinolone ac etonide 1 MG/ML Topical Cream [facility] ([facility]) Triamcinolone Acetonide 0.001 MG/MG Topi juanita Ointment triamcinolone acetonide 0.1 % topical ointment triamcinolone acetonide 0.1 % topical ointment completed triamcinolone acetonide 0.001 MG /MG Topical Ointment [facility] ([facility]) montelukast 10 MG Oral Tablet montelukas t 10 mg tablet TAKE ONE TABLET BY MOUTH EVERY DAY montelukast 10 mg tablet TAKE ONE TABLET BY MOUTH EVERY DAY completed montelukast 10 MG Oral Table t [facility] ([facility]) fluticasone 232 mcg-salmeterol 14 mcg/actuation breath activated powdr [id number] completed 60 ACTUAT flut icasone propionate 0.232 MG/ACTUAT / salmeterol 0.014 MG/ACTUAT Dry Powder Inhaler [facility] ([facility]) Pataday 0.2 % eye drops olopatadine HCl 1.00 drop OPHTHALMI C completed instill 1 drop by ophthalmic route ever y day into affected eye(s) [facility] atorvastatin 10 MG Oral Tablet atorvasta tin 10 mg tablet TAKE ONE TABLET BY MOUTH AT BEDTIME atorvastatin 10 mg tablet TAKE ONE TABLET BY MOUTH AT BEDTIME completed atorvastatin 1 0 MG Oral Tablet [facility] ([facility]) Estrogens, Conjugated ([facility]) 0.625 MG Ora l Tablet [Premarin] Premarin 0.625 mg Tab Premarin 0.625 mg Tab 1.00 {tbl} ORAL completed Estrogens, Conjugated ([facility]) 0.625 MG Oral Tablet [Premarin] [facility] OneTouch Delica Plus Lancet 33 gauge TEST FOUR TIMES A DAY [id number] completed OneTouch Delica Plus Lancet 33 g auge [facility] ([facility]) epinephrine 0.3 mg/0.3 mL injection, auto-injector DIRECTED [id number] completed [id number] 0.3 ML epinephrine 1 MG/ML Auto-Injector [facility] ([facility]) OneTouch Ultra2 Meter DIRECTED [id number] completed OneTouch Ultra2 Meter [place] ([facility]) pregabalin 100 MG Oral Capsule pregabalin 100 mg capsu le pregabalin 100 mg capsule completed pregabalin 100 MG Oral Capsule [place] ([facility]) Sertraline 50 MG Oral Tablet sertraline 50 mg tablet TAKE ONE TABLET BY MOUTH EVERY DAY sertraline 50 mg tablet TAKE ONE TABLET BY MOUTH EVERY DAY completed sertraline 50 MG Oral Tablet [place] ([facility]) Aspirin 81 MG Delayed Release Oral Table t aspirin 81 mg tablet,delayed release TAKE ONE TABLET BY MOUTH EVERY DAY aspirin 81 mg tablet,delayed release ILYA E ONE TABLET BY MOUTH EVERY DAY completed aspirin 81 MG Delayed Release Oral Tablet [facility] ([facility]) OneTouch Delica Plus Lancet 30 gauge TEST BLOOD SUGARS FOUR TIMES A DAY [id number] completed OneTouch Delic a Plus Lancet 30 gauge [facility] ([facility]) atorvastatin 10 MG Oral Tablet atorvastatin 10 mg tabl et atorvastatin 10 mg tablet completed atorvastatin 10 MG Oral Tablet [facility] ([facility]) fluticasone 232 mcg-salmeterol 14 mcg/actuation breath activated powdr [id number] completed 60 ACTUAT flut icasone propionate 0.232 MG/ACTUAT / salmeterol 0.014 MG/ACTUAT Dry Powder Inhaler [facility] ([facility]) OneTouch Ultra2 Meter DIRECTED [id number] completed OneTouch Ultra2 Meter [facility] ([facility]) Sertraline 25 MG Oral Tablet sertraline 25 mg tablet sertraline 25 mg tablet completed sertraline 25 MG Oral Tablet [facility] ([facility]) OneTouch Delica Plus Lancet 30 gauge TEST BLOOD SUGARS FOUR TIMES A DAY [id number] completed OneTouch Delic a Plus Lancet 30 gauge [facility] ([facility]) benzonatate 100 MG Oral Capsule benzonatate 100 mg cap annabel benzonatate 100 mg capsule completed benzonatate 10 0 MG Oral Capsule [facility] ([facility]) Cefuroxime 500 MG Oral Tablet cefuroxime axetil 500 mg tablet cefuroxime axetil 500 mg tablet completed cefuroxi me 500 MG Oral Tablet [facility] ([facility]) Trazodone Hydrochloride 100 MG Oral Tabl et trazodone 100 mg tablet TAKE ONE TABLET BY MOUTH EVERY EVENING trazodone 100 mg tablet TAKE ONE TABLET BY MOUTH EVERY EVENING completed trazodone hydrochloride 100 MG Oral Tablet [facility] ([facility]) Triamcinolone Acetonide 1 MG/ML Topical Cream triamcinolone acetonide 0.1 % topical cream APPLY A THIN LAYER TO AFFECTED AREA TWO TIMES A DAY FOR PSORIASIS FOR A MAXIMUM OF 14 DAYS triamcinolone acetonide 0.1 % topical cr eam APPLY A THIN LAYER TO AFFECTED AREA TWO TIMES A DAY FOR PSORIASIS FOR A MAXIMUM OF 14 DAYS completed triamcinolone ac etonide 1 MG/ML Topical Cream [facility] ([facility]) umeclidinium 0.0625 MG/ACTUAT Dry Powder Inhaler [employer] Ellipta 62.5 mcg/actuation powder for inhalation INHALE ONE PUFF BY MOUTH EVERY DAY [employer]ruse Ellipta 62.5 mcg/actuation powder for inhalation INHALE ONE PUFF BY MOUTH EVERY DAY completed umeclidinium 0.0 625 MG/ACTUAT Dry Powder Inhaler [facility] ([facility]) Trazodone Hydrochloride 100 MG Oral Tablet trazodone 1 00 mg tablet trazodone 100 mg tablet completed trazodone h ydrochloride 100 MG Oral Tablet [facility] ([facility]) atorvastatin 10 MG Oral Tablet atorvasta tin 10 mg tablet TAKE ONE TABLET BY MOUTH AT BEDTIME atorvastatin 10 mg tablet TAKE ONE TABLET BY MOUTH AT BEDTIME completed atorvastatin 1 0 MG Oral Tablet [facility] ([facility]) Aspirin 81 MG Delayed Release Oral Table t aspirin 81 mg tablet,delayed release TAKE ONE TABLET BY MOUTH EVERY DAY aspirin 81 mg tablet,delayed release ILYA E ONE TABLET BY MOUTH EVERY DAY completed aspirin 81 MG Delayed Release Oral Tablet [facility] ([facility]) Triamcinolone Acetonide 1 MG/ML Topical Cream triamcinolone acetonide 0.1 % topical cream APPLY A THIN LAYER TO AFFECTED AREA TWO TIMES A DAY FOR PSORIASIS FOR A MAXIMUM OF 14 DAYS triamcinolone acetonide 0.1 % topical cr eam APPLY A THIN LAYER TO AFFECTED AREA TWO TIMES A DAY FOR PSORIASIS FOR A MAXIMUM OF 14 DAYS completed triamcinolone ac etonide 1 MG/ML Topical Cream SONIA ([facility]) Trazodone Hydrochloride 100 MG Oral Tabl et trazodone 100 mg tablet TAKE ONE TABLET BY MOUTH EVERY EVENING trazodone 100 mg tablet TAKE ONE TABLET BY MOUTH EVERY EVENING completed trazodone hydrochloride 100 MG Oral Tablet SONIA ([facility]) fluticasone 232 mcg-salmeterol 14 mcg/actuation breath activated [facility] [id number] completed 60 ACTUAT flut icasone propionate 0.232 MG/ACTUAT / salmeterol 0.014 MG/ACTUAT Dry Powder Inhaler SONIA ([facility]) Trazodone Hydrochloride 100 MG Oral Tabl et trazodone 100 mg tablet TAKE ONE TABLET BY MOUTH EVERY EVENING trazodone 100 mg tablet TAKE ONE TABLET BY MOUTH EVERY EVENING completed trazodone hydrochloride 100 MG Oral Tablet SONIA ([facility]) pregabalin 50 MG Oral Capsule pregabalin 50 mg capsule TAKE ONE CAPSULE BY MOUTH THREE TIMES A DAY MAXIMUM DAILY DOSE 3 CAPSULES pregabalin 50 mg capsule TAKE ONE CAPSULE BY MOUTH THREE TIMES A DAY MAXIMUM DAILY DOSE 3 CAPSULES completed pregabalin 50 MG Oral Cap annabel SONIA ([facility]) Cefuroxime 500 MG Oral Tablet cefuroxime axetil 500 mg tablet cefuroxime axetil 500 mg tablet completed cefuroxi me 500 MG Oral Tablet SONIA ([facility]) atorvastatin 10 MG Oral Tablet atorvastatin 10 mg tabl et atorvastatin 10 mg tablet completed atorvastatin 10 MG Oral Tablet SONIA ([facility]) OneTouch Delica Plus Lancet 30 gauge TEST BLOOD SUGARS FOUR TIMES A DAY 117796 completed OneTouch Delic a Plus Lancet 30 gauge SONIA ([facility]) Sertraline 25 MG Oral Tablet sertraline 25 mg tablet sertraline 25 mg tablet completed sertraline 25 MG Oral Tablet SONIA ([facility]) atorvastatin 10 MG Oral Tablet atorvasta tin 10 mg tablet TAKE ONE TABLET BY MOUTH AT BEDTIME atorvastatin 10 mg tablet TAKE ONE TABLET BY MOUTH AT BEDTIME completed atorvastatin 1 0 MG Oral Tablet SONIA ([facility]) Triamcinolone Acetonide 1 MG/ML Topical Cream triamcinolone acetonide 0.1 % topical cream APPLY A THIN LAYER TO AFFECTED AREA TWO TIMES A DAY FOR PSORIASIS FOR A MAXIMUM OF 14 DAYS triamcinolone acetonide 0.1 % topical cr eam APPLY A THIN LAYER TO AFFECTED AREA TWO TIMES A DAY FOR PSORIASIS FOR A MAXIMUM OF 14 DAYS completed triamcinolone ac etonide 1 MG/ML Topical Cream SONIA ([facility]) benzonatate 100 MG Oral Capsule benzonatate 100 mg cap annabel benzonatate 100 mg capsule completed benzonatate 10 0 MG Oral Capsule SONIA ([facility]) epinephrine 0.3 mg/0.3 mL injection, auto-injector DIRECTED [id number] completed [id number] 0.3 ML epinephrine 1 MG/ML Auto-Injector SONIA ([facility]) OneTouch Delica Plus Lancet 33 gauge TEST FOUR TIMES A DAY 321182 completed OneTouch Delica Plus Lancet 33 g auge SONIA ([facility]) Sertraline 50 MG Oral Tablet sertraline 50 mg tablet TAKE ONE TABLET BY MOUTH EVERY DAY sertraline 50 mg tablet TAKE ONE TABLET BY MOUTH EVERY DAY completed sertraline 50 MG Oral Tablet SONIA ([facility]) OneTouch Ultra2 Meter DIRECTED 554931 completed OneTouch Ultra2 Meter SONIA ([facility]) Trazodone Hydrochloride 100 MG Oral Tablet trazodone 1 00 mg tablet trazodone 100 mg tablet completed trazodone h ydrochloride 100 MG Oral Tablet [place] ([facility]) Cefuroxime 500 MG Oral Tablet cefuroxime axetil 500 mg tablet cefuroxime axetil 500 mg tablet completed cefuroxi me 500 MG Oral Tablet [place] ([facility]) Fluzone Quad (PF) 60 mcg (15 mcg x 4)/0.5 mL IM syringe 603 862 completed 0.5 ML influen za A virus A/[facility]/[id number] (H1N1) antigen 0.03 MG/ML / influenza A virus A/[facility] (H3N2) antigen 0.03 MG/ML / influenza B virus B/[facility]30710/2012 antigen 0.03 MG/ML / influenza B virus B/ antigen 0.03 MG/ML Prefilled Syringe [Fluzone Quadrivalent ] [facility] ([facility]) Sertraline 50 MG Oral Tablet sertraline 50 mg tablet TAKE ONE TABLET BY MOUTH EVERY DAY sertraline 50 mg tablet TAKE ONE TABLET BY MOUTH EVERY DAY completed sertraline 50 MG Oral Tablet SONIA ([facility]) pregabalin 50 MG Oral Capsule pregabalin 50 mg capsule TAKE ONE CAPSULE BY MOUTH THREE TIMES A DAY MAXIMUM DAILY DOSE 3 CAPSULES pregabalin 50 mg capsule TAKE ONE CAPSULE BY MOUTH THREE TIMES A DAY MAXIMUM DAILY DOSE 3 CAPSULES completed pregabalin 50 MG Oral Cap annabel SONIA ([facility]) OneTouch Delica Plus Lancet 33 gauge TEST FOUR TIMES A DAY 335269 completed OneTouch Delica Plus Lancet 33 g auge SONIA ([facility]) Sertraline 50 MG Oral Tablet sertraline 50 mg tablet sertraline 50 mg tablet completed sertraline 50 MG Oral Tablet [place] ([facility]) OneTouch Delica Plus Lancet 33 gauge TEST FOUR TIMES A DAY 060291 completed OneTouch Delica Plus Lancet 33 g auge SONIA ([facility]) OneTouch Ultra2 Meter DIRECTED 829369 completed OneTouch Ultra2 Meter SONIA ([facility]) Sertraline 25 MG Oral Tablet sertraline 25 mg tablet sertraline 25 mg tablet completed sertraline 25 MG Oral Tablet SONIA ([facility]) epinephrine 0.3 mg/0.3 mL injection, auto-injector DIRECTED 660575 completed [id number] 0.3 ML epinephrine 1 MG/ML Auto-Injector SONIA ([facility]) umeclidinium 0.0625 MG/ACTUAT Dry Powder Inhaler Incruse Ellipta 62.5 mcg/actuation powder for inhalation INHALE ONE PUFF BY MOUTH EVERY DAY Incruse Ellipta 62.5 mcg/actuation powder for inhalation INHALE ONE PUFF BY MOUTH EVERY DAY completed umeclidinium 0.0 625 MG/ACTUAT Dry Powder Inhaler SONIA ([facility]) Aspirin 81 MG Delayed Release Oral Table t aspirin 81 mg tablet,delayed release TAKE ONE TABLET BY MOUTH EVERY DAY aspirin 81 mg tablet,delayed release ILYA E ONE TABLET BY MOUTH EVERY DAY completed aspirin 81 MG Delayed Release Oral Tablet SONIA ([facility]) epinephrine 0.3 mg/0.3 mL injection, auto-injector DIRECTED 665628 completed [id number] 0.3 ML epinephrine 1 MG/ML Auto-Injector SONIA ([facility]) Trazodone Hydrochloride 100 MG Oral Tablet trazodone 1 00 mg tablet trazodone 100 mg tablet completed trazodone hy drochloride 100 MG Oral Tablet [facility]ONIA ([facility]) Sertraline 25 MG Oral Tablet sertraline 25 mg tablet sertraline 25 mg tablet completed sertraline 25 MG Oral Tablet SONIA ([facility]) montelukast 10 MG Oral Tablet montelukas t 10 mg tablet TAKE ONE TABLET BY MOUTH EVERY DAY montelukast 10 mg tablet TAKE ONE TABLET BY MOUTH EVERY DAY completed montelukast 10 MG Oral Table t SONIA ([facility]) atorvastatin 10 MG Oral Tablet atorvasta tin 10 mg tablet TAKE ONE TABLET BY MOUTH AT BEDTIME atorvastatin 10 mg tablet TAKE ONE TABLET BY MOUTH AT BEDTIME completed atorvastatin 1 0 MG Oral Tablet SONIA ([facility]) OneTouch Delica Plus Lancet 30 gauge TEST BLOOD SUGARS FOUR TIMES A DAY 504200 completed OneTouch Delic a Plus Lancet 30 gauge SONIA ([facility]) Sertraline 25 MG Oral Tablet sertraline 25 mg tablet sertraline 25 mg tablet completed sertraline 25 MG Oral Tablet [place] ([facility]) pregabalin 100 MG Oral Capsule pregabalin 100 mg capsu le pregabalin 100 mg capsule completed pregabalin 100 MG Oral Capsule [place] ([facility]) atorvastatin 10 MG Oral Tablet atorvastatin 10 mg tabl et atorvastatin 10 mg tablet completed atorvastatin 10 MG Oral Tablet [facility]) Sertraline 25 MG Oral Tablet sertraline 25 mg tablet sertraline 25 mg tablet completed sertraline 25 MG Oral Tablet [place] ([facility]) Sertraline 25 MG Oral Tablet sertraline 25 mg tablet sertraline 25 mg tablet completed sertraline 25 MG Oral Tablet [place] ([facility]) umeclidinium 0.0625 MG/ACTUAT Dry Powder Inhaler Incruse Ellipta 62.5 mcg/actuation powder for inhalation INHALE ONE PUFF BY MOUTH EVERY DAY Incruse Ellipta 62.5 mcg/actuation powder for inhalation INHALE ONE PUFF BY MOUTH EVERY DAY completed umeclidinium 0.0 625 MG/ACTUAT Dry Powder Inhaler [place] ([facility]) Fluzone Quad (PF) 60 mcg (15 mcg x 4)/0.5 mL IM syringe 604 242 completed 0.5 ML influen za A virus A/[facility]/CBO7093 (H1N1) antigen 0.03 MG/ML / influenza A virus A/[facility] (H3N2) antigen 0.03 MG/ML / influenza B virus B/[facility] antigen 0.03 MG/ML / influenza B virus B/ antigen 0.03 MG/ML Prefilled Syringe [Fluzone Quadrivalent ] [facility]) montelukast 10 MG Oral Tablet montelukas t 10 mg tablet TAKE ONE TABLET BY MOUTH EVERY DAY montelukast 10 mg tablet TAKE ONE TABLET BY MOUTH EVERY DAY completed montelukast 10 MG Oral Table t SONIA ([facility]) Trazodone Hydrochloride 100 MG Oral Tabl et trazodone 100 mg tablet TAKE ONE TABLET BY MOUTH EVERY EVENING trazodone 100 mg tablet TAKE ONE TABLET BY MOUTH EVERY EVENING completed trazodone hydrochloride 100 MG Oral Tablet SONIA ([facility]) Insurance Providers Payer name Policy type / Coverage type Policy ID Covered democrat ID Covered democrat's relationship to stoddard Policy Stoddard Plan Information [facility] COMMUNITY PLAN [facility] [id number] SP [id number] [facility]) O [id number] S [id number] MEDICAID M [id number] S [id number] [place] [id number] SP [id number] MEDICAID [id number] SP [id number] Managed Care [facility] Community Plan P [id number] S [id number] Medicaid S [id number] S [id number] Managed Care [facility] Community Plan P [id number] S [id number] Medicaid P [id number] S [id number] ANSI-Medicaid [id number] ANSI-Commercial [id number] ANSI-Medicaid [id number] ANSI-Commercial [id number] ANSI-Medicaid [id number] ANSI-Commercial [id number] [facility] [id number] ANSIRSens [id number] ANSIRSens [id number] ANSIRSens [id number] [facility] [employer]-Medicaid [id number] [employer]-Medicaid [id number] ANSIRSens [id number] ANSI-Medicaid [id number] ANSI-Medicaid [id number] ANSIRSens [id number] ANSI-Commercial [id number] ANSI-Medicaid [id number] ANSI-Medicaid [id number] ANSI-Commercial [id number] ANSI-Medicaid [id number] ANSI-Commercial [id number] ANSI-Medicaid [id number] ANSI-Commercial [id number]-[id number] [id number] ANSI-Commercial [id number]-[id number] ANSI-Commercial [id number]-[id number] ANSI-Medicaid [id number] ANSI-Medicaid [id number] [facility] [id number] ANSI-Medicaid [id number] [facility] [id number] ANSI-Medicaid [id number] [facility]-Commercial [id number]-[id number]-[id number] ANS-Commercial [id number]-5f7r-3051-y1aq-[id number] [id number]-7b9a-1911-e1si-[id number] [facility]-Medicaid [id number] [facility]icaid [id number] ANSI-Medicaid [id number] ANSI-Commercial [id number]-[id number]-[id number]-[id number] ANSI-Medicaid [id number] ANSI-Commercial [id number] [facility] [id number] SP [id number] ANSI-Medicaid [id number] ANSI-Commercial [id number]-[id number]-7k4n-[id number] ANSI-Commercial [id number]-[id number] ANSI-Commercial 5moh3e2q-3537-6bcy-3293-gy5qg17wxn1f 1juq5f7b-9104-4goh-1473-yq2rz65htr9j ANSI-Medicaid [id number] ANSI-Commercial [id number] [facility] [id number] SP [id number] ANSI-Commercial [id number]-5aec-[id number]-647j-6rvl-[id number] ANSI-Commercial [id number]-[id number]-[id number] ANSI-Medicaid [id number] ANSI-Commercial [id number]-58x6-udpi-[id number]-44b7-icmw-[id number] ANSI-Medicaid [id number] ANSI-Commercial [id number]-y812-[id number] [id number]-z50q-33tk-w776-[id number] ANSI-Medicaid [id number] ANSI-Commercial [id number]-52h0-0d80-1443-[id number]-15z2-8j06-4726-[id number] ANSI-Commercial [id number]-8917-695m-3037-8f3g6a0n1lc7 [id number]-0388-170b-7179-2v7r7i2b6mg2 ANSI-Medicaid [id number] ANSI-Commercial [id number]-9ttz-13qz-[id number] 551c4g6q-1ajj-69py-[id number] ANSI-Commercial [id number]-bx67-39yv-5s4z-[id number] e08p56vy-gx99-71du-1z6x-[id number] ANSI-Medicaid [id number] ANSI-Commercial [id number]-3p37-[id number] ke923g80-8ks8-1z4r-4d57-[id number] ANSI-Commercial [id number]-1302-533d-[id number] [id number]-2157-926q-z8fz4z2l8378 ANSI-Medicaid [id number] ANSI-Commercial [id number]-g7i8-5k99hw8gw836 2xp49p63-8j01-8148-o4k5-1d82ly5rj429 ANSI-Commercial [id number]-kb11-0521-8dio-f016nrv9f4a9 qhf4100f-xh01-6949-6ncw-m254eez8k2e3 ANSI-Commercial [id number]-[id number]-[id number] 183b148c-n086-7qk3-022a-[id number] ANSI-Medicaid [id number] ANSI-Commercial [id number]-3325-6072-[id number]-[id number]-4089-7627-gdi1-t1a2jho8261j [facility] [id number] [facility] [id number] ANSI-Medicaid [id number] ANSI-Commercial [id number]-56w4-jm6f-[id number]-13o6-ep4d-[id number] ANSI-Commercial [id number]-867l-29qg-[id number]-834p-79zf-[id number] Medicaid Dental S [id number] S [id number] Medicaid Dental S [id number] S [id number] Medicaid P UNAVAILABLE S UNAVAILA BLE ANSI-Commercial [id number] ANSI-Medicaid [id number] ANSI-Commercial [id number]-[id number]-7654-[id number]-m385-14ik-2967-[id number] ANSI-Commercial [id number]-9069-0a1t-35p1-850x51ldqbol [id number]-7316-0z5i-[id number] ANSI-Commercial [id number]-t31h-[id number] [id number]-q26t-[id number] ANSI-Medicaid [id number] ANSI-Commercial [id number]-55x2-7gp1-4rzm-[id number] [id number]-17d0-9ps8-3tbe-[id number] ANSI-Commercial [id number]-pq55-5u82-0jts-0mh703hygl49 [id number]-ve12-0u16-5qrv-[id number] ANSI-Medicaid [id number] ANSI-Medicaid [id number] ANSI-Commercial [id number]-[id number]-q489-[id number] [id number]-459a-2655-[id number] ANSI-Commercial [id number] UMR O [id number] P [id number] [employer] [id number] HU2 [id number] SELF PAY ONLY [id number] HU2 [id number] [employer] PPO O [id number] S [id number] [place] [id number] HU2 [id number] [place] [id number] Self AQ2 [id number] [place] Commercial [id number] Family Dependent [id number] [place] [id number] Self AQ2 [id number] [place] (pr) Commercial [id number] Family Dependent [id number] MEDICAID [id number] SP [id number] [place] [id number] Self AQ2 [id number] [place] [id number] Self AQ2 [id number] [place] [id number] Self AQ2 [id number] [place] [id number] Self AQ2 [id number] [place] Self BS Gareth Hmo Blue Option Medigap Part B Self [place] Self [place] (pr) Commercial Family Dependent POMCO [id number] [place] Self [place] Commercial Family Dependent BLUE CROSS RIVERO PLAN [id number] SP [id number] HMO BLUE [id number] SP [id number] Problems, Conditions, and Diagnoses Code Display Name Description Problem Type Effective Dates Data Source(s) [id number] Radiology result abnormal Radiology result abnormal Pr oblem 09/25/2020 12:00:00 AM EST [facility] ([facility]) F41.1 Generalized anxiety disorder Generalized Anxiety Disor johan Condition 09/25/2020 12:00:00 AM EST [facility] ([facility]) F33.1 Major depressive disorder, recurrent, mo derate Major Depressive Disorder, Recurrent episode, Moderate Condition 09/25/2020 12:00:00 AM EST [facility] ([facility]) F41.0 Panic disorder [episodic paroxysmal anxiety] Panic Dis order Condition 09/25/2020 12:00:00 AM EST [facility] ([facility]) [id number] Fibromyalgia Fibromyalgia Problem 08/13/2020 12:00:00 A M EST [facility] ([facility]) [id number] Fibromyalgia Fibromyalgia Problem 08/13/2020 12:00:00 A M EST [facility] ([facility]) 156549188 Fibromyalgia Fibromyalgia Problem 08/13/2020 12:00:00 A M EST [facility] ([facility]) V76.12 Encounter for screening mammogram for ma lignant neoplasm of breast Encounter for screening mammogram for malignant neoplasm of breast 04/11/2020 04:41:02 PM EDT [facility] [id number] Screening mammography Screening Mammography Problem 04/11/2020 12:00:00 AM EDT - 08/13/2020 12:00:00 AM EST [facility] ([facility]) 04396902 Screening mammography Screening Mammography Problem 04/11/2020 12:00:00 AM EDT - 08/13/2020 12:00:00 AM EST [facility] ([facility]) 04870967 Screening mammography Screening Mammography Problem 04/11/2020 12:00:00 AM EDT - 08/13/2020 12:00:00 AM [facility] [place] ([facility]) 112.3 Candidiasis of skin Candidiasis of skin 09:48:43 AM EDT [facility] [id number] Continuous abdominal pain of left lower quadrant Continuous abdominal pain of left lower quadrant 02/17/2020 09:48:43 AM EDT [facility] 787.91 Acute diarrhea Acute diarrhea 02/17/2020 09:32: 34 AM EDT [facility] 67227998 Candidiasis Candidiasis Problem 02/17/2020 12:0 0:00 AM EDT - 08/13/2020 12:00:00 AM EST [facility] ([facility]) 594823427 Left lower quadrant pain Left Lower Quadrant Pain Prob [place] 02/17/2020 12:00:00 AM EDT - 10/01/2020 12:00:00 AM [facility] [place]OTT ([facility]) 96399560 Diarrhea Diarrhea Problem 02/17/2020 12:0 0:00 AM EDT - 08/13/2020 12:00:00 AM EST [facility] ([facility]) 10476298 Candidiasis Candidiasis Problem 02/17/2020 12:0 0:00 AM EDT - 08/13/2020 12:00:00 AM EST [facility] ([facility]) 175942130 Left lower quadrant pain Left Lower Quadrant Pain Prob [place] 02/17/2020 12:00:00 AM EDT [facility] ([facility]) 90574778 Diarrhea Diarrhea Problem 02/17/2020 12:0 0:00 AM EDT - 08/13/2020 12:00:00 AM EST [facility] ([facility]) 26121685 Candidiasis Candidiasis Problem 02/17/2020 12:0 0:00 AM EDT - 08/13/2020 12:00:00 AM EST [facility] ([facility]) 800771197 Left lower quadrant pain Left Lower Quadrant Pain Prob [place] 02/17/2020 12:00:00 AM EDT [facility] ([facility]) 91772901 Diarrhea Diarrhea Problem 02/17/2020 12:0 0:00 AM EDT - 08/13/2020 12:00:00 AM EST [facility] ([facility]) 36781498 Chronic obstructive pulmonary disease, u nspecified Chronic obstructive pulmonary disease, unspecified 01/26/2020 04:43:02 PM EDT No [facility] 44771148 Chronic obstructive lung disease Chronic Obstruc tive Lung Disease Problem 01/26/2020 12:00:00 AM EDT [place] ([facility]) 87946143 Chronic obstructive lung disease Chronic Obstruc tive Lung Disease Problem 01/26/2020 12:00:00 AM EDT [facility] ([facility]) 66411309 Chronic obstructive lung disease Chronic Obstruc tive Lung Disease Problem 01/26/2020 12:00:00 AM EDT [place] ([facility]) F32.9 Major depressive disorder, single episod e, unspecified Unspecified depressive Disorder Condition 01/04/2020 12:00:00 AM EDT [facility] ([facility]) [id number] Dyspnea Dyspnea Problem 01/03/2020 12:00:00 AM ED T [facility] ([facility]) 18401848 Precordial pain Precordial pain Problem 01/03/2020 12:0 0:00 AM EDT [facility] ([facility]) 199691059 Dietary management surveillance Dietary manageme nt surveillance Problem 01/03/2020 12:00:00 AM EDT [facility] ([facility] 88028737 Hyperlipidemia Hyperlipidemia Problem 01/03/2020 12:00: 00 AM EDT [facility] ([facility]) 74797228 Palpitations Palpitations Problem 01/03/2020 12:00:00 A M EDT [facility] ([facility]) 788.1 Dysuria Dysuria 12/21/2019 05:08:45 PM ED T [facility] 724.6 Sacral back pain Sacral back pain 10/31/2019 02 :36:53 PM [facility] 724.1 Pain in thoracic spine Pain in thoracic spine 10/31/2019 02:36:53 PM [facility] 723.1 Neck pain Neck pain 10/31/2019 02:36:53 PM ES [facility] 785.1 Intermittent palpitations Intermittent palpitations 10/31/2019 02:30:50 PM [facility] [id number] Mild persistent asthma, uncomplicated Mi ld persistent asthma, uncomplicated 10/31/2019 02:30:50 PM EST [facility] [id number] Palpitations Palpitations Problem 10/31/2019 12:00:00 A M EST [facility] ([facility]) [id number] Low back pain Low Back Pain Problem 10/31/2019 12:00:00 AM EST [facility] ([facility]) 387357492 Pain in thoracic spine Pain in Thoracic Spine Problem 10/31/2019 12:00:00 AM EST [facility] ([facility]) 61124210 Neck pain Neck Pain Problem 10/31/2019 12:00:00 AM ES T [facility] ([facility]) 074380846 Mild persistent asthma Mild Persistent Asthma Problem 10/31/2019 12:00:00 AM EST [facility] ([facility]) 78052637 Palpitations Palpitations Problem 10/31/2019 12:00:00 A M EST [facility] ([facility]) [id number] Low back pain Low Back Pain Problem 10/31/2019 12:00:00 AM EST [facility] ([facility]) 162128200 Pain in thoracic spine Pain in Thoracic Spine Problem 10/31/2019 12:00:00 AM EST [facility] ([facility]) 91294407 Neck pain Neck Pain Problem 10/31/2019 12:00:00 AM ES T [facility] ([facility]) [id number] Mild persistent asthma Mild Persistent Asthma Problem 10/31/2019 12:00:00 AM EST [facility] ([facility]) 82273197 Palpitations Palpitations Problem 10/31/2019 12:00:00 A M EST [facility] ([facility]) 422399635 Low back pain Low Back Pain Problem 10/31/2019 12:00:00 AM EST [facility] ([facility]) 602940457 Pain in thoracic spine Pain in Thoracic Spine Problem 10/31/2019 12:00:00 AM EST [facility] ([facility]) 55206183 Neck pain Neck Pain Problem 10/31/2019 12:00:00 AM ES T [facility] ([facility]) 814987743 Mild persistent asthma Mild Persistent Asthma Problem 10/31/2019 12:00:00 AM EST [facility] ([facility]) Z91.030 Bee allergy status Allergy to bee venom 020 09:49:09 AM [facility] 71352529 Acute upper respiratory infection, unspe cified Acute upper respiratory infection, unspecified 09/02/2019 09:49:09 AM EST [facility] 822142998 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 Bee Venom Problem 09/02/2019 12:00:00 AM EST [facility] ([facility]) 292305946 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 Bee Venom Problem 09/02/2019 12:00:00 AM EST [facility] ([facility]) 315483035 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 Bee Venom Problem 09/02/2019 12:00:00 AM EST [facility] ([facility]) [id number] 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 Comple te Edentulism Due to Caries Problem 07/15/2018 12:00:00 AM EST - 10/01/2020 12:00:00 AM EST [facility] ([facility]) Surgeries/Procedures Procedure Description Date Indications Data Source(s) [facility] [place] Lvl [place]--Est pt 09/25/2020 12:00:00 AM EST - 09/25/2020 12:00:00 AM EST [facility] ([facility]) [facility] [place] E/M Lvl 3--Est pt 09/25/2020 12:00:[address] [facility] ([facility]) OFFICE OUTPATIENT VISIT 15 MINUTES 09/24 12:00:00 AM EST - 09/24/2020 12:00:00 AM EST [facility] ([facility]) OFFICE OUTPATIENT VISIT 15 MINUTES 09/24/2020 12:00:00 AM EST [facility] ([facility]) Extended Individual Psychotherapy - 45 min 09/20/2020 12:00:00 AM EST - 09/20/2020 12:00:00 AM EST [facility] ([facility]) Extended Individual Psychotherapy - 45 min 12:00:00 AM EST [facility] ([facility]) [facility] [place] E/M Lvl 3--Est pt 09/11/2020 12:00:00 AM EST - 09/11/2020 12:00:00 AM EST [facility] ([facility]) MHC Telemed E/M Lvl 3--Est pt 09/11/2020 12:00:[address] [facility] ([facility]) [id number]"Psychotherapy 12:00:00 AM EST - 09/03/2020 12:00:00 AM EST [facility] ([facility]) [id number]"Psychotherapy 09/03/2020 12:00:00 AM EST [facility] ([facility]) MHC Telemed E/M Lvl 3--Est pt 08/21/2020 12:00:00 AM EST - 08/21/2020 12:00:00 AM EST [facility] ([facility]) MHC Telemed E/M Lvl 3--Est pt 08/21/2020 12:00:[address] [facility] ([facility]) MRI, cervical spine, w/o contrast 08/14/2020 12:00:00 AM EST [facility] ([facility]) [id number]"Psychotherapy 0 12:00:00 AM EST - 08/13/2020 12:00:00 AM EST [facility] ([facility]) [id number]"Psychotherapy 08/13/2020 12:00:00 AM EST [facility] ([facility]) RADEX SHOULDER COMPLETE MINIMUM 2 VIEWS 08/09/2020 12: 00:00 AM EST [facility] ([facility]) Extended Individual Psychotherapy - 45 min 08/01/2020 12:00:00 AM EST - 08/01/2020 12:00:00 AM EST [facility] ([facility]) Extended Individual Psychotherapy - 45 min 0 12:00:00 AM EST [facility] ([facility]) ARTHROCENTESIS ASPIR&/INJECTION MAJOR JT/BURSA 020 12:00:00 AM EST [facility] ([facility]) RADEX WRIST COMPLETE MINIMUM 3 VIEWS 07/20/2020 12:00: 00 AM EST [facility] ([facility]) OFFICE OUTPATIENT VISIT 15 MINUTES 07/10 12:00:00 AM EST - 07/10/2020 12:00:00 AM EST [facility] ([facility]) OFFICE OUTPATIENT VISIT 15 MINUTES 07/10/2020 12:00:00 AM EST [facility] ([facility]) Extended Individual Psychotherapy - 45 min 07/09/2020 12:00:00 AM EST - 07/09/2020 12:00:00 AM EST [facility] ([facility]) Extended Individual Psychotherapy - 45 min 0 12:00:00 AM EST [facility] ([facility]) MHC Telemed E/M Lvl 3--Est pt 06/12/2020 12:00:00 AM EDT - 06/12/2020 12:00:00 AM EDT [facility] ([facility]) Psychotherapy ADD ON - 30 Minutes 06/12/2020 12:00:00 AM EDT [facility] ([facility]) MHC Telemed E/M Lvl 3--Est pt 06/12/2020 12:00:00 AM E DT [facility] ([facility]) Extended Individual Psychotherapy - 45 min 06/05/2020 12:00:00 AM EDT - 06/05/2020 12:00:00 AM EDT [facility] ([facility]) Extended Individual Psychotherapy - 45 min 0 12:00:00 AM EDT [facility] ([facility]) ARTHROCENTESIS ASPIR&/INJECTION MAJOR JT/BURSA 020 12:00:00 AM EDT [facility] ([facility]) OFFICE OUTPATIENT VISIT 15 MINUTES 05/15 12:00:00 AM EDT - 05/15/2020 12:00:00 AM EDT [facility] ([facility]) Psychotherapy ADD ON - 30 Minutes 05/15/2020 12:00:00 AM EDT [facility] ([facility]) OFFICE OUTPATIENT VISIT 15 MINUTES 05/15/2020 12:00:00 AM EDT [facility] ([facility]) mammogram, screening 04/20/2020 12:00:00 AM EDT [facility] ([facility]) INJECTION 1 TENDON SHEATH/LIGAMENT APONEUROSIS 020 12:00:00 AM EDT [facility] ([facility] ) X-Ray Elbow Ap & Lateral 2 Views 04/20/2020 12:00:00 A M EDT [facility] ([facility] ) mammogram, screening 04/20/2020 12:00:00 AM EDT [facility] ([facility]) mammogram, screening 04/20/2020 12:00:00 AM EDT [facility] ([facility]) Needle electromyography, each extremity, with related paraspinal areas, when performed, done with nerve conduction, amplitude and latency/velocity study; complete, five or more muscles studied, innervated by three or more nerves or four or more spinal levels (list separately in addition to the code for primary procedure). 04/12/2020 12:00:00 AM EDT [facility] T ([facility] ) 65031 Nerve conduction studies 13 or more studies NEW 201204/12/2020 12:00:00 AM EDT [facility] ([facility] ) [id number]"Psychotherapy 0 12:00:00 AM EDT - 02/29/2020 12:00:00 AM EDT [facility] ([facility]) [id number]"Psychotherapy 02/29/2020 12:00:00 AM EDT [facility] ([facility]) TEMPMHCTelemed 30" Psychotherapy 020 12:00:00 AM EDT - 02/15/2020 12:00:00 AM EDT [facility] ([facility]) TEMPMHCTelemed 30" Psychotherapy 02/15/2020 12:00:00 A M EDT [facility] ([facility]) [facility] [place] E/M Lvl 3--Est pt 02/14/2020 12:00:00 AM EDT - 02/14/2020 12:00:00 AM EDT [facility] ([facility]) Psychotherapy ADD ON - 30 Minutes 02/14/2020 12:00:00 AM EDT [facility] ([facility]) MHC Telemed E/M Lvl 3--Est pt 02/14/2020 12:00:00 AM E DT [facility] ([facility]) TEMPMHCTelemed 30" Psychotherapy 020 12:00:00 AM EDT - 01/31/2020 12:00:00 AM EDT [facility] ([facility]) TEMPMHCTelemed 30" Psychotherapy 01/31/2020 12:00:00 A M EDT [facility] ([facility]) ECHO TTHRC R-T 2D W/WOM-MODE COMPL SPEC&COLR DOP 01/29 12:00:00 AM EDT [facility] ([facility]) CV STRS TST XERS&/OR RX CONT ECG PHYS SI&R 01/25/2020 12:00:00 AM EDT [facility] ([facility]) XTRNL ECG < 48 HR RECORDING 01/19/2020 12:00:00 AM EDT [facility] ([facility]) XTRNL ECG CONTINUOUS RHYTHM PHYS REVIEW&INTERPJ 2019 12:00:00 AM EDT [facility] ([facility]) [id number]"Psychotherapy 0 12:00:00 AM EDT - 01/18/2020 12:00:00 AM EDT [facility] ([facility]) [id number]"Psychotherapy 01/18/2020 12:00:00 AM EDT [facility] ([facility]) MHC Telemed E/M Lvl 3--Est pt 01/17/2020 12:00:00 AM EDT - 01/17/2020 12:00:00 AM EDT [facility] ([facility]) MHC Telemed E/M Lvl 3--Est pt 01/17/2020 12:00:00 AM E DT [facility] ([facility]) [id number]"Psychotherapy 0 12:00:00 AM EDT - 01/04/2020 12:00:00 AM EDT [facility] ([facility]) [id number]"Psychotherapy 01/04/2020 12:00:00 AM EDT [facility] ([facility]) ECG ROUTINE ECG W/LEAST 12 LDS W/I&R 01/03/2020 12:00: 00 AM EDT [facility] ([facility]) MHC Telemed E/M Lvl 3--Est pt 11/22/2019 12:00:00 AM EDT - 11/22/2019 12:00:00 AM EDT [facility] ([facility]) MHC Telemed E/M Lvl 3--Est pt 11/22/2019 12:00:00 AM E DT [facility] ([facility]) Brief Individual Psychotherapy - 30 min 11/04/2019 12:00:00 AM EST - 11/04/2019 12:00:00 AM EST [facility] ([facility]) Brief Individual Psychotherapy - 30 min 11/03/2019 12: 00:00 AM EST [facility] ([facility]) Extended Individual Psychotherapy - 45 min 10/27/2019 12:00:00 AM EST - 10/27/2019 12:00:00 AM EST [facility] ([facility]) Extended Individual Psychotherapy - 45 min 0 12:00:00 AM EST [facility] ([facility]) Extended Individual Psychotherapy - 45 min 10/19/2019 12:00:00 AM EST - 10/19/2019 12:00:00 AM EST [facility] ([facility]) Extended Individual Psychotherapy - 45 min 0 12:00:00 AM EST [facility] ([facility]) OFFICE OUTPATIENT VISIT 15 MINUTES 10/10 12:00:00 AM EST - 10/10/2019 12:00:00 AM EST [facility] ([facility]) Psychotherapy ADD ON - 30 Minutes 10/10/2019 12:00:00 AM EST [facility] ([facility]) OFFICE OUTPATIENT VISIT 15 MINUTES 10/10/2019 12:00:00 AM EST [facility] ([facility]) ARTHROCENTESIS ASPIR&/INJECTION MAJOR JT/BURSA 020 12:00:00 AM EST [facility] ([facility]) MRI Upper Extremity Any Joint 09/30/2019 12:00:[address] [facility] ([facility]) MRI Upper Extremity Any Joint 09/30/2019 12:00:[address] [facility] ([facility]) OFFICE/OUTPATIENT VISIT, EST 09/28/2019 12:00:00 AM EST - 09/28/2019 12:00:00 AM EST [facility] ([facility]) OFFICE OUTPATIENT VISIT 15 MINUTES 09/20 12:00:00 AM EST - 09/20/2019 12:00:00 AM EST [facility] ([facility]) OFFICE OUTPATIENT VISIT 15 MINUTES 09/20/2019 12:00:00 AM EST [facility] ([facility]) OFFICE OUTPATIENT VISIT 15 MINUTES 09/01 12:00:00 AM EST - 09/01/2019 12:00:00 AM EST [facility] ([facility]) OFFICE OUTPATIENT VISIT 15 MINUTES 09/01/2019 12:00:00 AM EST [facility] ([facility]) ARTHROCENTESIS ASPIR&/INJECTION MAJOR JT/BURSA 019 12:00:00 AM EST [facility] ([facility]) Results ID Date Data Source [id number] 09/30/2020 10:45:00 AM EST [facility] Name Value Range Interpretation Code Description Data Nadia rce(s) Supporting Document(s) SARS coronavirus 2 [facility] was ordered by [facility] and reported by [facility]. ID Date Data Source [id number] 09/03/2020 12:00:00 AM EST [facility] ([facility]) Name Value Range Interpretation Code Description Data Nadia rce(s) Supporting Document(s) ID Date Data Source [id number] 09/03/2020 12:00:00 AM EST [facility] Name Value Range Interpretation Code Description Data Nadia rce(s) Supporting Document(s) [facility] by [facility] and reported by [facility]. ID Date Data Source [id number] 09/03/2020 12:00:00 AM EST [facility]ON[facility] ([facility]) Name Value Range Interpretation Code Description Data Nadia rce(s) Supporting Document(s) SARS-CoV-2 (COVID-19) RNA [Presence] in Respiratory specimen by OSBALDO with probe detection negative negative normal Sars-cov-2 [facility] ([facility]) ID Date Data Source [id number] 09/03/2020 12:00:00 AM EST [facility] ([facility]) Name Value Range Interpretation Code Description Data Nadia rce(s) Supporting Document(s) ID Date Data Source [id number] 09/03/2020 12:00:00 AM EST [facility] ([facility]) Name Value Range Interpretation Code Description Data Nadia rce(s) Supporting Document(s) SARS-CoV-2 (COVID-19) RNA [Presence] in Respiratory specimen by OSBALDO with probe detection negative negative normal Sars-cov-2 [facility] ([facility]) ID Date Data Source [id number] 08/28/2020 02:00:00 PM EST [facility] ([facility]) Name Value Range Interpretation Code Description Data Nadia rce(s) Supporting Document(s) SARS-CoV-2 (COVID-19) RNA [Presence] in Respiratory specimen by OSBALDO with probe detection not detected not detected Sars Cov 2 RNA [place] ([facility]) ID Date Data Source [id number] 08/28/2020 02:00:00 PM EST [facility] ([facility]) Name Value Range Interpretation Code Description Data Nadia rce(s) Supporting Document(s) SARS-CoV-2 (COVID-19) RNA [Presence] in Respiratory specimen by OSBALDO with probe detection not detected not detected Sars Cov 2 RNA [facility] ([facility]) ID Date Data Source [id number] 06/27/2020 12:00:00 AM EDT [facility] MARGO Carver Patient Name: GALLITO GUPTA [facility] Date of : 1960[place], [place] - Date of Exam: 06/27/2020#: Fax: [phone] EXAM: CT ABDOMEN & PELVIS WITH CONTRASTCLINICAL INFORMATION: Lower pelvic pain and diarrhea.The latest prior for comparison is 09/15/2011 which was within normallimits.Low dose [address] scanning of the abdomen and pelvis wasobtained after the administration of intravenous contrast using 3 mmincrements and reconstructed in both sagittal and coronal scan planes.Immediate and delayed post contrast enhanced imaging was obtained throughthe abdomen. 75 cc of Optiray 350 was administered intravenously.The lung bases are clear.The liver, gallbladder, spleen, pancreas, adrenal glands, and kidneys arewithin normal limits and essentially unchanged. The abdominal aorta andparaaortic regions are within normal limits. The bowel loops and theirmesenteries are within normal limits. There is no mass or adenopathy. Thereis no free fluid or free air.CT PELVIS:Seen in the sigmoid colon there is a possible short segment of narrowingwhich measures approximately 2.4 cm, however the sigmoid colon isnondistended and noncontrast opacified. There is no evidence of pelvicadenopathy. There is no free fluid or free air.Bone window technique throughout the exam shows the osseous structures melvin stable and intact.IMPRESSION:Possible area of narrowing in the sigmoid colon as described above.Consider further evaluation with colonoscopy if clinically relevant.Accredited by the [employer] in [place].RACHID Abdi/Abelino saab for referring BROOKS GUPTA to our office. Electronically Signed - REYNALDO HEALY DO 06/28/20 13:57 Name Value Range Interpretation Code Description Data Nadia rce(s) Supporting Document(s) ID Date Data Source [id number] 06/11/2020 12:00:00 AM EDT [place] ([facility]) Name Value Range Interpretation Code Description Data Nadia rce(s) Supporting Document(s) Cholesterol in LDL [Mass/volume] in Serum or Plasma Ldl [facility]) ID Date Data Source [id number] 06/11/2020 12:00:00 AM EDT [facility]) Name Value Range Interpretation Code Description Data Nadia rce(s) Supporting Document(s) Hemoglobin A1c/Hemoglobin.total in Blood A1C [facility]) ID Date Data Source [id number] 06/11/2020 12:00:00 AM EDT [facility]) Name Value Range Interpretation Code Description Data Nadia rce(s) Supporting Document(s) Cholesterol in LDL [Mass/volume] in Serum or Plasma Ldl [facility]) ID Date Data Source [id number] 06/11/2020 12:00:00 AM EDT [facility]) Name Value Range Interpretation Code Description Data Nadia rce(s) Supporting Document(s) Hemoglobin A1c/Hemoglobin.total in Blood A1C [facility]) ID Date Data Source [id number] 06/11/2020 12:00:00 AM EDT [facility]) Name Value Range Interpretation Code Description Data Nadia rce(s) Supporting Document(s) Cholesterol in LDL [Mass/volume] in Serum or Plasma Ldl [place] ([facility]) ID Date Data Source [id number] 06/11/2020 12:00:00 AM EDT [facility] ([facility]) Name Value Range Interpretation Code Description Data Nadia rce(s) Supporting Document(s) Hemoglobin A1c/Hemoglobin.total in Blood A1C [facility]) ID Date Data Source [id number] 04/20/2020 12:00:00 AM EDT [facility] MARGO Carver Patient Name: GALLITO GUPTA [facility] Date of : 1960[place], [place] - Date of Exam: 04/20/2020PH#: Fax: [phone] EXAM: MAMMO SCREENING WITH CADCLINICAL INFORMATION: Screening.Based on the personal and family history information your patient suppliedat the time of imaging, her lifetime risk of breast cancer estimated by theTyrer-Cuzick model is 6.3%. Given that this patient has less than 20% TCrisk score, no further medical management is currently recommended at thistime.Digital screening (2D) mammography was performed bilaterally in the CC andMLO projections. Add itionally, breast tomosynthesis (3D mammography) wasperformed bilaterally in the CC and MLO projections. Today's exam wascompared to the prior exam(s).By history, the patient has no complaints of a palpable breast abnormalityor other significant breast complaints.The patient states that a clinical breast exam was not performed.The breasts are unchanged in size and shape. Once again, denseheterogeneous fibroglandular elements are seen bilaterally in a stableappearing pattern but to such a degree that the sensitivity of themammogram in detecting cancer is decreased. There are no tj-soft tissuedens ities or spiculated masses. There is no internal architecturaldistortion. There are no suspicious tj-calcific clusters. Skinthickening or nipple retraction is not present.The Volpara volumetric breast density category is C, the breasts areheterogeneously dense which may obscure small masses.IMPRESSION:BI-RADS Category 2 - Benign Finding(s). Stable mammogram. There is noevidence of malignant alteration of the breasts. Followup examinationrecommended in one year.This mammogram was read with the assistance of Phylicia [employer], an FDAapproved computer aided detection system for mammography.Negative x-ray reports should not delay surgical consultation if a dominantor clinically suspicious mass is present.Not all breast cancers can be identified by mammography. Therefore, werecommend that you continue to perform regular breast self-examination andphysical examination and then promptly contact your physician of anyconcerns or changes.Adenosis and dense breasts may obscure an underlying neoplasm.RACHID Abdi/Mario you for referring BROOKS GUPTA to our office. Electronically Signed - REYNALDO HEALY DO 04/20/20 16:51 Name Value Range Interpretation Code Description Data Nadia rce(s) Supporting Document(s) ID Date Data Source [id number] 04/16/2020 11:17:53 AM EDT [facility] In-House Blood TestsDate/Time Colle cted: April 16, 2020 9:55 AMTest Result Reference Range Normal ValueComments: taken from right ac, tolerated well.Gloria Aguilar, April 16, 2020 11:18 AMAssessment & Plan Orders:[id number] Vst-Est Level I [CPT-01345] 23411 - Venipuncture [CPT- 37427] Name Value Range Interpretation Code Description Data Nadia rce(s) Supporting Document(s) ID Date Data Source [id number] 04/16/2020 09:55:00 AM EDT [facility] Name Value Range Interpretation Code Description Data Nadia rce(s) Supporting Document(s) BG FASTING 130 mg/dL 70-100 H [facility] T4, FREE 0.87 ng/dL 0.76-1.46 N [facility] TSH 6.270 microintl units/mL 0.358-3.740 H [facility] ID Date Data Source [id number] 04/16/2020 09:55:00 AM EDT [facility] Name Value Range Interpretation Code Description Data Nadia rce(s) Supporting Document(s) HGBA1C 7.2 % N [facility] ID Date Data Source [id number] 04/16/2020 09:55:00 AM EDT [facility] Name Value Range Interpretation Code Description Data Nadia rce(s) Supporting Document(s) HCT 40.5 % 36.0-47.0 N [facility] HGB 13.2 g/dL 12.0-15.5 N [facility] MCH 32.6 G/DL pg 32.0-36.5 N [facility] MCHC 27.3 PG % 27.0-33.0 [facility] PLATELETS 286 10 10*3/mm3 150-450 [facility] RBC 4.84 10 10*6/mm3 4.00-5.40 [facility] RDW 13.1 % 11.5-14.5 N [facility] WBC TOTAL 5.4 4.0-10.0 N [facility] ID Date Data Source [id number] 04/11/2020 03:57:07 PM EDT [facility] Measurements & CalculationsHeight: 66 inches (5 ft. 6 in.) 167.64 cm Weight: 178 pounds 4 oz. 81.02 kg Body Mass Index (BMI): 28.87BMI Interpretation: OverweightBody Surface Area (BSA): 1.91Weight Management Education Done (Nutrition/Physical Activity)Vital SignsTemperature: 97.0F 36.11C tympanic Pulse Rate: 74 beats/minuteRespiratory Rate: 18 respirations/minuteBlood Pressure: 116/76 right arm sitting automaticO2 Saturation: 96% Vital Signs performed by: Brenda Bazan LPN, April 11, 2020 3:57 PMInitial Intake Information From: patientRoom #: 2Infectious Disease / Travel ScreeningRecent travel for you or any close contacts? NoHave you had any close contact with anyone diagnosed with or under investigation for COVID-19 (coronavirus)? NoFever? NoRespiratory symptoms: cough, cold, congestion, shortness of breath, difficulty breathing? NoLoss of smell? NoLoss of taste? NoS moking, Tobacco, Vaping or Smoke Exposure StatusSmoke Status: never smokerTobacco Use: NoDo you vape? NoPassive Smoke Exposure: NoMenstrual HistoryComments: hysterectomyHealthcare HistorySince your last office visit...Have you been admitted to the hospital? NoHave you been to an emergency room (ER) or urgent care clinic? NoHave you seen another healthcare provider? Yes - arthritis, orthoHave you seen a dentist? NoRate Your HealthIn general, would you say your health is? FairPain AssessmentAre you currently having any pain which... You would like your provider to address? No Affects your activity level? NoDepression Screening - PHQ-2Over the last two weeks, have you... Had little interest or pleasure in doing things? Not at all Been feeling down, depressed, or hopeless? Not at all PHQ-2 Score: 0Anxiety Screening - MEG-2Over the last two weeks, have you been... Feeling nervous, anxious, or on edge? Not at all Unable to stop or control worrying? Not at all MEG-2 Score: 0Food InsecurityWithin the past year...Did you worry whether your food would run out before you got money to buy more? NoWas there a time when the food you bought didn't last and you didn't have money to get more? NoScreening, Brief Intervention, & Referral to Treatment (SBIRT)Pre-Screening Questions How many times have you have 4 or more drinks in a day? 0How many times have you used an illegal drug or used a prescription medication for a non-medical reason? 0Performed by: Brenda Bazan LPN, April 11, 2020 3:59 PMPatient History Medical History:Essential hypertensionHypothyroidismGERDFibromyalgiaAsthmaType II DiabetesHyperlipidemiaVitamin D deficiencyPsoriasis/Psoriatic arthritisRapid heart beatAngina- 1990Surgical History:hysterectomylaporoscopyFamily History:Mom-cancer bone, kidney, stomachCancer - Colorectal (Brother)Diabetes (Mother, Brother, Sister)Heart disease (Mother, Brother, Paternal Grandmother)Hypertension (Mother, Father)Hypertension (Brother)Social/Personal History: Chief Complaintfollow-up visitHistory of Present Illness (HPI)59 yo pt presents for follow up. Pt states she has still been nauseaus and diarrhea. No other complaints. It appears she missed her CT appointment a few times now. Transitions of Care InboundProblem ReviewProblem List was reviewed and/or updated during this visit.Medication Reconciliation & ReviewMedication List was reviewed and/or updated during this visit, including review of any yxdx-hhk-sjrdggf medications, herbal therapies, and/or supplements.Allergy ReviewAllergy List was reviewed and/or updated during this visit.Adult Preventive CareLabs/Meds/Other Counseling-Nutrition and Physical Activity:BMI Interpretation: Overweight (04/11/2020) Counseling: Done (04/11/2020) Physical Activity: Done (04/11/2020)Review of Systems General: Denies loss of appetite, chills, dizziness, fatigue, fever, headache. Cardiovascular: Denies chest pain, palpitations, feeling faint. Respiratory: Denies cough, difficulty breathing, shortness of breath. Gastrointestinal: Complains of see HPI, nausea, diarrhea, pain or discomfort. Denies blood in stool, black or tarry stools. Genitourinary: Denies pain with urination, burning with urination, urinary frequency, urinary hesitancy, incomplete emptying, blood in urine. Neurologic: Denies weakness, feeling faint. Physical ExamGeneral Appearance: well nourished, well hydrated, no acute distressEyes, External: conjunctivae and lids normal, EOMIRespiratory, Auscultation: clear to auscultation bilaterally; no rales, rhonchi, or wheezesCardiovascular, Auscultation: S1, S2 audible; no murmur, rub, or gallop; RRRPeripheral Circulation: no clubbing, cyanosis, edema, or varicositiesAbdomen: soft, non-tender, no masses, bowel sounds normalGait & Station: normalOrientation: oriented to time, place, and personMood & Affect: no depression, anxiety, or agitationJudgment & Insight: intactCare Management Plan Transitions of CareInboundRate Your HealthIn general, would you say your health is? FairAssessment & Plan Problems:Added: Encounter for screening mammogram for malignant neoplasm of breast (ICD-V76.12) (FHA01-O61.31) Assessment: Instructions: Mammogram ordered.Assessed:Acute diarrhea (ICD-787.91) (ICD10- R19.7) Assessment: Instructions: Scheduled for CT scan on Thursday04/13/2020. Follow-up on 04/25/2020.Continuous abdominal pain of left lower quadrant (ICD10- R10.32) Assessment: Instructions: As above.Patient Instructions/Care Plan: Acute diarrhea: Scheduled for CT scan on Thursday04/13/2020. Follow-up on 04/25/2020.Continuous abdominal pain of left lower quadrant: As above.Encounter for screening mammogram for malignant neoplasm of breast: Mammogram ordered. Plan developed in collaboration with patient and/or familyMedications:NYSTATIN [id number] UNIT/GM EXTERNAL POWDERLYRICA 50 MG ORAL CAPSULECETIRIZINE HCL 10 MG ORAL TABLETAIRDUO RESPICLICK 232/14 232-14 MCG/ACT INH AEPBEPIPEN 2-LOLA 0.3 MG/0.3ML INJECTION SOLUTION AUTO-INJECTORVENTOLIN HFA 108 (90 BASE) MCG/ACT INHALATION AEROSOL SOLUTIONACCU-CHEK MARILEE IN VITRO SOLUTIONONETOUCH DELICA LANCETS 30GACCU-CHEK MARILEE PLUS IN VITRO STRIPACCU-CHEK MARILEE PLUS W/DEVICE KITTRULICITY 0.75 MG/0.5ML SUBCUTANEOUS SOLUTION PEN-INJECT OROCEAN NASAL SPRAY 0.65 % NASAL SOLUTIONFLONASE ALLERGY RELIEF 50 MCG/ACT NASAL SUSPENSIONATORVASTATIN CALCIUM 20 MG ORAL TABLETGLUCOPHAGE 1000 MG ORAL TABLETKLONOPIN 0.5 MG ORAL TABLETTRAZODONE HCL 100 MG ORAL TABLETMONTELUKAST SODIUM 10 MG ORAL TABLETPREMPRO 0.625-2.5 MG ORAL TABLETEUTHYROX 112 MCG ORAL TABLETDULOXETINE HCL 60 MG ORAL CAPSULE DELAYED RELEASE PARTICLESLYRICA 100 MG ORAL CAPSULEINCRUSE ELLIPTA 62.5 MCG/INH INHALATION AEROSOL POWDER BREATH ACTIVATEDSYSTANE 0.4-0.3 % OPHTHALMIC SOLUTIONINDERAL LA 120 MG ORAL CAPSULE EXTENDED RELEASE 24 HOURPANTOPRAZOLE SODIUM 40 MG ORAL TABLET DELAYED RELEASEAllergies:* FRAGRANCES (Critical)* DUST (Critical)* ORANGES (Critical)* BANANAS (Critical)* SPIDERS (Critical)* BEE POLLEN (Critical)* MIOLD (Critical)* LATEX (Critical)* CODEINE (Critical)Orders:Mammography - Screening -bilateral (2-view study of each breast), including computer-aided detection (CAD) when performed [CPT-24398] Adult - Ofc Vst, EST, Level III [CPT-43463] Follow-Up Return to clinic: as needed, as scheduled Clinical Visit Summary Completed Name Value Range Interpretation Code Description Data Nadia rce(s) Supporting Document(s) ID Date Data Source [id number] 03/22/2020 05:50:00 PM EDT [facility] Name Value Range Interpretation Code Description Data Nadia rce(s) Supporting Document(s) SARS coronavirus 2 RNA [facility] This lab was ordered by [facility] and reported by [facility]. ID Date Data Source [id number] 02/17/2020 09:13:50 AM EDT [facility] Measurements & CalculationsHeight: 66 inches (5 ft. 6 in.) 167.64 cm Weight: 176 pounds 8 oz. 80.23 kg Body Mass Index (BMI): 28.59BMI Interpretation: OverweightBody Surface Area (BSA): 1.90Weight Management Education Done (Nutrition/Physical Activity)Vital SignsTemperature: 96.1F 35.61C tympanic Pulse Rate: 67 beats/minuteRespiratory Rate: 18 respirations/minuteBlood Pressure: 115/70 right arm sitting automaticO2 Saturation: 97% Vital Signs performed by: Brenda Bazan LPN, February 17, 2020 9:14 AMLabs In-House Urine TestsDate/Time Collected: February 17, 2020 9:52 AMDate/Time Received: February 17, 2020 9:52 AMTest Result Reference Range Normal ValueRoutine Urinalysis Color: yellow Yellow Appearance: clear Clear Leukocytes: 2+ Negative Nitrite: negative Negative Urobilinogen: 3.5 Negative Protein: negative Negative pH: 5.0 5.0-6.5 Blood: negative Negative Specific [place]: 1.025 1.020>=1.030 Ketone: negative Negative Bilirubin: negative Negative Glucose: negative NegativeCoraheel Bazan LPN, February 17, 2020 9:52 AMInitial Intake Information From: patientRoom #: 1Infectious Disease / Travel ScreeningRecent travel for you or any close contacts? NoHave you had any close contact with anyone diagnosed with or under investigation for COVID-19 (coronavirus)? NoFever? NoRespiratory symptoms: cough, cold, congestion, shortness of breath, difficulty breathing? NoLoss of smell? NoLoss of taste? NoSmoking, Tobacco, Vaping or Smoke Exposure StatusSmoke Status: never smokerTobacco Use: NoDo you vape? NoPassive Smoke Exposure: NoMenstrual HistoryAny possibility of ? NoComments: hysterectomyHealthcare HistorySince your last office visit...Have you been admitted to the hospital? No Have you been to an emergency room (ER) or urgent care clinic? NoHave you seen another healthcare provider? Yes - arthritis, orthoHave you seen a dentist? NoIntake performed by: Brenda Bazan LPN, February 17, 2020 9:17 AMRate Your HealthIn general, would you say your health is? GoodPain AssessmentAre you currently having any pain which... You would like your provider to address? Yes Affects your activity level? YesDepression Screening - PHQ-2Over the last two weeks, have you... Had little interest or pleasure in doing things? Not at all Been feeling down, depressed, or hopeless? Not at all PHQ-2 Score: 0Anxiety Screening - MEG-2Over the last two weeks, have you been... Feeling nervous, anxious, or on edge? Not at all Unable to stop or control worrying? Not at all MEG-2 Score: 0Food InsecurityWithin the past year...Did you worry whether your food would run out before you got money to buy more? NoWas there a time when the food you bought didn't last and you didn't have money to get more? NoPain AssessmentLocation: lower backDuration: 1 monthFrequency: DailyCharacter/Quality: aching and pressureIs the pain radiating? YesTo what body part(s) is the pain radiating? up backScreening, Brief Intervention, & Referral to Treatment (SBIRT)Pre-Screening Questions How many times have you have 4 or more drinks in a day? 0How many times have you used an illegal drug or used a prescription medication for a non-medical reason? 0Performed by: Brenda Bazan LPN, February 17, 2020 9:19 AMPatient History Medical History:Essential hypertensionHypothyroidismGERDFibromyalgiaAsthmaType II DiabetesHyperlipidemiaVitamin D deficiencyPsoriasis/Psoriatic arthritisRapid heart beatAngina- 1990Surgical History:hysterectomylaporoscopyFamily History:Mom-cancer bone, kidney, stomachCancer - Colorectal (Brother)Diabetes (Mother, Brother, Sister)Heart disease (Mother, Brother, Paternal Grandmother)Hypertension (Mother, Father)Hypertension (Brother)Social/Personal History: Chief Complaintfollow-up visit: stomach issues x1week, also has rashh?History of Present Illness (HPI)59 yo female pt presents for stomach issues. Pt states she needs refill of trulicity, has been out for 4 weeks. States she asked the pharmacy to fill but we never received the request.Pt reports intermittent diarrhea x a month, then will feel suprapubic pain and it will settle into the left side, but states no diarrhea in the last 2 days. Intermittent dysuria, but feels that is irritation from toilet paper. Has had colonoscopy with Dr. Richard. Pt also states she has some spots on her legs and stomach that she believes are psoriasis. And she notes a rash under her breast. [facility] in [place] and feels her arthritis/fibromyalgia is flaring up. She also follows with Dr. Boothe in [facility] for left rotator cuff and carpal tunnel. She hasn't been receiving follow-up or PT due to coronavirus pandemic. HPI performed by: Aldo ARAGON, February 17, 2020 9:43 AMTransitions of Care InboundProblem ReviewProblem List was reviewed and/or updated during this visit.Medication Reconciliation & ReviewMedication List was reviewed and/or updated during this visit, including review of any zpal-nlr-xdhcmwv medications, herbal therapies, and/or supplements.Allergy ReviewAllergy List was reviewed and/or updated during this visit.Adult Preventive CareLabs/Meds/Other Counseling-Nutrition and Physical Activity:BMI Interpretation: Overweight (02/17/2020) Counseling: Done (02/17/2020) Physical Activity: Done (02/17/2020)Review of Systems General: Denies chills, dizziness, fatigue, fever, headache. Cardiovascular: Denies chest pain, palpitations, feeling faint. Respiratory: Denies cough, difficulty breathing, shortness of breath. Gastrointestinal: Complains of nausea, diarrhea, pain or discomfort. Denies vomiting, blood in stool, black or tarry stools. Genitourinary: Denies pain with urination, burning with urination, incomplete emptying, blood in urine. Skin: Complains of see HPI, rash. Neurologic: Denies weakness, feeling faint. Physical ExamGeneral Appearance: well nourished, well hydrated, no acute distressEyes, External: conjunctivae and lids normal, EOMIBreasts, Inspection: erythematous confluent mild-moderate rash under both breasts with slight macerationRespiratory, Auscultation: clear to auscultation bilaterally; no rales, rhonchi, or wheezesCardiovascular, Auscultation: S1, S2 audible; no murmur, rub, or gallop; RRRPeripheral Circulation: no clubbing, cyanosis, edema, or varicositiesAbdomen: soft, mild LLQ and suprapubic pain to palpaiton, no rebound or guarding, no rigidity, no masses, bowel sounds normalGait & Station: normalSkin, Inspection: small mild patches of psoriasisOrientation: oriented to time, place, and personJudgment & Insight: intactCare Management Plan Transitions of CareInboundRate Your HealthIn general, would you say your health is? GoodAssessment & Plan Problems:Added: Generalized abdominal pain (ICD- 789.07) (XXP30-Y09.84)Candidiasis of skin (ICD-112.3) (ZNL05-Z86.2) Assessment: Instructions: Keep skin dry as much as possible. Nystatin powder twice daily until rash is gone, then as needed.Acute diarrhea (ICD-787.91) (CRQ23-S62.7) Assessment: Instructions: [place] diet. Plenty of fluid hydration. Will monitor.Changed:From: Dx of Generalized abdominal pain (ICD- 789.07) (OMP50-H94.84) To: Continuous abdominal pain of left lower quadrant (VHX63-Q17.32)Assessed:Type 2 diabetes mellitus without complications (ICD10- E11.9) Assessment: Instructions: Refilled Trulicity. Due for routine labs at this time.Fasting labs have been ordered for you today. When labs are drawn, please ensure that you have had nothing to eat or drink for 8-10 hours prior to the blood drawn. 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 Also daily thick moisturizer and avoid scratching/picking.Continuous abdominal pain of left lower quadrant (HFN74-U72.32) Assessment: Instructions: CT ordered to evaluate this chronic abdominal pain that is also accompanied by intermittent diarrhea.Neck pain (ICD-723.1) (AKY51-S27.2) Assessment: Instructions: Continue per [facility] and [facility].Sacral back pain (ICD-724.6) (ICD10- M54.5) Assessment: Instructions: As above.Removed:Dysuria (ICD-788.1) (SUM74-P96.0)Assessment not Saved Continuous abdominal pain of left lower quadrant (HGC80-L94.32): Patient Instructions/Care Plan: Type 2 diabetes mellitus without complications: Refilled Trulicity. Due for routine labs at this time.Fasting labs have been ordered for you today. When labs are drawn, french mobley ensure that you have had nothing to eat or drink for 8-10 hours prior to the blood drawn. Water or black coffee is OK to have before the blood draw.Other specified hypothyroidism: Update labs prior to next appt.Erythrodermic psoriasis: Triamcinolone cream to spots of psoriasis. Also daily thick moisturizer and avoid scratching/picking.Candidiasis of skin: Keep skin dry as much as possible. Nystatin powder twice daily until rash is gone, then as needed.Acute diarrhea: [place] diet. Plenty of fluid hydration. Will monitor.Continuous abdominal pain of left lower quadrant: CT ordered to evaluate this chronic abdominal pain that is also accompanied by intermittent diarrhea.Neck pain: Continue per [facility] and [facility].Sacral back pain: As above. Plan developed in collaboration with patient and/or familyMedications:NYSTATIN [id number] UNIT/GM EXTERNAL POWDERTRIAMCINOLONE ACETONIDE 0.1 % EXTERNAL CREAMLYRICA 50 MG ORAL CAPSULECETIRIZINE HCL 10 MG ORAL TABLETAIRDUO RESPICLICK 232/14 232-14 MCG/ACT INH AEPBEPIPEN 2-LOLA 0.3 MG/0.3ML INJECTION SOLUTION AUTO-INJECTORVENTOLIN HFA 108 (90 BASE) MCG/ACT INHALATION AEROSOL SOLUTIONACCU-CHEK MARILEE IN VITRO SOLUTIONACCU-CHEK SOFT TOUCH PO TSACCU-CHEK MARILEE PLUS IN VITRO STRIPACCU-CHEK MARILEE PLUS W/DEVICE KITTRULICITY 0.75 MG/0.5ML SUBCUTANEOUS SOLUTION PEN-INJECTOROCEAN NASAL SPRAY 0.65 % NASAL SOLUTIONFLONASE ALLERGY RELIEF 50 MCG/ACT NASAL SUSPENSIONATORVASTATIN CALCIUM 20 MG ORAL TABLETGLUCOPHAGE 1000 MG ORAL TABLETKLONOPIN 0.5 MG ORAL TABLETTRAZODONE HCL 100 MG ORAL TABLETMONTELUKAST SODIUM 10 MG ORAL TABLETPREMPRO 0.625-2.5 MG ORAL TABLETEUTHYROX 112 MCG ORAL TABLETDULOXETINE HCL 60 MG ORAL CAPSULE DELAYED RELEASE PARTICLESLYRICA 100 MG ORAL CAPSULEINCRUSE ELLIPTA 62.5 MCG/INH INHALATION AEROSOL POWDER BREATH ACTIVATEDSYSTANE 0.4-0.3 % OPHTHALMIC SOLUTIONINDERAL LA 120 MG ORAL CAPSULE EXTENDED RELEASE 24 HOURPANTOPRAZOLE SODIUM 40 MG ORAL TABLET DELAYED RELEASEMedication Changes:Refilled:TRULICITY 0.75 MG/0.5ML SUBCUTANEOUS SOLUTION [id number]-NXLAJYNT-9.75 mg SQ weekly Qty: 4[Prefilled Pen Syrnge] Refills: 5 Method: ElectronicNew Prescription:TRIAMCINOLONE ACETONIDE 0.1 % EXTERNAL CREAM-Apply thin layer to affected area twice daily for maximum of 14 days for psoriasis Qty: 60[Gram] Refills: 5 Method: ElectronicNYSTATIN [id number] UNIT/GM EXTERNAL POWDER-Apply under both breasts twice daily Qty: 1[Container] Refills: 5 Method: ElectronicChanged: To: TRULICITY 0.75 MG/0.5ML SUBCUTANEOUS SOLUTION QKT-JIVNZYMM-5.75 mg SQ weekly Qty: 4[Prefilled Pen Syrnge] Refills: 5Allergies:* FRAGRANCES (Critical)* DUST (Critical)* ORANGES (Critical)* BANANAS (Critical)* SPIDERS (Critical)* BEE POLLEN (Critical)* MIOLD (Critical)* LATEX (Critical)* CODEINE (Critical)Orders:COMP METABOLIC PANEL [CPT-78254] CBC W/DIFF [CPT-42190] HgBA1c [CPT-91467] LIPID PANEL [CPT-36862] Urinalysis-automated [CPT-09640] TSH [CPT-58200] T-4 free [CPT-35680] Adult - Ofc Vst, EST, Level III [CPT-65911] CT ABDOEN & PELVIS W/CONTRAST MATERIAL [CPT-82854] Follow-Up Return to clinic: as scheduled 02/2020 for follow upAdditional Follow-Up: diabetesClinical Visit Summary CompletedMedications:TRULICITY 0.75 MG/0.5ML SUBCUTANEOUS SOLUTION PEN-INJECTOR (DULAGLUTIDE) 0.75 mg SQ weekly #4[Prefilled Pen Syrnge] x 5 Entered and Authorized by: Aldo ARAGON Method used: Electronically to [facility] (retail) [address] [place] [address] Fax: Indications: TYPE 2 DIABETES MELLITUS WITHOUT COMPLICATIONS RxID: [id number] UNIT/GM EXTERNAL POWDER (NYSTATIN) Apply under both breasts twice daily #1[Container] x 5 Route:EXTERNAL Entered and Authorized by: Aldo ARAGON Method used: Electronically to [facility] (retail) [address] [place] [address] Note to Pharmacy: Route: EXTERNAL; Indications: CANDIDIASIS OF SKIN RxID: [id number] ACETONIDE 0.1 % EXTERNAL CREAM (TRIAMCINOLONE ACETONIDE) Apply thin layer to affected area twice daily for maximum of 14 days for psoriasis #60[Gram] x 5 Route:EXTERNAL Entered and Authorized by: Aldo ARAGON Method used: Electronically to [facility] (retail) [address] [place] [address] Note to Pharmacy: Route: EXTERNAL; Indications: ERYTHRODERMIC PSORIASIS RxID: [id number] ally signed by Aldo ARAGON on 02/28/2020 at 9:15 AM Name Value Range Interpretation Code Description Data Nadia rce(s) Supporting Document(s) ID Date Data Source [id number] 02/17/2020 09:13:50 AM EDT [facility] Name Value Range Interpretation Code Description Data Nadia rce(s) Supporting Document(s) APPEARANCE U clear [facility] BILIRUBIN UR negative [facility] BLOOD UR DIP negative [facility] GLUCOSE, URN negative [facility] KETONES URN negative [facility] Health NITRITE URN negative [facility] PH URINE 5.0 [facility] PROTEIN, URN negative [facility] [employer] SPEC GR URIN 1.025 [facility] UA COLOR yellow [facility] UROBILINOGEN 3.5 [facility] WBC DIPSTK U 2+ [facility] Health ID Date Data Source [id number] 12/22/2019 10:57:24 AM EDT [facility] Labs In-House Urine TestsDate/Time Colle cted: December 22, 2019 10:57 AMTest Result Reference Range Normal ValueKatteresaeen Lauren, December 22, 2019 10:57 AMAssessment & Plan Orders:[id number] Vst-Est Level I [CPT-36317] Name Value Range Interpretation Code Description Data Nadia rce(s) Supporting Document(s) ID Date Data Source [id number] 12/22/2019 10:55:00 AM EDT [facility] Name Value Range Interpretation Code Description Data Nadia rce(s) Supporting Document(s) URINECULTRTN NO GROWTH N [facility] ID Date Data Source [id number] 12/22/2019 10:55:00 AM EDT [facility] Name Value Range Interpretation Code Description Data Nadia rce(s) Supporting Document(s) APPEARANCE U TURBID CLEAR H [facility] SPEC GR URIN 1.023 1.002-1.035 N [facility] F [facility] UA COLOR HÉCTOR YELLOW N [facility] ID Date Data Source [id number] 12/21/2019 04:31:15 PM EDT [facility] Measurements & CalculationsHeight: 66 inches (5 ft. 6 in.) 167.64 cm Weight: 174.4 pounds 79.27 kg Body Mass Index (BMI): 28.25BMI Interpretation: OverweightBody Surface Area (BSA): 1.89Weight Management Education Done (Nutrition/Physical Activity)Vital SignsTemperature: 96.7F oral Pulse Rate: 62 beats/minuteRespiratory Rate: 20 respirations/minuteBlood Pressure: 117/72 right arm sitting automaticO2 Saturation: 100% room airVital Signs performed by: Gurpreet Beckford MA, December 21, 2019 4:36 PMInitial Intake Information from: ptSmoking, Tobacco, Vaping or Smoke Exposure StatusSmoke Status: never smokerDo you vape? NoPassive Smoke Exposure: NoMenstrual HistoryComments: hysterectomyHealthcare HistorySince your last office visit...Have you been admitted to the hospital? NoHave you been to an emergency room (ER) or urgent care clinic? NoHave you seen another healthcare provider? NoHave you seen a dentist? NoIntake performed by: Gurpreet Beckford MA, December 21, 2019 4:32 PMRate Your HealthIn general, would you say your health is? FairPain AssessmentAre you currently having any pain which... You would like your provider to address? Yes Affects your activity level? YesDepression Screening - PHQ-2Over the last two weeks, have you... Had little interest or pleasure in doing things? Not at all Been feeling down, depressed, or hopeless? Not at all PHQ-2 Score: 0Anxiety Screening - MEG-2Over the last two weeks, have you been... Feeling nervous, anxious, or on edge? Not at all Unable to stop or control worrying? Not at all MEG-2 Score: 0Infectious Disease / Travel ScreeningRecent travel for you or any close contacts? NoHave you had any close contact with anyone diagnosed with or under investigation for COVID-19 (coronavirus)? NoHave you had any of the following symptoms recently? Fever? NoRespiratory symptoms: cough, cold, congestion, shortness of breath, difficulty breathing? NoPain AssessmentLocation: chronic painScreening, Brief Intervention, & Referral to Treatment (SBIRT)Pre-Screening Questions How many times have you have 4 or more drinks in a day? 0How many times have you used an illegal drug or used a prescription medication for a non-medical reason? 0Performed by: Gurpreet Beckford MA, December 21, 2019 4:33 PMPatient History Medical History:Essential hypertensionHypothyroidismGERDFibromyalgiaAsthmaType II DiabetesHyperlipidemiaVitamin D deficiencyPsoriasis/Psoriatic arthritisRapid heart beatAngina- 1990Surgical History:hysterectomylaporoscopyFamily History:Mom-cancer bone, kidney, stomachCancer - Colorectal (Brother)Diabetes (Mother, Brother, Sister)Heart disease (Mother, Brother, Paternal Grandmother)Hypertension (Mother, Father)Hypertension (Brother)Social/Personal History: Chief Complaintfollow up back painHistory of Present Illness (HPI)Pt is here today for a follow up on her back pain from a fall in October 2019. Pt states the pain has been really bad at time and it is hard for her to sleep. Pt would also like to talk about a possible UTI. Pt states it is burning and stinging when she uses the bathroom. Pt does feel as if she has to go but then has only a small volume and she states she is going more frequently. Denies fever, abdominal pain. Pt also thinks she may have a URI because her ears are bothering her. Pt is worried about her asthma acting up. Pt had a dry cough a couple days ago. Pt states she gets an iiritation in her chest when she takes a deep breath.HPI performed by: Aldo ARAGON, December 21, 2019 5:03 PMProblem ReviewProblem List was reviewed and/or updated during this visit.Medication Reconciliation & ReviewMedication List was reviewed and/or updated during this visit, including review of any gogf-etj-krhriqs medications, herbal therapies, and/or supplements.Allergy ReviewAllergy List was reviewed and/or updated during this visit.Adult Preventive CareLabs/Meds/Other Counseling-Nutrition and Physica l Activity:BMI Interpretation: Overweight (12/21/2019) Counseling: Done (12/21/2019) Physical Activity: Done (12/21/2019)Review of Systems General: Denies loss of appetite, chills, dizziness, fatigue, fever, headache. Ears/Nose/Throat: Complains of earache, nasal congestion. Denies sore throat, swollen glands. Cardiovascular: Denies chest pain, palpitations, feeling faint, SOB upon lying down, peripheral edema. Respiratory: Complains of see HPI, cough, shortness of breath. Denies excessive sputum, coughing up blood, chest pain. Gastrointestinal: Denies nausea, vomiting, diarrhea, constipation, pain or discomfort. Genitourinary: Complains of burning with urination, urinary frequency, urinary urgency. Denies urinary incontinence, blood in urine, pelvic pain. Musculoskeletal: Complains of see HPI, back pain, muscle aches, stiffness. Denies recent injury. Skin: Denies rash, redness, itching. Neurologic: Denies weakness, numbness/tingling, feeling faint. Physical ExamGeneral Appearance: well nourished, well hydrated, no acute distressEyes, External: conjunctivae and lids normal, EOMIExternal Ears: normal, no lesions or deformitiesHearing: grossly intactOtoscopy: canals clear, tympanic membranes intact, no fluid, light reflex intact bilaterallyExternal Nose: normal, no lesions or deformitiesNasal: mucosa, septum, and turbinates normal, nares patent; Clear nasal drainage.Lips/Teeth/Gums: no gingival inflammation, no labial lesionsPharynx: tongue normal, posterior pharynx without erythema or exudate, no thrush/aphthous ulcerNeck: supple, no masses, trachea midline, full range of motion of neck, no adenopathyThyroid: no nodules, masses, tenderness, or enlargementRespiratory, Auscultation: clear to auscultation bilaterally; no rales, rhonchi, or wheezesRespiratory, Effort: no intercostal retractions or use of accessory musclesCardiovascular, Auscultation: S1, S2 audible; no murmur, rub, or gallop; RRRPeripheral Circulation: no clubbing, cyanosis, edema, or varicositiesAbdomen: soft, non-tender, no masses, bowel sounds normalGait & Station: normalHead & Neck: normal alignment and mobilityBack: diffusely tender along spine, no crepitus or bony abnormality appreciated, negative straight leg raise b/lFoot Inspection, Right: Normal examFoot Inspection, Left: Normal examOrientation: oriented to time, place, and personJudgment & Insight: intactRate Your HealthIn general, would you say your health is? FairAssessment & Plan Problems:Added: Dysuria (ICD-788.1) (RCQ33-F79.0) Assessment: Instructions: Please return to [facility] tomorrow for clean catch urine sample, will send for culture and call you if antibiotics are necessary. Stay well hydrated, urinate often. ER for severe symptoms.Assessed:Sacral back pain (ICD-724.6) (JWA23-W64.5) Assessment: Instructions: Minimal arthritis. Recommend supportive measures: heat/ice, gentle stretching, safe body mechanics. Consider physical therapy and/or orthopedics for further evaluation in the future.Take Lyrica as prescribed by your outside provider.Pain in thoracic spine (ICD-724.1) (LBG18-Y67.6) Assessment: Instructions: As above.Mild persistent asthma, uncomplicated (XAA88-P88.30) Assessment: Instructions: Start cetirizine daily.Patient Instructions/Care Plan: Dysuria: Please return to [facility] tomorrow for clean catch urine sample, will send for culture and call you if antibiotics are necessary. Stay well hydrated, urinate often. ER for severe symptoms.Sacral back pain: Minimal arthritis. Recommend supportive measures: heat/ice, gentle stretching, safe body mechanics. Consider physical therapy and/or orthopedics for further evaluation in the future.Take Lyrica as prescribed by your outside provider.Pain in thoracic spine: As above.Mild persistent asthma- uncomplicated: Start cetirizine daily. Plan developed in collaboration with patient and/or familyMedications:LYRICA 50 MG ORAL CAPSULECETIRIZINE HCL 10 MG ORAL TABLETAIRDUO RESPICLICK 232/14 232-14 MCG/ACT INH AEPBEPIPEN 2-LOLA 0.3 MG/0.3ML INJECTION SOLUTION AUTO- INJECTORVENTOLIN HFA 108 (90 BASE) MCG/ACT INHALATION AEROSOL SOLUTIONACCU-CHEK MARILEE IN VITRO SOLUTIONACCU-CHEK SOFT TOUCH LANCETSACCU-CHEK MARILEE PLUS IN VITRO STRIPACCU-CHEK MARILEE PLUS W/DEVICE KITTRULICITY 0.75 MG/0.5ML SUBCUTANEOUS SOLUTION PEN-INJECTOROCEAN NASAL SPRAY 0.65 % NASAL SOLUTIONFLONASE ALLERGY RELIEF 50 MCG/ACT NASAL SUSPENSIONATORVASTATIN CALCIUM 20 MG ORAL TABLETGLUCOPHAGE 1000 MG ORAL TABLETKLONOPIN 0.5 MG ORAL TABLETTRAZODONE HCL 100 MG ORAL TABLETMONTELUKAST SODIUM 10 MG ORAL TABLETPREMPRO 0.625-2.5 MG ORAL TABLETEUTHYROX 112 MCG ORAL TABLETDULOXETINE HCL 60 MG ORAL CAPSULE DELAYED RELEASE PARTICLESLYRICA 100 MG ORAL CAPSULEINCRUSE ELLIPTA 62.5 MCG/INH INHALATION AEROSOL POWDER BREATH ACTIVATEDSYSTANE 0.4-0.3 % OPHTHALMIC SOLUTIONINDERAL LA 120 MG ORAL CAPSULE EXTENDED RELEASE 24 HOURPANTOPRAZOLE SODIUM 40 MG ORAL TABLET DELAYED RELEASEMedication Changes:Added: LYRICA 50 MG ORAL CAPSULE-Take 1 capsule daily in the AMNew Prescription:CETIRIZINE HCL 10 MG ORAL TABLET-Take 1 tablet po daily Qty: 30[Tablet] Refills: 3 Method: ElectronicAllergies:* FRAGRANCES (Critical)* DUST (Critical)* ORANGES (Critical)* BANANAS (Critical)* SPIDERS (Critical)* BEE POLLEN (Critical)* MIOLD (Critical)* LATEX (Critical)* CODEINE (Critical)Orders:URINALYSIS [CPT-39711] Urine Culture & Sensitivity [CPT-80591] Adult - Ofc Vst, EST, Level III [CPT- 96577] Follow-Up Return to clinic: in 90 days for follow upClinical Visit Summary DeclinedMedications:CETIRIZINE HCL 10 MG ORAL TABLET (CETIRIZINE HCL) Take 1 tablet po daily #30[Tablet] x 3 Route:ORAL Entered and Authorized by: Aldo ARAGON Method used: Electronically to [facility] ([facility]) [address] [place] [address] Note to Pharmacy: Route: ORAL; Indications: MILD PERSISTENT ASTHMA, UNCOMPLICATED;ALLERGY TO BEE VENOM RxID: [id number] signed by Aldo ARAGON on 12/28/2019 at 8:17 AM Name Value Range Interpretation Code Description Data Nadia rce(s) Supporting Document(s) ID Date Data Source [id number] 11/04/2019 12:00:00 AM EST [facility] Aldo ARAGON Patient Name: JOSH GUPTA Date of : 1960[place] [address] Date of Exam: 11/04/2019PH#: Fax: [phone] EXAM: LUMBOSACRAL SPINE COMPLETE WITH BENDING XRAYCLINICAL INFORMATION: Pain.Seven views views with flexion and extension.There is no compression fracture or malalignment. There is normal lumbarlordosis. There is slight disc space narrowing at L2-3. There is somesclerosis at the facets of L4-5 and L5-S1. Posterior elements are intact.There is mild sclerosis at the sacroiliac joints.IMPRESSION:Minor degenerative changes. No fracture or dislocation.JENN Lim/Mario you for referring BROOKS GUPTA to our office. Electronically Signed - KRISTAL ALCARAZ MD 11/04/19 16:40 Name Value Range Interpretation Code Description Data Nadia rce(s) Supporting Document(s) ID Date Data Source [id number] 11/04/2019 12:00:00 AM EST [facility] Aldo ARAGON Patient Name: JOSH GUPTA [facility] Date of : 1960[place] [address] Date of Exam: 11/04/2019PH#: Fax: [phone] EXAM: CERVICAL SPINE COMPLETE XRAYCLINICAL INFORMATION: Pain.Seven views.There is no fracture or dislocation. Vertebral bodies are normal in heightand are well aligned with normal cervical lordosis. There is noprevertebral soft tissue swelling. Disc spaces are well preserved. I seeno radiographic evidence of significant neural foraminal narrowing.IMPRESSION:Negative cervical spine series.JENN Lim/Mario you for referring BROOKS GUPTA to our office. Electronically Signed - KRISTAL ALCARAZ MD 11/04/19 16:40 Name Value Range Interpretation Code Description Data Nadia rce(s) Supporting Document(s) ID Date Data Source [id number] 11/04/2019 12:00:00 AM EST [facility] Aldo ARAGON Patient Name: JOSH GUPTA Date of : 1960[place] [address] Date of Exam: 11/04/2019PH#: Fax: [phone] EXAM: THORACIC SPINE (3 VIEW) XRAYCLINICAL INFORMATION: Pain.Three AP and lateral views of the thoracic spine are performed.There is no compression fracture or malalignment. There is normal thoracickyphosis. I do not see significant disc space narrowing at any level. Theposterior elements are intact.IMPRESSION:Negative thoracic spine series.JENN Lim/Mario you for referring BROOKS GUPTA to our office. Electronically Signed - KRISTAL ALCARAZ MD 11/04/19 16:40 Name Value Range Interpretation Code Description Data Nadia rce(s) Supporting Document(s) ID Date Data Source [id number] 10/31/2019 01:48:53 PM [facility] Measurements & CalculationsHeight: 66 inches 167.64 cm Weight: 178 pounds 80.91 kg Body Mass Index (BMI): 28.83BMI Interpretation: OverweightBody Surface Area (BSA): 1.91Weight Management Education Done (Nutrition/Physical Activity)Vital Signs tympanic Pulse Rate: 75 beats/minuteRespiratory Rate: 20 respirations/minuteBlood Pressure: 115/78 left arm sitting automaticO2 Saturation: 95% room airVital Signs performed by: Gurpreet Beckford MA, October 31, 2019 1:57 PMVital Signs performed by: Aldo ARAGON, October 31, 2019 2:06 PMInitial Intake Information from: [facility] #: 9Smoking, Tobacco, Vaping or Smoke Exposure StatusSmoke Status: never smokerTobacco Use: NoDo you vape? NoPassive Smoke Exposure: NoMenstrual HistoryComments: hysterectomgHealthcare HistorySince your last office visit...Have you been admitted to the hospital? NoHave you been to an emergency room (ER) or urgent care clinic? YesHave you seen another healthcare provider? NoHave you seen a dentist? NoIntake performed by: Gurpreet Beckford MA, October 31, 2019 1:54 PMRate Your HealthIn general, would you say your health is? FairPain AssessmentAre you currently having any pain which... You would like your provider to address? Yes Affects your activity level? YesDepression Screening - PHQ-2Over the last two weeks, have you... Had little interest or pleasure in doing things? Not at all Been feeling down, depressed, or hopeless? Not at all PHQ-2 Score: 0Anxiety Screening - MEG-2Over the last two weeks, have you been... Feeling nervous, anxious, or on edge? Not at all Unable to stop or control worrying? Not at all MEG-2 Score: 0Infectious Disease / Travel ScreeningRecent travel for you, your family, and/or any sexual partners? NoPain AssessmentLocation: neck and backDuration: chronicFrequency: DailyScreening, Brief Intervention, & Referral to Treatment (SBIRT)Pre-Screening Questions How many times have you have 4 or more drinks in a day? 0How many times have you used an illegal drug or used a prescription medication for a non- medical reason? 0Performed by: Gurpreet Beckford MA, October 31, 2019 1:57 PMPatient History Medical History:Essential hypertensionHypothyroidismGERDFibromyalgiaAsthmaType II DiabetesHyperlipidemiaVitamin D deficiencyPsoriasisRapid heart beatAngina- 1990Surgical History:hysterectomylaporoscopyFamily History:Mom-cancer bone, kidney, stomachCancer - Colorectal (Brother)Diabetes (Mother, Brother, Sister)Heart disease (Mother, Brother, Paternal Grandmother)Hypertension (Mother, Father)Hypertension (Brother)Social/Personal History: Chief Complaintf/u glucose readingHistory of Present Illness (HPI)59 y/o female here today to go over glucose readings. Unfortunately she forgot to bring her meter today and does not know how to use the meter, so has not been able to check her sugars at home.Pt also states that she fell on ice on Thursday10/23/2019. Hit the nape of her neck, back, left shoulder, b/l wrists/hands; no LOC. Reports continued neck, thoracic, and tailbone pain. She states she went to [facility] urgent care and they told pt it was to early to tell if she was hurt, record release signed today. Pt reports no xrays were taken. Pt stated she thought she got a concussion. Pt reports she had tunnel vision x 2 days, with headaches. Pt states she gets dizzy when she moves her neck up and down and has headaches on and off. Feels improvement but still some pain.Pt also reports nasal congestion and mild cough since yesterday. Denies fever. Pt would like to talk about referral regarding allergies. HPI performed by: Aldo ARAGON, October 31, 2019 2:07 PMTransitions of Care InboundProblem ReviewProblem List was reviewed and/or updated during this visit.Medication Reconciliation & ReviewMedication List was reviewed and/or updated during this visit, including review of any jkni-hbh-zfnqcws medications, herbal therapies, and/or supplements.Allergy ReviewAllergy List was reviewed and/or updated during this visit.Adult Preventive CareLabs/Meds/Other Counseling-Nutrition and Physical Activity:BMI Interpretation: Overweight (10/31/2019) Counseling: Done (10/31/2019) Physical Activity: Done (10/31/2019)Review of Systems General: Denies loss of appetite, chills, dizziness, fatigue, fever, headache, feeling ill. Ears/Nose/Throat: Complains of see HPI, nasal congestion. Denies earache, sore throat, difficulty swallowing, swollen glands. Cardiovascular: Complains of palpitations. Denies chest pain, feeling faint, trouble breathing w/exertion, peripheral edema, elevated blood pressure. Respiratory: Complains of cough. Denies difficulty breathing, shortness of breath, excessive sputum, wheezing. Gastrointestinal: Denies nausea, vomiting, diarrhea, constipation, pain or discomfort. Musculoskeletal: Complains of see HPI, back pain, joint pain, muscle aches, stiffness, recent injury. Neurologic: Denies numbness/tingling, seizures, slurred speech, feeling faint, paralysis on one side, paralysis on both sides. denies loss of consciousness, loss of bowel/bladder controlPhysical ExamGeneral Appearance: well nourished, well hydrated, no acute distressEyes, External: conjunctivae and lids normal, EOMIRespiratory, Auscultation: clear to auscultation bilaterally; no rales, rhonchi, or wheezesCardiovascular, Auscultation: S1, S2 audible; no murmur, rub, or gallop; RRRPeripheral Circulation: no clubbing, cyanosis, edema, or varicositiesAbdomen: soft, non- tender, no masses, bowel sounds normalGait & Station: normalHead & Neck: normal alignment and mobilityBack: diffusely tender along spine, no crepitus or bony abnormality appreciatedOrientation: oriented to time, place, and personMood & Affect: no depression, anxiety, or agitationJudgment & Insight: intactCare Management Plan Transitions of CareInboundRate Your HealthIn general, would you say your health is? FairAssessment & Plan Problems:Added: Mild persistent asthma, uncomplicated (HXB51-R81.30) Assessment: Instructions: As above.Intermittent palpitations (ICD-785.1) (PMJ52-G30.2) Assessment: Instructions: Referral generate for cardiac eval per your request.Neck pain (ICD-723.1) (DIX71-M90.2) Assessment: Instructions: Xrays as ordered.Pain in thoracic spine (ICD-724.1) (IPE29-I89.6) Assessment: Instructions: Xrays as ordered.Sacral back pain (ICD-724.6) (KGU14-R08.5) Assessment: Instructions: Xrays as ordered.Assessed:Type 2 diabetes mellitus without complications (RAX59-N38.9) Assessment: Instructions: Labs drawn today. Will notify you of results and adjust treatment as indicated based on labs. Recommend low carbohydrate diet: reduce pasta, bread, potatoes, rice. If you do eat carbohydrates, better choices are whole wheat and brown rice products. Recommend portion control and avoidance of soda and sugary foods. Increase physical activity and monitor weight. Recommend annual evaluation of eye and foot health, either here or with a specialist office. Monitor blood sugars at home and call with any concerns.Other specified hypothyroidism (HEA12-L72.8) Assessment: Instructions: Labs stable on current dose of thyroid medication .Allergy to bee venom (ICD-995.3) (UKP64-E06.030) Assessment: Instructions: Referred to asthma/correctional maintenance technician.Assessment not Saved Other specified hypothyroidism (DSD99-J66.8): Patient Instructions/Care Plan: Type 2 diabetes mellitus without complications: Labs drawn today. Will notify you of results and adjust treatment as indicated based on labs. Recommend low carbohydrate diet: reduce pasta, bread, potatoes, rice. If you do eat carbohydrates, better choices are whole wheat and brown rice products. Recommend portion control and avoidance of soda and sugary foods. Increase physical activity and monitor weight. Recommend annual evaluation of eye and foot health, either here or with a specialist office. Monitor blood sugars at home and call with any concerns.Other specified hypothyroidism: Labs stable on current dose of thyroid medication.Allergy to bee venom: Referred to asthma/correctional maintenance technician.Mild persistent asthma- uncomplicated: As above.Intermittent palpitations: Referral generate for cardiac eval per your request.Neck pain: Xrays as ordered.Pain in thoracic spine: Xrays as ordered.Sacral back pain: Xrays as ordered. Plan developed in collaboration with patient and/or familyMedications:AIRDUO RESPICLICK 232/14 232-14 MCG/ACT INH AEPBEPIPEN 2-LOLA 0.3 MG/0.3ML INJECTION SOLUTION AUTO-INJECTORVENTOLIN HFA 108 (90 BASE) MCG/ACT INHALATION AEROSOL SOLUTIONACCU-CHEK MARILEE IN VITRO SOLUTIONACCU-CHEK SOFT TOUCH LANCETSACCU-CHEK MARILEE PLUS IN VITRO STRIPACCU-CHEK MARILEE PLUS W/DEVICE KITTRULICITY 0.75 MG/0.5ML SUBCUTANEOUS SOLUTION PEN-INJECTOROCEAN NASAL SPRAY 0.65 % NASAL SOLUTI ONFLONASE ALLERGY RELIEF 50 MCG/ACT NASAL SUSPENSIONATORVASTATIN CALCIUM 20 MG ORAL TABLETGLUCOPHAGE 1000 MG ORAL TABLETKLONOPIN 0.5 MG ORAL TABLETTRAZODONE HCL 100 MG ORAL TABLETMONTELUKAST SODIUM 10 MG ORAL TABLETPREMPRO 0.625-2.5 MG ORAL TABLETEUTHYROX 112 MCG ORAL TABLETDULOXETINE HCL 60 MG ORAL CAPSULE DELAYED RELEASE PARTICLESLYRICA 100 MG ORAL CAPSULEINCRUSE ELLIPTA 62.5 MCG/INH INHALATION AEROSOL POWDER BREATH ACTIVATEDSYSTANE 0.4-0.3 % OPHTHALMIC SOLUTIONINDERAL LA 120 MG ORAL CAPSULE EXTENDED RELEASE 24 HOURPANTOPRAZOLE SODIUM 40 MG ORAL TABLET DELAYED RELEASEMedication Changes:Removed:TESSALON PERLES 100 MG ORAL CAPSULE-Take one tab po TID as needed for cough Qty: 30[Capsule] Refills: 0, ASPIRIN 81 81 MG ORAL TABLET DELAYED RELEASE-1 po daily Qty: 90[Tablet] Refills: 3, CEFUROXIME AXETIL 500 MG ORAL TABLET-1 tab q12 h, ADVAIR DISKUS 250-50 MCG/DOSE INHALATION AEROSOL POWDER BREATH ACTIVATED-1 puff inhaled twice daily Qty: 1[Inhaler] Refills: 5, ONETOUCH ULTRA 2 W/DEVICE KIT- uad Qty: 1[Kit] Refills: 1, ONETOUCH ULTRASOFT LANCETS-test qid Qty: 120[Unspecified] Refills: 5, ONETOUCH ULTRA BLUE IN VITRO STRIP-test qid Qty: 120[Strip] Refills: 5, ONETOUCH ULTRA 2 W/DEVICE KIT-uad Qty: 1[Kit] Refills: 1, PROAIR HFA AEROSOL SOLUTION-2 puff inhaled q6h PRNAllergies:* FRAGRANCES (Critical)* DUST (Critical)* ORANGES (Critical)* BANANAS (Critical)* SPIDERS (Critical)* BEE POLLEN (Critical)* MIOLD (Critical)* LATEX (Critical)* CODEINE (Critical)Orders:X-Ray - Spine, cervical, minimum of 4 views (C5) [CPT-01744] X- Ray - Spine, thoracic, 3 views [CPT-97259] X-Ray - Spine, lumbosacral, complete, including bending views [CPT-57266] Allergy Consult [CPT-02212] Cardiology Consult [CPT-39770] Adult - Ofc Vst, EST, Level III [CPT-50739] Follow-Up Return to clinic: in 6 weeks for follow upAdditional Follow-Up: referral follow- upClinical Visit Summary Completed] Name Value Range Interpretation Code Description Data Nadia rce(s) Supporting Document(s) ID Date Data Source [id number] 10/06/2019 03:00:00 PM [facility] Name Value Range Interpretation Code Description Data Nadia rce(s) Supporting Document(s) T4, FREE 1.15 ng/dL 0.76-1.46 N [facility] TSH 2.130 microintl units/mL 0.358-3.740 N [facility] ID Date Data Source [id number] 10/06/2019 03:00:00 PM [facility] Name Value Range Interpretation Code Description Data Nadia rce(s) Supporting Document(s) HGBA1C 6.8 % N [facility] ID Date Data Source [id number] 10/06/2019 02:10:37 PM [facility] Measurements & CalculationsHeight: 66 inches (5 ft. 6 in.) 167.64 cm Weight: 172 pounds 78.18 kg Body Mass Index (BMI): 27.86BMI Interpretation: OverweightBody Surface Area (BSA): 1.88Weight Management Education Done (Nutrition/Physical Activity)Vital SignsTemperature: 97.5FPulse Rate: 78 beats/minuteRespiratory Rate: 17 respirations/minuteBlood Pressure: 106/74 O2 Saturation: 97% Vital Signs performed by: Yoselyn Edwards MA, October 06, 2019 2:20 PMVital Signs performed by: Aldo ARAGON, October 06, 2019 2:30 PMInitial Intake Information from: patientRoom #: 12Infectious Disease- Travel Have you or your sexual partner travelled outside of the country recently? NoSmoking, Tobacco or Smoke Exposure StatusSmoke Status: never smokerTobacco Use: NoPassive Smoke Exposure: NoMenstrual HistoryComments: hysterectomy Healthcare HistorySince your last office visit...Have you been admitted to the hospital? NoHave you been to an emergency room (ER) or urgent care clinic? NoHave you seen another healthcare provider? YesHave you seen a dentist? NoIntake performed by: Yoselyn Edwards MA, October 06, 2019 2:12 PMRate Your HealthIn general, would you say your health is? GoodPain AssessmentAre you currently having any pain which... You would like your provider to address? No Affects your activity level? NoDepression Screening - PHQ-2Over the last two weeks, have you... Had little interest or pleasure in doing things? Not at all Been feeling down, depressed, or hopeless? Not at all PHQ-2 Score: 0Anxiety Screening - MEG-2Over the last two weeks, have you been... Feeling nervous, anxious, or on edge? Not at all Unable to stop or control worrying? Not at all MEG-2 Score: 0Screening, Brief Intervention, & Referral to Treatment (SBIRT)Pre- Screening Questions How many times have you have 4 or more drinks in a day? 0How many times have you used an illegal drug or used a prescription medication for a non-medical reason? 0Performed by: Yoselyn Edwards MA, October 06, 2019 2:12 PMPatient History Medical History:Essential hypertensionHypothyroidismGERDFibromyalgiaAsthmaType II DiabetesHyper lipidemiaVitamin D deficiencyPsoriasisRapid heart beatAngina- 1990Surgical History:hysterectomylaporoscopyFamily History:Mom-cancer bone, kidney, stomachCancer - Colorectal (Brother)Diabetes (Mother, Brother, Sister)Heart disease (Mother, Brother, Paternal Grandmother)Hypertension (Mother, Father)Hypertension (Brother)Social/Personal History: Smoking Status: never smokerChief ComplaintDMHistory of Present Illness (HPI)Pt is a 59 y/o female, presents today for diabetic follow-up. Pt is due for labs today. Last labs were 05/2019 at which time A1c was 9.2. Pt currently is taking Metformin and Trulicity. HPI performed by: Aldo ARAGON, October 06, 2019 2:30 PMTransitions of Care InboundProblem ReviewProblem List was reviewed and/or updated during this visit.Medication Reconciliation & ReviewMedication List was reviewed and/or updated during this visit, including review of any [id number] medications, herbal therapies, and/or supplements.Allergy ReviewAllergy List was reviewed and/or updated during this visit.Adult Preventive CareProvider Calculated and Reviewed all Clinical Protocols for patient today. Labs/Meds/Other Counseling-Nutrition and Physical Activity:BMI Interpretation: Overweight (10/06/2019) Counseling: Done (10/06/2019) Physical Activity: Done (10/06/2019)Cancer Screening Pap Smear/HPV TestingReviewed: Previous Comments: needs referral (07/08/2019)Review of Systems General: Denies chills, dizziness, fatigue. Cardiovascular: Denies chest pain, feeling faint. Respiratory: Denies cough, shortness of breath, wheezing. Gastrointestinal: Denies nausea, vomiting, diarrhea, pain or discomfort. Neurologic: Denies weakness, feeling faint. Psychiatric: Denies depression, anxiety. Physical ExamGeneral Appearance: well nourished, well hydrated, no acute distressEyes, External: conjunctivae and lids normal, EOMIRespiratory, Auscultation: clear to auscultation bilaterally; no rales, rhonchi, or wheezesCardiovascular, Auscultation: S1, S2 audible; no murmur, rub, or gallop; RRRPeripheral Circulation: no clubbing, cyanosis, edema, or varicositiesAbdomen: soft, non- tender, no masses, bowel sounds normalGait & Station: normalSkin, Inspection: small mild patches of psoriasisOrientation: oriented to time, place, and personMood & Affect: no depression, anxiety, or agitationJudgment & Insight: intactCare Management Plan Transitions of CareInboundRate Your HealthIn general, would you say your health is? GoodAssessment & Plan Problems:Assessed:Type 2 diabetes mellitus without complications (TQH99-E57.9) Assessment: Instructions: Labs drawn today. Will notify you of results and adjust treatment as indicated based on labs. Recommend low carbohydrate diet: reduce pasta, bread, potatoes, rice. If you do eat carbohydrates, better choices are whole wheat and brown rice products. Recommend portion control and avoidance of soda and sugary foods. Increase physical activity and monitor weight. Recommend annual evaluation of eye and foot health, either here or with a specialist office. Monitor blood sugars at home and call with any concerns.Other specified hypothyroidism (EDL76-L63.8) Assessment: Instructions: Labs drawn today, will adjust treatment as indicated based on labs.Erythrodermic psoriasis (ICD- 696.1) (LXX76-X17.8) Assessment: Instructions: Triamcinolone as needed for flares.Removed:Acute maxillary sinusitis, unspecified (EJQ86-J76.00), Acute upper respiratory infection, unspecified (KBL60-V87.9), Encounter for screening for other metabolic disorders (EEC41-L92.228)Patient Instructions/Care Plan: Type 2 diabetes mellitus without complications: Labs drawn today. Will notify you of results and adjust treatment as indicated based on labs. Recommend low carbohydrate diet: reduce pasta, bread, potatoes, rice. If you do eat carbohydrates, better choices are whole wheat and brown rice products. Recommend portion control and avoidance of soda and sugary foods. Increase physical activity and monitor weight. Recommend annual evaluation of eye and foot health, either here or with a specialist office. Monitor blood sugars at home and call with any concerns.Other specified hypothyroidism: Labs drawn today, will adjust treatment as indicated based on labs.Erythrodermic psoriasis: Triamcinolone as needed for flares. Plan developed in collaboration with patient and/or familyMedications:TRIAMCINOLONE ACETONIDE 0.1 % EXTERNAL OINTMENTAIRDUO RESPICLICK 232/14 232-14 MCG/ACT INH AEPBEPIPEN 2-LOLA 0.3 MG/0.3ML INJECTION SOLUTION AUTO-INJECTORTESSALON PERLES 100 MG ORAL CAPSULEONETOUCH ULTRA 2 W/DEVICE KITONETOUCH ULTRASOFT LANCETSONETOUCH ULTRA BLUE IN VITRO STRIPONETOUCH ULTRA 2 W/DEVICE KITVENTOLIN HFA 108 (90 BASE) MCG/ACT INHALATION AEROSOL SOLUTIONACCU-CHEK MARILEE IN VITRO SOLUTIONACCU-CHEK SOFT TOUCH LANCETSACCU-CHEK MARILEE PLUS IN VITRO STRIPACCU-CHEK MARILEE PLUS W/DEVICE KITTRULICITY 0.75 MG/0.5ML SUBCUTANEOUS SOLUTION PEN-INJECTORASPIRIN 81 81 MG ORAL TABLET DELAYED RELEASEOCEAN NASAL SPRAY 0.65 % NASAL SOLUTIONFLONASE ALLERGY RELIEF 50 MCG/ACT NASAL SUSPENSIONCEFUROXIME AXETIL 500 MG ORAL TABLETATORVASTATIN CALCIUM 20 MG ORAL TABLETGLUCOPHAGE 1000 MG ORAL TABLETKLONOPIN 0.5 MG ORAL TABLETTRAZODONE HCL 100 MG ORAL TABLETMONTELUKAST SODIUM 10 MG ORAL TABLETPROAIR HFA AEROSOL SOLUTIONPREMPRO 0.625-2.5 MG ORAL TABLETEUTHYROX 112 MCG ORAL TABLETADVAIR DISKUS 250-50 MCG/DOSE INHALATION AEROSOL POWDER BREATH ACTIVATEDDULOXETINE HCL 60 MG ORAL CAPSULE DELAYED RELEASE PARTICLESLYRICA 100 MG ORAL CAPSULEINCRUSE ELLIPTA 62.5 MCG/INH INHALATION AEROSOL POWDER BREATH ACTIVATEDSYSTANE 0.4-0.3 % OPHTHALMIC SOLUTIONINDERAL LA 120 MG ORAL CAPSULE EXTENDED RELEASE 24 HOURPANTOPRAZOLE SODIUM 40 MG ORAL TABLET DELAYED RELEASEMedication Changes:New Prescription:TRIAMCINOLONE ACETONIDE 0.1 % EXTERNAL OINTMENT-Apply thin layer once daily affected area once daily x 14 days Qty: 30[Gram] Refills: 5 Method: ElectronicAllergies:* FRAGRANCES (Critical)* DUST (Critical)* ORANGES (Critical)* BANANAS (Critical)* SPIDERS (Critical)* BEE POLLEN (Critical)* MIOLD (Critical)* LATEX (Critical)* CODEINE (Critical)Orders:HgBA1c [CPT-94066] TSH [CPT-47892] T-4 free [CPT-90434] 43232 - Venipuncture [CPT-94990] Adult - Ofc Vst, EST, Level III [CPT-32544] Follow-Up Return to clinic: in 2 weeks for follow upAdditional Follow-Up: lab reviewClinical Visit Summary DeclinedMedications:TRIAMCINOLONE ACETONIDE 0.1 % EXTERNAL OINTMENT (TRIAMCINOLONE ACETONIDE) Apply thin layer once daily affected area once daily x 14 days #30[Gram] x 5 Route:EXTERNAL Entered and Authorized by: Aldo ARAGON Method used: Electronically to [facility] (retail) [address] [place] [address] Note to Pharmacy: Route: EXTERNAL; Indications: ERYTHRODERMIC PSORIASIS RxID: [id number] In-House Blood TestsDate/Time Collected: October 06, 2019 3:11 PMTest Result Reference Range Normal ValueComments: blood draw done in office done in the left ac tolerated Danay Moss MA, October 06, 2019 3:12 PM Name Value Range Interpretation Code Description Data Nadia rce(s) Supporting Document(s) ID Date Data Source [id number] 10/06/2019 07:55:00 AM EST [facility] ([facility]) Name Value Range Interpretation Code Description Data Nadia rce(s) Supporting Document(s) Free T4 1.15 [facility] ([facility] Thyroid Stimulating Hormone 2.130 ME DENT ([facility]) ID Date Data Source [id number] 10/06/2019 07:55:00 AM EST [facility] ([facility]) Name Value Range Interpretation Code Description Data Nadia rce(s) Supporting Document(s) Hemoglobin A1c/Hemoglobin.total in Blood 6.8 [facility] ([facility]) ID Date Data Source [id number] 09/02/2019 09:05:36 AM EST [facility] Measurements & CalculationsHeight: 66 inches (5 ft. 6 in.) 167.64 cm Weight: 170.6 pounds 77.55 kg Body Mass Index (BMI): 27.64BMI Interpretation: OverweightBody Surface Area (BSA): 1.87Weight Management Education Done (Nutrition/Physical Activity)Vital SignsTemperature: 97.8F oral Pulse Rate: 86 beats/minuteRespiratory Rate: 17 respirations/minuteBlood Pressure: 113/80 left arm sitting automaticO2 Saturation: 94% room airVital Signs performed by: Bhavani Vinson LPN, September 02, 2019 9:15 AMInitial Intake Information from: patientRoom #: 14Infectious Disease- Travel Have you or your sexual partner travelled outside of the country recently? NoSmoking, Tobacco or Smoke Exposure StatusSmoke Status: never smokerTobacco Use: NoPassive Smoke Exposure: NoMenstrual HistoryComments: hysterectomyHealthcare HistorySince your last office visit...Have you been admitted to the hospital? NoHave you been to an emergency room (ER) or urgent care clinic? NoHave you seen another healthcare provider? Yes - [facility] associatesHave you seen a dentist? NoIntake performed by: Bhavani Vinson LPN, September 02, 2019 9:10 AMRate Your HealthIn general, would you say your health is? GoodPain AssessmentAre you currently having any pain which... You would like your provider to address? No Affects your activity level? NoDepression Screening - PHQ-2Over the last two weeks, have you... Had little interest or pleasure in doing things? Not at all Been feeling down, depressed, or hopeless? Not at all PHQ-2 Score: 0Anxiety Screening - MEG-2Over the last two weeks, have you been... Feeling nervous, anxious, or on edge? Not at all Unable to stop or control worrying? Not at all MEG-2 Score: 0Screening, Brief Intervention, & Referral to Treatment (SBIRT)Pre-Screening Questions How many times have you have 4 or more drinks in a day? 0How many times have you used an illegal drug or used a prescription medication for a non-medical reason? 0Performed by: Bhavani Vinson LPN, September 02, 2019 9:10 AMPatient History Medical History:Essential hypertensionHypothyroidismGERDFibromyalgiaAsthmaType II DiabetesHyperlipidemiaVitamin D deficiencyPsoriasisRapid heart beatAngina- 1990Surgical History:hysterectomylaporoscopyFamily History:Mom-cancer bone, kidney, stomachCancer - Colorectal (Brother)Diabetes (Mother, Brother, Sister)Heart disease (Mother, Brother, Paternal Grandmother)Hypertension (Mother, Father)Hypertension (Brother)Social/Personal History: Smoking Status: never smokerChief Complaintfollow-up visit cough, congestion, sore throat feversHistory of Present Illness (HPI)59 y/o female here for cough, chest congestion, sore throat and fevers over the last 10 days. Symptoms are not as bad as they were initially. Pt states she has been taking Robitussin but it hasn't helped. Patient reports runny nose and poor appetite. Patient had diarrhea yesterday but no symptoms today. Patient denies any fevers. Patient states that mucus has been gradually improving and has changed from green to clear.Transitions of Care InboundProblem ReviewProblem List was reviewed and/or updated during this visit.Medication Reconciliation & ReviewMedication List was reviewed and/or updated during this visit, including review of any [id number] medications, herbal therapies, and/or supplements.Allergy ReviewAllergy List was reviewed and/or updated during this visit.Adult Preventive CareProvider Calculated and Reviewed all Clinical Protocols for patient today. Labs/Meds/Other Counseling-Nutrition and Physical Activity:BMI Interpretation: Overweight (09/02/2019) Counseling: Done (09/02/2019) Physical Activity: Done (09/02/2019)Review of Systems General: Complains of fatigue. Denies dizziness, fever, headache. Ears/Nose/Throat: Complains of earache, runny nose, sore throat, hoarseness. Denies nosebleeds, difficulty swallowing. Cardiovascular: Denies chest pain, feeling faint. Respiratory: Complains of cough, shortness of breath, excessive sputum. Denies difficulty breathing. Gastrointestinal: Denies nausea, vomiting, diarrhea. Skin: Denies rash. Physical ExamGeneral Appearance: well nourished, well hydrated, no acute distressEyes, External: conjunctivae and lids normal, EOMIExternal Ears: normal, no lesions or deformitiesHearing: grossly intactOtoscopy: canals clear, tympan ic membranes intact, no fluid, light reflex intact bilaterallyExternal Nose: normal, no lesions or deformitiesNasal: mucosa, septum, and turbinates normal, nares patent; Clear nasal drainage.Neck: supple, no masses, trachea midline, full range of motion of neckRespiratory, Auscultation: clear to auscultation bilaterally; no rales, rhonchi, or wheezesRespiratory, Effort: no intercostal retractions or use of accessory musclesCardiovascular, Auscultation: S1, S2 audible; no murmur, rub, or gallop; RRRGait & Station: normalCervical Nodes: no adenopathyOrientation: oriented to time, place, and personMood & Affect: no depression, anxiety, or agitationJudgment & Insight: intactCare Management Plan Transitions of CareInboundRate Your HealthIn general, would you say your health is? GoodAssessment & Plan Problems:Added: Acute upper respiratory infection, unspecified (KCU30-N73.9) Assessment: Instructions: Symptoms related to viral etiology gradually improvingPatient was instructed to use albuterol every 4 hours for cough and shortness of breathPatient was instructed to increase fluid intake and rest. Will prescribe tessalon perles to help decrease cough. Discussed potential medication side effects. Patient has been on medication before and reports that she tolerates medication well without reaction.If symptoms worsen, patient is instructed to return to office.Allergy to bee venom (ICD-995.3) (FPP71-Q26.030) Assessment: Instructions: Refilled Epi Pen since her current pen is .Patient Instructions/Care Plan: Acute upper respiratory infection- unspecified: Symptoms related to viral etiology gradually improvingPatient was instructed to use albuterol every 4 hours for cough and shortness of breathPatient was instructed to increase fluid intake and rest. Will prescribe tessalon perles to help decrease cough. Discussed potential medication side effects. Patient has been on medication before and reports that she tolerates medication well without reaction.If symptoms worsen, patient is instructed to return to office.Allergy to bee venom: Refilled Epi Pen since her current pen is . Plan developed in collaboration with patient and/or familyMedications:EPIPEN 2-LOLA 0.3 MG/0.3ML INJECTION SOLUTION AUTO- INJECTORTESSALON PERLES 100 MG ORAL CAPSULEONETOUCH ULTRA 2 W/DEVICE KITONETOUCH ULTRASOFT LANCETSONETOUCH ULTRA BLUE IN VITRO STRIPONETOUCH ULTRA 2 W/DEVICE KITVENTOLIN HFA 108 (90 BASE) MCG/ACT INHALATION AEROSOL SOLUTIONACCU-CHEK MARILEE IN VITRO SOLUTIONACCU-CHEK SOFT TOUCH LANCETSACCU-CHEK MARILEE PLUS IN VITRO STRIPACCU-CHEK MARILEE PLUS W/DEVICE KITTRULICITY 0.75 MG/0.5ML SUBCUTANEOUS SOLUTION PEN-INJECTORASPIRIN 81 81 MG ORAL TABLET DELAYED RELEASEOCEAN NASAL SPRAY 0.65 % NASAL SOLUTIONFLONASE ALLERGY RELIEF 50 MCG/ACT NASAL SUSPENSIONCEFUROXIME AXETIL 500 MG ORAL TABLETATORVASTATIN CALCIUM 20 MG ORAL TABLETGLUCOPHAGE 1000 MG ORAL TABLETKLONOPIN 0.5 MG ORAL TABLETTRAZODONE HCL 100 MG ORAL TABLETMONTELUKAST SODIUM 10 MG ORAL TABLETPROAIR HFA AEROSOL KWASI UTIONPREMPRO 0.625-2.5 MG ORAL TABLETEUTHYROX 112 MCG ORAL TABLETADVAIR DISKUS 250-50 MCG/DOSE INHALATION AEROSOL POWDER BREATH ACTIVATEDDULOXETINE HCL 60 MG ORAL CAPSULE DELAYED RELEASE PARTICLESLYRICA 100 MG ORAL CAPSULESPIRIVA HANDIHALER 18 MCG INHALATION CAPSULERESTASIS MULTIDOSE 0.05 % OPHTHALMIC EMULSIONINDERAL LA 120 MG ORAL CAPSULE EXTENDED RELEASE 24 HOURPANTOPRAZOLE SODIUM 40 MG ORAL TABLET DELAYED RELEASEMedication Changes:New Prescription:TESSALON PERLES 100 MG ORAL CAPSULE-Take one tab po TID as needed for cough Qty: 30[Capsule] Refills: 0 Method: ElectronicEPIPEN 2-LOLA 0.3 MG/0.3ML INJECTION SOLUTION [id number] as directed Qty: 1[Package] Refills: 0 Method: ElectronicRemoved:GLIPIZIDE 5 MG ORAL TABLET-1 tab po dailyAllergies:* FRAGRANCES (Critical)* DUST (Critical)* ORANGES (Critical)* BANANAS (Critical)* SPIDERS (Critical)* BEE POLLEN (Critical)* MIOLD (Critical)* LATEX (Critical)* CODEINE (Critical)Orders:Adult - Ofc Vst, EST, Level III [CPT-93343] Follow-Up Return to clinic: in 1 month for follow upAdditional Follow-Up: with Dr. Velasquez as previously scheduledMedications:EPIPEN 2-LOLA 0.3 MG/0.3ML INJECTION SOLUTION AUTO-INJECTOR (EPINEPHRINE) Use as directed #1[ Package] x 0 Route:INJECTION Entered and Authorized by: Preeti AMAYA Method used: Electronically to [facility] (retail) [address] [place] [address] Note to Pharmacy: Route: INJECTION; Indications: ALLERGY TO BEE VENOM RxID: [id number] PERLES 100 MG ORAL CAPSULE (BENZONATATE) Take one tab po TID as needed for cough #30[Capsule] x 0 Route:ORAL Entered and Authorized by: Preeti AMAYA Method used: Electronically to [facility] (retail) [address] [place] [address] Ph: [phone] Note to Pharmacy: Route: ORAL; RxID: [id number] signed by Preeti AMAYA on 09/02/2019 at 9:49 AM Name Value Range Interpretation Code Description Data Nadia rce(s) Supporting Document(s) Procedure Social History Code Duration Value Status Description Data Source(s ) Smoking 09/25/2020 12:00:00 AM EST Patient has never smoked co mpleted Patient has never smoked [facility] ([facility]) Smoking 09/25/2020 12:00:00 AM EST Unknown if ever smoked comp leted Unknown if ever smoked [facility] ([facility] [place] [facility]) Smoking 09/24/2020 12:00:00 AM EST Unknown if ever smoked comp leted Unknown if ever smoked [facility] ([facility]) Smoking 09/20/2020 12:00:00 AM EST Unknown if ever smoked comp leted Unknown if ever smoked [facility] ([facility]) Smoking 09/11/2020 12:00:00 AM EST Unknown if ever smoked comp leted Unknown if ever smoked [facility] ([facility]) Smoking 09/03/2020 12:00:00 AM EST Unknown if ever smoked comp leted Unknown if ever smoked [facility] ([facility] [place] [facility]) Smoking 08/21/2020 12:00:00 AM EST Unknown if ever smoked comp leted Unknown if ever smoked [facility] ([facility] [place] [facility]) Smoking 08/13/2020 12:00:00 AM EST Unknown if ever smoked comp leted Unknown if ever smoked [facility] ([facility] [place] [facility]) Smoking 08/01/2020 12:00:00 AM EST Unknown if ever smoked comp leted Unknown if ever smoked [facility] ([facility] [place] [facility]) Smoking 07/10/2020 12:00:00 AM EST Unknown if ever smoked comp leted Unknown if ever smoked [facility] ([facility] [place] [facility]) Smoking 07/09/2020 12:00:00 AM EST Unknown if ever smoked comp leted Unknown if ever smoked [facility] ([facility] [place] [facility]) Smoking 06/12/2020 12:00:00 AM EDT Unknown if ever smoked comp leted Unknown if ever smoked [facility] ([facility] [place] [facility]) Smoking 06/05/2020 12:00:00 AM EDT Unknown if ever smoked comp leted Unknown if ever smoked [facility] ([facility] [place] [facility]) Smoking 05/15/2020 12:00:00 AM EDT Unknown if ever smoked comp leted Unknown if ever smoked [facility] ([facility] [place] [facility]) Caffeine Use Details 04/23/2020 12:00:00 AM EDT completed [facility] ([facility]) Smoking 04/23/2020 12:00:00 AM EDT Unknown if ever smoked comp leted Unknown if ever smoked [facility] ([facility]) Smoking 02/29/2020 12:00:00 AM EDT Unknown if ever smoked comp leted Unknown if ever smoked [facility] ([facility] [place] [facility]) Smoking 02/15/2020 12:00:00 AM EDT Unknown if ever smoked comp leted Unknown if ever smoked [facility] ([facility] [place] [facility]) Smoking 02/14/2020 12:00:00 AM EDT Unknown if ever smoked comp leted Unknown if ever smoked [facility] ([facility] [place] [facility]) Smoking 01/31/2020 12:00:00 AM EDT Unknown if ever smoked comp leted Unknown if ever smoked [facility] ([facility] [place] [facility]) Smoking 01/18/2020 12:00:00 AM EDT Unknown if ever smoked comp leted Unknown if ever smoked [facility] ([facility] [place] [facility]) Smoking 01/17/2020 12:00:00 AM EDT Unknown if ever smoked comp leted Unknown if ever smoked [facility] ([facility] [place] [facility]) Smoking 01/04/2020 12:00:00 AM EDT Unknown if ever smoked comp leted Unknown if ever smoked [facility] ([facility] [place] [facility]) Smoking 01/03/2020 12:00:00 AM EDT Patient has never smoked co mpleted Patient has never smoked [facility] ([facility]) Smoking 11/22/2019 12:00:00 AM EDT Unknown if ever smoked comp leted Unknown if ever smoked [facility] ([facility] [place] [facility]) Smoking 11/04/2019 12:00:00 AM EST Unknown if ever smoked comp leted Unknown if ever smoked [facility] ([facility] [place] [facility]) Smoking 10/27/2019 12:00:00 AM EST Unknown if ever smoked comp leted Unknown if ever smoked [facility] ([facility] [place] [facility]) Caffeine Use Details 10/21/2019 12:00:00 AM EST completed [facility] ([facility]) Smoking 10/19/2019 12:00:00 AM EST Unknown if ever smoked comp leted Unknown if ever smoked [facility] ([facility] [place] [facility]) Smoking 10/10/2019 12:00:00 AM EST Unknown if ever smoked comp leted Unknown if ever smoked [facility] ([facility] [place] [facility]) 09/28/2019 12:00:00 AM EST Never smoked tobacco [place]le [place] Never smoked tobacco [facility] ([facility]) Smoking 09/20/2019 12:00:00 AM EST Unknown if ever smoked comp leted Unknown if ever smoked [facility] ([facility] [place] [facility]) Smoking 09/01/2019 12:00:00 AM EST Unknown if ever smoked comp leted Unknown if ever smoked [facility] ([facility]) Vital Signs ID Date Data Source UNK Name Value Range Interpretation Code Description Data Source(s) Body height 66 [in_i] 66 [in_i] [facility]ON[facility] ([facility]) Systolic blood pressure 133 mm[Hg] 133 mm[Hg] M [facility]ENT ([facility]) Body weight 173.00 [lb_av] 173.00 [lb_av] MEDEN T ([facility]) Body height 67 [in_i] 67 [in_i] [facility] 5'7" Body temperature 97.2 [degF] 97.2 [degF] [facility] ([facility]) Body weight 78.473 kg 78.473 kg [facility] ([facility]) Body mass index (BMI) [Ratio] 27.1 kg/m2 27.1 k g/m2 [facility] ([facility]) Heart rate 87 /min 87 /min [facility]) Diastolic blood pressure 74 mm[Hg] 74 mm[Hg] [facility] ([facility]) Diastolic blood pressure 0 mm[Hg] Normal (applies to non-numeric results) 0 mm[Hg] [facility] ([facility]) Systolic blood pressure 0 mm[Hg] Normal (applies t o non-numeric results) 0 mm[Hg] [facility] ([facility]) Body mass index (BMI) [Ratio] 0.00 kg/m2 No rmal (applies to non-numeric results) 0.00 kg/m2 [facility] ([facility]) Body weight Measured 0.00 lbs Normal (applies to n on-numeric results) [facility] Body height 0.00 in Normal (applies to non-numeric resu lts) 0.00 in [facility] ([facility]) Diastolic blood pressure 0 mm[Hg] Normal (applies to non-numeric results) 0 mm[Hg] [facility] ([facility]) Systolic blood pressure 0 mm[Hg] Normal (applies t o non-numeric results) 0 mm[Hg] [facility] ([facility]) Body mass index (BMI) [Ratio] 0.00 kg/m2 No rmal (applies to non-numeric results) 0.00 kg/m2 [facility] ([facility]) Body weight Measured 0.00 lbs Normal (applies to n on-numeric results) 0.00 lbs [facility] ([facility] [place] [facility]) Body height 0.00 in Normal (applies to non-numeric resu lts) 0.00 in [facility] ([facility]) Body temperature 96.3 [degF] 96.3 [degF] [facility] ([facility]) Diastolic blood pressure 0 mm[Hg] Normal (applies to non-numeric results) 0 mm[Hg] [facility] ([facility] [place] [facility]) Systolic blood pressure 0 mm[Hg] Normal (applies t o non-numeric results) 0 mm[Hg] Accumedic ([facility]) Body mass index (BMI) [Ratio] 0.00 kg/m2 No rmal (applies to non-numeric results) 0.00 kg/m2 [facility] ([facility]) Body weight Measured 0.00 lbs Normal (applies to n on-numeric results) 0.00 lbs [facility] ([facility]) Body height 0.00 in Normal (applies to non-numeric resu lts) 0.00 in [facility] Body weight 179.4 [lb_av] 179.4 [lb_av] SONIA ([facility]) Systolic blood pressure 128 mm[Hg] 128 mm[Hg] A THENA ([facility]) Body mass index (BMI) [Ratio] 29 kg/m2 29 kg/ m2 SONIA ([facility]) Body height 66 [in_i] 66 [in_i] SONIA ([facility]) Diastolic blood pressure 75 mm[Hg] 75 mm[Hg] SONIA ([facility]) Body weight 179.4 [lb_av] 179.4 [lb_av] SONIA ([facility]) Systolic blood pressure 128 mm[Hg] 128 mm[Hg] A THENA ([facility]) Body mass index (BMI) [Ratio] 29 kg/m2 29 kg/ m2 SONIA ([facility]) Body height 66 [in_i] 66 [in_i] SONIA ([facility]) Diastolic blood pressure 75 mm[Hg] 75 mm[Hg] SONIA ([facility]) Body weight 179.4 [lb_av] 179.4 [lb_av] SONIA ([facility]) Systolic blood pressure 128 mm[Hg] 128 mm[Hg] A THENA ([facility]) Body mass index (BMI) [Ratio] 29 kg/m2 29 kg/ m2 SONIA ([facility]) Body height 66 [in_i] 66 [in_i] SONIA ([facility]) Diastolic blood pressure 75 mm[Hg] 75 mm[Hg] SONIA ([facility]) Body weight 179.4 [lb_av] 179.4 [lb_av] SONIA ([facility]) Systolic blood pressure 128 mm[Hg] 128 mm[Hg] A THENA ([facility]) Body mass index (BMI) [Ratio] 29 kg/m2 29 kg/ m2 SONIA ([facility]) Body height 66 [in_i] 66 [in_i] SONIA ([facility]) Diastolic blood pressure 75 mm[Hg] 75 mm[Hg] SONIA ([facility]) Body height 66 [in_i] 66 [in_i] SONIA ([facility]) Body height 66 [in_i] 66 [in_i] SONIA ([facility]) Body height 66 [in_i] 66 [in_i] SONIA ([facility]) Body temperature 96.0 [degF] 96.0 [degF] MEDENT ([facility]) Diastolic blood pressure 0 mm[Hg] Normal (applies to non-numeric results) 0 mm[Hg] Accumedic ([facility]) Systolic blood pressure 0 mm[Hg] Normal (applies t o non-numeric results) 0 mm[Hg] [facility] ([facility]) Body mass index (BMI) [Ratio] 0.00 kg/m2 No rmal (applies to non-numeric results) 0.00 kg/m2 [facility] ([facility]) Body weight Measured 0.00 lbs Normal (applies to n on-numeric results) 0.00 lbs [facility] ([facility]) Body height 0.00 in Normal (applies to non-numeric resu lts) 0.00 in [facility] ([facility]) Diastolic blood pressure 0 mm[Hg] Normal (applies to non-numeric results) 0 mm[Hg] [facility] ([facility]) Systolic blood pressure 0 mm[Hg] Normal (applies t o non-numeric results) 0 mm[Hg] [facility] ([facility]) Body mass index (BMI) [Ratio] 0.00 kg/m2 No rmal (applies to non-numeric results) 0.00 kg/m2 [facility] ([facility]) Body weight Measured 0.00 lbs Normal (applies to n on-numeric results) 0.00 lbs [facility] ([facility]) Body height 0.00 in Normal (applies to non-numeric resu lts) 0.00 in [facility] ([facility]) Diastolic blood pressure 0 mm[Hg] Normal (applies to non-numeric results) 0 mm[Hg] [facility] ([facility]) Systolic blood pressure 0 mm[Hg] Normal (applies t o non-numeric results) 0 mm[Hg] [facility] ([facility]) Body mass index (BMI) [Ratio] 0.00 kg/m2 No rmal (applies to non-numeric results) 0.00 kg/m2 [facility] ([facility]) Body weight Measured 0.00 lbs Normal (applies to n on-numeric results) 0.00 lbs [facility] ([facility]) Body height 0.00 in Normal (applies to non-numeric resu lts) 0.00 in [facility] ([facility]) Body weight 2852 [oz_av] 2852 [oz_av] SONIA ([facility]) Systolic blood pressure 116 mm[Hg] 116 mm[Hg] A THENA ([facility]) Body height 66 [in_i] 66 [in_i] SONIA ([facility]) Diastolic blood pressure 76 mm[Hg] 76 mm[Hg] SONIA ([facility]) Body weight 2852 [oz_av] 2852 [oz_av] SONIA ([facility]) Systolic blood pressure 116 mm[Hg] 116 mm[Hg] [facility] Body height 66 [in_i] 66 [in_i] SONIA ([facility]) Diastolic blood pressure 76 mm[Hg] 76 mm[Hg] SONIA ([facility]) Body weight 2852 [oz_av] 2852 [oz_av] SONIA ([facility]) Systolic blood pressure 116 mm[Hg] 116 mm[Hg] A [facility] ([facility]) Body height 66 [in_i] 66 [in_i] SONIA ([facility]) Diastolic blood pressure 76 mm[Hg] 76 mm[Hg] SONIA ([facility]) Body weight 2824 [oz_av] 2824 [oz_av] SONIA ([facility]) Systolic blood pressure 115 mm[Hg] 115 mm[Hg] [facility]) Body height 66 [in_i] 66 [in_i] SONIA ([facility]) Diastolic blood pressure 70 mm[Hg] 70 mm[Hg] SONIA ([facility]) Body weight 2824 [oz_av] 2824 [oz_av] SONIA ([facility]) Systolic blood pressure 115 mm[Hg] 115 mm[Hg] A THENA ([facility]) Body height 66 [in_i] 66 [in_i] SONIA ([facility]) Diastolic blood pressure 70 mm[Hg] 70 mm[Hg] SONIA ([facility]) Body weight 2824 [oz_av] 2824 [oz_av] SONIA ([facility]) Systolic blood pressure 115 mm[Hg] 115 mm[Hg] A [facility] ([facility]) Body height 66 [in_i] 66 [in_i] SONIA ([facility]) Diastolic blood pressure 70 mm[Hg] 70 mm[Hg] SONIA ([facility]) Diastolic blood pressure 0 mm[Hg] Normal (applies to non-numeric results) 0 mm[Hg] [facility]umed[facility] ([facility]) Systolic blood pressure 0 mm[Hg] Normal (applies t o non-numeric results) 0 mm[Hg] [facility] ([facility]) Body mass index (BMI) [Ratio] 0.00 kg/m2 No rmal (applies to non-numeric results) 0.00 kg/m2 [facility] ([facility]) Body weight Measured 0.00 lbs Normal (applies to n on-numeric results) 0.00 lbs [facility] ([facility]) Body height 0.00 in Normal (applies to non-numeric resu lts) 0.00 in [facility] ([facility]) Diastolic blood pressure 0 mm[Hg] Normal (applies to non-numeric results) 0 mm[Hg] [facility] ([facility]) Systolic blood pressure 0 mm[Hg] Normal (applies t o non-numeric results) 0 mm[Hg] [facility] ([facility]) Body mass index (BMI) [Ratio] 0.00 kg/m2 No rmal (applies to non-numeric results) 0.00 kg/m2 [facility] ([facility]) Body weight Measured 0.00 lbs Normal (applies to n on-numeric results) 0.00 lbs [facility] ([facility]) Body height 0.00 in Normal (applies to non-numeric resu lts) 0.00 in [facility] ([facility]) Body mass index (BMI) [Ratio] 24.3 kg/m2 24.3 k g/m2 MEDENT ([facility]) Body height 67 [in_i] 67 [in_i] MEDENT ([facility] 5'7" Body weight 155.00 [lb_av] 155.00 [lb_av] MEDEN T ([facility]) Diastolic blood pressure--sitting 66 mm[Hg] 66 mm[Hg] MEDENT ([facility]) Omron adult cuff, [place] Systolic blood pressure--sitting 104 mm[Hg] 104 mm[Hg] MEDRAKEL ([facility]) Omron adult cuff, [place] Heart rate 64 /min 64 /min MARK ([facility]) Body weight 2790.4 [oz_av] 2790.4 [oz_av] ATHEN A ([facility]) Systolic blood pressure 117 mm[Hg] 117 mm[Hg] A [facility] ([facility]) Body height 66 [in_i] 66 [in_i] SONIA ([facility]) Diastolic blood pressure 72 mm[Hg] 72 mm[Hg] SONIA ([facility]) Body weight 2790.4 [oz_av] 2790.4 [oz_av] ATHEN A ([facility]) Systolic blood pressure 117 mm[Hg] 117 mm[Hg] A [facility] ([facility]) Body height 66 [in_i] 66 [in_i] SONIA ([facility]) Diastolic blood pressure 72 mm[Hg] 72 mm[Hg] SONIA ([facility]) Body weight 2790.4 [oz_av] 2790.4 [oz_av] ATHEN A ([facility]) Systolic blood pressure 117 mm[Hg] 117 mm[Hg] A [facility] ([facility]) Body height 66 [in_i] 66 [in_i] SONIA ([facility]) Diastolic blood pressure 72 mm[Hg] 72 mm[Hg] SONIA ([facility]) Diastolic blood pressure 0 mm[Hg] Normal (applies to non-numeric results) 0 mm[Hg] Accumedic ([facility]) Systolic blood pressure 0 mm[Hg] Normal (applies t o non-numeric results) 0 mm[Hg] [facility]umed[facility] ([facility]) Body mass index (BMI) [Ratio] 0.00 kg/m2 No rmal (applies to non-numeric results) 0.00 kg/m2 [facility] ([facility]) Body weight Measured 0.00 lbs Normal (applies to n on-numeric results) [facility] Body height 0.00 in Normal (applies to non-numeric resu lts) 0.00 in [facility] ([facility]) Body weight 2848 [oz_av] 2848 [oz_av] SONIA ([facility]) Systolic blood pressure 115 mm[Hg] 115 mm[Hg] A [facility] ([facility]) Body height 66 [in_i] 66 [in_i] SONIA ([facility]) Diastolic blood pressure 78 mm[Hg] 78 mm[Hg] SONIA ([facility]) Body weight 2848 [oz_av] 2848 [oz_av] SONIA ([facility]) Systolic blood pressure 115 mm[Hg] 115 mm[Hg] A [facility] ([facility]) Body height 66 [in_i] 66 [in_i] SONIA ([facility]) Diastolic blood pressure 78 mm[Hg] 78 mm[Hg] SONIA ([facility]) Body weight 2848 [oz_av] 2848 [oz_av] SONIA ([facility]) Systolic blood pressure 115 mm[Hg] 115 mm[Hg] A [facility] ([facility]) Body height 66 [in_i] 66 [in_i] SONIA ([facility]) Diastolic blood pressure 78 mm[Hg] 78 mm[Hg] SONIA ([facility]) Diastolic blood pressure 0 mm[Hg] Normal (applies to non-numeric results) 0 mm[Hg] [facility] ([facility]) Systolic blood pressure 0 mm[Hg] Normal (applies t o non-numeric results) 0 mm[Hg] [facility] ([facility]) Body mass index (BMI) [Ratio] 0.00 kg/m2 No rmal (applies to non-numeric results) 0.00 kg/m2 [facility] ([facility]) Body weight Measured 0.00 lbs Normal (applies to n on-numeric results) 0.00 lbs [facility] ([facility]) Body height 0.00 in Normal (applies to non-numeric resu lts) 0.00 in [facility] ([facility]) Body weight 2752 [oz_av] 2752 [oz_av] SONIA ([facility]) Systolic blood pressure 106 mm[Hg] 106 mm[Hg] A [facility] ([facility]) Body height 66 [in_i] 66 [in_i] SONIA ([facility]) Diastolic blood pressure 74 mm[Hg] 74 mm[Hg] SONIA ([facility]) Body weight 2752 [oz_av] 2752 [oz_av] SONIA ([facility]) Systolic blood pressure 106 mm[Hg] 106 mm[Hg] A THENA ([facility]) Body height 66 [in_i] 66 [in_i] SONIA ([facility]) Diastolic blood pressure 74 mm[Hg] 74 mm[Hg] SONIA ([facility]) Body weight 2752 [oz_av] 2752 [oz_av] SONIA ([facility]) Systolic blood pressure 106 mm[Hg] 106 mm[Hg] A [facility] ([facility]) Body height 66 [in_i] 66 [in_i] SONIA ([facility]) Diastolic blood pressure 74 mm[Hg] 74 mm[Hg] SONIA ([facility]) Body mass index (BMI) [Ratio] 27.28 kg/m2 Overweight 27.28 kg/m2 [facility] ([facility]) Diastolic blood pressure 52 mm[Hg] 52 mm[Hg] [facility] ([facility]) Systolic blood pressure 92 mm[Hg] 92 mm[Hg] N extGen ([facility]) Body weight 76.657 kg 76.657 kg [facility] ([facility] Body height 167.64 cm 167.64 cm [facility] Body weight 2729.6 [oz_av] 2729.6 [oz_av] ATHEN A ([facility]) Systolic blood pressure 113 mm[Hg] 113 mm[Hg] [facility] Body height 66 [in_i] 66 [in_i] SONIA ([facility]) Diastolic blood pressure 80 mm[Hg] 80 mm[Hg] SONIA ([facility]) Body weight 2729.6 [oz_av] 2729.6 [oz_av] ATHMAGGY A ([facility]) Systolic blood pressure 113 mm[Hg] 113 mm[Hg] A STEFF ([facility]) Body height 66 [in_i] 66 [in_i] SONIA ([facility]) Diastolic blood pressure 80 mm[Hg] 80 mm[Hg] SONIA ([facility]) Body weight 2729.6 [oz_av] 2729.6 [oz_av] ATHMAGGY A ([facility]) Systolic blood pressure 113 mm[Hg] 113 mm[Hg] A STEFF ([facility]) Body height 66 [in_i] 66 [in_i] SONIA ([facility]) Diastolic blood pressure 80 mm[Hg] 80 mm[Hg] SONIA ([facility]) Patient Treatment Plan of Care Planned Activity Planned Date Details Description Data Source (s) pregabalin 50 MG Oral Capsule [Lyrica] 04/23/2020 12:00:00 AM EDT [facility] ([facility]) pregabalin 50 MG Oral Capsule [Lyrica] 04/23/2020 12:00:00 AM EDT [facility] ([facility]) pregabalin 50 MG Oral Capsule [Lyrica] 01/13/2020 12:00:00 AM EDT [facility] ([facility]) pregabalin 50 MG Oral Capsule [Lyrica] 09/28/2019 12:00:00 AM EST [facility] ([facility]) pregabalin 100 MG Oral Capsule [Lyrica] 06/01/2019 12:00:00 AM EDT [facility] ([facility]) Triamcinolone Acetonide 0.001 MG/MG Topical Ointment SONIA ([facility]) Trazodone Hydrochloride 100 MG Oral Tablet TOPTON ([facility]) Sertraline 25 MG Oral Tablet TOP[facility] ([facility]) pregabalin 100 MG Oral Capsule [facility] ([facility]) Fluzone Quad (PF) 60 mcg (15 mcg x 4)/0.5 mL IM syringe SONIA ([facility]) fluticasone 232 mcg-salmeterol 14 mcg/actuation breath activated po wdr SONIA ([facility]) Cefuroxime 500 MG Oral Tablet SONIA ([facility]) benzonatate 100 MG Oral Capsule SONIA ([facility]) atorvastatin 10 MG Oral Tablet SONIA ([facility]) Triamcinolone Acetonide 1 MG/ML Topical Cream SONIA ([facility]) Trazodone Hydrochloride 100 MG Oral Tablet SONIA ([facility]) Sertraline 50 MG Oral Tablet SONIA ([facility]) Sertraline 25 MG Oral Tablet SONIA ([facility]) OneTouch Ultra2 Meter DIRECTED SONIA ([facility]) OneTouch Delica Plus Lancet 33 gauge TEST FOUR TIMES A DAY SONIA ([facility]) OneTouch Delica Plus Lancet 30 gauge TEST BLOOD SUGARS FOUR TIMES A DAY SONIA ([facility]) epinephrine 0.3 mg/0.3 mL injection, auto-injector DIRECTED SONIA ([facility]) atorvastatin 10 MG Oral Tablet SONIA ([facility]) Aspirin 81 MG Delayed Release Oral Tablet SONIA ([facility]) Trazodone Hydrochloride 100 MG Oral Tablet SONIA ([facility]) Sertraline 25 MG Oral Tablet SONIA ([facility]) pregabalin 100 MG Oral Capsule TOPTON ([facility]) Fluzone Quad [id number] (PF) 60 mcg (15 mcg x 4)/0.5 mL IM syringe TOPTON ([facility]) fluticasone 232 mcg-salmeterol 14 mcg/actuation breath activated po wdr SONIA ([facility]) Cefuroxime 500 MG Oral Tablet SONIA ([facility]) benzonatate 100 MG Oral Capsule SONIA ([facility]) atorvastatin 10 MG Oral Tablet SONIA ([facility]) Triamcinolone Acetonide 1 MG/ML Topical Cream SONIA ([facility]) Trazodone Hydrochloride 100 MG Oral Tablet SONIA ([facility]) Sertraline 50 MG Oral Tablet SONIA ([facility]) Sertraline 25 MG Oral Tablet SONIA ([facility]) OneTouch Ultra2 Meter DIRECTED SONIA ([facility]) OneTouch Delica Plus Lancet 33 gauge TEST FOUR TIMES A DAY SONIA ([facility]) OneTouch Delica Plus Lancet 30 gauge TEST BLOOD SUGARS FOUR TIMES A DAY SONIA ([facility]) montelukast 10 MG Oral Tablet SONIA ([facility]) umeclidinium 0.0625 MG/ACTUAT Dry Powder Inhaler SONIA ([facility]) epinephrine 0.3 mg/0.3 mL injection, auto-injector DIRECTED SONIA ([facility]) atorvastatin 10 MG Oral Tablet SONIA ([facility]) Aspirin 81 MG Delayed Release Oral Tablet SONIA ([facility]) Triamcinolone Acetonide 1 MG/ML Topical Cream SONIA ([facility]) Trazodone Hydrochloride 100 MG Oral Tablet SONIA ([facility]) Sertraline 50 MG Oral Tablet SONIA ([facility]) Sertraline 25 MG Oral Tablet SONIA ([facility]) pregabalin 50 MG Oral Capsule SONIA ([facility]) OneTouch Ultra2 Meter DIRECTED SONIA ([facility]) OneTouch Delica Plus Lancet 33 gauge TEST FOUR TIMES A DAY SONIA ([facility]) OneTouch Delica Plus Lancet 30 gauge TEST BLOOD SUGARS FOUR TIMES A DAY SONIA ([facility]) montelukast 10 MG Oral Tablet SONIA ([facility]) umeclidinium 0.0625 MG/ACTUAT Dry Powder Inhaler SONIA ([facility]) epinephrine 0.3 mg/0.3 mL injection, auto-injector DIRECTED SONIA ([facility]) atorvastatin 10 MG Oral Tablet SONIA ([facility]) Aspirin 81 MG Delayed Release Oral Tablet SONIA ([facility]) Trazodone Hydrochloride 100 MG Oral Tablet SONIA ([facility]) Sertraline 50 MG Oral Tablet SONIA ([facility]) Sertraline 25 MG Oral Tablet SONIA ([facility]) pregabalin 100 MG Oral Capsule SONIA ([facility]) Fluzone Quad [id number] (PF) 60 mcg (15 mcg x 4)/0.5 mL IM syringe SONIA ([facility]) fluticasone 232 mcg-salmeterol 14 mcg/actuation breath activated po wdr SONIA ([facility]) Cefuroxime 500 MG Oral Tablet SONIA ([facility]) benzonatate 100 MG Oral Capsule SONIA ([facility]) atorvastatin 10 MG Oral Tablet SONIA ([facility]) Triamcinolone Acetonide 1 MG/ML Topical Cream SONIA ([facility]) Trazodone Hydrochloride 100 MG Oral Tablet SONIA ([facility]) Sertraline 50 MG Oral Tablet SONIA ([facility]) Sertraline 25 MG Oral Tablet SONIA ([facility]) pregabalin 50 MG Oral Capsule SONIA ([facility]) OneTouch Ultra2 Meter DIRECTED SONIA ([facility]) OneTouch Delica Plus Lancet 33 gauge TEST FOUR TIMES A DAY SONIA ([facility]) OneTouch Delica Plus Lancet 30 gauge TEST BLOOD SUGARS FOUR TIMES A DAY SONIA ([facility]) montelukast 10 MG Oral Tablet SONIA ([facility]) umeclidinium 0.0625 MG/ACTUAT Dry Powder Inhaler SONIA ([facility]) epinephrine 0.3 mg/0.3 mL injection, auto-injector DIRECTED SONIA ([facility]) atorvastatin 10 MG Oral Tablet SONIA ([facility]) Aspirin 81 MG Delayed Release Oral Tablet SONIA ([facility]) Estrogens, Conjugated ([facility]) 0.625 MG Oral Tablet [Premarin] [facility] ([facility]) Pataday 0.2 % eye drops Next [facility] ([facility])
--- NOTE | 2020-10-05 09:30 | ROOR ---
Patient Name: Selena Hills Procedure Date: 10/05/2020 9:10 AM Date of : 1960 Age: 60 Room: [facility] Gender: Female Note Status: Finalized Procedure: Upper Endoscopy + Biopsies Indications: Heartburn, Exclusion of Lezama's esophagus Providers: Bigg Richard MD Referring MD: MARGO Carver Requesting Provider: Medicines: Monitored Anesthesia Care Complications: No immediate complications. Procedure: Pre-Anesthesia Assessment: - The heart rate, respiratory rate, oxygen saturations, blood pressure, adequacy of pulmonary ventilation, and response to care were monitored throughout the procedure. The Endoscope was introduced through the mouth, and advanced to the second part of duodenum. The upper GI endoscopy was accomplished without difficulty. The patient tolerated the procedure well. Findings: The Z-line was variable and was found 40 cm from the incisors. Multiple biopsies were obtained with cold forceps for evaluation to rule out Lezama's Esophagus randomly at the gastroesophageal junction. Localized moderate inflammation characterized by congestion (edema), erosions and erythema was found in the gastric antrum. Biopsies were taken with a cold forceps for Helicobacter pylori testing. The exam of the duodenum was otherwise normal. Impression: - Z-line variable, 40 cm from the incisors. - Mucosal changes suspicious for gastritis. Biopsied. - Multiple biopsies were obtained at the gastroesophageal junction. - The examination was otherwise normal. Recommendation: - Patient has a contact number available for emergencies. The signs and symptoms of potential delayed complications were discussed with the patient. Return to normal activities tomorrow. Written discharge instructions were provided to the patient. - High fiber diet. - Discharge patient to home. - Follow an antireflux regimen. - Continue present medications. - Await pathology results. - Telephone GI clinic for pathology results in 1 week. - Return to referring physician. - Repeat upper endoscopy for surveillance based on pathology results. - The findings and recommendations were discussed with the patient's family. Procedure Code(s): --- Professional --- 97540, Esophagogastroduodenoscopy, flexible, transoral; with biopsy, single or multiple Diagnosis Code(s): --- Professional --- K22.8, Other specified diseases of esophagus K31.89, Other diseases of stomach and duodenum R12, Heartburn CPT copyright 2019 [employer]. All rights reserved. The codes documented in this report are preliminary and upon manager community relations review may be revised to meet current compliance requirements. Bigg Richard MD Bigg Richard MD 10/05/2020 9:29:47 AM Electronically signed by Bigg Richard MD Number of Addenda: 0 Note Initiated On: 10/05/2020 9:10 AM Estimated Blood Loss: Estimated blood loss: none.
--- NOTE | 2020-10-05 09:49 | ROOR ---
Patient Name: Selena Hills Procedure Date: 10/05/2020 9:11 AM Date of : 1960 Age: 60 Room: [facility] Gender: Female Note Status: Finalized Procedure: Total Colonoscopy to Cecum Indications: Screening in patient at increased risk: Family history of 1st-degree relative with colorectal cancer Providers: Bigg Richard MD Referring MD: MARGO Carver Requesting Provider: Medicines: Monitored Anesthesia Care Complications: No immediate complications. Procedure: Pre-Anesthesia Assessment: - The heart rate, respiratory rate, oxygen saturations, blood pressure, adequacy of pulmonary ventilation, and response to care were monitored throughout the procedure. The Colonoscope was introduced through the anus and advanced to the cecum, identified by appendiceal orifice and ileocecal valve. The colonoscopy was performed without difficulty. The patient tolerated the procedure well. The quality of the bowel preparation was excellent. Findings: The perianal and digital rectal examinations were normal. Non-bleeding internal hemorrhoids were found during retroflexion. The hemorrhoids were small and Grade I (internal hemorrhoids that do not prolapse). No other significant abnormalities were identified in a careful examination of the remainder of the colon. The exam was otherwise without abnormality on direct and retroflexion views. Impression: - Non-bleeding internal hemorrhoids. - The examination was otherwise normal on direct and retroflexion views. - No specimens collected. - The exam was otherwise normal to the cecum. Recommendation: - Patient has a contact number available for emergencies. The signs and symptoms of potential delayed complications were discussed with the patient. Return to normal activities tomorrow. Written discharge instructions were provided to the patient. - High fiber diet. - Discharge patient to home. - Continue present medications. - Repeat colonoscopy in 5 years for screening purposes. - Return to referring physician. - The findings and recommendations were discussed with the patient. Procedure Code(s): --- Professional --- G0105, Colorectal cancer screening; colonoscopy on individual at high risk Diagnosis Code(s): --- Professional --- Z80.0, Family history of malignant neoplasm of digestive organs K64.0, First degree hemorrhoids CPT copyright 2019 [employer]. All rights reserved. The codes documented in this report are preliminary and upon flight communications specialist review may be revised to meet current compliance requirements. Bigg Richard MD Bigg Richard MD 10/05/2020 9:49:21 AM Electronically signed by Bigg Richard MD Number of Addenda: 0 Note Initiated On: 10/05/2020 9:11 AM Estimated Blood Loss: Estimated blood loss: none.
[2020-10-05 10:15] VITALS: BP 148/79
== END 2020-10-05 13:48 | disposition home or self-care (01) ==
LOC: M OPP 07:14
PROVIDERS: ATTEND Internal Medicine Gastroenterology
DX: Z12.11 Encounter for screening for malignant neoplasm of colon (principal); Z80.0 Family history of malignant neoplasm of digestive organs; R12 Heartburn; K64.0 First degree hemorrhoids; D13.1 Benign neoplasm of stomach; K22.8 Other specified diseases of esophagus; K31.89 Other diseases of stomach and duodenum; I10 Essential (primary) hypertension; E78.5 Hyperlipidemia, unspecified; E11.9 Type 2 diabetes mellitus without complications; E03.9 Hypothyroidism, unspecified; K58.9 Irritable bowel syndrome, unspecified; M79.7 Fibromyalgia; M19.90 Unspecified osteoarthritis, unspecified site; F41.9 Anxiety disorder, unspecified; F32.9 Major depressive disorder, single episode, unspecified; G43.909 Migraine, unspecified, not intractable, without status migrainosus; M41.9 Scoliosis, unspecified; J44.9 Chronic obstructive pulmonary disease, unspecified; Z88.2 Allergy status to sulfonamides; Z88.5 Allergy status to narcotic agent; Z88.6 Allergy status to analgesic agent; Z91.012 Allergy to eggs; Z91.018 Allergy to other foods; Z91.030 Bee allergy status; Z91.040 Latex allergy status; Z91.09 Other allergy status, other than to drugs and biological substances; Z79.51 Long term (current) use of inhaled steroids; Z79.84 Long term (current) use of oral hypoglycemic drugs; Z79.899 Other long term (current) drug therapy

== ENCOUNTER → 2020-10-08 | Outpatient (REF) | payer OTHER ==
[~2020-10-08] MED LIST changes: -LIDOCAINE 2% 100MG/5ML SDV (FOR ANES.) As Ordered ONE; -NS 1,000 ML IV ONE; -propofoL 500 MG/50 ML VIAL As Ordered ONE
[2020-10-08 21:14] LABS: AMORPHOUS SEDIMENT SMALL (NEGATIVE); APPEARANCE, URINE CLOUDY (CLEAR); BACTERIA, URINE AUTO NEGATIVE (NEGATIVE); BILIRUBIN, URINE AUTO NEGATIVE (NEGATIVE); BLOOD, URINE BLOOD 1+ (NEGATIVE); COLOR, URINE YELLOW (YELLOW); GLUCOSE, URINE (UA) AUTO 3+ mg/dL (NEGATIVE); KETONE, URINE AUTO NEGATIVE (NEGATIVE); LEUKOCYTE ESTERASE, URINE AUTO 1+ (NEGATIVE); MUCUS, URINE SMALL (NEGATIVE); NITRITE, URINE AUTO NEGATIVE (NEGATIVE); PROTEIN, URINE AUTO NEGATIVE (NEGATIVE); RBC, URINE AUTO 3 /HPF (0-3); SPECIFIC GRAVITY URINE AUTO 1.016 (1.002-1.035); SQUAMOUS EPITHELIAL CELL UR AU 1 /HPF (0-6); UROBILINOGEN, URINE AUTO 0.2 mg/dL (0.0-2.0); WBC, URINE AUTO 2 /HPF (0-3)
== END ==
LOC: M LAB REF 21:03
PROVIDERS: ATTEND Physician Assistant Medical
DX: N39.0 Urinary tract infection, site not specified (principal)

== ENCOUNTER → 2020-10-17 | Outpatient (CLI) | payer MEDICARE, OTHER ==
--- NOTE | 2020-10-17 12:57 | PFTRPT ---
Height: 66.00 Inches Weight: 173.00 Lbs BSA: 1.88 Diagnosis: R06.2 DATE: 10/17/2020 ORDERED BY: Nicolle Danielle Pre and post bronchodilator studies have excellent technical quality. Patient had some difficulty with the maneuvers and the nitrogen washout was not able to be performed. Forced vital capacity is reduced. FEV1 is in proportion. Obstructive index is therefore normal. Expiratory limit of the flow-volume loop does suggest some evidence of flow rate limitation. No significant bronchodilator response is identified. Slow vital capacity generally is in proportion. Diffusion capacity although reduced is appropriate for alveolar volume. No hemoglobin available for correction. IMPRESSION: Suspect at least a mild restrictive ventilatory impairment. Please correlate clinically. MTDD
== END ==
LOC: M CARPUL 12:24
PROVIDERS: ATTEND Physician Assistant
DX: R06.2 Wheezing (principal)

== ENCOUNTER → 2020-10-29 | Outpatient (REF) | payer MEDICARE, OTHER ==
[2020-10-29 17:44] LABS: BASO % 0.7 % (0.0-1.0); EOS # 0.2 10^3/uL (0.0-0.5); EOS % 2.7 % (0.0-3.0); HEMATOCRIT 44.1 % (36.0-47.0); HEMOGLOBIN 14.3 g/dl (12.0-15.5); LYMPH # 1.7 10^3/uL (1.5-5.0); LYMPH % 28.4 % (24.0-44.0); MEAN CORPUSCULAR HEMOGLOBIN 27.9 pg (27.0-33.0); MEAN CORPUSCULAR HGB CONC 32.4 g/dl (32.0-36.5); MONO # 0.6 10^3/uL (0.0-0.8); MONO % 9.4 % (2.0-8.0); NEUTROPHILS # 3.4 10^3/uL (1.5-8.5); NEUTROPHILS % 58.5 % (36.0-66.0); PLATELET COUNT, AUTOMATED 328 10^3/uL (150-450); RED BLOOD COUNT 5.13 10^6/uL (4.00-5.40); WHITE BLOOD COUNT 5.9 10^3/uL (4.0-10.0)
[2020-10-29 18:26] LABS: ALBUMIN 4.4 GM/DL (3.2-5.2); ALT/SGPT 25 U/L (12-78); BILIRUBIN,TOTAL 0.5 MG/DL (0.2-1.0); BLOOD UREA NITROGEN 10 MG/DL (7-18); CALCIUM LEVEL 9.8 MG/DL (8.8-10.2); CARBON DIOXIDE LEVEL 28 MEQ/L (21-32); CHLORIDE LEVEL 105 MEQ/L (98-107); CREATININE FOR GFR 0.95 MG/DL (0.55-1.30); GLOMERULAR FILTRATION RATE > 60.0 (>45); GLUCOSE, FASTING 129 MG/DL (70-100); POTASSIUM SERUM 4.3 MEQ/L (3.5-5.1); SODIUM LEVEL 138 MEQ/L (136-145)
== END ==
LOC: M LAB REF 16:23
PROVIDERS: ATTEND Physician Assistant
DX: R42 Dizziness and giddiness (principal)

== ENCOUNTER → 2020-12-06 | Outpatient (REF) | payer MEDICARE, OTHER ==
[2020-12-06 14:01] LABS: ALBUMIN 4.2 GM/DL (3.2-5.2); ALT/SGPT 24 U/L (12-78); BILIRUBIN,TOTAL 0.5 MG/DL (0.2-1.0); BLOOD UREA NITROGEN 13 MG/DL (7-18); CALCIUM LEVEL 9.6 MG/DL (8.8-10.2); CARBON DIOXIDE LEVEL 27 MEQ/L (21-32); CHLORIDE LEVEL 102 MEQ/L (98-107); CHOLESTEROL LEVEL 166 MG/DL (<200); CREATININE FOR GFR 0.88 MG/DL (0.55-1.30); GLOMERULAR FILTRATION RATE > 60.0 (>45); GLUCOSE, FASTING 140 MG/DL (70-100); HDL CHOLESTEROL 50 MG/DL (>40); LDL CHOLESTEROL 86 MG/DL (<100); NON-HDL-C 116 MG/DL; POTASSIUM SERUM 4.2 MEQ/L (3.5-5.1); SODIUM LEVEL 137 MEQ/L (136-145); TOTAL PROTEIN 7.7 GM/DL (6.4-8.2); TRIGLYCERIDES LEVEL 149 MG/DL (<150)
== END ==
LOC: M LAB REF 11:26
PROVIDERS: ATTEND Family Medicine Addiction Medicine
DX: E11.9 Type 2 diabetes mellitus without complications (principal)

== ENCOUNTER → 2020-12-25 | Outpatient (CLI) | payer MEDICARE, OTHER ==
--- NOTE | 2020-12-25 16:10 | REP ---
INDICATION: PAIN LT ARM, R/O DVT COMPARISON: None. TECHNIQUE: Real time compression and duplex Doppler evaluation of the Left upper extremity deep venous system is performed. FINDINGS: The Left subclavian, jugular, axillary, brachial, basilic and cephalic veins are fully compressible where accessible with transducer pressure, and demonstrate no intraluminal thrombus and normal venous waveforms. There is no evidence of deep venous thrombosis. IMPRESSION: No evidence of deep venous thrombosis of the Left upper extremity deep vein system. <Electronically signed by Zacarias Trujillo > 12/25/20 [id number]
== END ==
LOC: M RAD 15:30
PROVIDERS: ATTEND Physician Assistant
DX: M79.602 Pain in left arm (principal)

== ENCOUNTER → 2020-12-28 | Outpatient (REF) | payer OTHER ==
[2020-12-28 17:12] LABS: BASO # 0.1 10^3/uL (0.0-0.2); EOS # 0.1 10^3/uL (0.0-0.5); EOS % 2.2 % (0.0-3.0); HEMATOCRIT 43.2 % (36.0-47.0); HEMOGLOBIN 13.9 g/dl (12.0-15.5); LYMPH # 1.7 10^3/uL (1.5-5.0); LYMPH % 29.4 % (24.0-44.0); MEAN CORPUSCULAR HEMOGLOBIN 26.7 pg (27.0-33.0); MEAN CORPUSCULAR HGB CONC 32.2 g/dl (32.0-36.5); MEAN CORPUSCULAR VOLUME 83.1 fl (80.0-96.0); MONO # 0.4 10^3/uL (0.0-0.8); MONO % 7.1 % (2.0-8.0); NEUTROPHILS # 3.5 10^3/uL (1.5-8.5); PLATELET COUNT, AUTOMATED 313 10^3/uL (150-450); WHITE BLOOD COUNT 5.8 10^3/uL (4.0-10.0)
[2020-12-28 17:14] LABS: APPEARANCE, URINE CLOUDY (CLEAR); BACTERIA, URINE AUTO NEGATIVE (NEGATIVE); BILIRUBIN, URINE AUTO NEGATIVE (NEGATIVE); BLOOD, URINE BLOOD NEGATIVE (NEGATIVE); COLOR, URINE YELLOW (YELLOW); GLUCOSE, URINE (UA) AUTO NEGATIVE (NEGATIVE); KETONE, URINE AUTO NEGATIVE (NEGATIVE); LEUKOCYTE ESTERASE, URINE AUTO 3+ (NEGATIVE); NITRITE, URINE AUTO NEGATIVE (NEGATIVE); PROTEIN, URINE AUTO NEGATIVE (NEGATIVE); RBC, URINE AUTO 4 /HPF (0-3); SPECIFIC GRAVITY URINE AUTO 1.008 (1.002-1.035); SQUAMOUS EPITHELIAL CELL UR AU 7 /HPF (0-6); UROBILINOGEN, URINE AUTO 0.2 mg/dL (0.0-2.0); WBC, URINE AUTO 4 /HPF (0-3)
[2020-12-28 17:35] LABS: CREATININE,RANDOM URINE 55.2 MG/DL; TOTAL PROTEIN,RANDOM URINE 6.9 MG/DL (0.0-12.0)
[2020-12-28 17:36] LABS: ALBUMIN 4.5 GM/DL (3.2-5.2); ALT/SGPT 31 U/L (12-78); BILIRUBIN,TOTAL 0.4 MG/DL (0.2-1.0); BLOOD UREA NITROGEN 10 MG/DL (7-18); C REACTIVE PROTEIN QUANTITATIV 0.56 MG/DL (0.00-0.30); CALCIUM LEVEL 9.6 MG/DL (8.8-10.2); CARBON DIOXIDE LEVEL 29 MEQ/L (21-32); CHLORIDE LEVEL 103 MEQ/L (98-107); COMPLEMENT C3 150 MG/DL (90-180); COMPLEMENT C4 40 MG/DL (10-40); CREATININE FOR GFR 0.82 MG/DL (0.55-1.30); GLOMERULAR FILTRATION RATE > 60.0 (>45); GLUCOSE, FASTING 99 MG/DL (70-100); POTASSIUM SERUM 3.9 MEQ/L (3.5-5.1); SODIUM LEVEL 138 MEQ/L (136-145); TOTAL PROTEIN 7.9 GM/DL (6.4-8.2)
[2020-12-28 17:53] LABS: ERYTHROCYTE SEDIMENTATION RATE 8 mm/hr (0-30)
[2020-12-31 16:12] LABS: ANA (HEP2) Negative (.); ANTI CENTROMERE ANTIBODY <0.2 AI (0.0-0.9); ANTI SCLERODERMA ANTIBODIES <0.2 AI (0.0-0.9); RNP ANTIBODY 0.9 AI (0.0-0.9); SMITHS ANTIBODY < 0.2 AI (0.0-0.9); SSA SJOGRENS A <0.2 AI (0.0-0.9); SSB SJOGRENS B <0.2 AI (0.0-0.9)
== END ==
LOC: M SFHCRHEU 14:13
PROVIDERS: ATTEND Internal Medicine Rheumatology
DX: L40.8 Other psoriasis (principal); R76.8 Other specified abnormal immunological findings in serum

== ENCOUNTER → 2021-01-03 | Outpatient (CLI) | payer MEDICARE, OTHER ==
--- NOTE | 2021-01-03 10:40 | REP ---
INDICATION: OTHER PSORIASIS *LABS 1ST*. COMPARISON: None. TECHNIQUE: AP view along with bilateral oblique views of the right and left sacroiliac joints. FINDINGS: The bilateral sacroiliac joints appear relatively symmetric and age-appropriate. IMPRESSION: Normal symmetric age-appropriate bilateral sacroiliac joints. <Electronically signed by Jeffrey Burgess > 01/03/21 [id number]
--- NOTE | 2021-01-03 10:51 | REP ---
INDICATION: OTHER PSORIASIS *LABS 1ST* COMPARISON: None. TECHNIQUE: AP, lateral, bilateral oblique views right and left foot. FINDINGS: The osseous structures and joint spaces are intact symmetric and essentially age-appropriate. No overt osteoarthritic or inflammatory arthritic changes are appreciated.. There is no evidence for acute fracture or dislocation. Surrounding soft tissues are unremarkable. No subcutaneous emphysema or radiodense foreign body. IMPRESSION: Symmetric essentially age-appropriate examination. No overt arthritic changes are appreciated. <Electronically signed by Jeffrey Burgess > 01/03/21 [id number]
--- NOTE | 2021-01-03 11:14 | REP ---
INDICATION: OTHER PSORIASIS *LABS 1ST* COMPARISON: None. TECHNIQUE: AP, lateral, bilateral oblique views right and left hand. FINDINGS: The osseous structures and joint spaces are symmetric and relatively age-appropriate. Minimal degenerative changes include subtle joint space narrowing through the bilateral interphalangeal joints.. There is no evidence for acute fracture or dislocation. Surrounding soft tissues are unremarkable. No subcutaneous emphysema or radiodense foreign body. IMPRESSION: Symmetric relatively normal examination. Minimal joint space narrowing noted through the bilateral interphalangeal joints. <Electronically signed by Jeffrey Burgess > 01/03/21 [id number]
== END ==
LOC: M RAD 09:18
PROVIDERS: ATTEND Internal Medicine Rheumatology
DX: L40.8 Other psoriasis (principal)

== ENCOUNTER → 2021-01-03 | Outpatient (CLI) | payer OTHER ==
[2021-01-03 10:39] LABS: BASO % 0.7 % (0.0-1.0); EOS # 0.2 10^3/uL (0.0-0.5); EOS % 2.7 % (0.0-3.0); HEMATOCRIT 39.9 % (36.0-47.0); HEMOGLOBIN 12.9 g/dl (12.0-15.5); LYMPH # 1.7 10^3/uL (1.5-5.0); LYMPH % 28.7 % (24.0-44.0); MEAN CORPUSCULAR HEMOGLOBIN 26.9 pg (27.0-33.0); MEAN CORPUSCULAR HGB CONC 32.3 g/dl (32.0-36.5); MEAN CORPUSCULAR VOLUME 83.1 fl (80.0-96.0); MONO # 0.5 10^3/uL (0.0-0.8); MONO % 8.8 % (2.0-8.0); NEUTROPHILS # 3.5 10^3/uL (1.5-8.5); NEUTROPHILS % 58.6 % (36.0-66.0); PLATELET COUNT, AUTOMATED 297 10^3/uL (150-450)
[2021-01-03 11:11] LABS: ALBUMIN 3.7 GM/DL (3.2-5.2); ALT/SGPT 30 U/L (12-78); BILIRUBIN,DIRECT 0.1 MG/DL (0.0-0.2); BILIRUBIN,TOTAL 0.4 MG/DL (0.2-1.0); BLOOD UREA NITROGEN 7 MG/DL (7-18); CALCIUM LEVEL 9.3 MG/DL (8.8-10.2); CARBON DIOXIDE LEVEL 29 MEQ/L (21-32); CHLORIDE LEVEL 104 MEQ/L (98-107); CHOLESTEROL LEVEL 161 MG/DL (<200); CHOLESTEROL RISK RATIO 3.577 (<5); CREATININE FOR GFR 0.86 MG/DL (0.55-1.30); GLOMERULAR FILTRATION RATE > 60.0 (>45); GLUCOSE, FASTING 135 MG/DL (70-100); HDL CHOLESTEROL 45 MG/DL (>40); LDL CHOLESTEROL 84 MG/DL (<100); NON-HDL-C 116 MG/DL; SODIUM LEVEL 140 MEQ/L (136-145); TOTAL PROTEIN 6.7 GM/DL (6.4-8.2); TRIGLYCERIDES LEVEL 158 MG/DL (<150)
[2021-01-03 11:18] LABS: HEPATITIS B SURFACE ANTIBODY NEGATIVE (POSITIVE)
[2021-01-03 11:30] LABS: HEPATITIS B SURFACE ANTIGEN NEGATIVE (NEGATIVE)
[2021-01-03 11:59] LABS: HEPATITIS B CORE ANTIBODY IGM NEGATIVE (NEGATIVE); HEPATITIS C VIRUS ABY INDEX < 0.0 INDEX (<0.8)
[2021-01-04 08:09] LABS: LDL DIRECT 89 mg/dL (0-99)
== END ==
LOC: M LAB 09:22
PROVIDERS: ATTEND Physician Assistant
DX: L40.0 Psoriasis vulgaris (principal); L40.59 Other psoriatic arthropathy; L40.8 Other psoriasis; Z71.89 Other specified counseling

== ENCOUNTER 2021-01-20 12:03 | Emergency (ER) | payer OTHER ==
[~2021-01-20] VITALS: Ht 167.6 cm; Wt 79.2 kg
--- NOTE | 2021-01-20 13:47 | REP ---
INDICATION: trauma. COMPARISON: None. TECHNIQUE: Three views of the right shoulder are presented. FINDINGS: The right glenohumeral and acromioclavicular joints are normally aligned. Periarticular soft tissues are unremarkable. No fracture or subluxation is seen. The visualized right hemithorax is intact. IMPRESSION: Negative right shoulder radiographs. <Electronically signed by Lorenzo Cortes > 01/20/21 [id number]
--- NOTE | 2021-01-20 13:48 | REP ---
INDICATION: trauma, posterior. COMPARISON: None. TECHNIQUE: Helical scanning is acquired. 5 mm axial images were reformatted. Coronal MPR images were generated. FINDINGS: Bone window settings demonstrate an intact bony calvarium. There is no evidence of skull fracture or incidental bony calvarial lesion. The visualized paranasal sinuses appear clear. No intraorbital abnormality is seen. On soft tissue window setting images; the lateral, third, and fourth ventricles are normal in size and position. Trujillo-white differentiation pattern is normal above and below the tentorium. There are is no evidence of intracranial hemorrhage. No mass, edema, infarction, or midline shift is seen. No extra-axial fluid collection is appreciated. There is some vascular calcification in the distal internal carotid arteries bilaterally. IMPRESSION: Vascular calcification. No acute intracranial abnormality. No skull fracture or intracranial injury seen.. <Electronically signed by Lorenzo Cortes > 01/20/21 2314
[2021-01-20 14:28] VITALS: BP 126/77
== END 2021-01-20 14:30 | disposition home or self-care (01) ==
LOC: M ED 12:03
DX: S09.90XA Unspecified injury of head, initial encounter (principal); S43.401A Unspecified sprain of right shoulder joint, initial encounter; W10.8XXA Fall (on) (from) other stairs and steps, initial encounter; Y92.019 Unspecified place in single-family (private) house as the place of occurrence of the external cause; Y93.9 Activity, unspecified; Y99.9 Unspecified external cause status; Z88.2 Allergy status to sulfonamides; Z88.6 Allergy status to analgesic agent; Z91.040 Latex allergy status; Z79.899 Other long term (current) drug therapy

== ENCOUNTER → 2021-02-22 | Outpatient (CLI) | payer MEDICARE, MEDICAID ==
[2021-02-22 07:57] LABS: BLOOD UREA NITROGEN 12 MG/DL (7-18); CALCIUM LEVEL 9.5 MG/DL (8.8-10.2); CARBON DIOXIDE LEVEL 29 MEQ/L (21-32); CHLORIDE LEVEL 103 MEQ/L (98-107); CREATININE FOR GFR 0.89 MG/DL (0.55-1.30); GLOMERULAR FILTRATION RATE > 60.0 (>45); GLUCOSE, FASTING 156 MG/DL (70-100); MAGNESIUM LEVEL 2.3 MG/DL (1.8-2.4); NT-PRO BNP 11 PG/ML (<125); POTASSIUM SERUM 3.8 MEQ/L (3.5-5.1); SODIUM LEVEL 137 MEQ/L (136-145)
--- NOTE | 2021-02-22 08:53 | REP ---
INDICATION: SOB LABS 1ST. COMPARISON: Comparison chest x-ray September 09, 2019. TECHNIQUE: Two views.. FINDINGS: The lungs are well inflated and free of infiltrate. The pleural angles are sharp. The heart size is normal. Pulmonary vasculature is not increased. No significant bony abnormality is seen. There is a small zone of linear platelike atelectasis visible overlying the heart on the lateral radiograph. This is not seen on the frontal view. The lingula versus right middle lobe. IMPRESSION: Platelike atelectasis in the lingula or right middle lobe seen only on lateral film. Otherwise normal chest x-ray. No infiltrate seen.. <Electronically signed by Lorenzo Cortes > 02/22/21 [id number]
== END ==
LOC: M LAB 06:43
PROVIDERS: ATTEND Physician Assistant
DX: R06.02 Shortness of breath (principal); R00.2 Palpitations

== ENCOUNTER → 2021-04-18 | Outpatient (REF) | payer MEDICARE, MEDICAID | LOC: M LAB REF 13:15 | PROVIDERS: ATTEND Internal Medicine Gastroenterology | DX: R19.7 Diarrhea, unspecified (principal) ==

== ENCOUNTER → 2021-07-24 | Outpatient (CLI) | payer MEDICARE, MEDICAID ==
[~2021-07-24] MED LIST changes: -CYMB60CA3 PO; +CYMB60CA4 PO; +HYDR50TA70; -MONT10TA10 PO; +MONT10TA97 PO; +PANT40TA29; +TREM100I
== END ==
LOC: M WHC 12:39
PROVIDERS: ATTEND Physician Assistant
DX: Z12.31 Encounter for screening mammogram for malignant neoplasm of breast (principal)

== ENCOUNTER 2021-09-30 05:06 | Emergency (ER) | payer MEDICARE, MEDICAID ==
[~2021-09-30] VITALS: Ht 167.6 cm; Wt 79.5 kg
[~2021-09-30 05:06] MED LIST changes: -HYDR50TA70; -PANT40TA29; -TREM100I
[2021-09-30 11:35] VITALS: BP 141/75
== END 2021-09-30 12:08 | disposition home or self-care (01) ==
LOC: M ED 05:06
DX: S01.81XA Laceration without foreign body of other part of head, initial encounter (principal); S09.90XA Unspecified injury of head, initial encounter; R94.31 Abnormal electrocardiogram [ECG] [EKG]; E86.0 Dehydration; R55 Syncope and collapse; I10 Essential (primary) hypertension; E78.5 Hyperlipidemia, unspecified; W19.XXXA Unspecified fall, initial encounter; F41.1 Generalized anxiety disorder; F32.A Depression, unspecified; G43.909 Migraine, unspecified, not intractable, without status migrainosus; Z88.2 Allergy status to sulfonamides; Z88.1 Allergy status to other antibiotic agents; Z91.030 Bee allergy status; Z91.012 Allergy to eggs; Z91.048 Other nonmedicinal substance allergy status; Z79.01 Long term (current) use of anticoagulants; Y92.009 Unspecified place in unspecified non-institutional (private) residence as the place of occurrence of the external cause; Y93.9 Activity, unspecified; Y99.9 Unspecified external cause status

== ENCOUNTER 2021-10-21 09:54 | Emergency (ER) | payer MEDICARE, OTHER ==
[~2021-10-21] VITALS: Ht 170.2 cm; Wt 79.7 kg
[2021-10-21] MEDS ORDERED: PANT40TA29 (10:23)
[2021-10-21] MEDS ORDERED: HYDR50TA70 (10:23)
[2021-10-21] MEDS ORDERED: TREM100I (10:23)
[2021-10-21] MEDS ORDERED: LORazepam 2 MG/ML VIAL IV STA (13:32)
[2021-10-21 19:27] VITALS: BP 129/71
== END 2021-10-21 19:29 | disposition home or self-care (01) ==
LOC: EDSEX 09:54 → M ED 09:54 → EDBD 09:54 → M ED 19:29
DX: M79.631 Pain in right forearm (principal); M54.50 Low back pain, unspecified; M54.2 Cervicalgia; W00.9XXA Unspecified fall due to ice and snow, initial encounter; G43.909 Migraine, unspecified, not intractable, without status migrainosus; M79.7 Fibromyalgia; Y92.009 Unspecified place in unspecified non-institutional (private) residence as the place of occurrence of the external cause; Y93.9 Activity, unspecified; Y99.9 Unspecified external cause status
CPT/HCPCS: 72072; 72110; 72125; 72141; 73090; 96374; 99284; J2060

== ENCOUNTER → 2021-11-14 | Outpatient (CLI) | payer MEDICARE, OTHER ==
[~2021-11-14] MED LIST changes: +HYDR50TA70; +PANT40TA29; +TREM100I
== END ==
LOC: M SLEEP 20:00
PROVIDERS: ATTEND Nurse Practitioner Adult Health
DX: G47.30 Sleep apnea, unspecified (principal)

== ENCOUNTER → 2021-11-19 | Outpatient (CLI) | payer MEDICARE, OTHER ==
[~2021-11-19] MED LIST changes: +METHACHOLINE KIT (J7674) INH ONE
== END ==
LOC: M CARPUL 08:33
PROVIDERS: ATTEND Nurse Practitioner Adult Health
DX: R06.02 Shortness of breath (principal)
CPT/HCPCS: 94070; 95070; J7674

== ENCOUNTER → 2021-12-03 | Outpatient (CLI) | payer MEDICARE, OTHER ==
[~2021-12-03] MED LIST changes: +E-Z-GAS II EFFERVESCENT PACKET (SODIUM BICARB./CITRIC ACID/SIMETHICONE) As Ordered ONE; +E-Z-HD 98% w/w 340GM SUSP BTL As Ordered ONE; +E-Z-PAQUE 96% w/w SUSP 176GM BTL As Ordered ONE; -METHACHOLINE KIT (J7674) INH ONE
== END ==
LOC: M RAD 07:23
PROVIDERS: ATTEND Physician Assistant
DX: R13.10 Dysphagia, unspecified (principal)

== ENCOUNTER 2022-01-03 16:56 | Emergency (ER) | payer MEDICARE, OTHER ==
[~2022-01-03] VITALS: Ht 170.2 cm; Wt 75.7 kg
[~2022-01-03 16:56] MED LIST changes: -E-Z-GAS II EFFERVESCENT PACKET (SODIUM BICARB./CITRIC ACID/SIMETHICONE) As Ordered ONE; -E-Z-HD 98% w/w 340GM SUSP BTL As Ordered ONE; -E-Z-PAQUE 96% w/w SUSP 176GM BTL As Ordered ONE
[2022-01-03 17:13] VITALS: BP 145/76
== END 2022-01-03 18:10 | disposition left against medical advice (07) ==
LOC: M ED 16:56
DX: Z53.21 Procedure and treatment not carried out due to patient leaving prior to being seen by health care provider (principal)

== ENCOUNTER 2022-01-29 15:11 | Emergency (ER) | payer MEDICARE, OTHER ==
[~2022-01-29] VITALS: Ht 167.6 cm; Wt 72.0 kg
[2022-01-29 16:54] VITALS: BP 147/80
== END 2022-01-29 17:20 | disposition home or self-care (01) ==
LOC: M ED 15:11
DX: F41.1 Generalized anxiety disorder (principal); F32.A Depression, unspecified; I10 Essential (primary) hypertension; J45.909 Unspecified asthma, uncomplicated; J44.9 Chronic obstructive pulmonary disease, unspecified; K58.9 Irritable bowel syndrome, unspecified; Z88.2 Allergy status to sulfonamides; Z88.5 Allergy status to narcotic agent; Z91.012 Allergy to eggs; Z91.040 Latex allergy status; Z91.030 Bee allergy status; Z79.51 Long term (current) use of inhaled steroids; Z79.4 Long term (current) use of insulin; Z79.899 Other long term (current) drug therapy

== ENCOUNTER 2022-03-23 11:23 | Emergency (ER) | payer MEDICARE, OTHER ==
[~2022-03-23] VITALS: Ht 167.6 cm; Wt 77.3 kg
[2022-03-23] MEDS ORDERED: KETOROLAC 30 MG/ML 1ML VIAL IV ONE (12:40)
[2022-03-23] MEDS ORDERED: NS 1,000 ML IV ONE (12:40)
[2022-03-23] MEDS ORDERED: clonazePAM 0.5 MG TAB PO ONE (12:40)
[2022-03-23 13:04] LABS: BASO % 0.5 % (0.0-1.0); EOS % 0.3 % (0.0-3.0); HEMATOCRIT 43.1 % (36.0-47.0); HEMOGLOBIN 14.7 g/dl (12.0-15.5); LYMPH # 1.1 10^3/uL (1.5-5.0); LYMPH % 18.9 % (24.0-44.0); MEAN CORPUSCULAR HEMOGLOBIN 27.4 pg (27.0-33.0); MEAN CORPUSCULAR HGB CONC 34.1 g/dl (32.0-36.5); MEAN CORPUSCULAR VOLUME 80.4 fl (80.0-96.0); MONO # 0.6 10^3/uL (0.0-0.8); MONO % 9.4 % (2.0-8.0); NEUTROPHILS # 4.2 10^3/uL (1.5-8.5); NEUTROPHILS % 70.7 % (36.0-66.0); PLATELET COUNT, AUTOMATED 294 10^3/uL (150-450); RED BLOOD COUNT 5.36 10^6/uL (4.00-5.40)
[2022-03-23 13:28] LABS: ALBUMIN 4.5 GM/DL (3.2-5.2); BILIRUBIN,DIRECT 0.3 MG/DL (0.0-0.2); BILIRUBIN,TOTAL 0.8 MG/DL (0.2-1.0); TOTAL PROTEIN 7.8 GM/DL (6.4-8.2)
[2022-03-23] MEDS ORDERED: DICYCLOMINE 10 MG CAP PO ONE (14:20)
[2022-03-23] MEDS ORDERED: DICY10CA13 PO (14:39)
[2022-03-23 14:56] VITALS: BP 128/69
== END 2022-03-23 15:01 | disposition home or self-care (01) ==
LOC: EDBD 11:23 → M ED 11:23
DX: F41.9 Anxiety disorder, unspecified (principal); R10.9 Unspecified abdominal pain; J44.9 Chronic obstructive pulmonary disease, unspecified; K57.92 Diverticulitis of intestine, part unspecified, without perforation or abscess without bleeding; Z88.2 Allergy status to sulfonamides; Z91.048 Other nonmedicinal substance allergy status; Z91.030 Bee allergy status; Z91.012 Allergy to eggs; Z91.040 Latex allergy status; Z91.02 Food additives allergy status

== ENCOUNTER → 2022-06-19 | Outpatient (REF) | payer MEDICARE, MEDICAID ==
[~2022-06-19] MED LIST changes: +DICY10CA13 PO
[2022-06-19 17:41] LABS: ALT/SGPT 19 U/L (12-78); BILIRUBIN,TOTAL 0.6 MG/DL (0.2-1.0); BLOOD UREA NITROGEN 8 MG/DL (7-18); CALCIUM LEVEL 9.5 MG/DL (8.8-10.2); CARBON DIOXIDE LEVEL 29 MEQ/L (21-32); CHLORIDE LEVEL 105 MEQ/L (98-107); CREATININE FOR GFR 0.86 MG/DL (0.55-1.30); GLOMERULAR FILTRATION RATE > 60.0 (>45); GLUCOSE, FASTING 111 MG/DL (70-100); POTASSIUM SERUM 4.7 MEQ/L (3.5-5.1); SODIUM LEVEL 139 MEQ/L (136-145); TOTAL PROTEIN 7.2 GM/DL (6.4-8.2)
[2022-06-19 19:43] LABS: HEMOGLOBIN A1c 6.8 %
== END ==
LOC: M LAB REF 16:35
PROVIDERS: ATTEND Pediatrics
DX: E11.69 Type 2 diabetes mellitus with other specified complication (principal)

== ENCOUNTER → 2022-07-31 | Outpatient (CLI) | payer MEDICARE, OTHER | LOC: M SLEEP 20:00 | PROVIDERS: ATTEND Nurse Practitioner Adult Health | DX: G47.33 Obstructive sleep apnea (adult) (pediatric) (principal) ==

== ENCOUNTER → 2022-08-13 | Outpatient (REF) | payer MEDICARE, MEDICAID | LOC: M LAB REF 16:35 | PROVIDERS: ATTEND Pediatrics | DX: E03.9 Hypothyroidism, unspecified (principal) ==

== ENCOUNTER → 2022-10-08 | Outpatient (REF) | payer MEDICARE, MEDICAID ==
[2022-10-08 18:27] LABS: CREATININE, URINE 42.2 MG/DL; MALB URINE SIEMENS < 3.0 MG/DL; MAU/CREAT RATIO 7.1 MCG/MG (0.0-30.0)
[2022-10-08 18:39] LABS: HEMOGLOBIN A1c 5.7 % (4.0-6.0)
== END ==
LOC: M LAB REF 16:52
PROVIDERS: ATTEND Pediatrics
DX: E11.69 Type 2 diabetes mellitus with other specified complication (principal); E03.9 Hypothyroidism, unspecified

== ENCOUNTER → 2022-11-13 | Outpatient (CLI) | payer MEDICAID, MEDICARE | LOC: M PLARAD 13:41 | PROVIDERS: ATTEND Physician Assistant | DX: M50.30 Other cervical disc degeneration, unspecified cervical region (principal); Z53.9 Procedure and treatment not carried out, unspecified reason ==

== ENCOUNTER → 2022-11-21 | Outpatient (CLI) | payer MEDICARE | LOC: M WHC 12:10 | PROVIDERS: ATTEND Pediatrics | DX: Z12.31 Encounter for screening mammogram for malignant neoplasm of breast (principal); Z13.820 Encounter for screening for osteoporosis; M85.89 Other specified disorders of bone density and structure, multiple sites ==

== ENCOUNTER → 2022-11-28 | Outpatient (CLI) | payer MEDICARE | LOC: M PLAIMG 10:25 | PROVIDERS: ATTEND Physician Assistant | DX: M54.2 Cervicalgia (principal) ==

== ENCOUNTER → 2023-01-06 | Outpatient (CLI) | payer MEDICARE, OTHER ==
[2023-01-06 09:56] LABS: PLATELET COUNT, AUTOMATED 246 10^3/uL (150-450)
[2023-01-06 10:12] LABS: PROTHROMBIN TIME 13.4 SECONDS (12.5-14.5)
[2023-01-06 10:13] LABS: PARTIAL THROMBOPLASTIN TIME 24.2 SECONDS (24.8-34.2)
[2023-01-06 11:04] LABS: COLLAGEN EPINEPHRINE 93 SECONDS (74-162)
== END ==
LOC: M LAB 09:21
PROVIDERS: ATTEND Physician Assistant
DX: Z01.818 Encounter for other preprocedural examination (principal); Z79.01 Long term (current) use of anticoagulants

== ENCOUNTER → 2023-01-07 | Outpatient (REF) | payer MEDICARE, OTHER ==
[2023-01-07 18:16] LABS: HEMOGLOBIN A1c 6.1 % (4.0-6.0)
[2023-01-07 18:18] LABS: CHOLESTEROL RISK RATIO 2.64 (<5); LDL CHOLESTEROL 69.2 MG/DL (<100)
[2023-01-07 18:20] LABS: THYROID STIMULATING HORMONE 1.201 uIU/ML (0.55-4.78); TOTAL 25(OH) VITAMIN D 28.8 NG/ML (20.0-100.0)
== END ==
LOC: M LAB REF 16:28
PROVIDERS: ATTEND Pediatrics
DX: R30.9 Painful micturition, unspecified (principal); E78.5 Hyperlipidemia, unspecified; E03.9 Hypothyroidism, unspecified; E11.69 Type 2 diabetes mellitus with other specified complication; M85.80 Other specified disorders of bone density and structure, unspecified site

== ENCOUNTER → 2023-03-24 | Outpatient (CLI) | payer MEDICARE, OTHER ==
[~2023-03-24] MED LIST changes: +DICY-61 PO; -DICY10CA13 PO
== END ==
LOC: M RAD 07:42
PROVIDERS: ATTEND Nurse Practitioner Adult Health
DX: R05.9 Cough, unspecified (principal)

== ENCOUNTER → 2023-10-03 | Outpatient (CLI) | payer MEDICARE ==
[~2023-10-03] MED LIST changes: +ABIL1TAB13 PO; +ADVA230A INH; +ATOR40TA75 PO; +CLON1TAB8 PO; +DICL100G10 TOP; -DICL1GEL3 TOP; +DULA3PEN SC; +DULO1CAP5 PO; +GLIP5TAB17 PO; -GLIP5TAB8 PO; +LEVO75TA4 PO; +MELA5CAP2 PO; -PANT40TA29; +TIZA10TA PO; +TRAZ-257 PO
[2023-10-03 09:30] LABS: EOS # 0.1 10^3/uL (0.0-0.5); EOS % 3.5 % (0.0-3.0); HEMATOCRIT 39.3 % (36.0-47.0); HEMOGLOBIN 12.7 g/dl (12.0-15.5); LYMPH # 1.3 10^3/uL (1.5-5.0); LYMPH % 32.8 % (24.0-44.0); MEAN CORPUSCULAR HEMOGLOBIN 27.6 pg (27.0-33.0); MEAN CORPUSCULAR HGB CONC 32.3 g/dl (32.0-36.5); MEAN CORPUSCULAR VOLUME 85.4 fl (80.0-96.0); MONO # 0.4 10^3/uL (0.0-0.8); MONO % 10.7 % (2.0-8.0); NEUTROPHILS # 2.1 10^3/uL (1.5-8.5); NEUTROPHILS % 51.8 % (36.0-66.0); PLATELET COUNT, AUTOMATED 232 10^3/uL (150-450)
[2023-10-03 09:56] LABS: ALBUMIN 3.6 G/DL (3.2-5.2); ALKALINE PHOSPHATASE 67 U/L (46-116); ALT/SGPT 16 U/L (7.0-40); AST/SGOT 11 U/L (<34); BILIRUBIN,TOTAL 0.5 MG/DL (0.3-1.2); BLOOD UREA NITROGEN 15 MG/DL (9-23); CALCIUM LEVEL 9.4 MG/DL (8.3-10.6); CARBON DIOXIDE LEVEL 29 MMOL/L (20-31); CHLORIDE LEVEL 106 MMOL/L (98-107); CHOLESTEROL LEVEL 154 MG/DL (<200); CHOLESTEROL RISK RATIO 2.54 (<5); CREATININE FOR GFR 0.81 MG/DL (0.55-1.30); GLOMERULAR FILTRATION RATE > 60.0 (>45); GLUCOSE, FASTING 133 MG/DL (74-106); HDL CHOLESTEROL 60.4 MG/DL (>40); LDL CHOLESTEROL 85.6 MG/DL (<100); NON-HDL-C 93.6 MG/DL; POTASSIUM SERUM 4.1 MMOL/L (3.5-5.1); SODIUM LEVEL 140 MMOL/L (136-145); TOTAL PROTEIN 6.7 G/DL (5.7-8.2); TRIGLYCERIDES LEVEL 40 MG/DL (<150)
[2023-10-03 09:57] LABS: THYROID STIMULATING HORMONE 1.687 uIU/ML (0.55-4.78)
[2023-10-03 10:02] LABS: VITAMIN B12 LEVEL 299 PG/ML (211-911)
== END ==
LOC: M LAB 08:34
PROVIDERS: ATTEND Nurse Practitioner Psychiatric/Mental Health
DX: F33.1 Major depressive disorder, recurrent, moderate (principal); Z79.899 Other long term (current) drug therapy

== ENCOUNTER → 2023-11-20 | Outpatient (REF) | payer MEDICARE, OTHER ==
[2023-11-20 16:49] LABS: APPEARANCE, URINE CLEAR (CLEAR); BACTERIA, URINE AUTO NEGATIVE (NEGATIVE); BILIRUBIN, URINE AUTO NEGATIVE (NEGATIVE); BLOOD, URINE BLOOD NEGATIVE (NEGATIVE); COLOR, URINE YELLOW (YELLOW); GLUCOSE, URINE (UA) AUTO NEGATIVE (NEGATIVE); KETONE, URINE AUTO NEGATIVE (NEGATIVE); LEUKOCYTE ESTERASE, URINE AUTO TRACE (NEGATIVE); MUCUS, URINE SMALL (NEGATIVE); NITRITE, URINE AUTO NEGATIVE (NEGATIVE); PROTEIN, URINE AUTO NEGATIVE (NEGATIVE); RBC, URINE AUTO 2 /HPF (0-3); SQUAMOUS EPITHELIAL CELL UR AU 2 /HPF (0-6); UROBILINOGEN, URINE AUTO 0.2 mg/dL (0.0-2.0); WBC, URINE AUTO 1 /HPF (0-3)
[2023-11-20 17:13] LABS: CREATININE, URINE 40.8 MG/DL; MALB URINE SIEMENS < 3.0 MG/L; MAU/CREAT RATIO 7.3 MCG/MG (0.0-30.0)
== END ==
LOC: M LAB REF 15:59
PROVIDERS: ATTEND Pediatrics
DX: E11.69 Type 2 diabetes mellitus with other specified complication (principal); R35.0 Frequency of micturition

== ENCOUNTER → 2023-12-03 | Outpatient (CLI) | payer MEDICARE, OTHER | LOC: M WHC 13:06 | PROVIDERS: ATTEND Pediatrics | DX: Z12.31 Encounter for screening mammogram for malignant neoplasm of breast (principal) ==

== ENCOUNTER → 2023-12-09 | Outpatient (REF) | payer MEDICARE, OTHER | LOC: M LAB REF 11:40 | PROVIDERS: ATTEND Pediatrics | DX: R35.0 Frequency of micturition (principal) ==

== ENCOUNTER → 2024-03-02 | Outpatient (REF) | payer MEDICARE, OTHER ==
[2024-03-02 17:15] LABS: APPEARANCE, URINE TURBID (CLEAR); BACTERIA, URINE AUTO NEGATIVE (NEGATIVE); BILIRUBIN, URINE AUTO NEGATIVE (NEGATIVE); BLOOD, URINE BLOOD NEGATIVE (NEGATIVE); CALCIUM OXALATE CRYSTALS MODERATE; COLOR, URINE AMBER (YELLOW); GLUCOSE, URINE (UA) AUTO NEGATIVE (NEGATIVE); KETONE, URINE AUTO NEGATIVE (NEGATIVE); LEUKOCYTE ESTERASE, URINE AUTO 2+ (NEGATIVE); MUCUS, URINE SMALL (NEGATIVE); NITRITE, URINE AUTO NEGATIVE (NEGATIVE); PROTEIN, URINE AUTO NEGATIVE (NEGATIVE); RBC, URINE AUTO 0 /HPF (0-3); SPECIFIC GRAVITY URINE AUTO 1.018 (1.002-1.035); SQUAMOUS EPITHELIAL CELL UR AU 4 /HPF (0-6); UROBILINOGEN, URINE AUTO 0.2 mg/dL (0.0-2.0); WBC, URINE AUTO 8 /HPF (0-3)
== END ==
LOC: M LAB REF 16:19
PROVIDERS: ATTEND Pediatrics
DX: R35.0 Frequency of micturition (principal)

== ENCOUNTER 2024-03-07 11:45 | Day surgery (SDC) | payer MEDICARE, OTHER ==
[~2024-03-07] VITALS: Ht 167.6 cm; Wt 69.0 kg
[2024-03-07] MEDS: NS 1,000 ML IV ONE ×2 (12:02→12:25)
[2024-03-07] MEDS ORDERED: propofoL 200 MG/20 ML VIAL As Ordered ONE (12:52)
[2024-03-07] MEDS ORDERED: LIDOCAINE 2% 100MG/5ML SDV (FOR ANES.) As Ordered ONE (12:52)
[2024-03-07 13:27] VITALS: TEMP 98.6
[2024-03-07 13:45] VITALS: BP 127/64; O2SAT 98
== END 2024-03-07 13:48 | disposition home or self-care (01) ==
LOC: M OPP 11:45
PROVIDERS: ATTEND Internal Medicine Gastroenterology
DX: Z12.11 Encounter for screening for malignant neoplasm of colon (principal); Z80.0 Family history of malignant neoplasm of digestive organs; D12.2 Benign neoplasm of ascending colon; K64.0 First degree hemorrhoids; K57.30 Diverticulosis of large intestine without perforation or abscess without bleeding; E11.9 Type 2 diabetes mellitus without complications; G47.30 Sleep apnea, unspecified; Z99.89 Dependence on other enabling machines and devices; I10 Essential (primary) hypertension; E78.5 Hyperlipidemia, unspecified; E03.9 Hypothyroidism, unspecified; Z79.02 Long term (current) use of antithrombotics/antiplatelets; Z79.52 Long term (current) use of systemic steroids; Z79.84 Long term (current) use of oral hypoglycemic drugs; Z79.890 Hormone replacement therapy; Z79.891 Long term (current) use of opiate analgesic; Z79.899 Other long term (current) drug therapy; Z88.2 Allergy status to sulfonamides; Z88.5 Allergy status to narcotic agent; Z91.018 Allergy to other foods; Z91.030 Bee allergy status; Z91.040 Latex allergy status; Z91.048 Other nonmedicinal substance allergy status

== ENCOUNTER → 2024-05-16 | Outpatient (REF) | payer MEDICARE, MEDICAID | LOC: M SFHCDERM 12:47 | PROVIDERS: ATTEND Physician Assistant | DX: L40.9 Psoriasis, unspecified (principal); Z79.899 Other long term (current) drug therapy ==

== ENCOUNTER → 2024-05-17 | Outpatient (CLI) | payer MEDICAID, MEDICARE, OTHER ==
[2024-05-17 12:06] LABS: BLOOD UREA NITROGEN 15 MG/DL (9-23); CALCIUM LEVEL 9.4 MG/DL (8.3-10.6); CARBON DIOXIDE LEVEL 29 MMOL/L (20-31); CHLORIDE LEVEL 103 MMOL/L (98-107); CPK CREATINE PHOSPHOKINASE 59 U/L (34-145); GLOMERULAR FILTRATION RATE > 60.0 (>45); GLUCOSE, FASTING 113 MG/DL (74-106); MAGNESIUM LEVEL 1.9 MG/DL (1.8-2.4); SODIUM LEVEL 137 MMOL/L (136-145)
== END ==
LOC: M LAB 10:30
PROVIDERS: ATTEND Pediatrics
DX: R25.2 Cramp and spasm (principal)

== ENCOUNTER → 2024-05-17 | Outpatient (CLI) | payer MEDICAID, MEDICARE, OTHER ==
[2024-05-17 12:27] LABS: HEMATOCRIT 41.5 % (36.0-47.0); HEMOGLOBIN 13.7 g/dl (12.0-15.5); MEAN CORPUSCULAR HEMOGLOBIN 27.7 pg (27.0-33.0); MEAN CORPUSCULAR VOLUME 83.8 fl (80.0-96.0); PLATELET COUNT, AUTOMATED 272 10^3/uL (150-450); RED BLOOD COUNT 4.95 10^6/uL (4.00-5.40); WHITE BLOOD COUNT 6.3 10^3/uL (4.0-10.0)
[2024-05-17 12:59] LABS: ALBUMIN 4.5 G/DL (3.2-5.2); ALKALINE PHOSPHATASE 90 U/L (46-116); ALT/SGPT 16 U/L (7.0-40); AST/SGOT 10 U/L (<34); BILIRUBIN,TOTAL 0.7 MG/DL (0.3-1.2); BLOOD UREA NITROGEN 15 MG/DL (9-23); CALCIUM LEVEL 9.4 MG/DL (8.3-10.6); CARBON DIOXIDE LEVEL 30 MMOL/L (20-31); CHLORIDE LEVEL 103 MMOL/L (98-107); CREATININE FOR GFR 0.81 MG/DL (0.55-1.30); GLOMERULAR FILTRATION RATE > 60.0 (>45); GLUCOSE, FASTING 110 MG/DL (74-106); SODIUM LEVEL 137 MMOL/L (136-145); TOTAL PROTEIN 7.3 G/DL (5.7-8.2)
[2024-05-17 13:06] LABS: HEPATITIS B SURFACE ANTIBODY NEGATIVE (POSITIVE)
[2024-05-17 13:18] LABS: HEPATITIS B SURFACE ANTIGEN NEGATIVE (NEGATIVE)
[2024-05-17 13:31] LABS: HIV 1&2 SCREEN NEGATIVE (NEGATIVE)
[2024-05-17 13:40] LABS: HEPATITIS C VIRUS ABY INDEX < 0.02 INDEX (<0.8)
[2024-05-18 09:58] LABS: HEPATITIS B CORE ANTIBODY IGG NON-REACTIVE (NON-REACTIVE)
[2024-05-19 12:22] LABS: QuantiFERON-TB Gold Plus NEGATIVE (NEGATIVE)
== END ==
LOC: M LAB 10:36
PROVIDERS: ATTEND Physician Assistant
DX: L40.9 Psoriasis, unspecified (principal)

== ENCOUNTER → 2024-06-22 | Outpatient (REF) | payer OTHER | LOC: M LAB REF 16:37 | PROVIDERS: ATTEND Pediatrics | DX: R35.0 Frequency of micturition (principal) ==

== ENCOUNTER → 2024-08-04 | Outpatient (REF) | payer MEDICARE, OTHER ==
[~2024-08-04] MED LIST changes: -ADV250INH INH; +ADVA1AER9 INH
[2024-08-04 12:51] LABS: APPEARANCE, URINE CLOUDY (CLEAR); BACTERIA, URINE AUTO NEGATIVE (NEGATIVE); BILIRUBIN, URINE AUTO NEGATIVE (NEGATIVE); BLOOD, URINE BLOOD NEGATIVE (NEGATIVE); CALCIUM OXALATE CRYSTALS LARGE; COLOR, URINE YELLOW (YELLOW); GLUCOSE, URINE (UA) AUTO NEGATIVE (NEGATIVE); KETONE, URINE AUTO NEGATIVE (NEGATIVE); LEUKOCYTE ESTERASE, URINE AUTO NEGATIVE (NEGATIVE); MUCUS, URINE SMALL (NEGATIVE); NITRITE, URINE AUTO NEGATIVE (NEGATIVE); PROTEIN, URINE AUTO NEGATIVE (NEGATIVE); RBC, URINE AUTO 0 /HPF (0-3); SPECIFIC GRAVITY URINE AUTO 1.019 (1.002-1.035); SQUAMOUS EPITHELIAL CELL UR AU 14 /HPF (0-6); WBC, URINE AUTO 0 /HPF (0-3)
== END ==
LOC: M SMT 12:24
PROVIDERS: ATTEND Nurse Practitioner Family
DX: R35.0 Frequency of micturition (principal)

== ENCOUNTER → 2024-08-12 | Outpatient (REF) | payer MEDICARE, OTHER ==
[~2024-08-12] MED LIST changes: -ADV500INH INH; +ADVA1AER10 INH
[2024-08-12 19:31] LABS: ALKALINE PHOSPHATASE 88 U/L (35-104); ALT/SGPT 18 U/L (7.0-40); AST/SGOT 12 U/L (<34); BILIRUBIN,TOTAL 0.4 MG/DL (0.3-1.2); BLOOD UREA NITROGEN 9 MG/DL (9-23); CALCIUM LEVEL 10.1 MG/DL (8.3-10.6); CARBON DIOXIDE LEVEL 29 MMOL/L (20-31); CHLORIDE LEVEL 104 MMOL/L (98-107); CREATININE FOR GFR 0.77 MG/DL (0.55-1.30); GLOMERULAR FILTRATION RATE > 60.0 (>45); GLUCOSE, FASTING 106 MG/DL (74-106); POTASSIUM SERUM 4.3 MMOL/L (3.5-5.1); SODIUM LEVEL 141 MMOL/L (136-145); TOTAL PROTEIN 7.3 G/DL (5.7-8.2)
[2024-08-12 19:32] LABS: THYROID STIMULATING HORMONE 1.172 uIU/ML (0.55-4.78)
[2024-08-12 20:26] LABS: HEMOGLOBIN A1c 5.9 % (4.0-6.0)
== END ==
LOC: M LAB REF 16:16
PROVIDERS: ATTEND Pediatrics
DX: E11.69 Type 2 diabetes mellitus with other specified complication (principal); R14.0 Abdominal distension (gaseous); E03.9 Hypothyroidism, unspecified; R63.5 Abnormal weight gain; R30.9 Painful micturition, unspecified; R19.09 Other intra-abdominal and pelvic swelling, mass and lump

== ENCOUNTER → 2024-08-12 | Outpatient (REF) | payer MEDICARE, OTHER ==
[~2024-08-12] MED LIST changes: +ADV500INH INH; -ADVA1AER10 INH
[2024-08-12 14:12] LABS: CREATININE, URINE 27.7 MG/DL; MALB URINE SIEMENS < 3.0 MG/L
== END ==
LOC: M LAB REF 12:01
PROVIDERS: ATTEND Pediatrics
DX: E11.69 Type 2 diabetes mellitus with other specified complication (principal); R30.9 Painful micturition, unspecified

== ENCOUNTER → 2024-11-07 | Outpatient (REF) | payer MEDICARE, OTHER ==
[~2024-11-07] MED LIST changes: -ADV500INH INH; +ADVA1AER10 INH
[2024-11-07 14:08] LABS: APPEARANCE, URINE CLEAR (CLEAR); BACTERIA, URINE AUTO NEGATIVE (NEGATIVE); BILIRUBIN, URINE AUTO NEGATIVE (NEGATIVE); BLOOD, URINE BLOOD NEGATIVE (NEGATIVE); COLOR, URINE COLORLESS (YELLOW); GLUCOSE, URINE (UA) AUTO NEGATIVE (NEGATIVE); KETONE, URINE AUTO NEGATIVE (NEGATIVE); LEUKOCYTE ESTERASE, URINE AUTO NEGATIVE (NEGATIVE); NITRITE, URINE AUTO NEGATIVE (NEGATIVE); PROTEIN, URINE AUTO NEGATIVE (NEGATIVE); RBC, URINE AUTO 0 /HPF (0-3); SPECIFIC GRAVITY URINE AUTO 1.001 (1.002-1.035); SQUAMOUS EPITHELIAL CELL UR AU 0 /HPF (0-6); UROBILINOGEN, URINE AUTO 0.2 mg/dL (0.0-2.0); WBC, URINE AUTO 0 /HPF (0-3)
== END ==
LOC: M SMT 12:44
PROVIDERS: ATTEND Nurse Practitioner Family
DX: R35.0 Frequency of micturition (principal)

== ENCOUNTER → 2024-11-17 | Outpatient (CLI) | payer MEDICARE, OTHER | LOC: M EKG 10:44 | PROVIDERS: ATTEND Registered Nurse | DX: R00.2 Palpitations (principal) ==

== ENCOUNTER → 2024-12-13 | Outpatient (CLI) | payer MEDICARE, OTHER | LOC: M CARPUL 09:45 | PROVIDERS: ATTEND Registered Nurse | DX: R07.9 Chest pain, unspecified (principal) ==

== ENCOUNTER → 2024-12-15 | Outpatient (CLI) | payer MEDICARE, OTHER | LOC: M RAD 08:43 | PROVIDERS: ATTEND Nurse Practitioner Family | DX: R35.0 Frequency of micturition (principal) ==

== ENCOUNTER → 2024-12-15 | Outpatient (CLI) | payer MEDICARE, OTHER ==
[2024-12-15 10:10] LABS: ALBUMIN 3.7 G/DL (3.2-5.2); BILIRUBIN,TOTAL 0.5 MG/DL (0.3-1.2); CALCIUM LEVEL 9.2 MG/DL (8.3-10.6); CHOLESTEROL RISK RATIO 2.55 (<5); CREATININE FOR GFR 0.84 MG/DL (0.55-1.30); GLOMERULAR FILTRATION RATE 77.6 (>45); HDL CHOLESTEROL 56.7 MG/DL (>40); LDL CHOLESTEROL 72.5 MG/DL (<100); NON-HDL-C 88.3 MG/DL; TOTAL PROTEIN 6.7 G/DL (5.7-8.2)
== END ==
LOC: M LAB 08:44
PROVIDERS: ATTEND Registered Nurse
DX: E78.2 Mixed hyperlipidemia (principal)

== ENCOUNTER → 2024-12-21 | Outpatient (CLI) | payer MEDICARE, OTHER | LOC: M WHC 08:34 | PROVIDERS: ATTEND Pediatrics | DX: Z12.31 Encounter for screening mammogram for malignant neoplasm of breast (principal); M81.0 Age-related osteoporosis without current pathological fracture ==

== ENCOUNTER → 2025-03-10 | Outpatient (REF) | payer MEDICARE, MEDICAID ==
[~2025-03-10] MED LIST changes: +PREG-35 PO; -PREG100CA PO; -PREG50CA PO; +PREG50CA87 PO
[2025-03-10 18:42] LABS: VITAMIN B12 LEVEL 271.0 PG/ML (211-911)
== END ==
LOC: M LAB REF 17:17
PROVIDERS: ATTEND Pediatrics
DX: E03.9 Hypothyroidism, unspecified (principal); R41.89 Other symptoms and signs involving cognitive functions and awareness

== ENCOUNTER 2025-04-20 10:27 | Emergency (ER) | payer MEDICARE, MEDICAID ==
[~2025-04-20] VITALS: Ht 167.6 cm; Wt 71.2 kg
[2025-04-20] MEDS ORDERED: LEVO75TA4 (10:39)
[2025-04-20] MEDS ORDERED: GABA-1171 (10:39)
[2025-04-20] MEDS ORDERED: DULO1CAP6 (10:39)
[2025-04-20] MEDS ORDERED: LINZ72CA (10:39)
[2025-04-20] MEDS ORDERED: VIBE75TA (10:39)
[2025-04-20] MEDS ORDERED: MAGN400T2 PO (10:39)
[2025-04-20 13:24] VITALS: BP 134/67; TEMP 97.4; O2SAT 98
[2025-04-20] MEDS ORDERED: IBUP600T42 PO (13:28)
== END 2025-04-20 14:00 | disposition home or self-care (01) ==
LOC: M ED 10:27
DX: S63.502A Unspecified sprain of left wrist, initial encounter (principal); X50.0XXA Overexertion from strenuous movement or load, initial encounter; G43.909 Migraine, unspecified, not intractable, without status migrainosus; J44.9 Chronic obstructive pulmonary disease, unspecified; M79.7 Fibromyalgia; Z88.2 Allergy status to sulfonamides; Z88.5 Allergy status to narcotic agent; Z88.6 Allergy status to analgesic agent; Z91.040 Latex allergy status; Z91.030 Bee allergy status; Z79.51 Long term (current) use of inhaled steroids; Z79.4 Long term (current) use of insulin; Z79.84 Long term (current) use of oral hypoglycemic drugs; Z79.899 Other long term (current) drug therapy; Y92.009 Unspecified place in unspecified non-institutional (private) residence as the place of occurrence of the external cause; Y93.89 Activity, other specified; Y99.9 Unspecified external cause status

== ENCOUNTER 2025-05-26 10:44 | Emergency (ER) | payer MEDICARE, MEDICAID ==
[~2025-05-26] VITALS: Ht 170.2 cm; Wt 75.0 kg
[~2025-05-26 10:44] MED LIST changes: +DULO1CAP6; +GABA-1171; +IBUP600T42 PO; +LEVO75TA4; +LINZ72CA; +MAGN400T2 PO; +VIBE75TA; -ZOLP5TAB PO; +ZOLP5TAB9 PO
[2025-05-26 11:40] LABS: BASO # 0.0 10^3/uL (0.0-0.2); BASO % 0.6 % (0.0-1.0); EOS # 0.0 10^3/uL (0.0-0.5); EOS % 0.2 % (0.0-3.0); LYMPH # 1.1 10^3/uL (1.5-5.0); LYMPH % 20.5 % (24.0-44.0); MONO # 0.4 10^3/uL (0.0-0.8); MONO % 7.4 % (2.0-8.0); NEUTROPHILS # 3.6 10^3/uL (1.5-8.5); NEUTROPHILS % 70.7 % (36.0-66.0); PLATELET COUNT, AUTOMATED 265 10^3/uL (150-450)
[2025-05-26 11:55] LABS: INR 0.87
[2025-05-26 12:10] LABS: ALT/SGPT 72 U/L (7.0-40); AST/SGOT 43 U/L (<34); CALCIUM LEVEL 8.7 MG/DL (8.3-10.6); CARBON DIOXIDE LEVEL 29 MMOL/L (20-31); CHLORIDE LEVEL 101 MMOL/L (98-107); CK-MB VALUE MASS < 1.0 NG/ML (<3.6); CPK CREATINE PHOSPHOKINASE 41 U/L (34-145); CREATININE FOR GFR 0.72 MG/DL (0.55-1.30); GLOMERULAR FILTRATION RATE > 90.0 (>45); POTASSIUM SERUM 3.7 MMOL/L (3.5-5.1); SODIUM LEVEL 137 MMOL/L (136-145)
[2025-05-26 12:12] LABS: FREE T4 1.11 NG/DL (0.89-1.76)
[2025-05-26 12:57] LABS: CK-MB VALUE MASS < 1.0 NG/ML (<3.6)
[2025-05-26 13:00] LABS: CPK CREATINE PHOSPHOKINASE 42 U/L (34-145)
[2025-05-26 14:59] VITALS: BP 124/70; TEMP 98.5; O2SAT 96
== END 2025-05-26 15:05 | disposition home or self-care (01) ==
LOC: M ED 10:44
DX: R07.9 Chest pain, unspecified (principal); E11.9 Type 2 diabetes mellitus without complications; I10 Essential (primary) hypertension; E78.5 Hyperlipidemia, unspecified; K58.9 Irritable bowel syndrome, unspecified; J44.9 Chronic obstructive pulmonary disease, unspecified; Z88.2 Allergy status to sulfonamides; Z88.6 Allergy status to analgesic agent; Z88.5 Allergy status to narcotic agent; Z91.030 Bee allergy status; Z91.040 Latex allergy status; Z79.52 Long term (current) use of systemic steroids; Z79.4 Long term (current) use of insulin; Z79.02 Long term (current) use of antithrombotics/antiplatelets; Z79.899 Other long term (current) drug therapy

== ENCOUNTER → 2025-06-26 | Outpatient (CLI) | payer MEDICAID, MEDICARE | LOC: M LAB 13:56 | PROVIDERS: ATTEND Physician Assistant | DX: Z79.899 Other long term (current) drug therapy (principal) ==